=== PATIENT | female | born 1940 | race Caucasian/White ===

== ENCOUNTER 2021-05-01 11:41 | Outpatient (REF) | payer MEDICARE, MEDICAID, SELFPAY ==
--- NOTE | ~2021-05-01 | XR_ITS ---
EXAMINATION: XR HIP, RIGHT CLINICAL INFORMATION: Pain in right hip COMPARISON: Pelvis radiograph from 10/24/2019 TECHNIQUE: Two views of the right hip. FINDINGS: No acute visible fracture or dislocation. 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 Joint spaces and alignment are otherwise maintained. Pelvic phleboliths are noted. Visualized bowel gas is unremarkable. Soft tissues are unremarkable. XR/XR hip RT min 2V IMPRESSION: 1. No acute visible fracture or dislocation. 2. 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
== END 2021-05-01 11:42 | disposition home or self-care (01) ==
LOC: HO.XRAY 11:41
PROVIDERS: PCP Internal Medicine; Visit Provider Nurse Practitioner Family
DX: M25.551 Pain in right hip (principal)
CPT/HCPCS: 73502

== ENCOUNTER 2021-05-31 18:07 | Emergency (ER) | payer MEDICARE, MEDICAID, SELFPAY ==
[2021-05-31 18:30] VITALS: BP 201/90; PULSE 64; RESP 16; TEMP 36.7; O2SAT 97; BMI 27.4
--- NOTE | 2021-05-31 18:44 | ED_ITS ---
HPI - Dental/Oral General Chief complaint: Dental/Oral Stated complaint: tooth infection Time Seen by Provider: 05/31/21 18:41 Source: patient Mode of arrival: ambulatory Limitations: no limitations History of Present Illness HPI Narrative: 80-year-old female presenting to the ER with a right sided upper dental pain for the last 2 days. She reports breaking and upper 2s about 2 weeks ago but did not start having pain until about 2 days ago. She reports not being able to chew on the right side of her mouth because of the pain. She is also having trouble sleeping because the pain. She has had several tooth e xtractions and knows that she needs more taken out but she only gets 1 or 2 done at a time because is a lot for her. She has been taking Celebrex for pain as she has ongoing hip pain however this has not been having her dental pain. She has no fever or chills. No nausea or vomiting MD Complaint: tooth pain and tooth injury Location: Tooth # (3) Onset (ago): day(s) (2) Duration: constant Severity: severe Severity scale (1-10): 8 Relieving factors: nothing Exacerbating factors: chewing Context: trauma (mechanism) and poor dental care Associated symptoms: gum swelling Treatment prior to arrival: none Related Data Home Medications Medication Instructions Recorded Confirmed aspirin 81 mg tablet,delayed 81 mg PO DAILY 05/01/21 05/01/21 release multivitamin 1 tab PO DAILY 05/01/21 05/01/21 Previous Rx's Medication Instructions Recorded lidocaine 4 % topical patch 1 patch TOPICAL DAILY PRN #10 ea 05/01/21 (Aspercreme (lidocaine)) celecoxib 200 mg capsule (Celebrex) 200 mg PO BID PRN 30 Days #60 cap 05/19/21 hydrocodone 5 mg-acetaminophen 325 1 tab PO Q6H PRN #8 tab NS 05/31/21 mg tablet ondansetron 4 mg disintegrating 4 mg PO DAILY PRN #10 tab NS 05/31/21 tablet penicillin V potassium 500 mg 500 mg PO TID #21 tab NS 05/31/21 tablet Allergies Allergy/AdvReac Type Severity Reaction Status Date / Time guaifenesin [From Mucinex] Allergy Severe THROAT Verified 05/19/21 08:43 CLOSING propoxyphene [From Darvon] Allergy Mild VOMITING Verified 05/19/21 08:43 diclofenac Allergy Unknown voilently Verified 05/19/21 08:43 ill GENERIC MEDS Allergy Mild HIVES Uncoded 05/01/21 10:58 all generic brands Allergy Unknown Hives Uncoded 05/01/21 10:58 Review of Systems Review of Systems: Constitutional: No Fever, No Chills ENT/Mouth: No sore throat, No Rhinorrhea, No Swallowing Difficulty, +toothache, +broken tooth Eyes: No vision changes Cardiovascular: No Chest Pain, No SOB Gastrointestinal: No Nausea, No Vomiting Musculoskeletal: + joint pain, No Myalgias Skin: No Skin Lesions, No rash Neuro: No Weakness, No Numbness, No Dizziness, + Headache Psych: + Anxiety/Panic, No Depression Heme/Lymph: No Bruising, No Lymphadenopathy PMFSH Past Medical History Surgical History (Updated 05/01/21 @ 10:46 by KESHAWN Madrigal) History of 2 sections History of removal of cyst Family History Family History (Updated 05/01/21 @ 10:47 by KESHAWN Madrigal) Mother No problems noted. Father Substance use disorder Social History Social History (Updated 05/01/21 @ 10:48 by KESHAWN Madrigal) Housing: House Alcohol intake: never Patient Tobacco Use Status: Current someday Tobacco user Tobacco use type: Cigarette Cigarettes Per Day: 6 Advance Directives: No Advance Directives Information Provided: Yes service: No Current occupational status: retired Physical Exam Vital Signs: Vital Signs: Last Vital Signs Temp 98.0 F 05/31/21 18:30 Pulse 64 05/31/21 18:30 Resp 16 05/31/21 18:30 BP 201/90 H 05/31/21 18:30 Pulse Ox 97 05/31/21 18:30 Body Mass Index 27.4 Appearance: Alert. Oriented X3. No acute distress. HEENT: normal external inspection, face is symmetrical. Moist mucous membranes. Poor dentition. Left upper 2nd molar is broken with associated gingival swelling and erythema, no gingival fluctuance but there is some tenderness. Tooth is badly broken with exposed enamel. No palpable abscess. No trismus. Voice is normal handling secretions normally CVS: Normal heart rate and rhythm. Pulses normal. Respiratory: No respiratory distress. Skin: Skin warm and dry. Normal skin color. Normal skin turgor. No rashes. Extremities: Atraumatic, no swelling in her lower extremities Neuro: Oriented X 3. No motor deficit. No sensory deficit. Course Course Course Narrative: 80-year-old female presenting to the ER with right upper dental pain in the setting of a broken tooth. She presents today with her son who she lives with. Her dentist in [place] and a plan to call them 1st thing on Wednesday morning. They know this tooth needs to be removed. There does appear to be some mild erythema and edema with possible early infection. Will start on antibiotics and pain medication. She previously tolerated [place]. Will give a dose of that now and reassess. Her blood pressure was significantly elevated on arrival with systolic blood pressure of 200. She denies any history of hypertension. She has no chest pain, headache, dizziness, vision changes. Will medicate for pain and reassess her blood pressure. Reevaluation(s) Reevaluation #1: Repeat blood pressure without pain medications is improved to 180/80. She continues to complain of severe dental pain. She reports intolerance to generic medications including generic pain medications and generic antibiotics. However the pharmacy here only carries generic medications. Given her pain she is willing to premedicate with sublingual Zofran and then take the prescribed penicillin and [place] for pain. Will monitor in the ER to make sure she does have an adverse reaction. Her prior adverse reactions are vomiting. Reevaluation #2: Patient tolerated the medications well. She is stable for discharge home. She was given paper script so that her son can find pharmacies the carry the name brand of the medications. Discharge Plan Discharge Clinical Impression: Toothache Hypertension Qualifiers: Hypertension type: unspecified Qualified Code(s): I10 - Essential (primary) hypertension Patient Disposition: Home, Self-Care Instructions: Hypertension (ED), Toothache (ED) Additional Instructions: Take the prescribed antibiotic as directed for 1 week. Recommend following up with your dentist JEAN. Take the prescribed narcotic medication as needed for severe pain, do not drive or drink any alcohol with this medication. It can make you drowsy and lethargic. Avoid food that is very hot or very cold. Follow-up with your doctor next week for evaluation of high blood pressure. This could be pain related however her blood pressure was significantly elevated and you need to be followed up by your doctor. Prescriptions: New hydrocodone-acetaminophen 5-325 mg tablet 1 tab PO Q6H PRN (Reason: pain) Qty: 8 RF: 0 penicillin V potassium 500 mg tablet 500 mg PO TID Qty: 21 RF: 0 ondansetron 4 mg tablet,disintegrating 4 mg PO DAILY PRN (Reason: nausea and vomiting) Qty: 10 RF: 0 No Action multivitamin Tablet 1 tab PO DAILY RF: 0 aspirin 81 mg tablet,delayed release (DR/EC) 81 mg PO DAILY RF: 0 lidocaine [Aspercreme (lidocaine HCl)] 4 % adhesive patch,medicated 1 patch topical DAILY PRN (Reason: pain) Qty: 10 RF: 0 celecoxib [Celebrex] 200 mg capsule 200 mg PO BID PRN (Reason: pain) 30 Days Qty: 60 RF: 3
[2021-05-31] MEDS: Ondansetron ODT 4 MG TAB.RAPDIS TRANSLINGU (19:32)
[2021-05-31] MEDS: Penicillin V Potassium 250 MG TABLET 500 MG PO (19:34)
--- NOTE | 2021-05-31 19:36 | PC.NURSE ---
PT STATES THAT ALL NO BRAND NAMED MEDICATION MAKES HER VIOLENTLY ILL SPOKE WITH PHARMACY AND WE DO NOT CARRY ANY BRAND NAME MEDICATION. PT AGREE WITH SON TO TAKE ZOFRAN AND TRY TO TAKE PAIN MEDICATION.
[2021-05-31] MEDS: HYDROcodone Bit/Acetam 5/325 TABLET 1 TAB PO (20:00)
--- NOTE | 2021-05-31 20:23 | PC.NURSE ---
PT WAS ABLE TO TOLERATE GENERIC MEDICATION WITH ZOFRAN NO NAUSEA.
== END 2021-05-31 20:32 | disposition home or self-care (01) ==
PROVIDERS: Emergency Provider Emergency Medicine Emergency Medical Services; PCP Internal Medicine
DX: K08.89 Other specified disorders of teeth and supporting structures (principal); I10 Essential (primary) hypertension; Z79.899 Other long term (current) drug therapy; Z79.82 Long term (current) use of aspirin; F17.210 Nicotine dependence, cigarettes, uncomplicated; Z71.6 Tobacco abuse counseling
CPT/HCPCS: 99283; 99284

== ENCOUNTER 2021-07-23 08:11 | Outpatient (REF) | payer MEDICARE, MEDICAID, SELFPAY | END 2021-07-23 08:12 | disposition home or self-care (01) | LOC: HO.HOSX 08:11 | PROVIDERS: Visit Provider Physician Assistant | DX: Z13.89 Encounter for screening for other disorder (principal) ==

== ENCOUNTER 2022-02-20 14:04 | Emergency (ER) | payer MEDICARE, SELFPAY | END 2022-02-20 16:05 | disposition left against medical advice (07) | PROVIDERS: Emergency Provider Emergency Medicine | DX: R69 Illness, unspecified (principal) ==

== ENCOUNTER 2022-07-08 07:13 | Outpatient (REF) | payer MEDICARE, SELFPAY ==
--- NOTE | ~2022-07-08 | XR_ITS ---
EXAMINATION: XR HIP, RIGHT WITH PELVIS CLINICAL INFORMATION: Pain in hip. COMPARISON: X-ray of the right hip April 2021. X-ray of the pelvis October 2013. TECHNIQUE: Two views of the right hip. FINDINGS: RIGHT HIP: No joint space narrowing. Surrounding bone is normal. There is a focal area of calcification adjacent to the greater trochanter measuring approximately 6 mm. PELVIS: Right hip, as above. Otherwise, the bones, joints and soft tissues are unremarkable XR/XR hip RT w PEL1V IMPRESSION: RIGHT HIP: Calcification adjacent to the greater trochanter. This can be seen with calcific tendinitis. PELVIS: No additional findings/abnormalities.
== END 2022-07-08 07:14 | disposition home or self-care (01) ==
LOC: HO.HOSX 07:13
PROVIDERS: Visit Provider Physician Assistant
DX: M70.61 Trochanteric bursitis, right hip (principal)
CPT/HCPCS: 20610; 73502; 99202; J1040

== ENCOUNTER 2022-09-08 11:29 | Outpatient (REF) | payer MEDICARE, SELFPAY ==
--- NOTE | ~2022-09-08 | XR_ITS ---
EXAMINATION: XR CHEST CLINICAL INFORMATION: Cough COMPARISON: None TECHNIQUE: 2 views of the chest were obtained. FINDINGS: No significant abnormality is noted involving the heart, lungs, mediastinum, bony thorax or soft tissues. XR/XR chest 2V IMPRESSION: Unremarkable chest examination.
== END 2022-09-08 11:30 | disposition home or self-care (01) ==
LOC: HO.XRAY 11:29
PROVIDERS: PCP Family Medicine; Visit Provider Family Medicine
DX: R05.9 Cough, unspecified (principal)
CPT/HCPCS: 71046

== ENCOUNTER 2022-11-19 05:55 | Emergency (ER) | payer MEDICARE, SELFPAY ==
--- NOTE | ~2022-11-19 | XR_ITS ---
EXAMINATION: XR CHEST CLINICAL INFORMATION: Cough. COMPARISON: Chest 09/08/2022 TECHNIQUE: Frontal view of the chest was obtained. FINDINGS: The lungs are well-expanded and clear. The heart size and pulmonary vascularity is normal. No gross bony abnormality seen. XR/XR chest 1V IMPRESSION: Unremarkable chest examination.
[2022-11-19 06:36] VITALS: BP 147/87; PULSE 51; RESP 14; TEMP 36.4; O2SAT 96; BMI 24.4
[2022-11-19 06:58] LABS: MANUAL DIFF FLAG NO
[2022-11-19 06:59] LABS: Basophils Absolute Auto 0.1 X10*3/uL (0.0-0.2); Eosinophils Absolute Auto 1.2 X10*3/uL (0.0-0.4); Eosinophils Percent Auto 18.2 % (0-4); Hematocrit 43.9 % (37.0-47.0); Hemoglobin 13.7 g/dl (12.0-16.0); Imm Gran Abs Auto 0.01 X10*3/uL (0.00-0.03); Imm Gran Pct Auto 0.1 % (0.0-0.4); Lymphocytes Absolute Auto 2.2 X10*3/uL (1.2-4.9); Lymphocytes Percent Auto 32.5 % (20-40); Mean Corpuscular HGB Conc 31.2 g/dl (31.0-35.0); Mean Corpuscular Hemoglobin 26.8 pg (27.0-33.0); Mean Corpuscular Volume 85.7 fL (80.0-98.0); Mean Platelet Volume 8.6 fL (9.4-12.3); Monocytes Absolute Auto 0.5 X10*3/uL (0.1-1.2); Monocytes Percent Auto 7.9 % (2-11); Neutrophils Absolute Auto 2.7 x10*3/uL (2.0-8.3); Neutrophils Percent Auto 40.3 % (45-73); Platelet Count 292 X10*3/uL (160-400); Red Blood Count 5.12 X10*6/uL (4.20-5.50); Red Cell Distribution Width 13.3 % (11.0-16.0); White Blood Count 6.7 X10*3/uL (4.8-10.8)
[2022-11-19 07:07] VITALS: BP 147/78; PULSE 51; RESP 16; TEMP 36.4; O2SAT 95
[2022-11-19 07:14] LABS: Alanine Aminotransferase 10 U/L (0-31); Alkaline Phosphatase 101 U/L (39-117); Anion Gap 14 (12-20); Aspartate Amino Transferase 17 U/L (5-31); Bilirubin Total 0.4 mg/dL (0.0-1.0); Blood Urea Nitrogen 11 mg/dL (9-16); Calcium 9.2 mg/dL (8.4-10.2); Carbon Dioxide 25 mmol/L (22-29); Chloride 106 mmol/L (96-108); Estimated Glomerular Filt Rate > 60; Glucose Random 91 mg/dL (60-115); Potassium 4.4 mmol/L (3.3-5.1); Sodium 141 mmol/L (135-145); Total Protein 6.7 g/dL (6.5-8.0)
--- NOTE | 2022-11-19 07:25 | PC.NURSE ---
pt reporting persistent cough and SOB on exertion. Denies other symptoms. bilateral exp wheezing in upper lungs
--- NOTE | 2022-11-19 07:44 | ED_ITS ---
HPI - General Adult General Chief complaint: Upper Respiratory Symptoms Stated complaint: cough Time Seen by Provider: 11/19/22 07:15 Source: patient Mode of arrival: ambulatory Limitations: no limitations History of Present Illness HPI narrative: 82-year-old female former smoker patient quit 6 months ago, recently had bronchitis in March was treated with prednisone. Patient came in with cough for the last month patient had multiple evaluation by PCP and emergency room visit for the coughing, no fever, no chills, no sick contacts, no recent travel. Patient has been using [id number] coughing medicine with no relief. Feels sputums stuck in her chest and cannot bring it up. Related Data Previous Rx's Medication Instructions Recorded naphazoline 0.76840 %-pheniramine 1 drp ophthalmic (eye) BID-QID PRN 09/14/22 0.315 % eye drops (Opcon-A) allergy symptoms #15 mL azithromycin 250 mg tablet See Rx Instructions PO .COMPLEX #6 11/19/22 (Zithromax Z-Farooq) tabs Allergies Allergy/AdvReac Type Severity Reaction Status Date / Time guaifenesin [From Mucinex] Allergy Severe THROAT Verified 09/14/22 09:16 CLOSING propoxyphene [From Darvon] Allergy Mild VOMITING Verified 09/14/22 09:16 diclofenac Allergy Unknown voilently Verified 09/14/22 09:16 ill GENERIC MEDS Allergy Mild HIVES Uncoded 09/14/22 09:16 prednisone Allergy Mild Hives Uncoded 09/14/22 09:16 all generic brands Allergy Unknown Hives Uncoded 09/14/22 09:16 Review of Systems Review of Systems: All other systems are reviewed and are negative Constitutional: Reports as per HPI and Reports no additional constitutional complaints Eyes: Reports as per HPI and Reports no additional eye complaints Reports system reviewed and no additional complaints, except as documented Cardiovascular: Reports as per HPI and Reports no additional cardiovascular complaints Respiratory: Reports as per HPI and Reports no additional respiratory complaints Gastrointestinal: Reports as per HPI and Reports no additional gastrointestinal complaints Genitourinary: Reports no additional female genitourinary complaints Musculoskeletal: Reports no additional musculoskeletal complaints Skin/Breast: Reports system reviewed and no additional complaints, except as docu Psychiatric: Reports no additional psychiatric complaints Endocrine: Reports no additional endocrine complaints Hematologic/Lymphatic: Reports no additional hematologic/lymphatic complaints Allergic/Immunologic: Reports no additional allergic/immunologic complaints Reports system reviewed and no additional complaints, except as documented and Reports Abnormal speech present COUNTS INCLUDE 234 BEDS AT THE [facility] Past Medical History Surgical History History of 2 sections History of removal of cyst Family History Family History Mother No problems noted. Father Substance use disorder Social History Social History Housing: House Alcohol intake: never Patient Tobacco Use Status: Former Tobacco user Tobacco use type: Cigarette Cigarettes Per Day: 6 Smoked in Last 30 Days: No Use of substances other than those prescribed or required for medical reasons: No Advance Directives: Yes Advance Directives Information Provided: No Advance Directives on File: No service: No Current occupational status: retired Physical Exam ED Vital Signs: Vital Signs - 24 hr 11/19/22 06:36 11/19/22 07:07 11/19/22 07:07 Temperature 97.5 F 97.5 F Pulse Rate 51 51 Respiratory Rate 14 16 Blood Pressure 147/87 H 147/78 H Pulse Oximetry 96 95 95 Oxygen Delivery Method Room Air Room Air Room Air 11/19/22 07:56 Temperature Pulse Rate 46 L Respiratory Rate 16 Blood Pressure Pulse Oximetry Oxygen Delivery Method BMI result Body Mass Index 24.4 Vital signs have been reviewed as appeared to be correct. Blood pressure n ormal. Heart rate normal. Respiration rate normal. Temperature normal. Oxygen saturation normal. Appearance: Alert. Oriented X3. No acute distress. Head: Normal external exam. Normocephalic. Atraumatic. No Scruggs signs noted. No raccoon eyes noted Eyes: PERRLA. EOMI. Conjunctiva and sclera normal. Eyelids normal. ENT: TM's Normal. Pharynx normal. Uvula midline. Moist mucous membranes. No trismus noted. No drooling noted. No muffled voice noted. Neck: Normal inspection. Neck supple. FROM. No adenopathy. Thyroid Normal. No meningeal signs. No neck mass noted. CVS: Normal heart rate and rhythm. Heart sound normal. No murmurs noted. Pulses normal throughout. Respiratory: No respiratory distress. Painless inspiration. Breath sounds normal. No wheezes/rales/rhonchi noted. Chest nontender. No accessory muscle usage noted or decreased air movement noted. Abdomen: Soft and nontender. Bowel sounds normal in all 4 quadrants. No distention noted. No organomegaly noted. No visible injury noted. Back: No CVA tenderness. Full range of motion noted. Skin: Skin warm and dry. Normal skin color. Normal skin turgor. No rashes/lesions/lacerations noted. Extremities: No lower extremity edema. Extremities exhibit normal range of motion. Extremities nontender. Neuro: Oriented X 3. Cranial nerve exam: II-XII are grossly intact No motor deficit. No sensory deficit. Reflexes normal. Course Course Course Narrative: 82-year-old female with coughing for a month, will start the patient on Z-Farooq to treat subtle bronchitis. Medications Administered Discontinued Medications Generic Name Dose Route Start Last Admin Trade Name Freq PRN Reason Stop Dose Admin Acetaminophen/Codeine Phosphate 10 ml 11/19/22 07:43 11/19/22 07:59 Acetaminop/Codeine 120/12/5 Ml 5 Ml Solution PO 11/19/22 07:44 Not Given ONCE ONE Albuterol/Ipratropium 3 ml 11/19/22 07:42 11/19/22 07:54 Albuterol/Iprat 2.5/0.5mg 3 Ml Ampul.Neb INHALE 11/19/22 07:43 3 ml ONCE ONE Administration Prednisone 50 mg 11/19/22 07:42 11/19/22 07:59 Prednisone 10 Mg Tablet PO 11/19/22 07:43 Not Given ONCE ONE Medical Decision Making Differential Diagnosis Differential Diagnoses: The differential diagnosis associated with the presentation includes (Bronchitis, pneumonia, upper respiratory viral infection.) Admission/Observation Consideration of admission/observation: Escalation of care including admission/observation considered Lab Data MDM Lab Attestation statement: I reviewed the patient's lab results. 11/19/22 06:50 11/19/22 06:50 Labs: Lab Results 11/19/22 11/19/22 11/19/22 Range/Units 06:50 06:50 06:50 WBC 6.7 (4.8-10.8) X10*3/uL RBC 5.12 (4.20-5.50) X10*6/uL Hgb 13.7 (12.0-16.0) g/dl Hct 43.9 (37.0-47.0) % MCV 85.7 (80.0-98.0) fL MCH 26.8 L (27.0-33.0) pg MCHC 31.2 (31.0-35.0) g/dl RDW 13.3 (11.0-16.0) % Plt Count 292 (160-400) X10*3/uL MPV 8.6 L (9.4-12.3) fL Immature Gran % (Auto) 0.1 (0.0-0.4) % Neut % (Auto) 40.3 L (45-73) % Lymph % (Auto) 32.5 (20-40) % [place] % (Auto) 7.9 (2-11) % Eos % (Auto) 18.2 H (0-4) % Baso % (Auto) 1.0 (0-2) % Lymph # (Auto) 2.2 (1.2-4.9) X10*3/uL [place] # (Auto) 0.5 (0.1-1.2) X10*3/uL Eos # (Auto) 1.2 H (0.0-0.4) X10*3/uL Baso # (Auto) 0.1 (0.0-0.2) X10*3/uL Abs Immat Gran (auto) 0.01 (0.00-0.03) X10*3/uL Absolute Neuts (auto) 2.7 (2.0-8.3) x10*3/uL Absolute Nucleated RBC 0.000 (0.0-0.012) X10*3/uL Nucleated RBC % (auto) 0.0 (0.0-0.2) /100WBC Sodium 141 (135-145) mmol/L Potassium 4.4 (3.3-5.1) mmol/L Chloride 106 (96-108) mmol/L Carbon Dioxide 25 (22-29) mmol/L Anion Gap 14 (12-20) BUN 11 (9-16) mg/dL Creatinine 0.78 (0.5-1.4) mg/dL Estim Creat Clear Calc 42.0 Estimated GFR > 60 Random Glucose 91 (60-115) mg/dL Calcium 9.2 (8.4-10.2) mg/dL Total Bilirubin 0.4 (0.0-1.0) mg/dL AST 17 (5-31) U/L ALT 10 (0-31) U/L Alkaline Phosphatase 101 (39-117) U/L Total Protein 6.7 (6.5-8.0) g/dL Albumin 4.0 (3.5-5.0) g/dL Influenza Type A (PCR) NEGATIVE (Negative) Influenza Type B (PCR) NEGATIVE (Negative) RSV RNA Qual (PCR) NEGATIVE (Negative) SARS-CoV-2 RNA (RT-PCR) NEGATIVE (Negative) Independent Interpretation I performed an independent interpretation of an: Plain X-Ray (Chest: No acute intrathoracic pathology.) Radiology Impression Discussion of test interpretation with radiology: I have reviewed the radiologist's reading. Discharge Plan Discharge Clinical Impression: Bronchitis, Cough Patient Disposition: Home, Self-Care Instructions: Acute Bronchitis (ED) Prescriptions: New azithromycin [Zithromax Z-Farooq] 250 mg tablet See Rx Instructions .ROUTE .COMPLEX Qty: 6 0RF Rx Instructions: For 250 mg dose pack: take 500 mg today (day 1), then 250 mg for 4 days (days 2-5) No Action Opcon-A 0.62611-1.315 % drops 1 drp ophthalmic (eye) BID-QID PRN (Reason: allergy symptoms) Qty: 15 3RF Referrals: Erinn Gary MD [Primary Care Provider] -
[2022-11-19 07:50] LABS: Influenza A PCR NEGATIVE (Negative); Influenza B PCR NEGATIVE (Negative); Resp Syncy Virus RNA Qual PCR NEGATIVE (Negative); SARS COV2 PCR INHOUSE NEGATIVE (Negative)
[2022-11-19] MEDS: Albuterol/Iprat 2.5/0.5MG 3 ML AMPUL.NEB INHALE (07:54)
--- NOTE | 2022-11-19 07:55 | MHC.EDTECH ---
Patient refuse to obtain blood work. stated Need to leave to feed horse RN aware and .
[2022-11-19 07:56] VITALS: PULSE 46; RESP 16; O2SAT 100
--- NOTE | 2022-11-19 08:03 | PC.NURSE ---
pt refusing po medication, stated I dont take generic medications will notify provider
[2022-11-19 10:00] VITALS: BP 144/72; PULSE 54; RESP 16; TEMP 36.7; O2SAT 96
== END 2022-11-19 10:22 | disposition home or self-care (01) ==
PROVIDERS: Emergency Provider Emergency Medicine; PCP Internal Medicine
DX: J40 Bronchitis, not specified as acute or chronic (principal); R05.9 Cough, unspecified; Z87.891 Personal history of nicotine dependence; Z20.822 Contact with and (suspected) exposure to COVID-19; Z20.828 Contact with and (suspected) exposure to other viral communicable diseases; Z79.899 Other long term (current) drug therapy
CPT/HCPCS: 0241U; 71045; 80053; 85025; 94640; 99284; 99285

== ENCOUNTER 2022-11-24 11:03 | Emergency (ER) | payer MEDICARE, SELFPAY ==
--- NOTE | ~2022-11-24 | XR_ITS ---
EXAMINATION: XR CHEST CLINICAL INFORMATION: Cough. COMPARISON: None available. TECHNIQUE: Frontal view of the chest was obtained. FINDINGS: No significant abnormality is noted involving the heart, lungs, mediastinum, bony thorax or soft tissues. XR/XR chest 1V IMPRESSION: Unremarkable chest exam.
--- NOTE | 2022-11-24 11:22 | ECG_ITS ---
Test Reason : COUGH Blood Pressure : / mmHG Vent. Rate : 051 BPM Atrial Rate : 051 BPM P-R Int : 180 ms QRS Dur : 082 ms QT Int : 452 ms P-R-T Axes : 064 010 034 degrees QTc Int : 416 ms Sinus bradycardia Nonspecific ST and T wave abnormality Abnormal ECG When compared with ECG of 09-MAY-2017 16:50, No significant change was found Referred By: Rahul Sylvester Electronically Signed By:DAIN SOTELO
--- NOTE | 2022-11-24 11:27 | ED.SOB ---
HPI - SOB/Dyspnea General Chief Complaint: Upper Respiratory Symptoms Stated Complaint: Pneumonia Cough Time Seen by Provider: 11/24/22 13:00 Related Data Previous Rx's Medication Instructions Recorded naphazoline 0.98442 %-pheniramine 1 drp ophthalmic (eye) BID-QID PRN 09/14/22 0.315 % eye drops (Opcon-A) allergy symptoms #15 mL benzonatate 100 mg capsule 100 mg PO TID PRN cough #30 caps 11/20/22 pqaireafrubukhw-oofwdhypeinxllo-VP 5 ml PO Q6H PRN cold symptoms #60 11/20/22 2 mg-30 mg-10 mg/5 mL oral syrup mL hydrocodone-homatropine 5 mg-1.5 5 ml PO Q4-6H PRN cough #60 mL 11/23/22 mg/5 mL (5 mL) oral syrup (Hycodan) benzonatate 200 mg capsule 200 mg PO TID PRN cough #10 caps 11/24/22 prednisone 20 mg tablet 40 mg PO DAILY #10 tabs 11/24/22 acetaminophen 120 mg-codeine 12 10 ml PO Q4-6H PRN cough #118 mL 12/03/22 mg/5 mL oral solution levalbuterol tartrate 45 2 puff inhalation Q4-6H PRN 12/11/22 mcg/actuation aerosol inhaler shortness of breath #15 grams (Xopenex HFA) hydroxyzine pamoate 25 mg capsule 25 mg PO TID PRN for anxiety #20 12/14/22 caps Allergies Allergy/AdvReac Type Severity Reaction Status Date / Time guaifenesin [From Mucinex] Allergy Severe THROAT Verified 12/11/22 10:30 CLOSING propoxyphene [From Darvon] Allergy Mild VOMITING Verified 12/11/22 10:30 diclofenac Allergy Unknown voilently Verified 12/11/22 10:30 ill GENERIC MEDS Allergy Mild HIVES Uncoded 09/14/22 09:16 prednisone Allergy Mild Hives Uncoded 09/14/22 09:16 all generic brands Allergy Unknown Hives Uncoded 09/14/22 09:16 albuterol sulfate AdvReac Unknown Uncoded 12/11/22 13:06 [facility] Past Medical History Surgical History History of 2 sections History of removal of cyst Family History Family History Mother No problems noted. Father Substance use disorder Social History Social History Housing: House Alcohol intake: never Patient Tobacco Use Status: Former Tobacco user Tobacco use type: Cigarette Cigarettes Per Day: 6 e-Cigarette/Vaping Use: Never Used service: No Current occupational status: retired Cognitive needs: No Hearing needs: No Vision needs: No Physical Exam Vital Signs: Vital Signs: Last Vital Signs Temp 98.1 F 11/24/22 12:29 Pulse 90 11/24/22 15:04 Resp 22 H 11/24/22 15:04 BP 159/74 H 11/24/22 15:04 Pulse Ox 96 11/24/22 15:06 O2 Del Method Room Air 11/24/22 15:06 Oxygen Flow Rate 2 11/24/22 12:29 BMI result Body Mass Index 23.6 Course Course Course Narrative: This is an RME: Additional HPI, ROS, PE not included below will be deferred to primary provider. 82-year-old female seen here a few days ago and diagnosed with pneumonia presents with shortness of breath, worsening cough, fatigue, malaise. Patient poor historian. She also reports nausea. Denies chest pain. Physical exam benign. Patient is saturating 90% on room air. Heart rate 140s. Temperature 98.1 degrees oral Called charge nurse to make her aware of this patient. Plan basic labs, x-ray, blood cultures, lactic acid. Medications Administered Discontinued Medications Generic Name Dose Route Start Last Admin Trade Name Yeni PRN Reason Stop Dose Admin Albuterol/Ipratropium 3 ml 11/24/22 13:10 11/24/22 13:52 Albuterol/Iprat 2.5/0.5mg 3 Ml Ampul.Neb INHALE 11/24/22 13:11 3 ml ONCE ONE Administration Benzonatate 200 mg 11/24/22 15:08 11/24/22 15:19 Benzonatate 100 Mg Capsule PO 11/24/22 15:09 200 mg ONCE ONE Administration Hydromorphone HCl 0.25 mg 11/24/22 13:29 11/24/22 14:23 Hydromorphone Hcl 0.5 Mg/0.5 Ml Syringe IVPUSH 11/24/22 13:30 0.25 mg ONCE ONE Administration Protocol Sodium Chloride 1,000 mls @ 999 mls/hr 11/24/22 13:30 11/24/22 15:04 Ns IV 11/24/22 14:30 Infused .Q1H1M JAYDEN Infusion Methylprednisolone Sodium Succinate 125 mg 11/24/22 13:10 11/24/22 13:23 Methylprednisolone Sod Succ 125 Mg/2 Ml Vial IVPUSH 11/24/22 13:11 125 mg ONCE ONE Administration Ondansetron HCl 4 mg 11/24/22 12:30 11/24/22 13:23 Ondansetron Hcl 4 Mg/2 Ml Vial IVPUSH 11/24/22 12:31 4 mg ONCE ONE Administration Ondansetron HCl 4 mg 11/24/22 13:18 11/24/22 13:23 Ondansetron Hcl 4 Mg/2 Ml Vial IVPUSH 11/24/22 13:19 Not Given ONCE ONE Medical Decision Making Lab Data 11/24/22 12:18 11/24/22 12:18 Labs: Lab Results 11/24/22 11/24/22 11/24/22 Range/Units 12:18 12:18 12:18 WBC 8.9 (4.8-10.8) X10*3/uL RBC 4.80 (4.20-5.50) X10*6/uL Hgb 13.1 (12.0-16.0) g/dl Hct 41.5 (37.0-47.0) % MCV 86.5 (80.0-98.0) fL MCH 27.3 (27.0-33.0) pg MCHC 31.6 (31.0-35.0) g/dl RDW 13.2 (11.0-16.0) % Plt Count 265 (160-400) X10*3/uL MPV 9.0 L (9.4-12.3) fL Immature Gran % (Auto) 0.3 (0.0-0.4) % Neut % (Auto) 80.9 H (45-73) % Lymph % (Auto) 11.1 L (20-40) % [place] % (Auto) 4.4 (2-11) % Eos % (Auto) 2.6 (0-4) % Baso % (Auto) 0.7 (0-2) % Lymph # (Auto) 1.0 L (1.2-4.9) X10*3/uL [place] # (Auto) 0.4 (0.1-1.2) X10*3/uL Eos # (Auto) 0.2 (0.0-0.4) X10*3/uL Baso # (Auto) 0.1 (0.0-0.2) X10*3/uL Abs Immat Gran (auto) 0.03 (0.00-0.03) X10*3/uL Absolute Neuts (auto) 7.2 (2.0-8.3) x10*3/uL Absolute Nucleated RBC 0.000 (0.0-0.012) X10*3/uL Nucleated RBC % (auto) 0.0 (0.0-0.2) /100WBC Sodium 135 (135-145) mmol/L Potassium 4.5 (3.3-5.1) mmol/L Chloride 102 (96-108) mmol/L Carbon Dioxide 25 (22-29) mmol/L Anion Gap 13 (12-20) BUN 13 (9-16) mg/dL Creatinine 0.76 (0.5-1.4) mg/dL Estim Creat Clear Calc 44.4 Estimated GFR > 60 Random Glucose 118 H (60-115) mg/dL Lactic Acid (0.5-2.0) mmol/L Calcium 9.3 (8.4-10.2) mg/dL Magnesium 1.7 (1.6-2.6) mg/dL Total Bilirubin 0.5 (0.0-1.0) mg/dL AST 19 (5-31) U/L ALT 11 (0-31) U/L Alkaline Phosphatase 107 (39-117) U/L Troponin I High Sens (<3.5-17.0) ng/L B-Natriuretic Peptide 49 (<100) pg/mL Total Protein 7.2 (6.5-8.0) g/dL Albumin 4.5 (3.5-5.0) g/dL COVID-19 (MAURISIO) (Negative) COVID-19 Clin Com 0411/24/22 11/24/22 Range/Units 12:18 12:18 12:18 WBC (4.8-10.8) X10*3/uL RBC (4.20-5.50) X10*6/uL Hgb (12.0-16.0) g/dl Hct (37.0-47.0) % MCV (80.0-98.0) fL MCH (27.0-33.0) pg MCHC (31.0-35.0) g/dl RDW (11.0-16.0) % Plt Count (160-400) X10*3/uL MPV (9.4-12.3) fL Immature Gran % (Auto) (0.0-0.4) % Neut % (Auto) (45-73) % Lymph % (Auto) (20-40) % [place] % (Auto) (2-11) % Eos % (Auto) (0-4) % Baso % (Auto) (0-2) % Lymph # (Auto) (1.2-4.9) X10*3/uL [place] # (Auto) (0.1-1.2) X10*3/uL Eos # (Auto) (0.0-0.4) X10*3/uL Baso # (Auto) (0.0-0.2) X10*3/uL Abs Immat Gran (auto) (0.00-0.03) X10*3/uL Absolute Neuts (auto) (2.0-8.3) x10*3/uL Absolute Nucleated RBC (0.0-0.012) X10*3/uL Nucleated RBC % (auto) (0.0-0.2) /100WBC Sodium (135-145) mmol/L Potassium (3.3-5.1) mmol/L Chloride (96-108) mmol/L Carbon Dioxide (22-29) mmol/L Anion Gap (12-20) BUN (9-16) mg/dL Creatinine (0.5-1.4) mg/dL Estim Creat Clear Calc Estimated GFR Random Glucose (60-115) mg/dL Lactic Acid 1.2 (0.5-2.0) mmol/L Calcium (8.4-10.2) mg/dL Magnesium (1.6-2.6) mg/dL Total Bilirubin (0.0-1.0) mg/dL AST (5-31) U/L ALT (0-31) U/L Alkaline Phosphatase (39-117) U/L Troponin I High Sens 2.9 (<3.5-17.0) ng/L B-Natriuretic Peptide (<100) pg/mL Total Protein (6.5-8.0) g/dL Albumin (3.5-5.0) g/dL COVID-19 (MAURISIO) Negative (Negative) COVID-19 Clin Com See Note Discharge Plan Discharge Clinical Impression: Bronchitis Patient Disposition: Home, Self-Care Instructions: Chronic Bronchitis (ED) Prescriptions: New prednisone 20 mg tablet 40 mg PO DAILY Qty: 10 0RF benzonatate 200 mg capsule 200 mg PO TID PRN (Reason: cough) Qty: 10 0RF No Action hydroxyzine pamoate 25 mg capsule 25 mg PO TID PRN (Reason: for anxiety) Qty: 20 0RF spejkgjjkjrupqw-sjpmbekyd-RM 2-30-10 mg/5 mL syrup 5 ml PO Q6H PRN (Reason: cold symptoms) Qty: 60 0RF benzonatate 100 mg capsule 100 mg PO TID PRN (Reason: cough) Qty: 30 0RF hydrocodone-homatropine [Hycodan] 5-1.5 mg/5 mL (5 mL) syrup 5 ml PO Q4-6H PRN (Reason: cough) Qty: 60 0RF Rx Instructions: Partial Fill upon patient request. acetaminophen-codeine 120-12 mg/5 mL solution 10 ml PO Q4-6H PRN (Reason: cough) Qty: 118 0RF Opcon-A 0.65462-7.315 % drops 1 drp ophthalmic (eye) BID-QID PRN (Reason: allergy symptoms) Qty: 15 3RF levalbuterol tartrate [Xopenex HFA] 45 mcg/actuation HFA aerosol inhaler 2 puff inhalation Q4-6H PRN (Reason: shortness of breath) Qty: 15 0RF Referrals: Erinn Gary MD [Primary Care Provider] - 2 days Interventions: ED Discharge Assessment Last Done: 11/24/22 15:24 Discharge Date/Time: 11/24/22 15:25
[2022-11-24 12:29] VITALS: BP 150/80; PULSE 53; RESP 16; TEMP 36.7; O2SAT 97; BMI 23.6
[2022-11-24 12:38] LABS: MANUAL DIFF FLAG NO
[2022-11-24 12:41] LABS: Basophils Absolute Auto 0.1 X10*3/uL (0.0-0.2); Basophils Percent Auto 0.7 % (0-2); Eosinophils Absolute Auto 0.2 X10*3/uL (0.0-0.4); Eosinophils Percent Auto 2.6 % (0-4); Hematocrit 41.5 % (37.0-47.0); Hemoglobin 13.1 g/dl (12.0-16.0); Imm Gran Abs Auto 0.03 X10*3/uL (0.00-0.03); Imm Gran Pct Auto 0.3 % (0.0-0.4); Lymphocytes Percent Auto 11.1 % (20-40); Mean Corpuscular HGB Conc 31.6 g/dl (31.0-35.0); Mean Corpuscular Hemoglobin 27.3 pg (27.0-33.0); Mean Corpuscular Volume 86.5 fL (80.0-98.0); Monocytes Absolute Auto 0.4 X10*3/uL (0.1-1.2); Monocytes Percent Auto 4.4 % (2-11); Neutrophils Absolute Auto 7.2 x10*3/uL (2.0-8.3); Neutrophils Percent Auto 80.9 % (45-73); Platelet Count 265 X10*3/uL (160-400); Red Cell Distribution Width 13.2 % (11.0-16.0); White Blood Count 8.9 X10*3/uL (4.8-10.8)
[2022-11-24 12:51] LABS: Lactic Acid 1.2 mmol/L (0.5-2.0)
[2022-11-24 12:54] LABS: COVID-19 Test Negative (Negative); IDNOW Serial# BCCEAD1C
[2022-11-24 12:56] LABS: Alanine Aminotransferase 11 U/L (0-31); Albumin Level 4.5 g/dL (3.5-5.0); Alkaline Phosphatase 107 U/L (39-117); Anion Gap 13 (12-20); Aspartate Amino Transferase 19 U/L (5-31); Bilirubin Total 0.5 mg/dL (0.0-1.0); Blood Urea Nitrogen 13 mg/dL (9-16); Calcium 9.3 mg/dL (8.4-10.2); Carbon Dioxide 25 mmol/L (22-29); Chloride 102 mmol/L (96-108); Creatinine Clr Calc Pharmacy 44.4; Estimated Glomerular Filt Rate > 60; Glucose Random 118 mg/dL (60-115); Magnesium 1.7 mg/dL (1.6-2.6); Potassium 4.5 mmol/L (3.3-5.1); Sodium 135 mmol/L (135-145); Total Protein 7.2 g/dL (6.5-8.0)
[2022-11-24 13:01] LABS: B Type Natriuretic Peptide 49 pg/mL (<100)
[2022-11-24 13:03] LABS: Troponin-I High Sensitivity 2.9 ng/L (<3.5-17.0)
--- NOTE | 2022-11-24 13:11 | ED.URI ---
HPI - URI/Sore Throat General Chief Complaint: Upper Respiratory Symptoms Stated Complaint: Pneumonia Cough Time Seen by Provider: 11/24/22 13:00 History of Present Illness HPI Narrative: Patient is 82 years old positive coughing upper respiratory symptom. Previous history of smoking. Patient was in the emergency department 5 days ago. Started on a Z-Farooq. He did have symptoms of coughing congestion upper respiratory symptoms generalized malaise. Related Data Previous Rx's Medication Instructions Recorded naphazoline 0.26511 %-pheniramine 1 drp ophthalmic (eye) BID-QID PRN 09/14/22 0.315 % eye drops (Opcon-A) allergy symptoms #15 mL azithromycin 250 mg tablet See Rx Instructions PO .COMPLEX #6 11/19/22 (Zithromax Z-Farooq) tabs benzonatate 100 mg capsule 100 mg PO TID PRN cough #30 caps 11/20/22 pokdsafxloziiua-cxibmkedgokveke-JO 5 ml PO Q6H PRN cold symptoms #60 11/20/22 2 mg-30 mg-10 mg/5 mL oral syrup mL hydrocodone-homatropine 5 mg-1.5 5 ml PO Q4-6H PRN cough #60 mL 11/23/22 mg/5 mL (5 mL) oral syrup (Hycodan) albuterol sulfate 90 mcg/actuation 2 puff inhalation Q6H PRN 11/24/22 aerosol inhaler shortness of breath or wheezing #8.5 grams prednisone 20 mg tablet 40 mg PO DAILY #10 tabs 11/24/22 Allergies Allergy/AdvReac Type Severity Reaction Status Date / Time guaifenesin [From Mucinex] Allergy Severe THROAT Verified 09/14/22 09:16 CLOSING propoxyphene [From Darvon] Allergy Mild VOMITING Verified 09/14/22 09:16 diclofenac Allergy Unknown voilently Verified 09/14/22 09:16 ill GENERIC MEDS Allergy Mild HIVES Uncoded 09/14/22 09:16 prednisone Allergy Mild Hives Uncoded 09/14/22 09:16 all generic brands Allergy Unknown Hives Uncoded 09/14/22 09:16 Review of Systems Review of Systems: She has not used given positive coughing congestion upper respiratory symptoms. Yes all other systems are reviewed and are negative PMFSH Past Medical History Attestation statement: The following information was validated with the patient. Surgical History History of 2 sections History of removal of cyst Family History Family History Mother No problems noted. Father Substance use disorder Social History Social History Housing: House Alcohol intake: never Patient Tobacco Use Status: Former Tobacco user Tobacco use type: Cigarette Cigarettes Per Day: 6 Advance Directives: No service: No Current occupational status: retired Physical Exam Vital Signs: Vital Signs: Last Vital Signs Temp 98.1 F 11/24/22 12:29 Pulse 61 11/24/22 13:53 Resp 20 11/24/22 13:53 BP 170/70 H 11/24/22 13:50 Pulse Ox 97 11/24/22 13:50 O2 Del Method Room Air 11/24/22 13:50 Oxygen Flow Rate 2 11/24/22 12:29 BMI result Body Mass Index 23.6 Appearance: Alert. Oriented X3. No acute distress. Eyes: Pupils equal, round and reactive to light. ENT: Pharynx normal. Neck: Normal inspection. Neck supple. No lymph nodes noted. No crepitus CVS: Normal heart rate and rhythm. Pulses normal. Normal S1 and S2 Respiratory: Positive wheezing bilaterally. No retraction noted. Abdomen: Soft and nontender. No rigidity. No distention. good BS x4 Skin: Skin warm and dry. Normal skin color. Normal skin turgor. Extremities: No lower extremity edema. Neurovascular intact to all extremities. No Lacerations. No Rash Neuro: Oriented X 3. No motor deficit. No sensory deficit. Moving all extermities. No slurred speech Medications Administered Discontinued Medications Generic Name Dose Route Start Last Admin Trade Name Freq PRN Reason Stop Dose Admin Albuterol/Ipratropium 3 ml 11/24/22 13:10 11/24/22 13:52 Albuterol/Iprat 2.5/0.5mg 3 Ml Ampul.Neb INHALE 11/24/22 13:11 3 ml ONCE ONE Administration Hydromorphone HCl 0.25 mg 11/24/22 13:29 11/24/22 14:23 Hydromorphone Hcl 0.5 Mg/0.5 Ml Syringe IVPUSH 11/24/22 13:30 0.25 mg ONCE ONE Administration Protocol Sodium Chloride 1,000 mls @ 999 mls/hr 11/24/22 13:30 11/24/22 13:24 Ns IV 11/24/22 14:30 999 mls/hr .Q1H1M JAYDEN Administration Methylprednisolone Sodium Succinate 125 mg 11/24/22 13:10 11/24/22 13:23 Methylprednisolone Sod Succ 125 Mg/2 Ml Vial IVPUSH 11/24/22 13:11 125 mg ONCE ONE Administration Ondansetron HCl 4 mg 11/24/22 12:30 11/24/22 13:23 Ondansetron Hcl 4 Mg/2 Ml Vial IVPUSH 11/24/22 12:31 4 mg ONCE ONE Administration Ondansetron HCl 4 mg 11/24/22 13:18 11/24/22 13:23 Ondansetron Hcl 4 Mg/2 Ml Vial IVPUSH 11/24/22 13:19 Not Given ONCE ONE Medical Decision Making Medical Decision Making [facility] Narrative: Patient's O2 sat was 96% on room air. There is no evidence of hypoxia. Positive wheezing bilaterally positive coughing congestion upper respiratory symptoms. COVID test was negative. Patient's chest x-ray showed no focal infiltrate. Her symptoms are consistent with COPD exacerbation/chronic bronchitis. Jareth steroids here in the emergency department. Given a DuoNeb treatment. Symptom improved. Patient's troponin is negative. BNP is negative. No evidence for congestive heart failure. My interpretation of patient's EKG showed no signs of acute IN. patient will be discharged home on a course of steroid. An inhaler. Follow up on an outpatient basis. In stable condition. Differential Diagnosis Differential Diagnoses: The differential diagnosis associated with the presentation includes COPD, bronchitis, pneumonia, congestive heart failure Admission/Observation Consideration of admission/observation: Escalation of care including admission/observation considered No need for admission is patient has sat remained greater than 90% Lab Data [facility] Lab Attestation statement: I reviewed the patient's lab results. 11/24/22 12:18 11/24/22 12:18 Labs: Lab Results 11/24/22 11/24/22 11/24/22 Range/Units 12:18 12:18 12:18 WBC 8.9 (4.8-10.8) X10*3/uL RBC 4.80 (4.20-5.50) X10*6/uL Hgb 13.1 (12.0-16.0) g/dl Hct 41.5 (37.0-47.0) % MCV 86.5 (80.0-98.0) fL MCH 27.3 (27.0-33.0) pg MCHC 31.6 (31.0-35.0) g/dl RDW 13.2 (11.0-16.0) % Plt Count 265 (160-400) X10*3/uL MPV 9.0 L (9.4-12.3) fL Immature Gran % (Auto) 0.3 (0.0-0.4) % Neut % (Auto) 80.9 H (45-73) % Lymph % (Auto) 11.1 L (20-40) % [place] % (Auto) 4.4 (2-11) % Eos % (Auto) 2.6 (0-4) % Baso % (Auto) 0.7 (0-2) % Lymph # (Auto) 1.0 L (1.2-4.9) X10*3/uL [place] # (Auto) 0.4 (0.1-1.2) X10*3/uL Eos # (Auto) 0.2 (0.0-0.4) X10*3/uL Baso # (Auto) 0.1 (0.0-0.2) X10*3/uL Abs Immat Gran (auto) 0.03 (0.00-0.03) X10*3/uL Absolute Neuts (auto) 7.2 (2.0-8.3) x10*3/uL Absolute Nucleated RBC 0.000 (0.0-0.012) X10*3/uL Nucleated RBC % (auto) 0.0 (0.0-0.2) /100WBC Sodium 135 (135-145) mmol/L Potassium 4.5 (3.3-5.1) mmol/L Chloride 102 (96-108) mmol/L Carbon Dioxide 25 (22-29) mmol/L Anion Gap 13 (12-20) BUN 13 (9-16) mg/dL Creatinine 0.76 (0.5-1.4) mg/dL Estim Creat Clear Calc 44.4 Estimated GFR > 60 Random Glucose 118 H (60-115) mg/dL Lactic Acid (0.5-2.0) mmol/L Calcium 9.3 (8.4-10.2) mg/dL Magnesium 1.7 (1.6-2.6) mg/dL Total Bilirubin 0.5 (0.0-1.0) mg/dL AST 19 (5-31) U/L ALT 11 (0-31) U/L Alkaline Phosphatase 107 (39-117) U/L Troponin I High Sens (<3.5-17.0) ng/L B-Natriuretic Peptide 49 (<100) pg/mL Total Protein 7.2 (6.5-8.0) g/dL Albumin 4.5 (3.5-5.0) g/dL COVID-19 (MAURISIO) (Negative) COVID-19 Clin Com 11/24/22 11/24/22 11/24/22 Range/Units 12:18 12:18 12:18 WBC (4.8-10.8) X10*3/uL RBC (4.20-5.50) X10*6/uL Hgb (12.0-16.0) g/dl Hct (37.0-47.0) % MCV (80.0-98.0) fL MCH (27.0-33.0) pg MCHC (31.0-35.0) g/dl RDW (11.0-16.0) % Plt Count (160-400) X10*3/uL MPV (9.4-12.3) fL Immature Gran % (Auto) (0.0-0.4) % Neut % (Auto) (45-73) % Lymph % (Auto) (20-40) % [place] % (Auto) (2-11) % Eos % (Auto) (0-4) % Baso % (Auto) (0-2) % Lymph # (Auto) (1.2-4.9) X10*3/uL [place] # (Auto) (0.1-1.2) X10*3/uL Eos # (Auto) (0.0-0.4) X10*3/uL Baso # (Auto) (0.0-0.2) X10*3/uL Abs Immat Gran (auto) (0.00-0.03) X10*3/uL Absolute Neuts (auto) (2.0-8.3) x10*3/uL Absolute Nucleated RBC (0.0-0.012) X10*3/uL Nucleated RBC % (auto) (0.0-0.2) /100WBC Sodium (135-145) mmol/L Potassium (3.3-5.1) mmol/L Chloride (96-108) mmol/L Carbon Dioxide (22-29) mmol/L Anion Gap (12-20) BUN (9-16) mg/dL Creatinine (0.5-1.4) mg/dL Estim Creat Clear Calc Estimated GFR Random Glucose (60-115) mg/dL Lactic Acid 1.2 (0.5-2.0) mmol/L Calcium (8.4-10.2) mg/dL Magnesium (1.6-2.6) mg/dL Total Bilirubin (0.0-1.0) mg/dL AST (5-31) U/L ALT (0-31) U/L Alkaline Phosphatase (39-117) U/L Troponin I High Sens 2.9 (<3.5-17.0) ng/L B-Natriuretic Peptide (<100) pg/mL Total Protein (6.5-8.0) g/dL Albumin (3.5-5.0) g/dL COVID-19 (MAURISIO) Negative (Negative) COVID-19 Clin Com See Note Independent Interpretation I performed an independent interpretation of an: EKG Interpretation: My interpretation patient's EKG showed a sinus pattern heart rate is 60 GA QRS QTC within normal limits is nonspecific T-wave flattening noted. External Record Review External record reviewed: Inpatient record Chronic Conditions Patient?s care impacted by: Hypertension Long history of smoking quit approximately 6 months ago Discharge Plan Discharge Clinical Impression: Bronchitis Patient Disposition: Home, Self-Care Instructions: Chronic Bronchitis (ED) Prescriptions: New prednisone 20 mg tablet 40 mg PO DAILY Qty: 10 0RF albuterol sulfate 90 mcg/actuation HFA aerosol inhaler 2 puff inhalation Q6H PRN (Reason: shortness of breath or wheezing) Qty: 8.5 0RF No Action azithromycin [Zithromax Z-Farooq] 250 mg tablet See Rx Instructions .ROUTE .COMPLEX Qty: 6 0RF Rx Instructions: For 250 mg dose pack: take 500 mg today (day 1), then 250 mg for 4 days (days 2-5) yrfmiwemajgnzwx-khsekmcih-NI 2-30-10 mg/5 mL syrup 5 ml PO Q6H PRN (Reason: cold symptoms) Qty: 60 0RF benzonatate 100 mg capsule 100 mg PO TID PRN (Reason: cough) Qty: 30 0RF hydrocodone-homatropine [Hycodan] 5-1.5 mg/5 mL (5 mL) syrup 5 ml PO Q4-6H PRN (Reason: cough) Qty: 60 0RF Rx Instructions: Partial Fill upon patient request. Opcon-A 0.84931-5.315 % drops 1 drp ophthalmic (eye) BID-QID PRN (Reason: allergy symptoms) Qty: 15 3RF Referrals: Erinn Gary MD [Primary Care Provider] - 2 days
[2022-11-24] MEDS: methylPREDNISolone Sod Succ 125 MG/2 ML VIAL IVPUSH (13:23)
[2022-11-24] MEDS: ondansetron HCL 4 MG/2 ML VIAL IVPUSH (13:23)
[2022-11-24] MEDS: 0.9 % Sodium Chloride 1,000 ML 999 ML IV (13:24)
[2022-11-24 13:50] VITALS: BP 170/70; PULSE 53; RESP 16; O2SAT 97
[2022-11-24] MEDS: Albuterol/Iprat 2.5/0.5MG 3 ML AMPUL.NEB INHALE (13:52)
[2022-11-24 13:53] VITALS: PULSE 61; RESP 20; O2SAT 96
[2022-11-24] MEDS: HYDROmorphone HCl 0.5 MG/0.5 ML SYRINGE 0.25 MG IVPUSH (14:23)
[2022-11-24 15:04] VITALS: BP 159/74; PULSE 90; PULSE 97; RESP 22; O2SAT 96
[2022-11-24 15:06] VITALS: O2SAT 96
--- NOTE | 2022-11-24 15:09 | PC.NURSE ---
report received from DANNI Coelho Pt resting on stretcher at this time, reporting chest pain resulting from coughing. Pt requesting medication for the cough. Denies any other complaints, denies SOB. Pt satting 97% on RA. Fluids finished in MD ALBERTA aware of request for medication for cough.
[2022-11-24] MEDS: Benzonatate 100 MG CAPSULE 200 MG PO (15:19)
== END 2022-11-24 15:25 | disposition home or self-care (01) ==
PROVIDERS: Physician Assistant; Emergency Provider Emergency Medicine Emergency Medical Services; PCP Internal Medicine
DX: J42 Unspecified chronic bronchitis (principal); R06.2 Wheezing; Z20.822 Contact with and (suspected) exposure to COVID-19; Z79.899 Other long term (current) drug therapy
CPT/HCPCS: 36415; 71045; 80053; 83605; 83735; 83880; 84484; 85025; 87040; 87635; 93005; 94640; 96361; 96374; 96375; 99284; 99285; J1170; J2405; J2930

== ENCOUNTER 2022-12-02 22:08 | Emergency (ER) | payer MEDICARE, SELFPAY ==
--- NOTE | ~2022-12-02 | XR_ITS ---
EXAMINATION: PORTABLE CHEST 1 VIEW CLINICAL INFORMATION: dyspnea. COMPARISON: 11/24/2022. TECHNIQUE: Portable frontal view of the chest was obtained. FINDINGS: The lungs are well expanded. Chronic appearing linear scarring or atelectasis at the left lung base. No focal infiltrate, effusion, edema, or pneumothorax. Cardiac and mediastinal silhouettes are within normal limits for size. Hiatal hernia is again noted. Mild tortuosity to the descending aorta. No acute bony abnormality seen. XR/XR chest 1V IMPRESSION: Chronic appearing changes similar to the 11/24/2022 study.
[2022-12-02 22:10] VITALS: BP 186/94; PULSE 67; RESP 20; TEMP 36.4; O2SAT 98; BMI 26.2
[2022-12-02 22:43] LABS: MANUAL DIFF FLAG NO
[2022-12-02 22:52] LABS: Basophils Absolute Auto 0.1 X10*3/uL (0.0-0.2); Basophils Percent Auto 0.7 % (0-2); Eosinophils Absolute Auto 1.3 X10*3/uL (0.0-0.4); Eosinophils Percent Auto 16.1 % (0-4); Hematocrit 39.5 % (37.0-47.0); Hemoglobin 12.5 g/dl (12.0-16.0); Imm Gran Abs Auto 0.05 X10*3/uL (0.00-0.03); Imm Gran Pct Auto 0.6 % (0.0-0.4); Lymphocytes Absolute Auto 2.5 X10*3/uL (1.2-4.9); Lymphocytes Percent Auto 29.6 % (20-40); Mean Corpuscular HGB Conc 31.6 g/dl (31.0-35.0); Mean Corpuscular Hemoglobin 27.4 pg (27.0-33.0); Mean Corpuscular Volume 86.4 fL (80.0-98.0); Mean Platelet Volume 8.9 fL (9.4-12.3); Monocytes Absolute Auto 0.9 X10*3/uL (0.1-1.2); Monocytes Percent Auto 10.7 % (2-11); Neutrophils Absolute Auto 3.5 x10*3/uL (2.0-8.3); Neutrophils Percent Auto 42.3 % (45-73); Platelet Count 278 X10*3/uL (160-400); Red Blood Count 4.57 X10*6/uL (4.20-5.50); Red Cell Distribution Width 13.6 % (11.0-16.0); White Blood Count 8.3 X10*3/uL (4.8-10.8)
[2022-12-02 23:04] LABS: Alanine Aminotransferase 10 U/L (0-31); Albumin Level 3.8 g/dL (3.5-5.0); Alkaline Phosphatase 104 U/L (39-117); Anion Gap 15 (12-20); Aspartate Amino Transferase 15 U/L (5-31); Bilirubin Total 0.2 mg/dL (0.0-1.0); Blood Urea Nitrogen 13 mg/dL (9-16); Calcium 9.1 mg/dL (8.4-10.2); Carbon Dioxide 21 mmol/L (22-29); Chloride 108 mmol/L (96-108); Creatinine Clr Calc Pharmacy 37.2; Estimated Glomerular Filt Rate 56; Glucose Random 118 mg/dL (60-115); Potassium 3.8 mmol/L (3.3-5.1); Sodium 140 mmol/L (135-145); Total Protein 6.4 g/dL (6.5-8.0)
[2022-12-02 23:33] LABS: Influenza A PCR NEGATIVE (Negative); Influenza B PCR NEGATIVE (Negative); Resp Syncy Virus RNA Qual PCR NEGATIVE (Negative); SARS COV2 PCR INHOUSE NEGATIVE (Negative)
[2022-12-02 23:38] VITALS: BP 187/72; PULSE 70; RESP 17; TEMP 37.1; O2SAT 96
[2022-12-02 23:40] VITALS: O2SAT 97
[2022-12-03] MEDS: guaiFEN/Codeine SF 200/20/10ML 10 ML LIQUID PO (00:33)
--- NOTE | 2022-12-03 00:36 | PC.NURSE ---
Addendum entered by Nancie Werner 12/03/22 00:53: malaika castellano made aware of pt status Original Note: lat entry- pt family at bedside. pt resting on stretcher. this rn placed pt on hall monitor.
--- NOTE | 2022-12-03 00:36 | PC.NURSE ---
Addendum entered by Nancie Werner 12/03/22 01:52: pt medicated according to oct. pt allergy to guaifenesin realized by this rn and malaika castellano after administration of medication. pt remained on conveyor monitor. pt denies sob, denies throat tightness. this rn and malaika castellano at bedside. [id number]% RR nonlabored 18 Original Note: pt medicated according to oct. RT at bedside for breathing treatment. family members remain at bedside
--- NOTE | 2022-12-03 00:37 | ED_ITS ---
HPI - General Adult General Chief complaint: Upper Respiratory Symptoms Stated complaint: trouble breathing Time Seen by Provider: 12/03/22 00:10 Source: patient, family, RN notes reviewed and old records reviewed Mode of arrival: ambulatory Limitations: no limitations History of Present Illness HPI narrative: 82-year-old female presents for evaluation of cough. This is the patient's 4th visit in the last 2 weeks for cough. She reports that she was diagnosed with bronchitis. She was initially given azithromycin and subsequently given prednisone. She has finished all her medications and reports that she is still coughing. She denies any significant shortness of breath, fevers, chills. She endorses weakness she reports that she cannot sleep at night because of her cough Related Data Previous Rx's Medication Instructions Recorded naphazoline 0.71282 %-pheniramine 1 drp ophthalmic (eye) BID-QID PRN 09/14/22 0.315 % eye drops (Opcon-A) allergy symptoms #15 mL azithromycin 250 mg tablet See Rx Instructions PO .COMPLEX #6 11/19/22 (Zithromax Z-Farooq) tabs benzonatate 100 mg capsule 100 mg PO TID PRN cough #30 caps 11/20/22 tuxbesibgituvts-vrytdqnehuqecbk-EY 5 ml PO Q6H PRN cold symptoms #60 11/20/22 2 mg-30 mg-10 mg/5 mL oral syrup mL hydrocodone-homatropine 5 mg-1.5 5 ml PO Q4-6H PRN cough #60 mL 11/23/22 mg/5 mL (5 mL) oral syrup (Hycodan) albuterol sulfate 90 mcg/actuation 2 puff inhalation Q6H PRN 11/24/22 aerosol inhaler shortness of breath or wheezing #8.5 grams benzonatate 200 mg capsule 200 mg PO TID PRN cough #10 caps 11/24/22 prednisone 20 mg tablet 40 mg PO DAILY #10 tabs 11/24/22 acetaminophen 120 mg-codeine 12 10 ml PO Q4-6H PRN cough #118 mL 12/03/22 mg/5 mL oral solution hydroxyzine pamoate 25 mg capsule 25 mg PO TID PRN anxiety #20 caps 12/03/22 (Vistaril) Allergies Allergy/AdvReac Type Severity Reaction Status Date / Time guaifenesin [From Mucinex] Allergy Severe THROAT Verified 12/02/22 22:09 CLOSING propoxyphene [From Darvon] Allergy Mild VOMITING Verified 12/02/22 22:09 diclofenac Allergy Unknown voilently Verified 12/02/22 22:09 ill GENERIC MEDS Allergy Mild HIVES Uncoded 09/14/22 09:16 prednisone Allergy Mild Hives Uncoded 09/14/22 09:16 all generic brands Allergy Unknown Hives Uncoded 09/14/22 09:16 Review of Systems Constitutional: Constitutional: Reports as per HPI, Denies chills, Denies fe benton(s) and Denies headache(s) ENT: Denies headache(s) Cardiovascular: Cardiovascular: Denies chest pain and Reports dyspnea Respiratory: Respiratory: Reports cough, Reports dyspnea and Reports wheezing Gastrointestinal: Gastrointestinal: Denies abdominal pain, Denies constipation and Denies vomiting Genitourinary: Genitourinary: Denies dysuria Neurologic: Denies headache(s) and Denies focal weakness Allergic/Immunologic: Allergic/Immunologic: Reports wheezing PMFSH Past Medical History Surgical History History of 2 sections History of removal of cyst Family History Family History Mother No problems noted. Father Substance use disorder Social History Social History Housing: House Alcohol intake: never Patient Tobacco Use Status: Former Tobacco user Tobacco use type: Cigarette Cigarettes Per Day: 6 Smoked in Last 30 Days: No Use of substances other than those prescribed or required for medical reasons: No Advance Directives: No Advance Directives Information Provided: Yes service: No Current occupational status: retired Physical Exam ED Vital Signs: Vital Signs - 24 hr 12/02/22 22:10 12/02/22 23:38 12/03/22 00:56 Temperature 97.6 F 98.8 F 97.6 F Pulse Rate 67 70 67 Respiratory Rate 20 17 19 Blood Pressure 186/94 H 187/72 H 186/74 H Pulse Oximetry 98 96 97 Oxygen Delivery Method Room Air Room Air Room Air 12/03/22 01:48 Temperature 98.0 F Pulse Rate 69 Respiratory Rate 17 Blood Pressure 165/73 H Pulse Oximetry 94 Oxygen Delivery Method Room Air BMI result Body Mass Index 26.2 Const General: healthy appearing, comfortable, no acute distress, alert and awake Nutritional Appearance: well nourished Orientation/consciousness: patient oriented x3 HENMT Head: Yes normocephalic and Yes atraumatic Throat: Yes posterior oropharynx normal Eyes Eyelids: Yes eyelids normal Conjunctivae: conjunctivae normal Sclerae: sclerae normal Corneas: corneas normal Pupils: Equal, round and reactive pupils present EOM: EOMs intact bilaterally Neck Neck: Yes full ROM Resp Effort & Inspection: normal respiratory effort, able to speak in complete sentences and not labored Auscultation: rhonchi (Bibasilar rhonchi) Cardio Rate: regular rate Rhythm: regular rhythm GI Inspection: No distended Palpation (GI): Soft to palpation, not firm, nontender, no guarding and not rigid Auscultation: normoactive bowel sounds Skin General skin exam: no rashes or lesions noted and elasticity normal Neuro General: patient oriented x3 Cranial nerves: Yes Equal, round and reactive pupils present and Yes Bilaterally intact EOM present Cognition (Neuro): normal cognition Extrem Other: Moving all extremities well without any obvious deformities Course Reevaluation(s) Reevaluation #1: Patient received her codeine reports feeling better. She is currently undergoing her breathing treatment as well and states that she only feels that her cough has improved Time: 00:54 Reevaluation #2: I had ordered Guaifensein with codeine a thte patient's request. I did not realize the patient had an allergy to Mucinex/Guaifensein and I do not believe the family knew that they were the same medication. After I saw the allergy, I opted to keep the patient in the ER for observation for additional time. There was no evidence of anaphylaxis or throat swelling. The patient did have some mild tremors, likely from albuiterol. She did however mention that her breathing was improved. She had minimal wheezing and no stridor on exam. Time: 01:26 Reevaluation #3: Patient's anxiety has subsided. She is resting comfortably without any shakes. Denies any shortness of breath, facial or throat swelling. No rashes. Vital signs remained stable. Patient stable for discharge at this time. Time: 01:45 Additional Reevaluation(s): 2:15 a.m.. The patient requested ?something for any future anxiety attacks. I agreed to give her a prescription for hydroxyzine. She still has no evidence of any allergic reaction and her breathing is improved. Medications Administered Discontinued Medications Generic Name Dose Route Start Last Admin Trade Name Abadq PRN Reason Stop Dose Admin Albuterol Sulfate 2.5 mg/ 0 mg 12/03/22 00:20 12/03/22 00:30 Albuterol/Ipratropium 3 ml INHALE 12/03/22 00:21 5 each ONCE ONE Administration Guaifenesin/Codeine Phosphate 10 ml 12/03/22 00:20 12/03/22 00:33 Guaifen/Codeine Sf 200/20/10ml 10 Ml Liquid PO 12/03/22 00:21 10 ml ONCE ONE Administration Lorazepam 1 mg 12/03/22 01:09 12/03/22 01:13 Lorazepam 1 Mg Tablet PO 12/03/22 01:10 1 mg ONCE ONE Administration Medical Decision Making Lab Data 12/02/22 22:29 12/02/22 22:29 Labs: Lab Results 12/02/22 12/02/22 12/02/22 Range/Units 22:29 22:29 22:36 WBC 8.3 (4.8-10.8) X10*3/uL RBC 4.57 (4.20-5.50) X10*6/uL Hgb 12.5 (12.0-16.0) g/dl Hct 39.5 (37.0-47.0) % MCV 86.4 (80.0-98.0) fL MCH 27.4 (27.0-33.0) pg MCHC 31.6 (31.0-35.0) g/dl RDW 13.6 (11.0-16.0) % Plt Count 278 (160-400) X10*3/uL MPV 8.9 L (9.4-12.3) fL Immature Gran % (Auto) 0.6 H (0.0-0.4) % Neut % (Auto) 42.3 L (45-73) % Lymph % (Auto) 29.6 (20-40) % [place] % (Auto) 10.7 (2-11) % Eos % (Auto) 16.1 H (0-4) % Baso % (Auto) 0.7 (0-2) % Lymph # (Auto) 2.5 (1.2-4.9) X10*3/uL [place] # (Auto) 0.9 (0.1-1.2) X10*3/uL Eos # (Auto) 1.3 H (0.0-0.4) X10*3/uL Baso # (Auto) 0.1 (0.0-0.2) X10*3/uL Abs Immat Gran (auto) 0.05 H (0.00-0.03) X10*3/uL Absolute Neuts (auto) 3.5 (2.0-8.3) x10*3/uL Absolute Nucleated RBC 0.000 (0.0-0.012) X10*3/uL Nucleated RBC % (auto) 0.0 (0.0-0.2) /100WBC Sodium 140 (135-145) mmol/L Potassium 3.8 (3.3-5.1) mmol/L Chloride 108 (96-108) mmol/L Carbon Dioxide 21 L (22-29) mmol/L Anion Gap 15 (12-20) BUN 13 (9-16) mg/dL Creatinine 0.95 (0.5-1.4) mg/dL Estim Creat Clear Calc 37.2 Estimated GFR 56 Random Glucose 118 H (60-115) mg/dL Calcium 9.1 (8.4-10.2) mg/dL Total Bilirubin 0.2 (0.0-1.0) mg/dL AST 15 (5-31) U/L ALT 10 (0-31) U/L Alkaline Phosphatase 104 (39-117) U/L Total Protein 6.4 L (6.5-8.0) g/dL Albumin 3.8 (3.5-5.0) g/dL Influenza Type A (PCR) NEGATIVE (Negative) Influenza Type B (PCR) NEGATIVE (Negative) RSV RNA Qual (PCR) NEGATIVE (Negative) SARS-CoV-2 RNA (RT-PCR) NEGATIVE (Negative) Discharge Plan Discharge Clinical Impression: Cough Patient Disposition: Home, Self-Care Instructions: Acute Cough (ED) Additional Instructions: You may use the acetaminophen with codeine as needed which should help with your cough. This may make you sleepy, do not drink alcohol or drive after taking it. Hydrate well Take all of your other medication as prescribed Prescriptions: New acetaminophen-codeine 120-12 mg/5 mL solution 10 ml PO Q4-6H PRN (Reason: cough) Qty: 118 0RF hydroxyzine pamoate [Vistaril] 25 mg capsule 25 mg PO TID PRN (Reason: anxiety) Qty: 20 0RF No Action azithromycin [Zithromax Z-Farooq] 250 mg tablet See Rx Instructions .ROUTE .COMPLEX Qty: 6 0RF Rx Instructions: For 250 mg dose pack: take 500 mg today (day 1), then 250 mg for 4 days (days 2-5) ggzvoyranpoydia-pcdjooadj-SO 2-30-10 mg/5 mL syrup 5 ml PO Q6H PRN (Reason: cold symptoms) Qty: 60 0RF benzonatate 100 mg capsule 100 mg PO TID PRN (Reason: cough) Qty: 30 0RF hydrocodone-homatropine [Hycodan] 5-1.5 mg/5 mL (5 mL) syrup 5 ml PO Q4-6H PRN (Reason: cough) Qty: 60 0RF Rx Instructions: Partial Fill upon patient request. prednisone 20 mg tablet 40 mg PO DAILY Qty: 10 0RF albuterol sulfate 90 mcg/actuation HFA aerosol inhaler 2 puff inhalation Q6H PRN (Reason: shortness of breath or wheezing) Qty: 8.5 0RF benzonatate 200 mg capsule 200 mg PO TID PRN (Reason: cough) Qty: 10 0RF Opcon-A 0.03375-9.315 % drops 1 drp ophthalmic (eye) BID-QID PRN (Reason: allergy symptoms) Qty: 15 3RF
[2022-12-03 00:56] VITALS: BP 186/74; PULSE 67; RESP 19; TEMP 36.4; O2SAT 97
[2022-12-03] MEDS: LORazepam 1 MG TABLET PO (01:13)
[2022-12-03 01:48] VITALS: BP 165/73; PULSE 69; RESP 17; TEMP 36.7; O2SAT 94
--- NOTE | 2022-12-03 01:56 | PC.NURSE ---
late entry- malaika castellano at bedside. pt states she is having a panic attack. pt reports has frequent panic attacks a home. pt medicated with ativan 1mg po. pt son remains at bedside
--- NOTE | 2022-12-03 02:26 | PC.NURSE ---
pt maintaining airway well. malaika castellano observed patent airway at time of discharge. pt reports no sob, decreased coughing, no throat tightness, no itching at time of discharge. malaika castellano states pt safe for discharge. pt son at bedside at time of discharge. pt provided with discharge packet and prescriptions. pt ambulatory at discharge. vss. pt verbalized understanding of discharge plan
== END 2022-12-03 02:29 | disposition home or self-care (01) ==
PROVIDERS: Emergency Provider Emergency Medicine Emergency Medical Services
DX: R05.9 Cough, unspecified (principal); Z20.822 Contact with and (suspected) exposure to COVID-19; Z20.828 Contact with and (suspected) exposure to other viral communicable diseases; Z79.899 Other long term (current) drug therapy
CPT/HCPCS: 0241U; 71045; 80053; 85025; 99284

== ENCOUNTER 2022-12-04 13:35 | Emergency (ER) | payer MEDICARE, SELFPAY ==
--- NOTE | ~2022-12-04 | XR_ITS ---
EXAMINATION: XR CHEST CLINICAL INFORMATION: Cough and SOB. COMPARISON: None available. TECHNIQUE: 2 views of the chest were obtained. FINDINGS: No significant abnormality is noted involving the heart, lungs, mediastinum, bony thorax or soft tissues. XR/XR chest 2V IMPRESSION: Unremarkable chest examination.
[2022-12-04 13:41] VITALS: BP 178/79; PULSE 63; RESP 17; TEMP 36.2; O2SAT 96; BMI 21.2
--- NOTE | 2022-12-04 13:41 | ED_ITS ---
HPI - SOB/Dyspnea General Chief Complaint: Dyspnea Stated Complaint: Diff breathing Related Data Previous Rx's Medication Instructions Recorded naphazoline 0.82005 %-pheniramine 1 drp ophthalmic (eye) BID-QID PRN 09/14/22 0.315 % eye drops (Opcon-A) allergy symptoms #15 mL azithromycin 250 mg tablet See Rx Instructions PO .COMPLEX #6 11/19/22 (Zithromax Z-Farooq) tabs benzonatate 100 mg capsule 100 mg PO TID PRN cough #30 caps 11/20/22 emppvyebmtjwmqn-cxekvwjxgplryei-CO 5 ml PO Q6H PRN cold symptoms #60 11/20/22 2 mg-30 mg-10 mg/5 mL oral syrup mL hydrocodone-homatropine 5 mg-1.5 5 ml PO Q4-6H PRN cough #60 mL 11/23/22 mg/5 mL (5 mL) oral syrup (Hycodan) albuterol sulfate 90 mcg/actuation 2 puff inhalation Q6H PRN 11/24/22 aerosol inhaler shortness of breath or wheezing #8.5 grams benzonatate 200 mg capsule 200 mg PO TID PRN cough #10 caps 11/24/22 prednisone 20 mg tablet 40 mg PO DAILY #10 tabs 11/24/22 acetaminophen 120 mg-codeine 12 10 ml PO Q4-6H PRN cough #118 mL 12/03/22 mg/5 mL oral solution hydroxyzine pamoate 25 mg capsule 25 mg PO TID PRN anxiety #20 caps 12/03/22 (Vistaril) Allergies Allergy/AdvReac Type Severity Reaction Status Date / Time guaifenesin [From Mucinex] Allergy Severe THROAT Verified 12/02/22 22:09 CLOSING propoxyphene [From Darvon] Allergy Mild VOMITING Verified 12/02/22 22:09 diclofenac Allergy Unknown voilently Verified 12/02/22 22:09 ill GENERIC MEDS Allergy Mild HIVES Uncoded 09/14/22 09:16 prednisone Allergy Mild Hives Uncoded 09/14/22 09:16 all generic brands Allergy Unknown Hives Uncoded 09/14/22 09:16 COUNT INCLUDES THE [facility] Past Medical History Surgical History History of 2 sections History of removal of cyst Family History Family History Mother No problems noted. Father Substance use disorder Social History Social History Housing: House Alcohol intake: never Patient Tobacco Use Status: Former Tobacco user Tobacco use type: Cigarette Cigarettes Per Day: 6 service: No Current occupational status: retired Physical Exam Vital Signs: Vital Signs: Last Vital Signs Temp 97.2 F 12/04/22 13:41 Pulse 63 12/04/22 13:41 Resp 17 12/04/22 13:41 BP 178/79 H 12/04/22 13:41 Pulse Ox 96 12/04/22 13:41 O2 Del Method Room Air 12/04/22 13:41 BMI result Body Mass Index 21.2 Course Course Course Narrative: RME: 82yo F w/PMHx bronchitis c/o chest pressure, continued cough and SOB worsening x today after using updraft. Patient was recently seen in our ED on 11/24 and yesterday diagnosed with bronchitis initially given Azithro, prednisone, and hydroxyzine without relief. Coarse lung sounds throughout with expiratory wheeze noted EKG, labs, CXR, albuterol inhaler ordered Full HPI, ROS and PE to be performed by primary ED provider. Medical Decision Making Lab Data 12/04/22 14:34 12/04/22 14:34 Labs: Lab Results 12/04/22 12/04/22 12/04/22 Range/Units 14:34 14:34 14:34 WBC 8.1 (4.8-10.8) X10*3/uL RBC 4.67 (4.20-5.50) X10*6/uL Hgb 12.7 (12.0-16.0) g/dl Hct 40.2 (37.0-47.0) % MCV 86.1 (80.0-98.0) fL MCH 27.2 (27.0-33.0) pg MCHC 31.6 (31.0-35.0) g/dl RDW 13.2 (11.0-16.0) % Plt Count 292 (160-400) X10*3/uL MPV 8.6 L (9.4-12.3) fL Immature Gran % (Auto) 0.4 (0.0-0.4) % Neut % (Auto) 54.2 (45-73) % Lymph % (Auto) 22.6 (20-40) % [place] % (Auto) 8.0 (2-11) % Eos % (Auto) 14.2 H (0-4) % Baso % (Auto) 0.6 (0-2) % Lymph # (Auto) 1.8 (1.2-4.9) X10*3/uL [place] # (Auto) 0.7 (0.1-1.2) X10*3/uL Eos # (Auto) 1.2 H (0.0-0.4) X10*3/uL Baso # (Auto) 0.1 (0.0-0.2) X10*3/uL Abs Immat Gran (auto) 0.03 (0.00-0.03) X10*3/uL Absolute Neuts (auto) 4.4 (2.0-8.3) x10*3/uL Absolute Nucleated RBC 0.000 (0.0-0.012) X10*3/uL Nucleated RBC % (auto) 0.0 (0.0-0.2) /100WBC Sodium 138 (135-145) mmol/L Potassium 4.4 (3.3-5.1) mmol/L Chloride 105 (96-108) mmol/L Carbon Dioxide 25 (22-29) mmol/L Anion Gap 12 (12-20) BUN 9 (9-16) mg/dL Creatinine 0.71 (0.5-1.4) mg/dL Estim Creat Clear Calc 50.5 Estimated GFR > 60 Random Glucose 95 (60-115) mg/dL Calcium 9.2 (8.4-10.2) mg/dL Total Bilirubin 0.3 (0.0-1.0) mg/dL Direct Bilirubin 0.1 (0.0-0.5) mg/dL AST 14 (5-31) U/L ALT 11 (0-31) U/L Alkaline Phosphatase 100 (39-117) U/L Troponin I High Sens < 2.7 (<3.5-17.0) ng/L B-Natriuretic Peptide (<100) pg/mL Total Protein 6.7 (6.5-8.0) g/dL Albumin 4.0 (3.5-5.0) g/dL 12/04/22 Range/Units 14:34 WBC (4.8-10.8) X10*3/uL RBC (4.20-5.50) X10*6/uL Hgb (12.0-16.0) g/dl Hct (37.0-47.0) % MCV (80.0-98.0) fL MCH (27.0-33.0) pg MCHC (31.0-35.0) g/dl RDW (11.0-16.0) % Plt Count (160-400) X10*3/uL MPV (9.4-12.3) fL Immature Gran % (Auto) (0.0-0.4) % Neut % (Auto) (45-73) % Lymph % (Auto) (20-40) % [place] % (Auto) (2-11) % Eos % (Auto) (0-4) % Baso % (Auto) (0-2) % Lymph # (Auto) (1.2-4.9) X10*3/uL [place] # (Auto) (0.1-1.2) X10*3/uL Eos # (Auto) (0.0-0.4) X10*3/uL Baso # (Auto) (0.0-0.2) X10*3/uL Abs Immat Gran (auto) (0.00-0.03) X10*3/uL Absolute Neuts (auto) (2.0-8.3) x10*3/uL Absolute Nucleated RBC (0.0-0.012) X10*3/uL Nucleated RBC % (auto) (0.0-0.2) /100WBC Sodium (135-145) mmol/L Potassium (3.3-5.1) mmol/L Chloride (96-108) mmol/L Carbon Dioxide (22-29) mmol/L Anion Gap (12-20) BUN (9-16) mg/dL Creatinine (0.5-1.4) mg/dL Estim Creat Clear Calc Estimated GFR Random Glucose (60-115) mg/dL Calcium (8.4-10.2) mg/dL Total Bilirubin (0.0-1.0) mg/dL Direct Bilirubin (0.0-0.5) mg/dL AST (5-31) U/L ALT (0-31) U/L Alkaline Phosphatase (39-117) U/L Troponin I High Sens (<3.5-17.0) ng/L B-Natriuretic Peptide 100 (<100) pg/mL Total Protein (6.5-8.0) g/dL Albumin (3.5-5.0) g/dL Discharge Plan Discharge Clinical Impression: Shortness of breath Patient Disposition: Elopement Prescriptions: No Action azithromycin [Zithromax Z-Farooq] 250 mg tablet See Rx Instructions .ROUTE .COMPLEX Qty: 6 0RF Rx Instructions: For 250 mg dose pack: take 500 mg today (day 1), then 250 mg for 4 days (days 2-5) apqcmnhbyaefrze-arwkeswvu-FU 2-30-10 mg/5 mL syrup 5 ml PO Q6H PRN (Reason: cold symptoms) Qty: 60 0RF benzonatate 100 mg capsule 100 mg PO TID PRN (Reason: cough) Qty: 30 0RF hydrocodone-homatropine [Hycodan] 5-1.5 mg/5 mL (5 mL) syrup 5 ml PO Q4-6H PRN (Reason: cough) Qty: 60 0RF Rx Instructions: Partial Fill upon patient request. prednisone 20 mg tablet 40 mg PO DAILY Qty: 10 0RF albuterol sulfate 90 mcg/actuation HFA aerosol inhaler 2 puff inhalation Q6H PRN (Reason: shortness of breath or wheezing) Qty: 8.5 0RF benzonatate 200 mg capsule 200 mg PO TID PRN (Reason: cough) Qty: 10 0RF acetaminophen-codeine 120-12 mg/5 mL solution 10 ml PO Q4-6H PRN (Reason: cough) Qty: 118 0RF hydroxyzine pamoate [Vistaril] 25 mg capsule 25 mg PO TID PRN (Reason: anxiety) Qty: 20 0RF Opcon-A 0.49331-4.315 % drops 1 drp ophthalmic (eye) BID-QID PRN (Reason: allergy symptoms) Qty: 15 3RF Interventions: ED Discharge Assessment Last Done: 12/04/22 19:00 Discharge Date/Time: 12/04/22 19:02
--- NOTE | 2022-12-04 13:42 | ECG_ITS ---
Test Reason : sob Blood Pressure : / mmHG Vent. Rate : 060 BPM Atrial Rate : 060 BPM P-R Int : 172 ms QRS Dur : 082 ms QT Int : 426 ms P-R-T Axes : 085 008 027 degrees QTc Int : 426 ms Normal sinus rhythm Normal ECG When compared with ECG of 24-NOV-2022 11:58, No significant change was found Referred By: Fauzia Malik Electronically Signed By:Wiley Smalls
[2022-12-04 14:40] LABS: MANUAL DIFF FLAG NO
[2022-12-04 14:41] LABS: Basophils Absolute Auto 0.1 X10*3/uL (0.0-0.2); Basophils Percent Auto 0.6 % (0-2); Eosinophils Absolute Auto 1.2 X10*3/uL (0.0-0.4); Eosinophils Percent Auto 14.2 % (0-4); Hematocrit 40.2 % (37.0-47.0); Hemoglobin 12.7 g/dl (12.0-16.0); Imm Gran Abs Auto 0.03 X10*3/uL (0.00-0.03); Imm Gran Pct Auto 0.4 % (0.0-0.4); Lymphocytes Absolute Auto 1.8 X10*3/uL (1.2-4.9); Lymphocytes Percent Auto 22.6 % (20-40); Mean Corpuscular HGB Conc 31.6 g/dl (31.0-35.0); Mean Corpuscular Hemoglobin 27.2 pg (27.0-33.0); Mean Corpuscular Volume 86.1 fL (80.0-98.0); Mean Platelet Volume 8.6 fL (9.4-12.3); Monocytes Absolute Auto 0.7 X10*3/uL (0.1-1.2); Neutrophils Absolute Auto 4.4 x10*3/uL (2.0-8.3); Neutrophils Percent Auto 54.2 % (45-73); Platelet Count 292 X10*3/uL (160-400); Red Blood Count 4.67 X10*6/uL (4.20-5.50); Red Cell Distribution Width 13.2 % (11.0-16.0); White Blood Count 8.1 X10*3/uL (4.8-10.8)
[2022-12-04 15:09] LABS: Alanine Aminotransferase 11 U/L (0-31); Alkaline Phosphatase 100 U/L (39-117); Anion Gap 12 (12-20); Aspartate Amino Transferase 14 U/L (5-31); Bilirubin Direct 0.1 mg/dL (0.0-0.5); Bilirubin Total 0.3 mg/dL (0.0-1.0); Blood Urea Nitrogen 9 mg/dL (9-16); Calcium 9.2 mg/dL (8.4-10.2); Carbon Dioxide 25 mmol/L (22-29); Chloride 105 mmol/L (96-108); Creatinine Clr Calc Pharmacy 50.5; Estimated Glomerular Filt Rate > 60; Glucose Random 95 mg/dL (60-115); Potassium 4.4 mmol/L (3.3-5.1); Sodium 138 mmol/L (135-145); Total Protein 6.7 g/dL (6.5-8.0)
[2022-12-04 15:18] LABS: B Type Natriuretic Peptide 100 pg/mL (<100)
[2022-12-04 15:38] LABS: Troponin-I High Sensitivity < 2.7 ng/L (<3.5-17.0)
== END 2022-12-04 19:02 | disposition left against medical advice (07) ==
PROVIDERS: Physician Assistant; Emergency Provider Emergency Medicine
DX: R06.02 Shortness of breath (principal); Z87.891 Personal history of nicotine dependence
CPT/HCPCS: 36415; 71046; 80048; 80076; 83880; 84484; 85025; 93005; 99283

== ENCOUNTER 2022-12-28 08:23 | Outpatient (REF) | payer MEDICARE, SELFPAY ==
--- NOTE | ~2022-12-28 | CT_ITS ---
EXAMINATION: CT CHEST WITHOUT CONTRAST CLINICAL INFORMATION: 82-year-old male with shortness of breath COMPARISON: None available. TECHNIQUE: Multidetector volumetric CT imaging of the chest was done. Axial MIP volume rendering provided. Sagittal and coronal reformatted images were obtained. This CT examination was performed using dose optimization techniques as appropriate, variously including the following: *Automated exposure control *Adjustment of mA and/or kV according to patient size (this includes techniques or standardized protocols for targeted exams where dose is matched to indication/reason for exam; i.e. extremities or head) *Use of iterative reconstruction technique DLP: 130 mGy-cm FINDINGS: MARKETING PLANNING MANAGER: Unremarkable LUNGS: There are no lung nodules infiltrates or consolidations there are bibasilar atelectasis. Central airways are patent. MEDIASTINUM: Thoracic aorta is nondilated. There is no pericardial effusion. There is large hiatal hernia. CORONARY ARTERY CALCIFICATION: Mild coronary artery calcifications present. PLEURA: There is no pleural effusion. No pleural mass or thickening. AXILLA: No lymphadenopathy. UPPER ABDOMEN: There is cholelithiasis without cholecystitis. Partially visualized kidneys, liver, spleen, adrenal glands are unremarkable. OSSEOUS STRUCTURES: Unremarkable. CT/CT chest wo IV con IMPRESSION: 1. Bibasilar atelectasis. 2. Large hiatal hernia. 3. Cholelithiasis without cholecystitis. Fleischner guidelines were followed.
== END 2022-12-28 08:24 | disposition home or self-care (01) ==
LOC: HO.CT 08:23
PROVIDERS: PCP Internal Medicine; Visit Provider Nurse Practitioner Family
DX: R06.02 Shortness of breath (principal)
CPT/HCPCS: 71250

== ENCOUNTER → 2023-01-18 13:24 | Outpatient (BNVA) | payer MEDICARE, SELFPAY | PROVIDERS: PCP Nurse Practitioner Family; Referring Provider Nurse Practitioner Family; Visit Provider Surgery | DX: K44.9 Diaphragmatic hernia without obstruction or gangrene (principal); R06.02 Shortness of breath; R05.9 Cough, unspecified; J45.909 Unspecified asthma, uncomplicated | CPT/HCPCS: 99202 ==

== ENCOUNTER 2023-02-05 15:03 | Outpatient (REF) | payer MEDICARE, SELFPAY | END 2023-02-05 15:04 | disposition home or self-care (01) | LOC: HO.RESP 15:03 | PROVIDERS: PCP Nurse Practitioner Family; Visit Provider Nurse Practitioner Family | DX: R06.02 Shortness of breath (principal) | CPT/HCPCS: 94060; 94727; 94729 ==

== ENCOUNTER → 2023-03-24 07:47 | Outpatient (REF) | payer MEDICARE, SELFPAY ==
--- NOTE | 2023-03-24 07:51 | CA_ITS ---
Transthoracic Echocardiogram Patient (Last, First, Middle): Jody Peter R Gender: Female Date of : 1940 Age: 82 Procedure Date: 03/24/2023 Procedure Type: Transthoracic Echocardiogram Location: OP Height: 149.86 cm Weight: 58.51 kg BSA: 1.53 m2 Heart Rate: 68 bpm BP: 168 / 70 mmHg Information Tech: SB Referring MD: Ana KU Wood Treating Inspector: Rajiv Sears MD Symptoms: R06.02 - Shortness of breath Study Quality: Adequate ECG Rhythm: Frequent atrial premature beats Conclusions: - 1. Low normal LV ejection fraction at 50-55% with grade 2 diastolic dysfunction 2. Mildly dilated left atrium 3. Normal cardiac valvular Doppler 4. Upper limits of normal RV systolic pressure 5. No gross pericardial effusion Findings Left Ventricle Normal left ventricular cavity size. There is normal left ventricular wall thickness. The left ventricular systolic function is low normal. The visually estimated ejection fraction is between 50-55%. Spectral Doppler is indicative of a pseudonormal filling pattern. Elevated filling pressures. E/E prime ratio is >15, consistent with elevated filling pressures. Evidence suggests grade II (moderate) diastolic dysfunction. Right Ventricle Normal right ventricular cavity size. There is borderline right ventricular systolic function. Atria The left atrium is mildly dilated. There is no evidence of interatrial shunt. The right atrium is normal in size. Aortic Valve The aortic valve structure and function is likely normal. There is no aortic valve stenosis. There is no aortic valve regurgitation. Mitral Valve Normal mitral valve structure and function. There is no mitral valve regurgitation. There is no mitral valve stenosis. Pulmonic Valve The pulmonic valve was not well visualized. Tricuspid Valve There is mild tricuspid valve regurgitation. Normal right atrial pressure. There is no evidence of pulmonary hypertension. Great Vessels All visible segments of the aorta are normal in size. The pulmonary artery was not well visualized. Venous The inferior vena cava is normal in size and collapses greater than 50% with inspiration. Pericardium/Pleural There is no evidence of pericardial effusion. Prior Study Comparison No prior study available for comparison. Measurements 2D Linear Measurements IVSd: 0.50 0.6-0.9/0.6-1.0 cm LVIDd: 5.00 3.9-5.3/4.2-5.9 cm LVIDd Index: 3.27 2.4-3.2/2.2-3.1 cm/m2 LVIDs: 3.50 2.0-3.6 cm LVPWd: 0.60 0.7-1.1 cm LA Diam: 3.60 2.7-3.8/3.0-4.0 cm LAIDs Index: 2.35 1.5-2.3 cm/m2 LV Mass: 106.06 67-162/88-224 g LV Mass Index: 69.32 43-95/49-115 g/m2 LVOT Diam: 1.90 3.0+(-)1.3 cm 2D Systolic Function EF 4C: 50.70 >55% EF 2C: 60.00 >55% EF BiP: 54.00 >55% Mitral Valve MV Pk E: 0.97 MV PK A: 0.92 MV Decel Time: 153.00 E/A: 1.10 E'Lateral: 6.81 E'Medial: 4.37 E/E' Med: 22.30 E/E' Lat: 14.30 PHT: 45.00 MVA PHT: 4.89 Decel [place]: 6.35 Aortic Valve AoV Pk Alberto: 1.28 AoV Pk Grad: 7.00 CIRO: 2.29 LVOT LVOT Pk Alberto: 0.92 LVOT Mn Alberto: 0.63 LVOT VTI: 0.24 LVOT Pk Grad: 3.00 LVOT Mn Grad: 2.00 LVOT Diam: 1.90 LVOT Area: 2.84 Diastolic Function MV Pk E: 0.97 MV Pk A: 0.92 E/A: 1.10 E'Medial: 4.37 E/E' Med: 22.30 E' Laterial: 6.81 E/E' Lat: 14.30 Right Ventricle TAPSE (mm): 16.70 TVS' Alberto: 12.00 Tricuspid Valve TR Pk Alberto: 2.99 TR Pk Grad: 36.00 RA Press: 3.00 RVSP: 39.00 Great Vessels Aorta Sinus of Valsalva: 2.60 2.0-3.5 cm Ao Asc: 2.80 2.1-3.4 cm Pulmonary Valve PV Pk Alberto: 0.81 Peak PV Grad: 3.00 Updated in Other Vendor System with Status of Final Rajiv Sears MD electronically signed on 03/24/2023 3:27:04 PM with status of Final
== END ==
LOC: HO.CARD 07:47
PROVIDERS: PCP Nurse Practitioner Family; Visit Provider Nurse Practitioner Family
DX: R06.02 Shortness of breath (principal)
CPT/HCPCS: 93306

== ENCOUNTER → 2023-03-24 07:51 | Outpatient (BNV) | payer MEDICARE, SELFPAY | PROVIDERS: PCP Nurse Practitioner Family; Visit Provider Internal Medicine Cardiovascular Disease | DX: I36.1 Nonrheumatic tricuspid (valve) insufficiency (principal) | CPT/HCPCS: 93306 ==

== ENCOUNTER 2023-04-09 13:24 | Outpatient (AMB) | payer MEDICARE, SELFPAY ==
--- NOTE | 2023-04-09 13:40 | MHC.PC.OV ---
Vital Signs 04/09/23 13:41 Height 4 ft 11.45 in Weight 135 lb 8 oz BMI 27.0 BP 160/86 H Blood Pressure Location Lt brachial Position Sitting Pulse 65 Pulse Source Pulse Oximeter Pulse Oximetry (%) 96 Oxygen Delivery Method Room Air Intake Visit Reasons: chest pain trouble breathing Intake Note: Pt is here for chest pain that comes and goes and trouble breathing. Today concern is chest congestion. 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 Accompanied by: Self / Same As Patient Allergies guaifenesin [From Mucinex] Allergy (Severe, Verified 04/09/23 13:46) THROAT CLOSING propoxyphene [From Darvon] Allergy (Mild, Verified 04/09/23 13:46) VOMITING diclofenac Allergy (Unknown, Verified 04/09/23 13:46) voilently ill GENERIC MEDS Allergy (Mild, Uncoded 04/09/23 13:46) HIVES prednisone Allergy (Mild, Uncoded 04/09/23 13:46) Hives all generic brands Allergy (Unknown, Uncoded 04/09/23 13:46) Hives albuterol sulfate Adverse Reaction (Uncoded 04/09/23 13:46) Unknown Tobacco use date assessed: 12/11/22 Fall risk assessment: No Falls in past year Last assessed Fall Risk: 04/09/23 Dental Screening Dental Screen Date: 04/09/23 Did you have a dental visit in the last 12 months?: No Did you have a dental problem in the last 6 months where you did not have access to dental care?: No Was dental information given to patient?: Patient has dentist HPI HPI Comments History of Present Illness Details 82-year-old female past medical history significant for mild asthma, bronchitis and nonproductive cough. Patient was seen in December for hospital discharge follow-up from bronchitis and persisting cough, chest CT: Showed bibasilar atelectasis and large hiatal hernia and cholelithiasis without cholecystitis. Given patient's persistent cough and shortness of breath PFTs were completed which were essentially normal did not show any obstructive restrictive ventilatory defects. Patients son continued to call in state mother was experiencing persistent shortness of breath and cough. Requesting a pulmonary consult, which was previously entered, patient was requesting to see Dr. Gloria at [facility] [place] she reports that he only works part-time in her appointment is not set up until 2023. Patient offered different referral to pulmonology for sooner appointment, she declines at this time. Given patient continues to experience shortness of breath and cough patient was advised to seek emergency medical attention at ER or walk-in however she declined. Echocardiogram completed in noted below. echocardiogram was obtained on 03/24/2023 which showed - 1. Low normal LV ejection fraction at 50-55% with grade 2? ? ? diastolic dysfunction? 2. Mildly dilated left atrium? 3. Normal cardiac valvular Doppler ? 4. Upper limits of normal RV systolic pressure ? 5. No gross pericardial effusion Patient presents today for follow-up visit for persistent shortness of breath and difficulty breathing. Patient reports its worse with humidity. Denies ADONIS. Patient reports mild improvement with xopenex. On examination patient was noted to have fine crackles in the bases will repeat CMP, CBC, BNP and chest x-ray. Blood pressure elevated in office today 160/86, discussed starting patient on low-dose blood pressure medication, however patient declines this time. Discussed starting patient on Lasix due to noted crackles in the bases and echo revealing LVEF of 50-55% with grade 2 diastolic dysfunction until she is able to see Cardiology scheduled on 04/21/2023. Patient agreeable to start lasix. Patient reports she is unable to take any generic medications: Lasix with no substitution sent to patient's pharmacy. Patient denies any chest pain, palpitations and syncope [facility] Medical History (Updated 04/10/23 @ 07:53 by KINGS Lo) Hypertension Shortness of breath Surgical History History of 2 sections History of removal of cyst Family History Mother No problems noted. Father Substance use disorder Social History Housing: House Alcohol intake: never Patient Tobacco Use Status: Former Tobacco user Tobacco use type: Cigarette Cigarettes Per Day: 6 e-Cigarette/Vaping Use: Never Used service: No Current occupational status: retired Cognitive needs: No Hearing needs: No Vision needs: No Questionnaire Thrive Questionnaire Date Thrive assessed: 12/11/22 RUBEN-7 AMB Questionnaire RUBEN-7 Date RUBEN - 7 assessed: 12/11/22 Source: Developed by Drs. Guanako De Guzman, Francoise Yanez, Andrew Zamora and colleagues, with an educational suki from [employer]. Review of Systems Const Denies chills, Denies fatigue, Denies fever(s) and Denies poor appetite Eyes Denies no additional complaints ENT Reports Normal hearing present Card Denies chest pain, Denies syncope, Denies rapid heart rate, Reports dyspnea and Reports dyspnea on exertion Resp Denies cough, Reports dyspnea and Reports dyspnea on exertion GI Denies change in stool character, Denies constipation, Denies diarrhea, Denies nausea and Denies vomiting Denies urinary frequency, Denies dysuria and Denies urinary urgency Neuro Reports Normal hearing present, Denies confusion and Denies syncope Psych Denies confusion Endo Denies fatigue Physical exam (Primary Care) Vital Signs: Last Vital Signs Pulse 65 04/09/23 13:41 BP 160/86 H 04/09/23 13:41 Pulse Ox 96 04/09/23 13:41 Oxygen Delivery Method Room Air 04/09/23 13:41 BMI result Body Mass Index 27.0 Tobacco/Smoking Status: Tobacco use Status Tobacco use date assessed 12/11/22 04/09/23 13:48 Patient Tobacco Use Status Former Tobacco user 04/09/23 13:48 Tobacco use type Cigarette 04/09/23 13:48 e-Cigarette/Vaping Use Never Used 04/09/23 13:48 Thrive Assessment: Date of Thrive Assessment Date Thrive assessed 12/11/22 04/09/23 13:48 Const General: No confusion Orientation/consciousness: No confusion HENMT Head: Yes normocephalic and Yes atraumatic Eyes Conjunctivae: conjunctivae normal Chest Chest palpation & inspection: normal inspection of the chest Resp Effort & Inspection: normal respiratory effort Auscultation: clear to auscultation bilaterally, crackles (fine crackles bilateral basis) bilateral, no rhonchi and no wheezes Cardio Rate: regular rate Rhythm: regular rhythm Heart sounds: S1 normal heart sound present and S2 normal heart sound present GI Inspection: Yes normal to inspection Neuro General: No confusion Cranial nerves: Yes Normal hearing present Extrem General: No edema Assessment and Plan Assessment & Plan (1) Shortness of breath: Code(s): R06.02 - Shortness of breath (2) Grade II diastolic dysfunction: Code(s): I51.89 - Other ill-defined heart diseases Plan: Given patient continues to experience persistent shortness of breath, fine crackles noted bilaterally 1 basis. CBC,CMP and BNP ordered to further evaluate . Patient on Lasix 20 mg daily until able to see Anatomic Pathologist on 04/21/23. (3) Hypertension: Code(s): I10 - Essential (primary) hypertension Qualifiers: Hypertension type: unspecified Qualified Code(s): I10 - Essential (primary) hypertension Plan: Patient declined hypertensive medications at this time, lasix 20mg ordered for sob and crackles in bilateral bases and hopefully will aide in decreasing patients b/p. Plan Follow up in 1 month Orders: Orders Comprehensive Bayard. Panel Fast 04/09/23 I51.89 - Other ill-defined heart diseases Lipid Panel 04/09/23 Z13.220 - Encounter for screening for lipoid disorders TSH reflex Free T4 04/09/23 Z13.29 - Encounter for screening for other suspected endocrine disorder Complete Blood Count Auto Diff 04/09/23 Z13.0 - Encounter for screening for diseases of the blood and blood-forming organs and certain disorders involving the immune mechanism XR chest 2V 04/09/23 R06.02 - Shortness of breath Medications: New Lasix (furosemide) 20 mg PO DAILY 13 tabs 0RF NS I51.89 - Other ill-defined heart diseases, R06.02 - Shortness of breath Coding Level of Care Code Est Pt Level 4 (69397) Diagnoses Shortness of breath R06.02 Grade II diastolic dysfunction I51.89 Hypertension I10 Hypertension type: unspecified
[2023-04-09 13:41] VITALS: BP 160/86; PULSE 65; O2SAT 96; BMI 27.0
== END 2023-04-09 14:21 | disposition home or self-care (01) ==
PROVIDERS: PCP Nurse Practitioner Family; Visit Provider Nurse Practitioner Family
DX: R06.02 Shortness of breath (principal); I51.89 Other ill-defined heart diseases; I10 Essential (primary) hypertension
CPT/HCPCS: 99214

== ENCOUNTER 2023-04-09 14:31 | Outpatient (REF) | payer MEDICARE, SELFPAY ==
--- NOTE | ~2023-04-09 | XR_ITS ---
EXAMINATION: XR CHEST 2 VIEWS CLINICAL INFORMATION: Shortness of breath, chest pain and cough. COMPARISON: CT chest dated 12/28/2022; prior chest radiographs, most recently 11/26/2022. TECHNIQUE: Frontal and lateral views of the chest were obtained. FINDINGS: The heart, great vessels, pulmonary vasculature and mediastinum are normal. The lungs show no focal infiltrate, effusion or pneumothorax. There is stable mild scar/subsegmental atelectasis within the left upper lobe and at the bilateral bases, left greater than right. There is no acute osseous abnormality. XR/XR chest 2V IMPRESSION: 1. No focal infiltrate or congestive heart failure is seen. 2. There is stable chronic mild bilateral scar/subsegmental atelectasis, left greater than right.
== END 2023-04-09 14:32 | disposition home or self-care (01) ==
LOC: HO.XRAY 14:31
PROVIDERS: Visit Provider Nurse Practitioner Family
DX: R06.02 Shortness of breath (principal)
CPT/HCPCS: 71046

== ENCOUNTER 2023-04-13 10:08 | Outpatient (REF) | payer MEDICARE, SELFPAY ==
[2023-04-13 10:56] LABS: Basophils Absolute Auto 0.1 X10*3/uL (0.0-0.2); Basophils Percent Auto 1.1 % (0-2); Eosinophils Absolute Auto 1.3 X10*3/uL (0.0-0.4); Eosinophils Percent Auto 20.2 % (0-4); Hematocrit 41.6 % (37.0-47.0); Hemoglobin 13.3 g/dl (12.0-16.0); Imm Gran Abs Auto 0.03 X10*3/uL (0.00-0.03); Imm Gran Pct Auto 0.5 % (0.0-0.4); Lymphocytes Absolute Auto 1.9 X10*3/uL (1.2-4.9); Lymphocytes Percent Auto 30.1 % (20-40); MANUAL DIFF FLAG SCAN; Mean Corpuscular Hemoglobin 27.3 pg (27.0-33.0); Mean Corpuscular Volume 85.2 fL (80.0-98.0); Mean Platelet Volume 8.8 fL (9.4-12.3); Monocytes Absolute Auto 0.6 X10*3/uL (0.1-1.2); Neutrophils Absolute Auto 2.5 x10*3/uL (2.0-8.3); Neutrophils Percent Auto 39.1 % (45-73); Platelet Count 284 X10*3/uL (160-400); Red Blood Count 4.88 X10*6/uL (4.20-5.50); Red Cell Distribution Width 13.7 % (11.0-16.0); SCAN SMEAR FLAG 1; White Blood Count 6.4 X10*3/uL (4.8-10.8)
[2023-04-13 11:43] LABS: SLIDE REVIEW VERIFIED
[2023-04-13 11:50] LABS: Alanine Aminotransferase 9 U/L (0-31); Albumin Level 4.2 g/dL (3.5-5.0); Alkaline Phosphatase 92 U/L (39-117); Anion Gap 9 (12-20); Aspartate Amino Transferase 17 U/L (5-31); Bilirubin Total 0.4 mg/dL (0.0-1.0); Blood Urea Nitrogen 16 mg/dL (9-16); Calcium 9.5 mg/dL (8.4-10.2); Carbon Dioxide 27 mmol/L (22-29); Chloride 108 mmol/L (96-108); Cholesterol 269 mg/dL (<200); Estimated Glomerular Filt Rate > 60; Glucose Fasting 88 mg/dL (60-99); HDL Cholesterol 48 mg/dL (>40); LDL Cholesterol Calculated 179 mg/dL (<100); Potassium 4.4 mmol/L (3.3-5.1); Sodium 140 mmol/L (135-145); Total Protein 7.2 g/dL (6.5-8.0); Triglycerides 211 mg/dL (<150)
[2023-04-13 12:13] LABS: TSH reflex Free T4 2.62 uIU/mL (0.32-4.0)
== END 2023-04-13 10:09 | disposition home or self-care (01) ==
LOC: HO.LAB 10:08
PROVIDERS: PCP Internal Medicine; Visit Provider Nurse Practitioner Family
DX: Z13.220 Encounter for screening for lipoid disorders (principal); Z13.29 Encounter for screening for other suspected endocrine disorder; Z13.0 Encounter for screening for diseases of the blood and blood-forming organs and certain disorders involving the immune mechanism; I51.89 Other ill-defined heart diseases
CPT/HCPCS: 36415; 80053; 80061; 84443; 85025

== ENCOUNTER 2023-04-14 14:18 | Outpatient (REF) | payer MEDICARE, SELFPAY ==
[2023-04-14 16:48] LABS: B Type Natriuretic Peptide 111 pg/mL (<100)
== END 2023-04-14 14:19 | disposition home or self-care (01) ==
LOC: HO.LAB 14:18
PROVIDERS: PCP Internal Medicine; Visit Provider Internal Medicine Cardiovascular Disease
DX: R06.02 Shortness of breath (principal)
CPT/HCPCS: 36415; 83880

== ENCOUNTER 2023-04-14 14:18 | Outpatient (AMB) | payer MEDICARE, SELFPAY ==
[2023-04-14 14:21] VITALS: BP 148/84; PULSE 64; BMI 27.2
--- NOTE | 2023-04-14 14:21 | MHC.OFFVIS ---
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 Mechanic Present Accompanied by: Son Allergies guaifenesin [From Mucinex] Allergy (Severe, Verified 04/09/23 13:46) THROAT CLOSING propoxyphene [From Darvon] Allergy (Mild, Verified 04/09/23 13:46) VOMITING diclofenac Allergy (Unknown, Verified 04/09/23 13:46) voilently ill GENERIC MEDS Allergy (Mild, Uncoded 04/09/23 13:46) HIVES prednisone Allergy (Mild, Uncoded 04/09/23 13:46) Hives all generic brands Allergy (Unknown, Uncoded 04/09/23 13:46) Hives albuterol sulfate Adverse Reaction (Uncoded 04/09/23 13:46) Unknown Medication List - Last Reconciled 04/14/23 by Rajiv Sears MD Lasix (furosemide) 20 mg PO DAILY NS levalbuterol HCl 0.63 mg (3 mL) inhalation TID levalbuterol tartrate 45 mcg/actuation (Xopenex HFA) 2 puffs inhalation Q4-6H PRN nebulizers (AeroEclipse II Nebulizer) As directed HPI HPI Comments History of Present Illness Details I was Jody in cardiology consultation today for symptoms exertional shortness of breath and of normal echo finding of grade 2 diastolic dysfunction. She denies any symptoms shortness of breath, abdominal distension. However she does have symptoms of exertional fatigue and shortness of breath which are very concerning to her. She is very anxious about it. She denies any clear orthopnea PND but does complain of cough at nighttime which is persistent. She underwent a CT scan which showed large hiatal hernia with some pulmonary nodules. Does also bibasal atelectasis. Patient has been seen by surgery for consideration of hiatal hernia. She was also referred here of her shortness of breath. She was started on Lasix but has not started taking it. She was waiting to see me today. Patient denies any chest discomfort. Denies any prolonged palpitations, lightheadedness, syncope. [facility] Medical History (Updated 04/10/23 @ 07:53 by KINGS Lo) Shortness of breath Hypertension Surgical History History of removal of cyst History of 2 sections Family History Mother No problems noted. Father Substance use disorder Social History Housing: House Alcohol intake: never Patient Tobacco Use Status: Former Tobacco user Tobacco use type: Cigarette Cigarettes Per Day: 6 e-Cigarette/Vaping Use: Never Used service: No Current occupational status: retired Cognitive needs: No Hearing needs: No Vision needs: No Review of Systems Const Denies chills, Denies daytime sleepiness, Denies fatigue, Denies fever(s), Denies frequent falls, Denies poor appetite, Denies snoring, Denies stops breathing during sleep, Denies weakness, Denies weight gain and Denies weight loss Eyes Denies loss of vision ENT Denies dizziness and Denies hearing loss Card Denies chest pain, Denies claudication, Denies leg edema, Denies lightheadedness, Denies palpitations, Denies dyspnea, Denies dyspnea on exertion and Denies orthopnea Resp Denies cough, Denies excessive phlegm production, Denies dyspnea, Denies dyspnea on exertion, Denies snoring and Denies wheezing GI Denies abdominal pain, Denies hematochezia, Denies change in bowel habits, Denies nausea and Denies vomiting Denies urinary frequency and Denies dysuria Musc Denies arthralgias, Denies muscle weakness, Denies numbness and Denies other (frequent falls) Skin/Breast Denies nail changes and Denies rash Neuro Denies Abnormal speech present, Denies dizziness, Denies frequent falls, Denies loss of vision, Denies memory loss, Denies numbness and Denies weakness Psych Denies depression and Denies memory loss Endo Denies fatigue and Denies palpitations Floyd/Lymph Reports easy bruising and Reports other (anemia) Aller/Immun Denies wheezing Physical Exam Vital Signs: Last Vital Signs Pulse 64 04/14/23 14:21 BP 148/84 H 04/14/23 14:21 BMI result Body Mass Index 27.2 Const General: cooperative, comfortable, no acute distress, alert, awake, Physically active and anxious Nutritional Appearance: average body habitus Orientation/consciousness: patient oriented x3 Limitations: no limitations HEENT Head: Yes normocephalic and Yes atraumatic Neck Neck: Yes trachea midline, Yes supple and Yes no JVD Resp Effort & Inspection: normal respiratory effort Auscultation: no rales, no wheezes and diminished lung sounds Cardio Jugular venous distension: no JVD Palpation: normal PMI Rate: regular rate Rhythm: regular rhythm Heart sounds: S1 normal heart sound present, S2 normal heart sound present, no click, no gallops, no murmurs and no rubs GI Auscultation: normal bowel sounds Skin General skin exam: no rashes or lesions noted Neuro General: patient oriented x3 and no focal motor deficits Speech: No Abnormal speech present Extrem General: Yes no clubbing, cyanosis or edema Assessment & Plan Assessment & Plan (1) Shortness of breath: Code(s): R06.02 - Shortness of breath Plan: Shortness of breath on exertion this elderly woman with noted grade 2 diastolic dysfunction on echocardiogram without any overt signs of fluid overload. She has been prescribe Lasix has not started taking it. I am not sure if her symptoms related to congestive heart failure although diastolic dysfunction can definitely cause her to have exertional shortness of breath. Also obstructive coronary artery disease needs to be ruled out given her coronary artery calcification advanced age. Suggest of vasodilating myocardial perfusion imaging in near future. She also has a large hiatal hernia and has constant cough and question acid reflux disease could be contributing to her symptoms with bronchospasm. Would consider referral to GI and then evaluation by surgery if that is the case to repair her hiatal hernia. This was discussed with her. Her blood pressure is currently well optimized. Continue current therapy. Further treatment based on the findings of a BNP. BNP is elevated would start oral Lasix therapy. This was discussed with her. Follow up in the clinic in 4 weeks time after stress testing. Thank you for allowing me to partake in her care Orders: Orders B Type Natriuretic Peptide 04/14/23 R06.02 - Shortness of breath CA stress test 04/14/23 R06.02 - Shortness of breath NM cardiolite stress test 2 Weeks R07.9 - Chest pain, unspecified Coding Level of Care Code New Pt Level 4 (22600) Diagnoses Shortness of breath R06.02
== END 2023-04-14 15:09 | disposition home or self-care (01) ==
PROVIDERS: PCP Internal Medicine; Visit Provider Internal Medicine Cardiovascular Disease
DX: R06.02 Shortness of breath (principal)
CPT/HCPCS: 99204

== ENCOUNTER 2023-05-03 02:16 | Inpatient (IN) | payer MEDICARE, SELFPAY ==
[2023-05-03] VITALS (10 sets, daily range): BP systolic 126–155; BP diastolic 61–82; PULSE 74–91; RESP 16–24; TEMP 36.3–37.1; O2SAT 87–98; BMI 24.8
--- NOTE | ~2023-05-03 | CT_ITS ---
EXAMINATION: CT HEAD WITHOUT CONTRAST CLINICAL INFORMATION: Headache COMPARISON: 07/15/2015 TECHNIQUE: Contiguous axial imaging was performed from the skull base to vertex without intravenous administration of contrast. This CT examination was performed using dose optimization techniques as appropriate, variously including the following: *Automated exposure control *Adjustment of mA and/or kV according to patient size (this includes techniques or standardized protocols for targeted exams where dose is matched to indication/reason for exam; i.e. extremities or head) *Use of iterative reconstruction technique DLP: 556 mGy-cm FINDINGS: There is no evidence of acute intracranial hemorrhage or territorial infarction. No abnormal mass-effect or midline shift is seen. Schreiber to white matter differentiation is well preserved. No extra-axial fluid collections are identified. The ventricles are normal in size. Mild volume loss is noted. The osseous structures and soft tissues are normal. Partially opacified right mastoid air cells. There is partial opacification of the right maxillary and sphenoid sinuses as well as scattered opacification of the bilateral ethmoid air cells. CT/CT head/brain wo IV con IMPRESSION: No acute intracranial pathology. Sinus opacification as described above.
--- NOTE | ~2023-05-03 | XR_ITS ---
EXAMINATION: XR CHEST CLINICAL INFORMATION: Hypoxia COMPARISON: 04/09/2023 TECHNIQUE: Frontal view of the chest was obtained. FINDINGS: Lung volumes are symmetric. Somewhat coarsened appearance of the interstitium diffusely. Linear atelectasis is suspected at the left base. No evidence of pneumothorax or significant pleural effusion. Cardiac silhouette appears borderline enlarged. Persistent hiatal hernia is suspected. Calcification is present at the aortic arch. No acute osseous findings are seen. XR/XR chest 1V IMPRESSION: Somewhat coarsened appearance of the interstitium, which could reflect developing acute or chronic airways disease. Suspect hiatal hernia with adjacent left basilar atelectasis.
--- NOTE | ~2023-05-03 | CT_ITS ---
EXAMINATION: CT ABDOMEN AND PELVIS WITHOUT CONTRAST CLINICAL INFORMATION: Abdominal pain. Nausea and vomiting. COMPARISON: None available. TECHNIQUE: Multidetector volumetric imaging was performed from the superior aspect of the liver through the pubic symphysis. Sagittal and coronal reformatted images were obtained on the technologist's workstation. This CT examination was performed using dose optimization techniques as appropriate, variously including the following: *Automated exposure control *Adjustment of mA and/or kV according to patient size (this includes techniques or standardized protocols for targeted exams where dose is matched to indication/reason for exam; i.e. extremities or head) *Use of iterative reconstruction technique DLP: 320 mGy-cm FINDINGS: LUNG BASES: The visualized lung bases are clear. Trace right pleural effusion. LIVER, GALLBLADDER, AND BILIARY TREE: The liver is normal in size, shape, and attenuation. No focal hepatic lesion or biliary ductal dilatation is present. Small gallstone in the gallbladder. The gallbladder is otherwise normal. PANCREAS: Unremarkable. SPLEEN: Unremarkable. ADRENAL GLANDS: Unremarkable. KIDNEYS AND URETERS: The kidneys are normal in size, shape, and attenuation. No hydronephrosis, hydroureter. 4 mm stone in the lower pole of the right kidney. BLADDER: Unremarkable. GASTROINTESTINAL TRACT: Diverticulosis of the colon. Duodenal diverticulum adjacent to the head of the pancreas. Small and large bowel is otherwise normal. Normal appendix. Moderate-sized esophageal hernia ABDOMINAL WALL: Left inguinal hernia containing fat. LYMPH NODES: Normal. VASCULAR: Atherosclerotic disease. PELVIC VISCERA: Unremarkable. OSSEOUS STRUCTURES: Mild L2 vertebral body compression fracture. CT/CT abdomen pelvis wo IV con IMPRESSION: Gallstone. Right renal stone. Diverticulosis. Esophageal hernia. Fleischner guidelines were followed.
--- NOTE | 2023-05-03 02:39 | ECG_ITS ---
Test Reason : HEADACHE Blood Pressure : / mmHG Vent. Rate : 081 BPM Atrial Rate : 081 BPM P-R Int : 170 ms QRS Dur : 082 ms QT Int : 384 ms P-R-T Axes : 070 017 033 degrees QTc Int : 446 ms Sinus rhythm with Premature atrial complexes Nonspecific T wave abnormality Abnormal ECG When compared with ECG of 04-DEC-2022 14:24, Premature atrial complexes are now Present Nonspecific T wave abnormality is now Present Referred By: Lila Casanova Electronically Signed By:ADAN JIMENEZ
[2023-05-03] MEDS: ondansetron HCL 4 MG/2 ML VIAL IVPUSH (02:42)
--- NOTE | 2023-05-03 02:48 | ED.HA ---
HPI - Headache General Chief Complaint: General Medical Stated Complaint: general medical Time Seen by Provider: 05/03/23 02:31 Source: patient and old records reviewed Mode of arrival: ambulatory Limitations: other (very poor historian) History of Present Illness HPI Narrative: 82 yo female with hx of HTN, dCHF EF 50%, bronchitis, arthritis here with c/o severe headache starting at 6pm tonight out of nowhere - she denies trauma, fevers, blood thinner use. She states it is the front of her head. It started at rest and she has never had pain like this before. She feels sick to her stomach and feels like she is going to throw up. She notes she has tried nothing for her headache. She also notes she did not take her lasix last night as it fell through a hole in her pocket. MD elicited complaint: headache Onset (ago): hour(s) (8) Onset description: suddenly Location: frontal Severity: severe Quality & Timing: throbbing Exacerbating factors: exertion Relieving factors: nothing Context: occurred at rest Associated symptoms: nausea, vomiting and cough Treatments prior to arrival: none Related Data Previous Rx's Medication Instructions Recorded levalbuterol tartrate 45 2 puff inhalation Q4-6H PRN 12/31/22 mcg/actuation aerosol inhaler shortness of breath #15 grams (Xopenex HFA) levalbuterol HCl 0.63 mg/3 mL 0.63 mg (3 mL) inhalation TID #90 01/01/23 solution for nebulization mL nebulizers (AeroEclipse II #1 ea 01/01/23 Nebulizer) Lasix 20 mg tablet (furosemide) 20 mg PO DAILY #13 tabs 04/09/23 Allergies Allergy/AdvReac Type Severity Reaction Status Date / Time guaifenesin [From Mucinex] Allergy Severe THROAT Verified 04/09/23 13:46 CLOSING propoxyphene [From Darvon] Allergy Mild VOMITING Verified 04/09/23 13:46 diclofenac Allergy Unknown voilently Verified 04/09/23 13:46 ill GENERIC MEDS Allergy Mild HIVES Uncoded 04/09/23 13:46 prednisone Allergy Mild Hives Uncoded 04/09/23 13:46 all generic brands Allergy Unknown Hives Uncoded 04/09/23 13:46 albuterol sulfate AdvReac Unknown Uncoded 04/09/23 13:46 Review of Systems Review of Systems: Constitutional : No Fever, No Chills, No Fatigue ENT/Mouth : No sore throat, No Rhinorrhea Eyes: No Eye Pain, No Swelling, No Redness Cardiovascular : No Chest Pain, No SOB, No Dyspnea on Exertion Respiratory : No Cough, No Sputum Gastrointestinal : pos Nausea, pos Vomiting, No Diarrhea, No abdominal Pain Genitourinary : No Dysuria, No Urinary Frequency, No Hematuria, Musculoskeletal : No joint pain, No Myalgias, No Joint Swelling Skin : No Skin Lesions, No rash Neuro : No Weakness, No Numbness, No Dizziness, positive Headache Psych : No Anxiety/Panic, No Depression All other systems reviewed and are negative [facility] Past Medical History Attestation statement: The following information was validated with the patient. Source: old records reviewed Medical History Shortness of breath Hypertension Surgical History History of removal of cyst History of 2 sections Family History Family History Mother No problems noted. Father Substance use disorder Social History Social History Housing: House Alcohol intake: never Patient Tobacco Use Status: Former Tobacco user Tobacco use type: Cigarette Cigarettes Per Day: 6 Smoked in Last 30 Days: No e-Cigarette/Vaping Use: Never Used Use of substances other than those prescribed or required for medical reasons: No Advance Directives: No Advance Directives Information Provided: No service: No Current occupational status: retired Cognitive needs: No Hearing needs: No Vision needs: No Physical Exam Vital Signs: Vital Signs: Last Vital Signs Temp 98.8 F 05/03/23 04:00 Pulse 87 05/03/23 04:00 Resp 23 H 05/03/23 04:00 BP 135/61 05/03/23 04:00 Pulse Ox 87 L 05/03/23 04:00 O2 Del Method Room Air 05/03/23 04:00 BMI result Body Mass Index 24.8 Appearance: Alert. Oriented X3. Anxious, mild acute distress. Dry heaving Eyes: Pupils equal, round and reactive to light. ENT: Pharynx normal. Neck: Normal inspection. Neck supple. CVS: Normal heart rate and rhythm. Pulses normal. Respiratory: No respiratory distress. Breath sounds slightly diminished bilaterally Abdomen: Soft and nontender. Skin: Skin warm and dry. Normal skin color. Normal skin turgor. Extremities: No lower extremity edema. No calf ttp Neuro: Oriented X 3. No motor deficit. No sensory deficit. Course Course Course Narrative: patient desaturated to 87% on RA she does not wear O2 at home - i did order a neb protocol and IV dexamethasone. she is pending CXR, covid labs. She has no CP/SOB she has dry cough is slightly wheezy now neg BNP given no CP/SOB doubt VTE. Reevaluation(s) Reevaluation #1: CT scan negative at 8 hr yola with COVID + and likely viral sinusitis suspect this is the cause of her headache and symptoms and not SAH/ICH - she is vaccinated x 2 per patient. Reevaluation #2: 87% on RA after therapies will need admission for COVID-19 with hypoxia - has hx of reactive airway disease and bronchitis does not use home O2 does not smoke desaturates to 87% on RA Reevaluation #3: pain resolved with IV morphine Additional Reevaluation(s): symptoms are from viral cause and not bacterial infection or severe sepsis Medications Administered Discontinued Medications Generic Name Dose Route Start Last Admin Trade Name Freq PRN Reason Stop Dose Admin Acetaminophen 650 mg 05/03/23 03:14 05/03/23 03:18 Acetaminophen 325 Mg Tablet PO 05/03/23 03:15 650 mg ONCE ONE Administration Albuterol Sulfate 2.5 mg/ 5 mg 05/03/23 03:26 05/03/23 03:32 Albuterol Sulfate 2.5 mg INHALE 05/03/23 03:27 5 mg ONCE ONE Administration Dexamethasone Sodium Phosphate 6 mg 05/03/23 03:14 05/03/23 03:20 Dexamethasone Sod Phosphate 4 Mg/Ml Vial IVPUSH 05/03/23 03:15 6 mg ONCE ONE Administration Morphine Sulfate 4 mg 05/03/23 02:52 05/03/23 02:58 Morphine Sulfate 4 Mg/Ml Cartridge IVPUSH 05/03/23 02:53 4 mg ONCE ONE Administration Protocol Ondansetron HCl 4 mg 05/03/23 02:39 05/03/23 02:42 Ondansetron Hcl 4 Mg/2 Ml Vial IVPUSH 05/03/23 02:40 4 mg ONCE ONE Administration Medical Decision Making Medical Decision Making [facility] Narrative: 82 yo female with hx of HTN, dCHF EF 50%, bronchitis, arthritis who comes to the ED very anxious dry heaving stating she is having the worst headache of her life for 8 hours. She denies fevers, denies trauma states it came out of nowhere. She is not a good historian she has no neuro deficits and no meningeal signs - she denies fevers but she is coughing. This could be SAH, ICH, viral in nature such as COVID - I have sent her over for STAT CT head - IV zofran and IV morphine for pain ordered. COVID swab ordered and basic labs. CXR as well. She came in with lower O2 sats but denies dyspnea other than dry cough and has no LE edema. Differential Diagnosis Differential Diagnoses: The differential diagnosis associated with the presentation includes ICH, SAH, HTN crisis, viral syndrome Admission/Observation Consideration of admission/observation: Escalation of care including admission/observation considered admission for hypoxia in setting of COVID Consult Healthcare Provider Management of the patient was discussed with: Hospitalist (agrees to admit) Lab Data [facility] Lab Attestation statement: I reviewed the patient's lab results. trop and BNP flat COVID + 05/03/23 02:43 05/03/23 02:43 Labs: Lab Results 05/03/23 05/03/23 Range/Units 02:43 02:44 WBC 6.0 (4.8-10.8) X10*3/uL RBC 4.61 (4.20-5.50) X10*6/uL Hgb 12.7 (12.0-16.0) g/dl Hct 38.7 (37.0-47.0) % MCV 83.9 (80.0-98.0) fL MCH 27.5 (27.0-33.0) pg MCHC 32.8 (31.0-35.0) g/dl RDW 13.7 (11.0-16.0) % Plt Count 232 (160-400) X10*3/uL MPV 8.6 L (9.4-12.3) fL Immature Gran % (Auto) 0.3 (0.0-0.4) % Neut % (Auto) 67.4 (45-73) % Lymph % (Auto) 8.5 L (20-40) % [place] % (Auto) 12.0 H (2-11) % Eos % (Auto) 11.0 H (0-4) % Baso % (Auto) 0.8 (0-2) % Lymph # (Auto) 0.5 L (1.2-4.9) X10*3/uL [place] # (Auto) 0.7 (0.1-1.2) X10*3/uL Eos # (Auto) 0.7 H (0.0-0.4) X10*3/uL Baso # (Auto) 0.1 (0.0-0.2) X10*3/uL Abs Immat Gran (auto) 0.02 (0.00-0.03) X10*3/uL Absolute Neuts (auto) 4.0 (2.0-8.3) x10*3/uL Absolute Nucleated RBC 0.000 (0.0-0.012) X10*3/uL Nucleated RBC % (auto) 0.0 (0.0-0.2) /100WBC PT 11.6 (11.1-13.3) SEC INR 1.0 (0.9-1.1) Sodium 135 (135-145) mmol/L Potassium 4.2 (3.3-5.1) mmol/L Chloride 103 (96-108) mmol/L Carbon Dioxide 20 L (22-29) mmol/L Anion Gap 16 (12-20) BUN 11 (9-16) mg/dL Creatinine 0.80 (0.5-1.4) mg/dL Estim Creat Clear Calc 48.6 Estimated GFR > 60 Random Glucose 114 (60-115) mg/dL Calcium 9.3 (8.4-10.2) mg/dL Magnesium 1.8 (1.6-2.6) mg/dL Ferritin 36 (10-250) ng/mL Total Bilirubin 0.3 (0.0-1.0) mg/dL Direct Bilirubin 0.1 (0.0-0.5) mg/dL AST 23 (5-31) U/L ALT 12 (0-31) U/L Alkaline Phosphatase 97 (39-117) U/L Lactate Dehydrogenase 211 (122-220) U/L Troponin I High Sens 3.4 (<3.5-17.0) ng/L B-Natriuretic Peptide 97 (<100) pg/mL Total Protein 7.3 (6.5-8.0) g/dL Albumin 4.0 (3.5-5.0) g/dL COVID-19 (MAURISIO) Positive A (Negative) COVID-19 Clin Com See Note Independent Interpretation I performed an independent interpretation of an: EKG, Plain X-Ray (no pneumonia) and CT Scan (no ICH) Interpretation: Rate: 81 Rhythm: NSR [place]: normal Normal P waves. Normal ISACC. Normal QRS complex. ST T wave : no JONY, nonspecific ST T wave changes qTC: normal prior studies: no acute ischemia The study has been interpreted contemporaneously by me. . Radiology Impression Discussion of test interpretation with radiology: I have reviewed the radiologist's reading. External Record Review External record reviewed: Inpatient record Social Determinants Patient?s care significantly limited by Social Determinants of Health including: Problems related to primary support group Critical Care Time Critical Care Time Critical Care Time: Yes Total Critical Care Time: 31 Attestation: pain improved with IV morphine, feels much better, pain resolved. I attest to this time spent taking care of the patient Discharge Plan Discharge Clinical Impression: COVID-19, Hypoxia, Acute bronchospasm Acute headache Qualifiers: Headache type: unspecified Intractability: not intractable Qualified Code(s): R51.9 - Headache, unspecified Patient Disposition: Admitted As Inpatient
[2023-05-03 02:49] LABS: MANUAL DIFF FLAG NO
[2023-05-03 02:50] LABS: Basophils Absolute Auto 0.1 X10*3/uL (0.0-0.2); Basophils Percent Auto 0.8 % (0-2); Eosinophils Absolute Auto 0.7 X10*3/uL (0.0-0.4); Hematocrit 38.7 % (37.0-47.0); Hemoglobin 12.7 g/dl (12.0-16.0); Imm Gran Abs Auto 0.02 X10*3/uL (0.00-0.03); Imm Gran Pct Auto 0.3 % (0.0-0.4); Lymphocytes Absolute Auto 0.5 X10*3/uL (1.2-4.9); Lymphocytes Percent Auto 8.5 % (20-40); Mean Corpuscular HGB Conc 32.8 g/dl (31.0-35.0); Mean Corpuscular Hemoglobin 27.5 pg (27.0-33.0); Mean Corpuscular Volume 83.9 fL (80.0-98.0); Mean Platelet Volume 8.6 fL (9.4-12.3); Monocytes Absolute Auto 0.7 X10*3/uL (0.1-1.2); Neutrophils Percent Auto 67.4 % (45-73); Platelet Count 232 X10*3/uL (160-400); Red Blood Count 4.61 X10*6/uL (4.20-5.50); Red Cell Distribution Width 13.7 % (11.0-16.0)
[2023-05-03 02:56] LABS: Prothrombin Time 11.6 SEC (11.1-13.3)
[2023-05-03] MEDS: Morphine Sulfate 4 MG/ML CARTRIDGE IVPUSH (02:58)
--- NOTE | 2023-05-03 03:01 | MHC.EDTECH ---
THIS PCT JUST ASSUMED CARE OF PT ,BLOOD DRAWN AND SENT TO LAB ,PT EKG TAKEN AND WAS READ BY PROVIDER ,VITALS SIGN DONE ,PT WAS HOOKED UP TO ANIMAL NURSERY WORKER ,PT RESTING QUIETLY ,WILL CONTINUE TO MONITOR .
[2023-05-03 03:05] LABS: COVID-19 Test Positive (Negative); IDNOW Serial# 08D9AD1C
[2023-05-03 03:07] LABS: Alanine Aminotransferase 12 U/L (0-31); Alkaline Phosphatase 97 U/L (39-117); Anion Gap 16 (12-20); Aspartate Amino Transferase 23 U/L (5-31); Bilirubin Direct 0.1 mg/dL (0.0-0.5); Bilirubin Total 0.3 mg/dL (0.0-1.0); Blood Urea Nitrogen 11 mg/dL (9-16); Calcium 9.3 mg/dL (8.4-10.2); Carbon Dioxide 20 mmol/L (22-29); Chloride 103 mmol/L (96-108); Creatinine Clr Calc Pharmacy 48.6; Estimated Glomerular Filt Rate > 60; Glucose Random 114 mg/dL (60-115); Magnesium 1.8 mg/dL (1.6-2.6); Potassium 4.2 mmol/L (3.3-5.1); Sodium 135 mmol/L (135-145); Total Protein 7.3 g/dL (6.5-8.0)
[2023-05-03 03:10] LABS: B Type Natriuretic Peptide 97 pg/mL (<100); Troponin-I High Sensitivity 3.4 ng/L (<3.5-17.0)
[2023-05-03] MEDS: Acetaminophen 325 MG TABLET 650 MG PO ×3 (03:18→22:53)
[2023-05-03] MEDS: dexAMETHasone sod phosphate 4 MG/ML VIAL 6 MG IVPUSH (03:20)
[2023-05-03] MEDS: Albuterol Sulfate 2.5 MG, Albuterol Sulfate (0.083%) 2.5 MG 5 MG INHALE (03:32)
[2023-05-03 03:42] LABS: Lactate Dehydrogenase 211 U/L (122-220)
[2023-05-03 03:51] LABS: Ferritin 36 ng/mL (10-250)
--- NOTE | 2023-05-03 04:17 | PM.IMHP ---
History of Present Illness Date of Service: 05/03/23 Chief Complaint: Headache This is a 82-year-old female with pertinent history of congestive heart failure with preserved ejection fraction who presents to the emergency department for evaluation of headache and nausea. Patient states headache started on the day of presentation. It was associated with nausea and chills. The headache was frontal, not radiating, no relieving factors. No blurring of vision. Patient states she does not usually get sick and she feels weak and ill. No sick contacts. Patient did not take her p.o. Lasix on the day of presentation as it fell out of her pocket. No documented fever, chest discomfort, palpitations, abdominal pain, changes in urinary or bowel habits. In the emergency department, patient was found to be hypoxemic and positive for COVID-19. Review of Systems Constitutional: Constitutional: Reports chills, Reports fatigue and Reports lethargy Cardiovascular: Cardiovascular: Reports no additional cardiovascular complaints Respiratory: Respiratory: Reports cough Gastrointestinal: Gastrointestinal: Reports nausea Genitourinary: Genitourinary: Reports no additional female genitourinary complaints Endocrine: Endocrine: Reports fatigue [facility] Medical History (Updated 05/03/23 @ 04:32 by Heather Conteh MD) Grade II diastolic dysfunction Shortness of breath Hypertension Family History Mother No problems noted. Father Substance use disorder Surgical History History of removal of cyst History of 2 sections Social History Housing: House Alcohol intake: never Patient Tobacco Use Status: Former Tobacco user Tobacco use type: Cigarette Cigarettes Per Day: 6 Smoked in Last 30 Days: No e-Cigarette/Vaping Use: Never Used Use of substances other than those prescribed or required for medical reasons: No Advance Directives: No Advance Directives Information Provided: No service: No Current occupational status: retired Cognitive needs: No Hearing needs: No Vision needs: No Meds Allergies Allergy/AdvReac Type Severity Reaction Status Date / Time guaifenesin [From Mucinex] Allergy Severe THROAT Verified 04/09/23 13:46 CLOSING propoxyphene [From Darvon] Allergy Mild VOMITING Verified 04/09/23 13:46 diclofenac Allergy Unknown voilently Verified 04/09/23 13:46 ill GENERIC MEDS Allergy Mild HIVES Uncoded 04/09/23 13:46 prednisone Allergy Mild Hives Uncoded 04/09/23 13:46 all generic brands Allergy Unknown Hives Uncoded 04/09/23 13:46 albuterol sulfate AdvReac Unknown Uncoded 04/09/23 13:46 Physical Exam Vital Signs and Narrative: Vital Signs: Last Vital Signs Temp 98.8 F 05/03/23 04:00 Pulse 87 05/03/23 04:00 Resp 23 H 05/03/23 04:00 BP 135/61 05/03/23 04:00 Pulse Ox 87 L 05/03/23 04:00 O2 Del Method Room Air 05/03/23 04:00 BMI result Body Mass Index 24.8 Elderly female lying in bed in mild distress on supplemental oxygen Neck supple, no JVD Regular rate and rhythm, S1-S2 heard Bilateral crackles with mild wheezing Abdomen soft nontender, no guarding, no rigidity Patient is awake, alert and oriented to self, place, time and person ; no focal motor deficit Psych: Normal mood No pedal edema Results Labs 05/03/23 02:43 05/03/23 02:43 Labs: Laboratory Results - last 24 hr 05/03/23 05/03/23 02:43 02:44 MCV 83.9 MCH 27.5 MCHC 32.8 RDW 13.7 Plt Count 232 MPV 8.6 L Immature Gran % (Auto) 0.3 Neut % (Auto) 67.4 Lymph % (Auto) 8.5 L [place] % (Auto) 12.0 H Eos % (Auto) 11.0 H Baso % (Auto) 0.8 Lymph # (Auto) 0.5 L [place] # (Auto) 0.7 Eos # (Auto) 0.7 H Baso # (Auto) 0.1 Abs Immat Gran (auto) 0.02 Absolute Neuts (auto) 4.0 Absolute Nucleated RBC 0.000 Nucleated RBC % (auto) 0.0 PT 11.6 INR 1.0 Anion Gap 16 Estim Creat Clear Calc 48.6 Estimated GFR > 60 Random Glucose 114 Calcium 9.3 Magnesium 1.8 Ferritin 36 Total Bilirubin 0.3 Direct Bilirubin 0.1 AST 23 ALT 12 Alkaline Phosphatase 97 Lactate Dehydrogenase 211 B-Natriuretic Peptide 97 Total Protein 7.3 Albumin 4.0 COVID-19 (MAURISIO) Positive A COVID-19 Clin Com See Note Imaging Radiologist's Impressions: Impressions Head CT 05/03/23 03:00 IMPRESSION: No acute intracranial pathology. Sinus opacification as described above. Chest X-Ray 05/03/23 03:25 IMPRESSION: Somewhat coarsened appearance of the interstitium, which could reflect developing acute or chronic airways disease. Suspect hiatal hernia with adjacent left basilar atelectasis. Assessment and Plan (1) Hypoxia: Status: Acute (2) COVID-19: Status: Acute Plan This is a 82-year-old female with pertinent history of congestive heart failure with preserved ejection fraction who presents to the emergency department for evaluation of headache and nausea, will be admitted for hypoxemia due to COVID 19. #. Acute hypoxemic respiratory failure secondary to COVID-19. Will admit patient and continue supplemental oxygen. Initiating systemic steroids. Also initiating scheduled and p.r.n. DuoNebs for associated bronchospasm. Monitor oxygen saturation and wean as tolerated. Maintain oxygen saturation greater than 90%. Continue COVID-19 isolation precautions #. Congestive heart failure with preserved ejection fraction: Continue home dose Lasix Med rec pending DVT prophylaxis: Lovenox Full code Admit as inpatient and will require two night minimum hospital stay for supplemental oxygen Time Spent With Patient Time: Total time managing care of this patient today ____ minutes. Quality Stroke Does the patient have a stroke diagnosis?: No VTE Prior VTE?: No VTE Risk Level:: Medical - moderate - high VTE Device Contraindication: Treatment Not Indicated VTE Drug Contraindication: N/A - Med Ordered
[2023-05-03 05:15] LABS: Alanine Aminotransferase 10 U/L (0-31); Albumin Level 3.9 g/dL (3.5-5.0); Alkaline Phosphatase 92 U/L (39-117); Anion Gap 13 (12-20); Aspartate Amino Transferase 19 U/L (5-31); Bilirubin Total 0.3 mg/dL (0.0-1.0); Blood Urea Nitrogen 11 mg/dL (9-16); Calcium 8.9 mg/dL (8.4-10.2); Carbon Dioxide 21 mmol/L (22-29); Chloride 104 mmol/L (96-108); Creatinine Clr Calc Pharmacy 48.6; Estimated Glomerular Filt Rate > 60; Glucose Random 142 mg/dL (60-115); Potassium 3.9 mmol/L (3.3-5.1); Sodium 134 mmol/L (135-145); Total Protein 6.9 g/dL (6.5-8.0)
[2023-05-03] MEDS: dexAMETHasone 6 MG TABLET PO (08:32)
[2023-05-03] MEDS: Furosemide 20 MG/2 ML VIAL IVPUSH (08:32)
[2023-05-03] MEDS: 0.9 % Sodium Chloride Flush 3 ML SYRINGE IVFLUSH ×3 (08:34→22:56)
[2023-05-03] MEDS: Enoxaparin Sodium 40 MG/0.4 ML SYRINGE SUBCUT (08:37)
[2023-05-03] MEDS: Albuterol Sulfate 90 MCG 8 GM INHALER 4 PUFF INHALE ×4 (09:22→22:20)
--- NOTE | 2023-05-03 10:09 | PHA.MEDREC ---
Pharmacy Consult ? Medication Reconciliation Pharmacy has completed the medication reconciliation.
[2023-05-03] MEDS: Benzonatate 100 MG CAPSULE 200 MG PO (11:37)
--- NOTE | 2023-05-03 14:34 | PC.NURSE ---
pt a&ox3, vss and up to date. pt verbalizing 7/10 pain in her head. pt requesting pain medication at this time. pt states she feels somewhat SOB - pt able to speak in full sentences w/ difficulty. no WOB shown/ pt's son (otoniel) called about status update on pt. notified pt's son that we just received this pt and that i would call him to notify him on status update when I knew more about the pt. respirations even and unlabored. call carey placed within reach.
--- NOTE | 2023-05-03 16:21 | P.CNID_ITS ---
History of Present Illness Data of Consult Service Date: 05/03/23 Requesting physician: Magnolia Robb Primary Care Provider: Unknown Physician HPI Reason for consult: COVID She presents to ER with 10/10 headache. She had hypoxia to 87% and was found to be COVID positive. She did receive two COVID shots 2020 she thinks that made her sick . She has had no Paxlovid. Review of Systems 2 Review of Systems: Yes all other systems are reviewed and are negative PMFSH Past Medical History Medical History Grade II diastolic dysfunction Shortness of breath Hypertension Family History Family History Mother No problems noted. Father Substance use disorder Family history: reviewed and not pertinent Surgical History Surgical History History of removal of cyst History of 2 sections Social History Social History Housing: House Alcohol intake: never Patient Tobacco Use Status: Former Tobacco user Tobacco use type: Cigarette Cigarettes Per Day: 6 Smoked in Last 30 Days: No e-Cigarette/Vaping Use: Never Used Use of substances other than those prescribed or required for medical reasons: No Advance Directives: No Advance Directives Information Provided: No service: No Current occupational status: retired Cognitive needs: No Hearing needs: No Vision needs: No Meds Allergies Allergy/AdvReac Type Severity Reaction Status Date / Time guaifenesin [From Mucinex] Allergy Severe THROAT Verified 04/09/23 13:46 CLOSING propoxyphene [From Darvon] Allergy Mild VOMITING Verified 04/09/23 13:46 diclofenac Allergy Unknown voilently Verified 04/09/23 13:46 ill GENERIC MEDS Allergy Mild HIVES Uncoded 04/09/23 13:46 prednisone Allergy Mild Hives Uncoded 04/09/23 13:46 all generic brands Allergy Unknown Hives Uncoded 04/09/23 13:46 albuterol sulfate AdvReac Unknown Uncoded 04/09/23 13:46 Active Medications: Current Medications Acetaminophen (Acetaminophen 325 Mg Tablet) 650 mg PO Q6H PRN PRN Reason: Pain, Mild (Pain Scale 1-3) Last Admin: 05/03/23 15:45 Dose: 650 mg Acetaminophen (Acetaminophen Supp 650 Mg Supp.Rect) 650 mg HI Q6H PRN PRN Reason: Pain, Mild (Pain Scale 1-3) Albuterol Sulfate (Albuterol Sulfate 90 Mcg 8 Gm Inhaler) 4 puff INHALE RQ4H PRN PRN Reason: Sob Last Admin: 05/03/23 15:21 Dose: 4 puff Albuterol/Ipratropium (Albuterol/Iprat 2.5/0.5mg 3 Ml Ampul.Neb) 3 ml INHALE RQ4H WHILE AWAKE [facility] Last Admin: 05/03/23 15:21 Dose: Not Given Benzonatate (Benzonatate 100 Mg Capsule) 200 mg PO TID PRN PRN Reason: Cough Last Admin: 05/03/23 11:37 Dose: 200 mg Dexamethasone (Dexamethasone 6 Mg Tablet) 6 mg PO DAILY [facility] Last Admin: 05/03/23 08:32 Dose: 6 mg Enoxaparin Sodium (Enoxaparin Sodium 40 Mg/0.4 Ml Syringe) 40 mg SUBCUT Q24H [facility] Last Admin: 05/03/23 08:37 Dose: 40 mg Melatonin (Melatonin 3 Mg Tablet) 6 mg PO BEDTIME PRN PRN Reason: Insomnia Ondansetron HCl (Ondansetron Hcl 4 Mg/2 Ml Vial) 4 mg IVPUSH Q8H PRN PRN Reason: Nausea and Vomiting Sodium Chloride (0.9 % Sodium Chloride Flush 3 Ml Syringe) 3 ml IVFLUSH QSHIFT [facility] Last Admin: 05/03/23 08:34 Dose: 3 ml Home Medications Medication Instructions Recorded Confirmed Last Taken Type aspirin 81 mg tablet,delayed 81 mg PO DAILY 05/03/23 05/03/23 05/02/23 History release cyanocobalamin (vitamin B-12) 1,000 mcg PO DAILY 05/03/23 05/03/23 05/02/23 History 1,000 mcg tablet guaifenesin 100 mg/5 mL oral liquid 200 mg PO Q4H PRN Cough 05/03/23 05/03/23 05/02/23 History vitamin E 268 mg (400 unit) capsule 268 mg PO DAILY 09/25/23 09/25/23 09/24/23 History Physical Exam 2 Vital Signs: Vital Signs: Last Vital Signs Temp 98.7 F 05/03/23 04:15 Pulse 83 05/03/23 15:21 Resp 22 H 05/03/23 15:21 BP 137/70 05/03/23 04:15 Pulse Ox 95 05/03/23 04:15 O2 Del Method Room Air 05/03/23 04:15 O2 Flow Rate 2 05/03/23 04:15 BMI result Body Mass Index 24.8 Const: General: cooperative HEENT: Head: Yes normal to inspection Face and sinus: Yes normal facial exam Mouth: Normal oral and palatal mucosa present Teeth and gingiva: d entition normal Eyes: General: appearance normal, both eyes and all related structures P upils: Equal, round and reactive pupils present Resp: Effort & Inspection: normal respiratory effort Cardio: Rate: regular rate Rhythm: regular rhythm GI: Palpation (GI): Soft to palpation and nontender : General: Yes no CVA tenderness Back/Spine/Pelvis: Back: no CVA tenderness Skin: General skin exam: no rashes or lesions noted Neuro: General: moves all extremities Cranial nerves: Yes Equal, round and reactive pupils present Extrem: General: Yes normal to inspection Psych: Appearance: grossly normal Results Labs 05/03/23 02:43 05/03/23 04:47 Labs: Short CBC 05/03/23 Range/Units 02:43 WBC 6.0 (4.8-10.8) X10*3/uL Hgb 12.7 (12.0-16.0) g/dl Hct 38.7 (37.0-47.0) % Plt Count 232 (160-400) X10*3/uL BMP 05/03/23 05/03/23 02:43 04:47 Sodium 135 134 L Potassium 4.2 3.9 Chloride 103 104 Carbon Dioxide 20 L 21 L BUN 11 11 Creatinine 0.80 0.80 Calcium 9.3 8.9 Liver Function 05/03/23 05/03/23 Range/Units 02:43 04:47 Total Bilirubin 0.3 0.3 (0.0-1.0) mg/dL Direct Bilirubin 0.1 (0.0-0.5) mg/dL AST 23 19 (5-31) U/L ALT 12 10 (0-31) U/L Alkaline Phosphatase 97 92 (39-117) U/L Albumin 4.0 3.9 (3.5-5.0) g/dL Assessment and Plan (1) Hypoxia: Status: Acute She has some hypoxia associated with new COVID symptoms for two days. Her son had symptoms for three days. (2) COVID-19: Status: Acute Plan Remdesivir and stop when not hypoxic for 24 hours or five days whichever comes first. Steroids Dexamethasone mg daily and stop when not hypoxic under 93% for 24 hours. Time Spent With Patient Time: Total time managing care of this patient today ____ minutes.
--- NOTE | 2023-05-03 16:45 | HO.PM.IMPN ---
Subjective Subjective Date of Service: 05/03/23 Interval History: covid Review of Systems Patient says the shortness of breath somewhat improved improving But still desats Denies any chest pain or nausea or vomiting or abdominal pain. no fevers Physical Exam Vital Signs: Vital Signs: Last Vital Signs Temp 98.7 F 05/03/23 04:15 Pulse 83 05/03/23 15:21 Resp 22 H 05/03/23 15:21 BP 137/70 05/03/23 04:15 Pulse Ox 95 05/03/23 04:15 O2 Del Method Room Air 05/03/23 04:15 O2 Flow Rate 2 05/03/23 04:15 BMI result Body Mass Index 24.8 Appearance: Alert.? Oriented X3, not indistress cvs: rrr, [id number] , no murmur res: air enrty fair ,slightly diminshed at bases,has minimum wheezin abd: no rebound or guarding ,nt, bs present. ext pulses present , no cyanosis . neuro: axo3 , nonfocal. Objective Data Active Medications Acetaminophen (Acetaminophen 325 Mg Tablet) 650 mg PO Q6H PRN PRN Reason: Pain, Mild (Pain Scale 1-3) Last Admin: 05/03/23 15:45 Dose: 650 mg Documented By: MANOLO Acetaminophen (Acetaminophen Supp 650 Mg Supp.Rect) 650 mg [place] Q6H PRN PRN Reason: Pain, Mild (Pain Scale 1-3) Albuterol Sulfate (Albuterol Sulfate 90 Mcg 8 Gm Inhaler) 4 puff INHALE RQ4H PRN PRN Reason: Sob Last Admin: 05/03/23 15:21 Dose: 4 puff Documented By: JAI Albuterol/Ipratropium (Albuterol/Iprat 2.5/0.5mg 3 Ml Ampul.Neb) 3 ml INHALE RQ4H WHILE AWAKE [facility] Last Admin: 05/03/23 15:21 Dose: Not Given Documented By: JAI Non-Admin Reason: See Note Benzonatate (Benzonatate 100 Mg Capsule) 200 mg PO TID PRN PRN Reason: Cough Last Admin: 05/03/23 11:37 Dose: 200 mg Documented By: MYRA Dexamethasone (Dexamethasone 6 Mg Tablet) 6 mg PO DAILY [facility] Last Admin: 05/03/23 08:32 Dose: 6 mg Documented By: MANOLO Enoxaparin Sodium (Enoxaparin Sodium 40 Mg/0.4 Ml Syringe) 40 mg SUBCUT Q24H [facility] Last Admin: 05/03/23 08:37 Dose: 40 mg Documented By: MANOLO Melatonin (Melatonin 3 Mg Tablet) 6 mg PO BEDTIME PRN PRN Reason: Insomnia Ondansetron HCl (Ondansetron Hcl 4 Mg/2 Ml Vial) 4 mg IVPUSH Q8H PRN PRN Reason: Nausea and Vomiting Sodium Chloride (0.9 % Sodium Chloride Flush 3 Ml Syringe) 3 ml IVFLUSH QSHIFT [facility] Last Admin: 05/03/23 08:34 Dose: 3 ml Documented By: MANOLO Labs 05/03/23 02:43 05/03/23 04:47 Labs: Laboratory Results - last 24 hr 05/03/23 05/03/23 05/03/23 02:43 02:44 04:47 MCV 83.9 MCH 27.5 MCHC 32.8 RDW 13.7 Plt Count 232 MPV 8.6 L Immature Gran % (Auto) 0.3 Neut % (Auto) 67.4 Lymph % (Auto) 8.5 L [place] % (Auto) 12.0 H Eos % (Auto) 11.0 H Baso % (Auto) 0.8 Lymph # (Auto) 0.5 L [place] # (Auto) 0.7 Eos # (Auto) 0.7 H Baso # (Auto) 0.1 Abs Immat Gran (auto) 0.02 Absolute Neuts (auto) 4.0 Absolute Nucleated RBC 0.000 Nucleated RBC % (auto) 0.0 Hold Purple Top SEE NOTE PT 11.6 INR 1.0 Anion Gap 16 13 Estim Creat Clear Calc 48.6 48.6 Estimated GFR > 60 > 60 Random Glucose 114 142 H Calcium 9.3 8.9 Magnesium 1.8 Ferritin 36 Total Bilirubin 0.3 0.3 Direct Bilirubin 0.1 AST 23 19 ALT 12 10 Alkaline Phosphatase 97 92 Lactate Dehydrogenase 211 B-Natriuretic Peptide 97 Total Protein 7.3 6.9 Albumin 4.0 3.9 COVID-19 (MAURISIO) Positive A COVID-19 Clin Com See Note Assessment and Plan (1) COVID-19: Status: Acute Plan 82-year-old female with pertinent history of congestive heart failure with preserved ejection fraction who presents to the emergency department for evaluation of headache and nausea, will be admitted for hypoxemia due to COVID 19. Acute hypoxemic respiratory failure secondary to COVID-19 no fevers ,but desats in 87% on roomair continue systemic steroids,albuterol,added remdevir today Monitor oxygen saturation and wean as tolerated. Maintain oxygen saturation greater than 90%. Continue COVID-19 isolation precautions id eval. Congestive heart failure with preserved ejection fraction: Continue home dose Lasix DVT prophylaxis: Lovenox . Full code ongoing hospitlisation stay:Acute hypoxemic respiratory failure secondary to COVID-1 Time Spent With Patient Time: Total time managing care of this patient today ____ minutes. Quality Stroke Does the patient have a stroke diagnosis?: No VTE Prior VTE?: No VTE Risk Level:: Medical - moderate - high VTE Device Contraindication: Treatment Not Indicated VTE Drug Contraindication: N/A - Med Ordered
--- NOTE | 2023-05-03 17:47 | PC.NURSE ---
AOX4 desats to high 80's on room air, maintains 95% or greater on room air. oob to commode
[2023-05-03] MEDS: Remdesivir 200 MG in 0.9 % Sodium Chloride 210 ML 105 MG IV (18:16)
[2023-05-03] MEDS: guaiFENesin 100 MG/5 ML LIQUID 10 ML PO (19:48)
[2023-05-03] MEDS: Melatonin 3 MG TABLET 6 MG PO (22:54)
[2023-05-04] VITALS (8 sets, daily range): BP systolic 112–176; BP diastolic 57–81; PULSE 51–67; RESP 13–20; TEMP 36.2–36.9; O2SAT 94–98
[2023-05-04] MEDS: Acetaminophen 325 MG TABLET 650 MG PO ×2 (05:21→11:02)
[2023-05-04] MEDS: guaiFENesin 100 MG/5 ML LIQUID 10 ML PO ×2 (05:27→11:01)
[2023-05-04 07:14] LABS: Hematocrit 37.6 % (37.0-47.0); Mean Corpuscular HGB Conc 31.9 g/dl (31.0-35.0); Mean Corpuscular Hemoglobin 27.1 pg (27.0-33.0); Mean Corpuscular Volume 85.1 fL (80.0-98.0); Mean Platelet Volume 9.2 fL (9.4-12.3); Platelet Count 220 X10*3/uL (160-400); Red Blood Count 4.42 X10*6/uL (4.20-5.50)
[2023-05-04 07:49] LABS: Alanine Aminotransferase 10 U/L (0-31); Albumin Level 3.7 g/dL (3.5-5.0); Alkaline Phosphatase 82 U/L (39-117); Anion Gap 16 (12-20); Aspartate Amino Transferase 21 U/L (5-31); Bilirubin Total 0.2 mg/dL (0.0-1.0); Blood Urea Nitrogen 16 mg/dL (9-16); Calcium 8.9 mg/dL (8.4-10.2); Carbon Dioxide 21 mmol/L (22-29); Chloride 104 mmol/L (96-108); Estimated Glomerular Filt Rate > 60; Glucose Random 93 mg/dL (60-115); Potassium 3.9 mmol/L (3.3-5.1); Sodium 137 mmol/L (135-145); Total Protein 6.6 g/dL (6.5-8.0)
[2023-05-04] MEDS: Aspirin Enteric Coated 81 MG TABLET.DR PO (08:50)
[2023-05-04] MEDS: Enoxaparin Sodium 40 MG/0.4 ML SYRINGE SUBCUT (08:50)
[2023-05-04] MEDS: dexAMETHasone 6 MG TABLET PO (08:51)
[2023-05-04] MEDS: Vitamin E (Dl,Tocopheryl Acet) 180 MG (400 UNIT) CAPSULE PO (08:51)
[2023-05-04] MEDS: Cyanocobalamin (Vitamin B-12) 1,000 MCG TABLET 1000 MCG PO (08:51)
[2023-05-04] MEDS: Albuterol Sulfate 90 MCG 8 GM INHALER 4 PUFF INHALE ×2 (09:27→15:18)
--- NOTE | 2023-05-04 10:42 | MHC.CM.PN ---
CM met with pt. she is independent at home, does not have any home health services, she lives in a first floor apt. and her son lives in the second floor and can assist her if needed (he currently has Covid). She drove herself here and is hoping to drive herself home. The d/c plan is home self care. CM will follow and assist with d/c plan.
--- NOTE | 2023-05-04 13:26 | HO.PM.IMPN ---
Subjective Subjective Date of Service: 05/04/23 Interval History: f/u on covid with hypoxia, hypoxia resolved Physical Exam Vital Signs: Vital Signs: Last Vital Signs Temp 98.3 F 05/04/23 11:12 Pulse 64 05/04/23 11:12 Resp 13 05/04/23 11:12 BP 131/62 05/04/23 11:12 Pulse Ox 94 05/04/23 03:45 O2 Del Method Room Air 05/04/23 11:12 O2 Flow Rate 2 05/04/23 07:14 BMI result Body Mass Index 24.8 Objective Data Active Medications Acetaminophen (Acetaminophen 325 Mg Tablet) 650 mg PO Q6H PRN PRN Reason: Pain, Mild (Pain Scale 1-3) Last Admin: 05/04/23 11:02 Dose: 650 mg Documented By: JOSEPH Acetaminophen (Acetaminophen Supp 650 Mg Supp.Rect) 650 mg [place] Q6H PRN PRN Reason: Pain, Mild (Pain Scale 1-3) Albuterol Sulfate (Albuterol Sulfate 90 Mcg 8 Gm Inhaler) 4 puff INHALE RQ4H PRN PRN Reason: Sob Last Admin: 05/04/23 09:27 Dose: 4 puff Documented By: JAI Albuterol/Ipratropium (Albuterol/Iprat 2.5/0.5mg 3 Ml Ampul.Neb) 3 ml INHALE RQ4H WHILE AWAKE [facility] Last Admin: 05/04/23 12:16 Dose: Not Given Documented By: JAI Non-Admin Reason: See Note Aspirin (Aspirin Enteric Coated 81 Mg Tablet.) 81 mg PO DAILY [facility] Last Admin: 05/04/23 08:50 Dose: 81 mg Documented By: ADAL Benzonatate (Benzonatate 100 Mg Capsule) 200 mg PO TID PRN PRN Reason: Cough Last Admin: 05/03/23 11:37 Dose: 200 mg Documented By: MYRA Cyanocobalamin (Cyanocobalamin (Vitamin B-12) 1,000 Mcg Tablet) 1,000 mcg PO DAILY [facility] Last Admin: 05/04/23 08:51 Dose: 1,000 mcg Documented By: ADAL Dexamethasone (Dexamethasone 6 Mg Tablet) 6 mg PO DAILY [facility] Last Admin: 05/04/23 08:51 Dose: 6 mg Documented By: ADAL Enoxaparin Sodium (Enoxaparin Sodium 40 Mg/0.4 Ml Syringe) 40 mg SUBCUT Q24H [facility] Last Admin: 05/04/23 08:50 Dose: 40 mg Documented By: ADAL Guaifenesin (Guaifenesin 100 Mg/5 Ml Liquid) 10 ml PO Q4H PRN PRN Reason: Cough Last Admin: 05/04/23 11:01 Dose: 10 ml Documented By: JOSEPH Remdesivir 100 mg/ Sodium (Chloride) 230 mls @ 115 mls/hr IV Q24H [facility] Stop: 05/07/23 18:59 Melatonin (Melatonin 3 Mg Tablet) 6 mg PO BEDTIME PRN PRN Reason: Insomnia Last Admin: 05/03/23 22:54 Dose: 6 mg Documented By: HUGO Ondansetron HCl (Ondansetron Hcl 4 Mg/2 Ml Vial) 4 mg IVPUSH Q8H PRN PRN Reason: Nausea and Vomiting Sodium Chloride (0.9 % Sodium Chloride Flush 3 Ml Syringe) 3 ml IVFLUSH QSHIFT [facility] Last Admin: 05/04/23 10:00 Dose: Not Given Documented By: JOSEPH Non-Admin Reason: Previously Administered Vitamin E (Vitamin E (Dl,Tocopheryl Acet) 180 Mg (400 Unit) Capsule) 180 mg PO DAILY [facility] Last Admin: 05/04/23 08:51 Dose: 180 mg Documented By: ADAL Labs 05/04/23 06:43 05/04/23 06:43 Labs: Laboratory Results - last 24 hr 05/04/23 06:43 MCV 85.1 MCH 27.1 MCHC 31.9 RDW 14.0 Plt Count 220 MPV 9.2 L Absolute Nucleated RBC 0.000 Nucleated RBC % (auto) 0.0 Anion Gap 16 Estim Creat Clear Calc 48.0 Estimated GFR > 60 Random Glucose 93 Calcium 8.9 Total Bilirubin 0.2 AST 21 ALT 10 Alkaline Phosphatase 82 Total Protein 6.6 Albumin 3.7 Assessment and Plan (1) COVID-19: Status: Acute Plan 82-year-old female with pertinent history of congestive heart failure with preserved ejection fraction who presents to the emergency department for evaluation of headache and nausea, will be admitted for hypoxemia due to COVID 19. Acute hypoxemic respiratory failure secondary to COVID-19 no fevers, hypoxia seems to have resolved and is off O2 continue Remdesevr and Steroid per ID recommendation Congestive heart failure with preserved ejection fraction: Continue home dose Lasix DVT prophylaxis: Lovenox . Full code ongoing hospitlisation stay:Acute hypoxemic respiratory failure secondary to COVID-1 Time Spent With Patient Time: Total time managing care of this patient today ____ minutes. Quality Stroke Does the patient have a stroke diagnosis?: No VTE Prior VTE?: No VTE Risk Level:: Medical - moderate - high VTE Device Contraindication: Treatment Not Indicated VTE Drug Contraindication: N/A - Med Ordered
[2023-05-04] MEDS: traMADoL HCL 50 MG TABLET 25 MG PO (17:42)
[2023-05-04] MEDS: 0.9 % Sodium Chloride Flush 3 ML SYRINGE IVFLUSH ×2 (17:43→19:52)
[2023-05-04] MEDS: Remdesivir 100 MG in 0.9 % Sodium Chloride 230 ML 115 MG IV (17:43)
[2023-05-04] MEDS: Melatonin 3 MG TABLET 6 MG PO (20:54)
[2023-05-04] MEDS: hydrALAZINE HCl 20 MG/ML VIAL 5 MG IVPUSH (23:22)
[2023-05-05] VITALS (9 sets, daily range): BP systolic 112–160; BP diastolic 58–90; PULSE 48–84; RESP 2–20; TEMP 36.3–37.4; O2SAT 93–97
[2023-05-05] MEDS: guaiFENesin 100 MG/5 ML LIQUID 10 ML PO ×3 (00:15→18:06)
[2023-05-05] MEDS: Albuterol Sulfate 90 MCG 8 GM INHALER 4 PUFF INHALE ×2 (08:09→15:33)
[2023-05-05] MEDS: Vitamin E (Dl,Tocopheryl Acet) 180 MG (400 UNIT) CAPSULE PO (09:10)
[2023-05-05] MEDS: dexAMETHasone 6 MG TABLET PO (09:10)
[2023-05-05] MEDS: Enoxaparin Sodium 40 MG/0.4 ML SYRINGE SUBCUT (09:10)
[2023-05-05] MEDS: Aspirin Enteric Coated 81 MG TABLET.DR PO (09:10)
[2023-05-05] MEDS: 0.9 % Sodium Chloride Flush 3 ML SYRINGE IVFLUSH ×2 (09:10→17:54)
[2023-05-05] MEDS: Cyanocobalamin (Vitamin B-12) 1,000 MCG TABLET 1000 MCG PO (09:11)
[2023-05-05] MEDS: traMADoL HCL 50 MG TABLET 25 MG PO (09:14)
--- NOTE | 2023-05-05 09:23 | P.DS_ITS ---
DS: Providers Provider Date of Service: 05/06/23 Date of admission: 05/03/23 04:15 Primary care physician: KINGS Lo Consults: 05/03/23 09:12 Consult to Infectious Diseases Routine Consulting Provider: [facility] Infectious Disease Reason for consultation: Companion Caregiver excerebation/covid Has provider been notified: No DS: Diagnosis Discharge Diagnosis (1) COVID-19: Status: Acute DS: Summary Hospital Course Hospital Course: Chief Complaint: Headache This is a 82-year-old female with pertinent history of congestive heart failure with preserved ejection fraction who presents to the emergency department for evaluation of headache and nausea. Patient states headache started on the day of presentation. It was associated with nausea and chills. The headache was frontal, not radiating, no relieving factors. No blurring of vision. Patient states she does not usually get sick and she feels weak and ill. No sick contacts. Patient did not take her p.o. Lasix on the day of presentation as it fell out of her pocket. No documented fever, chest discomfort, palpitations, abdominal pain, changes in urinary or bowel habits. In the emergency department, patient was found to be hypoxemic and positive for COVID-19. Hospital course: She presented with headach and bronchoscopy. Head CT showed no acute process but sinus opacity likely sinusitis but not necessarily bacterial as she has no discharge, no fever. for covid she was briefly hypoxic and so was started on remdesevir and dexameathasone. ID saw her with recommendation for Remdesivir and stop when not hypoxic for 24 hours or five days whichever comes first. Steroids Dexamethasone mg daily and stop when not hypoxic under 93% for 24 hours She has been on room sating between 93 and 97% the last 24 hours and will be discharged with dexamethasone for 3 more days. Non bacterial sinusitis will be treated with nasal steroid. Prior to discharged, she complaint of abd pain nausea and vomitting that she attributes to Tylenol, nonetheless a CT was done and showed acute finding and pain resolved and she tolerated regular diet. Time Spent with Patient Time attestation: Total time managing care of this patient today ____ minutes. Discharge coordination time: Greater than 30 minutes Quality: Safe Use of Opioids Does Pt have an Active Cancer Diagnosis on the Problem List?: No Quality: Stroke Does the patient have a stroke diagnosis?: No Physical Exam Vital Signs: Vital Signs: Selected Entries 05/06/23 07:44 Temperature 98.4 F Pulse Rate 50 Respiratory Rate 16 Blood Pressure 168/76 H Pulse Oximetry 97 Oxygen Delivery Me thod Room Air Discharge Plan Discharge Anticipated Discharge Date/Time: 05/06/23 10:14 Patient Disposition: Home, Self-Care Discharge Diagnosis: covid 19 Referrals: Ana Nicholson FNP [Primary Care Provider] - 1 Week Discharge Medications: New dexamethasone 6 mg tablet 6 mg PO DAILY Qty: 3 0RF Continued (DME) nebulizers [AeroEclipse II Nebulizer] Misc See Rx Instructions .Route Qty: 1 0RF Rx Instructions: As directed furosemide [Lasix] 20 mg tablet 20 mg PO DAILY Qty: 30 3RF cyanocobalamin (vitamin B-12) 1,000 mcg Tablet 1,000 mcg PO DAILY aspirin 81 mg Tablet,Delayed Release (Dr/Ec) 81 mg PO DAILY vitamin E 268 mg (400 unit) Capsule 268 mg PO DAILY guaifenesin 100 mg/5 mL Liquid 200 mg PO Q4H PRN (Reason: Cough) Discharge Orders: Discharge Order (Routine); Ordered 05/06/23 Ordered By: Jewel Schmitt Diet: Advance to usual diet Activity on Discharge: As tolerated Stand Alone Forms: Patient Portal Discharge page Care Plan Goals: full recovery from covid Health Concerns: covid Plan of Treatment: take dexamethasone as ordered follow up with your doctor in a week Assessment: as above Discharge Date/Time: 05/06/23 09:55
--- NOTE | 2023-05-05 10:32 | MHC.CM.PN ---
Pt has been medically cleared to return home today with no services. Last IMM 05/04/23. She will go home today via shuttle at 2:00pm.
--- NOTE | 2023-05-05 11:15 | HO.PM.IMPN ---
Subjective Subjective Date of Service: 05/05/23 Interval History: was doing well and wanted to go home but had acute abd pain, n/v, she thinks it was due to tyelenol, pain is resolved now Physical Exam Vital Signs: Vital Signs: Last Vital Signs Temp 99.3 F 05/05/23 07:52 Pulse 66 05/05/23 08:11 Resp 18 05/05/23 08:11 BP 157/85 H 05/05/23 07:52 Pulse Ox 93 05/05/23 07:52 O2 Del Method Room Air 05/05/23 07:52 O2 Flow Rate 2 05/04/23 07:14 BMI result Body Mass Index 24.8 Const: Other: General: AO X 3, no acute distress Resp: CTA bilateral CVS: S1,S2,RRR GI: +BS, NT, no distention, no guarding Skin: No rash Neuro: motor grossly intact Psych: appropriate affect Objective Data Active Medications Acetaminophen (Acetaminophen 325 Mg Tablet) 650 mg PO Q6H PRN PRN Reason: Pain, Mild (Pain Scale 1-3) Last Admin: 05/05/23 10:23 Dose: 650 mg Documented By: JOSEPH Acetaminophen (Acetaminophen Supp 650 Mg Supp.Rect) 650 mg IN Q6H PRN PRN Reason: Pain, Mild (Pain Scale 1-3) Albuterol Sulfate (Albuterol Sulfate 90 Mcg 8 Gm Inhaler) 4 puff INHALE RQ4H PRN PRN Reason: Sob Last Admin: 05/05/23 08:09 Dose: 4 puff Documented By: JAI Albuterol/Ipratropium (Albuterol/Iprat 2.5/0.5mg 3 Ml Ampul.Neb) 3 ml INHALE RQ4H WHILE AWAKE [facility] Last Admin: 05/05/23 08:13 Dose: Not Given Documented By: JAI Non-Admin Reason: See Note Aspirin (Aspirin Enteric Coated 81 Mg Tablet.) 81 mg PO DAILY [facility] Last Admin: 05/05/23 09:10 Dose: 81 mg Documented By: JOSEPH Benzonatate (Benzonatate 100 Mg Capsule) 200 mg PO TID PRN PRN Reason: Cough Last Admin: 05/03/23 11:37 Dose: 200 mg Documented By: MYRA Cyanocobalamin (Cyanocobalamin (Vitamin B-12) 1,000 Mcg Tablet) 1,000 mcg PO DAILY [facility] Last Admin: 05/05/23 09:11 Dose: 1,000 mcg Documented By: JOSEPH Dexamethasone (Dexamethasone 6 Mg Tablet) 6 mg PO DAILY [facility] Last Admin: 05/05/23 09:10 Dose: 6 mg Documented By: JOSEPH Enoxaparin Sodium (Enoxaparin Sodium 40 Mg/0.4 Ml Syringe) 40 mg SUBCUT Q24H [facility] Last Admin: 05/05/23 09:10 Dose: 40 mg Documented By: JOSEPH Fluticasone Propionate (Fluticasone Propionate Nasal 16 Gm Imperial) 1 spray NOSTRIL-B BID [facility] Guaifenesin (Guaifenesin 100 Mg/5 Ml Liquid) 10 ml PO Q4H PRN PRN Reason: Cough Last Admin: 05/05/23 09:14 Dose: 10 ml Documented By: JOSEPH Remdesivir 100 mg/ Sodium (Chloride) 230 mls @ 115 mls/hr IV Q24H [facility] Stop: 05/07/23 18:59 Last Infusion: 05/04/23 19:57 Dose: Infused Documented By: JAY JAY Melatonin (Melatonin 3 Mg Tablet) 6 mg PO BEDTIME PRN PRN Reason: Insomnia Last Admin: 05/04/23 20:54 Dose: 6 mg Documented By: JAY JAY Ondansetron HCl (Ondansetron Hcl 4 Mg/2 Ml Vial) 4 mg IVPUSH Q8H PRN PRN Reason: Nausea and Vomiting Sodium Chloride (0.9 % Sodium Chloride Flush 3 Ml Syringe) 3 ml IVFLUSH QSHIFT [facility] Last Admin: 05/05/23 09:10 Dose: 3 ml Documented By: JOSEPH Tramadol HCl (Tramadol Hcl 50 Mg Tablet) 25 mg PO Q6H PRN PRN Reason: Pain, Severe (Pain Scale 7-10) Last Admin: 05/05/23 09:14 Dose: 25 mg Documented By: JOSEPH Vitamin E (Vitamin E (Dl,Tocopheryl Acet) 180 Mg (400 Unit) Capsule) 180 mg PO DAILY [facility] Last Admin: 05/05/23 09:10 Dose: 180 mg Documented By: JOSEPH Labs 05/04/23 06:43 05/04/23 06:43 Assessment and Plan (1) COVID-19: Status: Acute Plan 82-year-old female with pertinent history of congestive heart failure with preserved ejection fraction who presents to the emergency department for evaluation of headache and nausea, will be admitted for hypoxemia due to COVID 19. Acute hypoxemic respiratory failure secondary to COVID-19 no fevers, hypoxia seems to have resolved and is off O2 continue Remdesevr and Steroid per ID recommendation Congestive heart failure with preserved ejection fraction: Continue home dose Lasix Transient abdominal pain, n/v she attributes this to Tylenol and presently pain is gone, exam benign, precautionary ct and if ok then can still go home DVT prophylaxis: Lovenox . Full code ongoing hospitlisation stay:Acute hypoxemic respiratory failure secondary to COVID-1 Time Spent With Patient Time: Total time managing care of this patient today ____ minutes. Quality Stroke Does the patient have a stroke diagnosis?: No VTE Prior VTE?: No VTE Risk Level:: Medical - moderate - high VTE Device Contraindication: Treatment Not Indicated VTE Drug Contraindication: N/A - Med Ordered
--- NOTE | 2023-05-05 13:42 | MHC.CM.PN ---
Per MD, waiting for CT results; CM canceled shuttle transport and will continue to follow.
[2023-05-05] MEDS: Remdesivir 100 MG in 0.9 % Sodium Chloride 230 ML 115 MG IV (17:53)
[2023-05-06] MEDS: 0.9 % Sodium Chloride Flush 3 ML SYRINGE IVFLUSH
[2023-05-06] MEDS: guaiFENesin 100 MG/5 ML LIQUID 10 ML PO (03:53)
[2023-05-06 04:00] VITALS: BP 168/79; PULSE 53; RESP 18; TEMP 37.1; O2SAT 95
[2023-05-06 07:44] VITALS: BP 168/76; PULSE 50; RESP 16; TEMP 36.9; O2SAT 97
[2023-05-06] MEDS: Fluticasone Propionate Nasal 16 GM SPRAY 1 SPRAY NOSTRIL-B (09:02)
[2023-05-06] MEDS: Vitamin E (Dl,Tocopheryl Acet) 180 MG (400 UNIT) CAPSULE PO (09:03)
[2023-05-06] MEDS: Cyanocobalamin (Vitamin B-12) 1,000 MCG TABLET 1000 MCG PO (09:03)
[2023-05-06] MEDS: Aspirin Enteric Coated 81 MG TABLET.DR PO (09:03)
[2023-05-06] MEDS: dexAMETHasone 6 MG TABLET PO (09:03)
== END 2023-05-06 09:55 | disposition home or self-care (01) | DRG 177 ==
LOC: HO.ED 04:15 → HO.EDOVER 04:23 → HO.IMC 16:20
PROVIDERS: Internal Medicine; Admitting Provider Student in an Organized Health Care Education/Training Program; Emergency Provider Emergency Medicine; PCP Nurse Practitioner Family; Visit Provider Internal Medicine
DX: U07.1 COVID-19 (principal); J96.01 Acute respiratory failure with hypoxia; I50.32 Chronic diastolic (congestive) heart failure; I11.0 Hypertensive heart disease with heart failure; Z87.891 Personal history of nicotine dependence; Z79.82 Long term (current) use of aspirin; Z79.899 Other long term (current) drug therapy
CPT/HCPCS: 36415; 70450; 71045; 74176; 80048; 80053; 80076; 82728; 83615; 83735; 83880; 84484; 85025; 85027; 85610; 87635; 93005; 94640; 99285; J0248; J1100; J1650; J1940; J2270; J2405; J8540

== ENCOUNTER → 2023-05-03 04:15 | Outpatient (BNV) | payer MEDICARE, SELFPAY | PROVIDERS: Admitting Provider Student in an Organized Health Care Education/Training Program; Emergency Provider Emergency Medicine; Visit Provider Internal Medicine | DX: R09.02 Hypoxemia (principal); U07.1 COVID-19 | CPT/HCPCS: 99222 ==

== ENCOUNTER → 2023-05-03 04:15 | Outpatient (BNV) | payer MEDICARE, SELFPAY | PROVIDERS: Admitting Provider Student in an Organized Health Care Education/Training Program; Emergency Provider Emergency Medicine; Visit Provider Student in an Organized Health Care Education/Training Program | DX: U07.1 COVID-19 (principal) | CPT/HCPCS: 99222; 99232; 99239; 99499 ==

== ENCOUNTER 2023-05-28 15:02 | Outpatient (AMB) | payer MEDICARE, SELFPAY ==
[2023-05-28 15:13] VITALS: BP 168/102; PULSE 62; RESP 16; O2SAT 97; BMI 27.7
--- NOTE | 2023-05-28 15:13 | MHC.PC.OV ---
Vital Signs 05/28/23 15:13 Height 4 ft 11 in Weight 137 lb BMI 27.7 BP 168/102 H Blood Pressure Location Lt brachial Position Sitting Respiration 16 Pulse 62 Pulse Source Pulse Oximeter Pulse Oximetry (%) 97 Oxygen Delivery Method Room Air Intake Visit Reasons: SOB and follow up Us Administrative Law Judge Required: No Accompanied by: Son Allergies guaifenesin [From Mucinex] Allergy (Severe, Verified 05/28/23 15:16) THROAT CLOSING propoxyphene [From Darvon] Allergy (Mild, Verified 05/28/23 15:16) VOMITING diclofenac Allergy (Unknown, Verified 05/28/23 15:16) voilently ill GENERIC MEDS Allergy (Mild, Uncoded 05/28/23 15:16) HIVES prednisone Allergy (Mild, Uncoded 05/28/23 15:16) Hives all generic brands Allergy (Unknown, Uncoded 05/28/23 15:16) Hives albuterol sulfate Adverse Reaction (Uncoded 05/28/23 15:16) Unknown Tobacco use date assessed: 12/11/22 Fall risk assessment: No Falls in past year Last assessed Fall Risk: 05/28/23 Dental Screening Dental Screen Date: 05/28/23 Did you have a dental visit in the last 12 months?: No Did you have a dental problem in the last 6 months where you did not have access to dental care?: Yes Was dental information given to patient?: Patient has dentist HPI SOB and follow up HPI Details 82-year-old overweight female with a history of hiatal hernia hypertension and shortness of breath on exertion coming in for follow-up patient was last seen in April 2023. Patient was last seen in the ER for COVID-19 infection in the ER was found to have hypoxemia positive for COVID-19 CT scan was done showing sinusitis patient was started on remdesivir and dexamethasone .. Patient did see cardiology (echocardiogram showing diastolic dysfunction grade 2 but without any signs of fluid overload) patient does have a large hiatal patient was advised to have myocardial perfusion imaging. [facility] Medical History Grade II diastolic dysfunction Shortness of breath Hypertension Surgical History History of removal of cyst History of 2 sections Family History Mother No problems noted. Father Substance use disorder Social History Household Members: None Housing: House Do you presently have visiting nurse or other home services: No Alcohol intake: never Patient Tobacco Use Status: Former Tobacco user Tobacco use type: Cigarette Cigarettes Per Day: 6 e-Cigarette/Vaping Use: Never Used service: No Current occupational status: retired Cognitive needs: No Hearing needs: No Vision needs: No Questionnaire Thrive Questionnaire Date Thrive assessed: 05/04/23 RUBEN-7 AMB Questionnaire RUBEN-7 Date RUBEN - 7 assessed: 12/11/22 Source: Developed by Drs. Guanako De Guzman, Francoise Yanez, Andrew Zamora and colleagues, with an educational suki from [employer]. Physical exam (Primary Care) Vital Signs: Last Vital Signs Pulse 62 05/28/23 15:13 Resp 16 05/28/23 15:13 BP 168/102 H 05/28/23 15:13 Pulse Ox 97 05/28/23 15:13 Oxygen Delivery Method Room Air 05/28/23 15:13 BMI result Body Mass Index 27.7 Tobacco/Smoking Status: Tobacco use Status Tobacco use date assessed 12/11/22 05/28/23 15:13 Patient Tobacco Use Status Former Tobacco user 05/28/23 15:13 Tobacco use type Cigarette 05/28/23 15:13 e-Cigarette/Vaping Use Never Used 05/28/23 15:13 Thrive Assessment: Date of Thrive Assessment Date Thrive assessed 05/04/23 05/28/23 15:13 Const General: alert; No acute distress Eyes Conjunctivae: conjunctivae normal Resp Other: basal crackles noted Cardio Rate: regular rate Rhythm: regular rhythm GI Inspection: Yes normal to inspection Extrem General: Yes normal to inspection and No edema Assessment and Plan Assessment & Plan (1) Large hiatal hernia: Code(s): K44.9 - Diaphragmatic hernia without obstruction or gangrene Plan: Avoid the foods that causes that usually spicy foods, tomato products, juices, coffee, soda and foods that your sensitive to. After eating do not lie down, allow 3-4 hours before in lie down. And keep the head of bed above 30 degrees to avoid the acid from going up. Patient is advised to have this evaluated (2) Grade II diastolic dysfunction: Code(s): I51.89 - Other ill-defined heart diseases Plan: Patient has seen Cardiology and workup advised with myocardial perfusion scan. stress test 06/2023 (3) Hypertension: Code(s): I10 - Essential (primary) hypertension Qualifiers: Hypertension type: unspecified Qualified Code(s): I10 - Essential (primary) hypertension Plan: Concern about the blood pressure being elevated (4) Hypercholesterolemia: Code(s): E78.00 - Pure hypercholesterolemia, unspecified Plan: Avoid fried foods, chicken skin, eggs, butter margarine, pastries and meat. Be it pork or beef they have a lot of cholesterol LDL goal of less than 130 and triglyceride of less than 150 (5) COVID-19: Comment: 04/2023 Code(s): U07.1 - COVID-19 Plan: Resolved (6) Thoracic back pain: Code(s): M54.6 - Pain in thoracic spine (7) Cough: Code(s): R05.9 - Cough, unspecified Orders: Orders Complete Blood Count Auto Diff Today I10 - Essential (primary) hypertension Free T4 (Free Thyroxine) Today I10 - Essential (primary) hypertension Thyroid Stimulating Hormone Today I10 - Essential (primary) hypertension Comprehensive Met. Panel Today I10 - Essential (primary) hypertension Lipid Panel Today E78.00 - Pure hypercholesterolemia, unspecified, I10 - Essential (primary) hypertension Vitamin B12 and Folate Today I10 - Essential (primary) hypertension XR thoracic spine 2V Today M54.6 - Pain in thoracic spine XR ribs BI min 4V w CXR1V Today M54.6 - Pain in thoracic spine Coding Level of Care Code Est Pt Level 4 (86338) Diagnoses Large hiatal hernia K44.9 Grade II diastolic dysfunction I51.89 Hypertension I10 Hypertension type: unspecified Hypercholesterolemia E78.00 COVID-19 U07.1 Thoracic back pain M54.6 Cough R05.9
== END 2023-05-28 16:13 | disposition home or self-care (01) ==
PROVIDERS: PCP Nurse Practitioner Family; Visit Provider Internal Medicine
DX: K44.9 Diaphragmatic hernia without obstruction or gangrene (principal); I51.89 Other ill-defined heart diseases; I10 Essential (primary) hypertension; E78.00 Pure hypercholesterolemia, unspecified; U07.1 COVID-19; M54.6 Pain in thoracic spine; R05.9 Cough, unspecified
CPT/HCPCS: 99214

== ENCOUNTER 2023-06-01 09:03 | Outpatient (REF) | payer MEDICARE, SELFPAY ==
--- NOTE | ~2023-06-01 | XR_ITS ---
EXAMINATION: XR THORACOLUMBAR SPINE CLINICAL INFORMATION: Pain. COMPARISON: None available. TECHNIQUE: Frontal, lateral and swimmer's views of the thoracic spine are submitted. FINDINGS: There is bony demineralization. There is a moderate thoracolumbar dextroscoliosis. There is a moderate kyphosis noted. The thoracic disc spaces are relatively well-maintained. No acute fracture or spondylolisthesis is seen. There is multi-level lower thoracic spondylosis, most pronounced at T9-T10, where it is marked. The posterior elements are intact. The paravertebral soft tissues are unremarkable XR/XR thoracic spine 2V IMPRESSION: 1. The thoracic disc spaces are relatively well-maintained. 2. There is multi-level thoracic spondylosis, most pronounced at T9-T10. 3. There are scoliotic changes. 4. There is bony demineralization.
--- NOTE | ~2023-06-01 | XR_ITS ---
EXAMINATION: XR RIBS, BILATERAL CLINICAL INFORMATION: Pain. COMPARISON: Prior radiographs, most recently 05/03/2023. TECHNIQUE: 6 views of the bilateral ribs were obtained, together with a frontal view of the chest. FINDINGS: Lungs are clear. No consolidation, pneumothorax, or pleural effusion. The cardiomediastinal silhouette and pulmonary vasculature are normal. Osseous structures are unremarkable. Ribs are intact. No fractures are identified. XR/XR ribs BI min 4V w CXR1V IMPRESSION: Unremarkable examination.
[2023-06-01 09:25] LABS: Basophils Absolute Auto 0.1 X10*3/uL (0.0-0.2); Eosinophils Percent Auto 28.8 % (0-4); Hematocrit 41.4 % (37.0-47.0); Hemoglobin 13.1 g/dl (12.0-16.0); Imm Gran Abs Auto 0.02 X10*3/uL (0.00-0.03); Imm Gran Pct Auto 0.3 % (0.0-0.4); Lymphocytes Absolute Auto 2.1 X10*3/uL (1.2-4.9); Lymphocytes Percent Auto 31.2 % (20-40); MANUAL DIFF FLAG SCAN; Mean Corpuscular HGB Conc 31.6 g/dl (31.0-35.0); Mean Corpuscular Volume 85.2 fL (80.0-98.0); Mean Platelet Volume 8.6 fL (9.4-12.3); Monocytes Absolute Auto 0.6 X10*3/uL (0.1-1.2); Monocytes Percent Auto 8.9 % (2-11); Neutrophils Percent Auto 29.8 % (45-73); Platelet Count 283 X10*3/uL (160-400); Red Blood Count 4.86 X10*6/uL (4.20-5.50); Red Cell Distribution Width 13.5 % (11.0-16.0); SCAN SMEAR FLAG 1; White Blood Count 6.8 X10*3/uL (4.8-10.8)
[2023-06-01 09:48] LABS: SLIDE REVIEW VERIFIED
[2023-06-01 10:07] LABS: Alanine Aminotransferase 10 U/L (0-31); Alkaline Phosphatase 99 U/L (39-117); Anion Gap 14 (12-20); Aspartate Amino Transferase 17 U/L (5-31); Bilirubin Total 0.4 mg/dL (0.0-1.0); Blood Urea Nitrogen 14 mg/dL (9-16); Calcium 9.5 mg/dL (8.4-10.2); Carbon Dioxide 26 mmol/L (22-29); Chloride 105 mmol/L (96-108); Cholesterol 250 mg/dL (<200); Estimated Glomerular Filt Rate > 60; Glucose Random 91 mg/dL (60-115); HDL Cholesterol 41 mg/dL (>40); LDL Cholesterol Calculated 158 mg/dL (<100); Potassium 4.4 mmol/L (3.3-5.1); Sodium 141 mmol/L (135-145); Total Protein 7.3 g/dL (6.5-8.0); Triglycerides 256 mg/dL (<150)
[2023-06-01 10:26] LABS: Free T4 (Free Thyroxine) 0.99 ng/dL (0.71-1.85)
[2023-06-01 10:38] LABS: Folate 12.6 ng/mL (> or = 4.0); Vitamin B12 > 2000 pg/mL (200-900)
== END 2023-06-01 09:04 | disposition home or self-care (01) ==
LOC: HO.LAB 09:03
PROVIDERS: PCP Internal Medicine; Visit Provider Internal Medicine
DX: M54.6 Pain in thoracic spine (principal); I10 Essential (primary) hypertension; E78.00 Pure hypercholesterolemia, unspecified
CPT/HCPCS: 36415; 71111; 72070; 80053; 80061; 82607; 82746; 84439; 84443; 85025

== ENCOUNTER → 2023-06-14 08:46 | Outpatient (REF) | payer MEDICARE, SELFPAY ==
--- NOTE | ~2023-06-14 | NM_ITS ---
Exercise Myocardial perfusion study Indication: Chest pain to evaluate for myocardial ischemia Technique: The patient was brought in for an exercise perfusion study on 06/14/2023. Patient performed exercise as per Randall protocol and was injected 25 mCi of sestamibi was given intravenously one target HR was achieved. Images were obtained using the SPECT gamma camera interlaced with the gating device. Images were obtained in supine position. Resting perfusion study was performed on 06/16/2023. Patient was administered 25 mCi of sestamibi intravenously at rest. Images were then obtained in supine position. Images obtained with and without CT attenuation. Total DLP 118 mGy-cm Images were processed with the software and compared side to side in short axis, horizontal long axis and vertical long axis views. Findings: Resting perfusion study was somewhat suboptimal basal inferior and inferoseptal uptake. The stress perfusion study showed non attenuated images show normal uptake of radiotracer in all segments of LV myocardium. Attenuation corrected images show mildly reduced uptake in the distal anterior and distal septum of the LV myocardium.. The gated study shows normal LV systolic function with calculated LVEF of 54%. LV cavity is normal in size. The gated study shows normal systolic wall thickening and contraction of all segments. There is no transient ischemic dilation. Resting study shows non attenuated images are suboptimal with showing mildly reduced uptake in the inferolateral, inferoapical and apical wall of the LV myocardium. Attenuation corrected images show mildly reduced uptake in the distal anterior, apical wall of the LV myocardium.. Gating at rest reveals normal systolic wall motion with visually estimated ejection fraction at greater than 50%. The findings are consistent with likely normal myocardial perfusion. NM/NM cardiolite stress test Impression: 1. Likely normal myocardial perfusion 2. Gated LVEF is 54% 3. Transient ischemic dilatation not present Stress EKG is negative for ischemia
--- NOTE | 2023-06-14 08:50 | CA_ITS ---
Acquisition Time: 2023-06-14 09:06:00 Total Exercise Time: 00:05:00 Test Indications: ABN ECHO Medications: SEE H Protocol: DUYEN Max HR: 137 BPM 99% of Pred: 138 BPM Max BP: 164/090 mmHG Max Work Load: 3.8 METS Exercise stress test exercise 5 min of Duyen protocol stage 1 decreased speed 1.4 MPH and 9% grade due to HR response achieivng 97% MPHR, without anginal symptoms, with isolated PACs and PVCs, with normotensive response, without EKG changes. Nuclear images pending. Test reviewed with Dr. Sears/ Referred By: Rajiv Sears Overread By: Lilibeth Bloom
== END ==
LOC: HO.CARD 08:46
PROVIDERS: PCP Internal Medicine; Visit Provider Internal Medicine Cardiovascular Disease
DX: R07.9 Chest pain, unspecified (principal); R06.02 Shortness of breath
CPT/HCPCS: 78452; 93017; A9500

== ENCOUNTER → 2023-06-14 08:50 | Outpatient (BNV) | payer MEDICARE, SELFPAY | PROVIDERS: PCP Internal Medicine; Visit Provider Nurse Practitioner | DX: R07.9 Chest pain, unspecified (principal) | CPT/HCPCS: 78452; 93016; 93018 ==

== ENCOUNTER 2023-06-21 13:59 | Outpatient (REF) | payer MEDICARE, SELFPAY ==
--- NOTE | ~2023-06-21 | XR_ITS ---
EXAMINATION: XR CHEST CLINICAL INFORMATION: Cough COMPARISON: 06/01/2023 TECHNIQUE: 2 views of the chest were obtained. FINDINGS: Heart and mediastinum within normal limits. Aortic calcifications identified. Moderate sized hiatal hernia. Hyperinflation. No vascular congestion. No consolidations or effusions. Demineralization. XR/XR chest 2V IMPRESSION: No acute cardiopulmonary disease or interval change. Hiatal hernia.
== END 2023-06-21 14:00 | disposition home or self-care (01) ==
LOC: HO.XRAY 13:59
PROVIDERS: PCP Internal Medicine; Visit Provider Nurse Practitioner Family
DX: R06.02 Shortness of breath (principal); I51.89 Other ill-defined heart diseases; R05.2 Subacute cough; K44.9 Diaphragmatic hernia without obstruction or gangrene
CPT/HCPCS: 71046; 99212

== ENCOUNTER 2023-06-21 13:59 | Outpatient (AMB) | payer MEDICARE, SELFPAY ==
[2023-06-21 14:29] VITALS: BP 140/82; PULSE 73; BMI 27.6
--- NOTE | 2023-06-21 14:29 | A.OFFVIS_ITS ---
Intake Vital Signs 06/21/23 14:29 Height 4 ft 11 in Weight 136 lb 10.986 oz BMI 27.6 BP 140/82 H Blood Pressure Location Lt brachial Position Sitting Pulse 73 Pulse Source Pulse Oximeter Intake Visit Reasons: Follow up Stress test Answering Service Agent Required: No Top Lift Compressor: Top Lift Compressor Present Allergies guaifenesin [From Mucinex] Allergy (Severe, Verified 06/21/23 14:30) THROAT CLOSING propoxyphene [From Darvon] Allergy (Mild, Verified 06/21/23 14:30) VOMITING diclofenac Allergy (Unknown, Verified 06/21/23 14:30) voilently ill GENERIC MEDS Allergy (Mild, Uncoded 05/28/23 15:16) HIVES prednisone Allergy (Mild, Uncoded 05/28/23 15:16) Hives all generic brands Allergy (Unknown, Uncoded 05/28/23 15:16) Hives albuterol sulfate Adverse Reaction (Uncoded 05/28/23 15:16) Unknown Medication List - Last Reconciled 06/21/23 by IFEOMA Welsh aspirin 81 mg PO DAILY cyanocobalamin (vitamin B-12) 1,000 mcg PO DAILY dexamethasone 6 mg PO DAILY furosemide (Lasix) 20 mg PO DAILY levalbuterol HCl 0.63 mg (3 mL) inhalation TID nebulizers (AeroEclipse II Nebulizer) As directed vitamin E 268 mg PO DAILY HPI Follow up Stress test HPI Details Jody is an 82-year-old female with past medical history hypertension, hyperlipidemia, grade 2 diastolic dysfunction, large hiatal hernia, who is being evaluated for shortness of breath. She recently underwent a nuclear stress test and now presents for follow-up. Today she reports that she does have some mild improvement in her shortness of breath symptoms since starting Lasix. Her breathing is not entirely normal. She has shortness of breath doing physical activities such as cleaning horse Stalls and climbing stairs. She denies having heartburn type sensations. She does have a productive cough which she feels is increasing. She describes having COVID back in April and was hospitalized at that time. She had the cough prior to that admission and it still persists as of now. No chest discomfort at rest or with activity. No heart palpitations, presyncope, syncope, PND, orthopnea or edema. She remains active through the day. She has 2 sons with her today. They help her with her medications. [facility] Medical History Grade II diastolic dysfunction Shortness of breath Hypertension Surgical History History of removal of cyst History of 2 sections Family History Mother No problems noted. Father Substance use disorder Social History Household Members: None Housing: House Do you presently have visiting nurse or other home services: No Alcohol intake: never Patient Tobacco Use Status: Former Tobacco user Tobacco use type: Cigarette Cigarettes Per Day: 6 e-Cigarette/Vaping Use: Never Used service: No Current occupational status: retired Cognitive needs: No Hearing needs: No Vision needs: No Review of Systems Const All systems reviewed & are unremarkable except as noted in HPI and below ENT Denies dizziness Card Denies chest pain, Denies chest pain at rest, Denies chest pain with activity, Denies rapid heart rate, Denies pedal edema, Denies edema, Denies leg edema, Denies lightheadedness, Denies palpitations, Reports dyspnea, Denies dyspnea on exertion and Denies orthopnea Resp Reports cough, Reports dyspnea and Denies dyspnea on exertion GI Denies hematochezia and Denies change in stool character Musc Denies abnormal gait, Denies limited range of motion, Denies muscle cramps, Denies muscle weakness, Denies numbness, Denies radiating pain into limb, Denies stiffness and Denies tingling Neuro Denies abnormal gait, Denies dizziness, Denies numbness and Denies tingling Endo Denies palpitations Physical Exam Vital Signs: Last Vital Signs Pulse 73 06/21/23 14:29 BP 140/82 H 06/21/23 14:29 BMI result Body Mass Index 27.6 Const General: cooperative, healthy appearing, comfortable and no acute distress Orientation/consciousness: patient oriented x3 Neck Neck: Yes normal visual inspection Resp Effort & Inspection: normal respiratory effort Auscultation: clear to auscultation bilaterally, rales (each lower lobe), no rhonchi and no wheezes Cardio Jugular venous distension: no JVD Rate: regular rate Rhythm: regular rhythm Heart sounds: S1 normal heart sound present, S2 normal heart sound present, no murmurs and no rubs Neuro General: patient oriented x3 Extrem General: Yes normal to inspection Psych Appearance: grossly normal Mental Status: mental status grossly normal Speech and movement: Normal speech and movement present Assessment & Plan Assessment & Plan (1) Shortness of breath: Code(s): R06.02 - Shortness of breath Plan: Reports of shortness of breath with activity. She describes herself as a very active person but has noticed increased difficulty with doing things such as cleaning out horse stalls and when climbing stairs. Recent EKG shows sinus rhythm with PACs, rate 81. Echocardiogram done 03/24/2023 shows EF 50-55%, no valve abnormalities, grade 2 diastolic dysfunction. A nuclear stress test was done 06/14/2023 showing normal myocardial perfusion imaging. On last visit she was started on Lasix 20 mg daily for BNP 111. Today she reports that her breathing did improve some but it is not yet normal. She is aware that she has a large hiatal hernia and is concerned that this may be adding to her shortness of breath. She did see GI for evaluation and was told she was okay since she did not report any reflux type symptoms. She plans to seek further GI evaluation. On examination today she has no clinical signs indicating heart failure. Will have her continue on low-dose Lasix as that can help reduce fluid buildup with her diastolic dysfunction. Signs and symptoms of heart failure reviewed with her. Cardiology follow-up in 4 months, sooner if needed. (2) Grade II diastolic dysfunction: Code(s): I51.89 - Other ill-defined heart diseases Plan: As above (3) Cough: Code(s): R05.9 - Cough, unspecified Qualifiers: Cough type: subacute Qualified Code(s): R05.2 - Subacute cough Plan: Patient has a productive cough that has been present for many weeks. She has been evaluated by her PCP and tells me she was admitted for COVID in April. On exam I do hear rales in each base however no other signs indicating heart failure. She feels her coughing is increasing. Will check a chest x-ray today. Will plan to forward results to her PCP. (4) Large hiatal hernia: Code(s): K44.9 - Diaphragmatic hernia without obstruction or gangrene Plan: As above. This may be contributing to her shortness of breath as her CT scan al so showed atelectasis. Checking chest x-ray today Orders: Orders XR chest 2V Today R05.9 - Cough, unspecified, R06.02 - Shortness of breath Coding Level of Care Code Est Pt Level 4 (53840) Diagnoses Shortness of breath R06.02 Grade II diastolic dysfunction I51.89 Subacute cough R05.2 Cough type: subacute Large hiatal hernia K44.9 Time Spent (min) 30
== END 2023-06-21 15:07 | disposition home or self-care (01) ==
PROVIDERS: PCP Internal Medicine; Visit Provider Nurse Practitioner Family
DX: R06.02 Shortness of breath (principal); I51.89 Other ill-defined heart diseases; R05.2 Subacute cough; K44.9 Diaphragmatic hernia without obstruction or gangrene
CPT/HCPCS: 99214

== ENCOUNTER 2023-07-14 10:05 | Outpatient (REF) | payer MEDICARE, SELFPAY ==
[2023-07-14 11:11] LABS: B Type Natriuretic Peptide 61 pg/mL (<100)
== END 2023-07-14 10:06 | disposition home or self-care (01) ==
LOC: HO.LAB 10:05
PROVIDERS: PCP Internal Medicine; Visit Provider Internal Medicine Cardiovascular Disease
DX: I50.9 Heart failure, unspecified (principal)
CPT/HCPCS: 36415; 83880

== ENCOUNTER 2023-08-24 14:56 | Outpatient (AMB) | payer MEDICARE, SELFPAY ==
[2023-08-24 14:57] VITALS: BP 146/82; PULSE 71; O2SAT 95; BMI 27.5
--- NOTE | 2023-08-24 14:58 | A.OFFVIS_ITS ---
Intake Vital Signs 08/24/23 14:57 Height 4 ft 11 in Weight 136 lb BMI 27.5 BP 146/82 H Blood Pressure Location Lt brachial Position Sitting Pulse 71 Pulse Source Pulse Oximeter Pulse Oximetry (%) 95 Oxygen Delivery Method Room Air Intake Visit Reasons: AWV [id number] Allergies guaifenesin [From Mucinex] Allergy (Severe, Verified 08/24/23 14:58) THROAT CLOSING propoxyphene [From Darvon] Allergy (Mild, Verified 08/24/23 14:58) VOMITING diclofenac Allergy (Unknown, Verified 08/24/23 14:58) voilently ill GENERIC MEDS Allergy (Mild, Uncoded 08/24/23 14:58) HIVES prednisone Allergy (Mild, Uncoded 08/24/23 14:58) Hives all generic brands Allergy (Unknown, Uncoded 08/24/23 14:58) Hives Medication List - Last Reconciled 08/24/23 by Zena Mcgee MD albuterol sulfate 90 mcg/actuation 2 puffs inhalation Q6H PRN aspirin 81 mg PO DAILY cholecalciferol (vitamin D3) 25 mcg PO DAILY cyanocobalamin (vitamin B-12) 1,000 mcg PO DAILY fluticasone furoate-vilanterol 200-25 mcg/dose (Breo Ellipta) 1 inh inhalation DAILY furosemide (Lasix) 20 mg PO DAILY levalbuterol HCl 0.63 mg (3 mL) inhalation TID nebulizers (AeroEclipse II Nebulizer) As directed vitamin E 268 mg PO DAILY HPI AWV [id number] HPI Details 83-year-old overweight female with a his tory of hiatal hernia grade 2 diastolic dysfunction hypertension hypercholesterolemia last seen in May 2023. Patient is here for annual well visit. Patient follows up with Cardiology seen June 2023 had a stress test done had mild improvement after Lasix echocardiogram March 2023 shows ejection fraction of 50-55% no valve abnormalities grade 2 diastolic dysfunction nuclear stress test June 2023 normal myocardial perfusion imaging. 133/72 [facility] Medical History (Updated 08/24/23 @ 18:30 by eZna Mcgee MD) Cough Grade II diastolic dysfunction Shortness of breath Hypertension Surgical History History of removal of cyst History of 2 sections Family History Mother No problems noted. Father Substance use disorder Social History Household Members: None Housing: House Do you presently have visiting nurse or other home services: No Alcohol intake: never Patient Tobacco Use Status: Former Tobacco user Tobacco use type: Cigarette Cigarettes Per Day: 6 e-Cigarette/Vaping Use: Never Used service: No Current occupational status: retired Cognitive needs: No Hearing needs: No Vision needs: No Questionnaire Medicare Wellness Checkup [age] What gender do you identify with?: female During the past 4 weeks, how much have you been bothered by emotional problems such as feeling anxious, depressed, irritable, sad or downhearted, and blue?: not at all During the past 4 weeks, has your physical & emotional health limited your soc ial activities with family, friends, neighbors, or groups?: moderately During the past 4 weeks, how much bodily pain have you generally had?: no pain During the past 4 weeks, was someone available to help you if you needed & wanted help?: yes, as much as I wanted During the past 4 weeks, what was the hardest physical activity you could do for at least 2 minutes?: light Can you get to places out of walking distance without help? (For eg., can you travel alone on buses, taxis or drive your car?): Yes Can you go shopping for groceries or clothes without someone's help?: Yes Can you prepare your own meals?: Yes Can you do your housework without help?: Yes Because of any health problems, do you need the help of another person with your personal care needs such as eating, bathing, dressing or getting around the house?: No Can you handle your own money without help?: Yes During the past 4 weeks, how would you rate your health in general?: very good During the past 4 weeks how have things been going for you?: good & bad parts about equal Are you having difficulties driving your car?: no Do you always fasten your seat belt when you are in a car?: yes, usually During past 4 weeks, have you been bothered by the following: never: Sexual problems?, Trouble eating well?, Teeth or denture problems? and Problems using the telephone? and sometimes: Falling or dizzy when standing up and Tiredness or fatigue? Have you fallen 2 or more times in the past year?: No Are you afraid of falling?: No Are you a smoker?: no During the past 4 weeks, how many drinks of wine, beer, or other alcoholic beverages did you have?: no alcohol at all Do you exercise for about 20 minutes 3 or more times a week?: yes, some of the time Have you been given information to help with the following?: no: Hazards in your house that might hurt you? and no: Keeping track of your medications? How often do you have trouble taking medicines the way you have been told to take them?: I always take medicine as prescribed How confident are you that you can control & manage most of your health problems?: very confident What is your race?: White PHQ-9 Over the last 2 weeks, how often have you been bothered by any of the following problems? 1. Little interest or pleasure in doing things: not at all 2. Feeling down, depressed, or hopeless: not at all 3. Trouble falling or staying asleep, or sleeping too much: not at all 4. Feeling tired or having little energy: not at all 5. Poor appetite or overeating: not at all 6. Feeling bad about yourself - or that you are a failure or have let yourself or your family down: not at all 7. Trouble concentrating on things, such as reading the newspaper or watching television: not at all 8. Moving or speaking so slowly that other people could have noticed. Or the opposite - being so fidgety or restless that you have been moving around a lot more than usual: not at all 9. Thoughts that you would be better off or of hurting yourself in some way: not at all Total score: 0 Depression Screening Interpretation: Negative Depression Screening Done: Yes Source: Developed by Drs. Guanako De Guzman, Francoise Yanez, Andrew Zamora and colleagues, with an educational suki from [employer]. Review of Systems Const Denies poor appetite and Denies weakness Eyes Denies no additional complaints ENT Reports Normal hearing present, Denies dizziness, Denies nasal congestion, Denies tinnitus and Denies sore throat Card Denies chest pain, Denies syncope, Denies rapid heart rate and Denies dyspnea Resp Denies cough and Denies dyspnea GI Denies change in stool character, Reports constipation, Denies diarrhea, Denies nausea and Denies vomiting Denies urinary frequency, Denies difficulty voiding and Denies dysuria Neuro Reports Normal hearing present, Denies confusion, Denies dizziness, Denies syncope and Denies weakness Psych Denies confusion Physical Exam Vital Signs: Last Vital Signs Pulse 71 08/24/23 14:57 BP 146/82 H 08/24/23 14:57 Pulse Ox 95 08/24/23 14:57 Oxygen Delivery Method Room Air 08/24/23 14:57 BMI result Body Mass Index 27.5 Const General: No confusion Orientation/consciousness: No confusion HEENT Head: Yes normocephalic Ears: external ears normal and TM's normal bilaterally Face and sinus: Yes normal facial exam Mouth: moist mucous membranes Throat: Yes tonsils normal Eyes Conjunctivae: conjunctivae normal Pupils: Equal, round and reactive pupils present and Pupil accommodation reflex normal Direct Ophthalmoscopy: normal light reflex Neck Neck: No lymphadenopathy Thyroid: Thyroid normal Chest Chest palpation & inspection: normal inspection of the chest Resp Effort & Inspection: normal respiratory effort and no audible wheezes Auscultation: clear to auscultation bilaterally, no crackles, no wheezes and lung sounds not diminished Cardio Rate: regular rate Rhythm: regular rhythm Peripheral pulses: radial pulses present and dorsalis pedis present GI Palpation (GI): no masses Auscultation: normal bowel sounds and normoactive bowel sounds Rectal Exam - Female: deferred Skin General skin exam: no rashes or lesions noted Rashes: no rashes Neuro General: No confusion Cranial nerves: Yes Equal, round and reactive pupils present and Yes Normal hearing present Cognition (Neuro): normal cognition Gait exam (Neuro): Normal gait present Motor exam (neuro): 5/5 motor strength present throughout Deep tendon reflexes (DTR's): Right brachioradialis reflex intensity grade: 2+, Left brachioradialis reflex intensity grade: 2+, Right patellar reflex intensity grade: 2+ and Left patellar reflex intensity grade: 2+ Extrem General: No edema Assessment & Plan Assessment & Plan (1) Grade II diastolic dysfunction: Comment: Cardiac workup negative Code(s): I51.89 - Other ill-defined heart diseases Plan: Will plan decreasing cardiac risk factors. On low-dose Lasix once a day (2) Medicare annual wellness visit, subsequent: Code(s): Z00.00 - Encounter for general adult medical examination without abnormal findings Plan: Continue with keeping active and present medication (3) Large hiatal hernia: Code(s): K44.9 - Diaphragmatic hernia without obstruction or gangrene Plan: Avoid the foods that causes that usually spicy foods, tomato products, juices, coffee, soda and foods that your sensitive to. After eating do not lie down, allow 3-4 hours before in lie down. And keep the head of bed above 30 degrees to avoid the acid from going up. (4) Hypertension: Code(s): I10 - Essential (primary) hypertension Qualifiers: Hypertension type: unspecified Qualified Code(s): I10 - Essential (primary) hypertension Plan: Continue with blood pressure medication. Decrease salt intake and exercise patient presently on furosemide (5) Hypercholesterolemia: Code(s): E78.00 - Pure hypercholesterolemia, unspecified Plan: Avoid fried foods, chicken skin, eggs, butter margarine, pastries and meat. Be it pork or beef they have a lot of cholesterol (6) COPD (chronic obstructive pulmonary disease): Code(s): J44.9 - Chronic obstructive pulmonary disease, unspecified Qualifiers: COPD type: emphysema Emphysema type: other Qualified Code(s): J43.8 - Other emphysema Plan: Continue with the inhalers and workup pending. Patient was given Breo and advised to rinse mouth after using every time (7) Diarrhea: Code(s): R19.7 - Diarrhea, unspecified Qualifiers: Diarrhea type: unspecified type Qualified Code(s): R19.7 - Diarrhea, unspecified Plan: Patient will get a referral to Gastroenterology Orders: Orders Complete Blood Count Auto Diff Today I10 - Essential (primary) hypertension Comprehensive Met. Panel Today I10 - Essential (primary) hypertension Vitamin B12 and Folate Today I10 - Essential (primary) hypertension Magnesium Today I10 - Essential (primary) hypertension B Type Natriuretic Peptide Today I10 - Essential (primary) hypertension Free T4 (Free Thyroxine) Today I10 - Essential (primary) hypertension Thyroid Stimulating Hormone Today I10 - Essential (primary) hypertension Lipid Panel Today E78.00 - Pure hypercholesterolemia, unspecified, I10 - Essential (primary) hypertension Phosphorus Today I10 - Essential (primary) hypertension Referrals Gastroenterology Referral K44.9 - Diaphragmatic hernia without obstruction or gangrene, R19.7 - Diarrhea, unspecified Medications: New hydrocodone-chlorpheniramine 10-8 mg/5 mL Partial Fill upon patient request. 5 mL PO Q12H PRN 70 mL 0RF cold symptoms R05.9 - Cough, unspecified fluticasone furoate-vilanterol 200-25 mcg/dose (Breo Ellipta) 1 inh inhalation DAILY 60 ea 11RF J44.9 - Chronic obstructive pulmonary disease, unspecified Refilled levalbuterol HCl 0.63 mg (3 mL) inhalation TID 90 mL 0RF J45.909 - Unspecified asthma, uncomplicated albuterol sulfate 90 mcg/actuation 2 puffs inhalation Q6H PRN 8.5 grams 0RF shortness of breath or wheezing Quality Reporting (2019) Depression/Bipolar (159/160/161/177) PHQ-9: Total score: 0 Coding Level of Care Code Medicare Subsequent (G0439) Diagnoses Grade II diastolic dysfunction I51.89 Medicare annual wellness visit, subsequent Z00.00 Large hiatal hernia K44.9 Hypertension I10 Hypertension type: unspecified Hypercholesterolemia E78.00 Other emphysema J43.8 COPD type: emphysema Emphysema type: other Diarrhea, unspecified type R19.7 Diarrhea type: unspecified type Additional Codes PHQ-9 - 97144 - PHQ-9 Billing: ([id number])
== END 2023-08-24 16:01 | disposition home or self-care (01) ==
PROVIDERS: PCP Nurse Practitioner Family; Visit Provider Internal Medicine
DX: Z00.00 Encounter for general adult medical examination without abnormal findings (principal); J43.8 Other emphysema; I51.89 Other ill-defined heart diseases; K44.9 Diaphragmatic hernia without obstruction or gangrene; I10 Essential (primary) hypertension; E78.00 Pure hypercholesterolemia, unspecified; R19.7 Diarrhea, unspecified
CPT/HCPCS: G0439

== ENCOUNTER 2023-09-13 10:55 | Outpatient (REF) | payer MEDICARE, SELFPAY ==
[2023-09-13 11:54] LABS: Basophils Absolute Auto 0.1 X10*3/uL (0.0-0.2); Eosinophils Absolute Auto 1.3 X10*3/uL (0.0-0.4); Eosinophils Percent Auto 22.6 % (0-4); Hematocrit 44.2 % (37.0-47.0); Hemoglobin 13.9 g/dl (12.0-16.0); Imm Gran Abs Auto 0.01 X10*3/uL (0.00-0.03); Imm Gran Pct Auto 0.2 % (0.0-0.4); Lymphocytes Absolute Auto 1.9 X10*3/uL (1.2-4.9); Lymphocytes Percent Auto 31.9 % (20-40); MANUAL DIFF FLAG SCAN; Mean Corpuscular HGB Conc 31.4 g/dl (31.0-35.0); Mean Corpuscular Hemoglobin 26.7 pg (27.0-33.0); Mean Corpuscular Volume 84.8 fL (80.0-98.0); Mean Platelet Volume 8.9 fL (9.4-12.3); Monocytes Absolute Auto 0.5 X10*3/uL (0.1-1.2); Monocytes Percent Auto 8.1 % (2-11); Neutrophils Absolute Auto 2.1 x10*3/uL (2.0-8.3); Neutrophils Percent Auto 36.2 % (45-73); Platelet Count 309 X10*3/uL (160-400); Red Blood Count 5.21 X10*6/uL (4.20-5.50); Red Cell Distribution Width 13.8 % (11.0-16.0); SCAN SMEAR FLAG 1; White Blood Count 5.8 X10*3/uL (4.8-10.8)
[2023-09-13 12:22] LABS: SLIDE REVIEW VERIFIED
[2023-09-13 12:33] LABS: B Type Natriuretic Peptide 66 pg/mL (<100)
[2023-09-13 12:39] LABS: Alanine Aminotransferase 10 U/L (0-31); Albumin Level 4.2 g/dL (3.5-5.0); Alkaline Phosphatase 107 U/L (39-117); Anion Gap 12 (12-20); Aspartate Amino Transferase 18 U/L (5-31); Bilirubin Total 0.4 mg/dL (0.0-1.0); Blood Urea Nitrogen 13 mg/dL (9-16); Calcium 9.6 mg/dL (8.4-10.2); Carbon Dioxide 27 mmol/L (22-29); Chloride 105 mmol/L (96-108); Cholesterol 248 mg/dL (<200); Estimated Glomerular Filt Rate > 60; Glucose Random 94 mg/dL (60-115); HDL Cholesterol 53 mg/dL (>40); LDL Cholesterol Calculated 160 mg/dL (<100); Phosphorus 3.5 mg/dL (2.7-4.5); Potassium 4.4 mmol/L (3.3-5.1); Sodium 140 mmol/L (135-145); Total Protein 7.5 g/dL (6.5-8.0); Triglycerides 177 mg/dL (<150)
[2023-09-13 12:56] LABS: Free T4 (Free Thyroxine) 1.05 ng/dL (0.71-1.85); Thyroid Stimulating Hormone 2.91 uIU/mL (0.32-4.0)
[2023-09-13 13:04] LABS: Folate 13.9 ng/mL (> or = 4.0); Vitamin B12 > 2000 pg/mL (200-900)
== END 2023-09-13 10:56 | disposition home or self-care (01) ==
LOC: HO.LAB 10:55
PROVIDERS: PCP Internal Medicine; Visit Provider Internal Medicine
DX: I10 Essential (primary) hypertension (principal); E78.00 Pure hypercholesterolemia, unspecified; R79.89 Other specified abnormal findings of blood chemistry
CPT/HCPCS: 36415; 80053; 80061; 82607; 82746; 83735; 83880; 84100; 84439; 84443; 85025

== ENCOUNTER 2023-10-26 13:16 | Outpatient (AMB) | payer MEDICARE, SELFPAY ==
[2023-10-26 13:19] VITALS: BP 132/74; PULSE 70; BMI 27.6
--- NOTE | 2023-10-26 13:19 | A.OFFVIS_ITS ---
Intake Vital Signs 10/26/23 13:19 Height 4 ft 11 in Weight 136 lb 10.986 oz BMI 27.6 BP 132/74 Blood Pressure Location Lt brachial Position Sitting Pulse 70 Pulse Source Pulse Oximeter Intake Visit Reasons: 4 mth f/up Front Line Supervisor Required: No Mail Handler Equipment Operator: Mail Handler Equipment Operator Present Allergies guaifenesin [From Mucinex] Allergy (Severe, Verified 10/26/23 13:26) THROAT CLOSING propoxyphene [From Darvon] Allergy (Mild, Verified 10/26/23 13:26) VOMITING diclofenac Allergy (Unknown, Verified 10/26/23 13:26) voilently ill omeprazole Adverse Reaction (Intermediate, Unverified 10/26/23 13:26) Nausea and Vomiting GENERIC MEDS Allergy (Mild, Uncoded 10/26/23 13:26) HIVES prednisone Allergy (Mild, Uncoded 10/26/23 13:26) Hives all generic brands Allergy (Unknown, Uncoded 10/26/23 13:26) Hives Medication List - Last Reconciled 10/26/23 by IFEOMA Welsh albuterol sulfate 90 mcg/actuation 2 puffs inhalation Q6H PRN aspirin 81 mg PO DAILY cholecalciferol (vitamin D3) 25 mcg PO DAILY cyanocobalamin (vitamin B-12) 1,000 mcg PO DAILY fluticasone furoate-vilanterol 200-25 mcg/dose (Breo Ellipta) 1 inh inhalation DAILY furosemide (Lasix) 20 mg PO DAILY hydrocodone-chlorpheniramine 10-8 mg/5 mL 5 mL PO Q12H PRN levalbuterol HCl 0.63 mg (3 mL) inhalation TID nebulizers (AeroEclipse II Nebulizer) As directed vitamin E 268 mg PO DAILY HPI 4 mth f/up HPI Details Jody is an 82-year-old female with past medical history hypertension, hyperlipidemia, grade 2 diastolic dysfunction, large hiatal hernia, shortness of breath who presents for follow up. Today she reports that she continues have issues with shortness of breath with exertion. She also has intermittent coughing. She was evaluated by pulmonology and recently had a pulmonary function test, results are unknown. She has the hiatal hernia and feels it contributes to her symptoms. She has no concerning chest discomfort, heart palpitations, lightheadedness, presyncope, syncope, falls, PND, orthopnea or edema. She reported some improvement after starting the Lasix. 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 Her son is present. [facility] Medical History Cough Grade II diastolic dysfunction Shortness of breath Hypertension Surgical History History of removal of cyst History of 2 sections Family History Mother No problems noted. Father Substance use disorder Social History Household Members: None Housing: House Do you presently have visiting nurse or other home services: No Alcohol intake: never Patient Tobacco Use Status: Former Tobacco user Tobacco use type: Cigarette Cigarettes Per Day: 6 e-Cigarette/Vaping Use: Never Used service: No Current occupational status: retired Cognitive needs: No Hearing needs: No Vision needs: No Review of Systems Const Details: generalized not feeling well All systems reviewed & are unremarkable except as noted in HPI and below ENT Denies dizziness Card Denies chest pain, Denies chest pain at rest, Denies chest pain with activity, D enies rapid heart rate, Denies pedal edema, Denies edema, Denies leg edema, Denies lightheadedness, Denies palpitations, Reports dyspnea, Denies dyspnea on exertion and Denies orthopnea Resp Reports cough, Reports dyspnea and Denies dyspnea on exertion GI Denies hematochezia and Denies change in stool character Musc Denies abnormal gait, Denies limited range of motion, Denies muscle cramps, Denies muscle weakness, Denies numbness, Denies radiating pain into limb, Denies stiffness and Denies tingling Neuro Denies abnormal gait, Denies dizziness, Denies numbness and Denies tingling Endo Denies palpitations Physical Exam Vital Signs: Last Vital Signs Pulse 70 10/26/23 13:19 BP 132/74 10/26/23 13:19 BMI result Body Mass Index 27.6 Const General: cooperative, healthy appearing, comfortable and no acute distress Orientation/consciousness: patient oriented x3 Neck Neck: Yes normal visual inspection Resp Other: congested sounding cough in office Effort & Inspection: normal respiratory effort Auscultation: clear to auscultation bilaterally, rales (each lower lobe), no rhonchi and no wheezes Cardio Jugular venous distension: no JVD Rate: regular rate Rhythm: regular rhythm Heart sounds: S1 normal heart sound present, S2 normal heart sound present, no murmurs and no rubs Neuro General: patient oriented x3 Extrem General: Yes normal to inspection Psych Appearance: grossly normal Mental Status: mental status grossly normal Speech and movement: Normal speech and movement present Assessment & Plan Assessment & Plan (1) Shortness of breath: Code(s): R06.02 - Shortness of breath Plan: Reports of shortness of breath with activity. She describes herself as a very active person but has noticed increased difficulty with doing things such as cleaning out horse stalls and when climbing stairs. Prior EKG shows sinus rhythm with PACs, rate 81. Echocardiogram done 03/24/2023 shows EF 50-55%, no valve abnormalities, grade 2 diastolic dysfunction. A nuclear stress test was done 06/14/2023 showing normal myocardial perfusion imaging. She was started on low-dose Lasix for mildly elevated BNP. On follow-up she did report some improvement in her breathing but it was not yet described as normal. She had no signs of heart failure on examination. She does have a known llarge hiatal hernia which may be contributing to her shortness of breath and cough. She was evaluated by pulmonology recently and they ordered a pulmonary function test. This had been completed but results are not known as of yet. There note was reviewed and also indicates possible GERD and hiatal hernia causing some aspiration and cough. She does have an upcoming visit with Dr. Garcia for GI. At present her shortness of breath does not seem to be cardiac related. She can continue on the low-dose Lasix as she feels that it is helping her. She does have known diastolic dysfunction. Signs and symptoms of heart failure were reviewed with her. Emergency care if ever needed for symptoms. Cardiology follow-up in 6 months, sooner if needed. (2) Grade II diastolic dysfunction: Comment: Cardiac workup negative Code(s): I51.89 - Other ill-defined heart diseases Plan: As above (3) Cough: Code(s): R05.9 - Cough, unspecified Qualifiers: Cough type: subacute Qualified Code(s): R05.2 - Subacute cough Plan: As above (4) Large hiatal hernia: Code(s): K44.9 - Diaphragmatic hernia without obstruction or gangrene Plan: As above. This may be contributing to her shortness of breath as her CT scan also showed atelectasis. Chest x-ray done last visit 06/21/2023 shows no acute pulmonary disease or interval change, moderate hiatal hernia present. Plan Time spent on chart review, documentation, interview and assessment Coding Level of Care Code Est Pt Level 3 (15955) Diagnoses Shortness of breath R06.02 Grade II diastolic dysfunction I51.89 Subacute cough R05.2 Cough type: subacute Large hiatal hernia K44.9 Time Spent (min) 24
== END 2023-10-26 14:01 | disposition home or self-care (01) ==
PROVIDERS: PCP Internal Medicine; Visit Provider Nurse Practitioner Family
DX: R06.02 Shortness of breath (principal); I51.89 Other ill-defined heart diseases; R05.2 Subacute cough; K44.9 Diaphragmatic hernia without obstruction or gangrene
CPT/HCPCS: 99213

== ENCOUNTER → 2023-10-26 13:16 | Outpatient (BNVA) | payer MEDICARE, SELFPAY | PROVIDERS: PCP Internal Medicine; Visit Provider Nurse Practitioner Family | DX: I51.89 Other ill-defined heart diseases (principal); R06.02 Shortness of breath; R05.2 Subacute cough | CPT/HCPCS: 99212 ==

== ENCOUNTER 2023-11-29 15:15 | Outpatient (AMB) | payer MEDICARE, SELFPAY ==
[2023-11-29 15:21] VITALS: BP 140/84; PULSE 67; O2SAT 97; BMI 27.3
--- NOTE | 2023-11-29 15:21 | MHC.PC.OV ---
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 Manager Medical Required: No Director Of Strategy & Mobile: Not Required per policy Accompanied by: Self / Same As Patient Allergies guaifenesin [From Mucinex] Allergy (Severe, Verified 11/29/23 15:21) THROAT CLOSING propoxyphene [From Darvon] Allergy (Mild, Verified 11/29/23 15:21) VOMITING diclofenac Allergy (Unknown, Verified 11/29/23 15:21) voilently ill omeprazole Adverse Reaction (Intermediate, Verified 11/29/23 15:21) Nausea and Vomiting GENERIC MEDS Allergy (Mild, Uncoded 11/29/23 15:21) HIVES prednisone Allergy (Mild, Uncoded 11/29/23 15:21) Hives all generic brands Allergy (Unknown, Uncoded 11/29/23 15:21) Hives Medication List - Last Reconciled 11/29/23 by Zena Mcgee MD albuterol sulfate 90 mcg/actuation 2 puffs inhalation Q6H PRN aluminum hydrox-magnesium carb 160-105 mg (Gaviscon Extra Strength) 2 tabs PO TID 30 days aspirin 81 mg PO DAILY cholecalciferol (vitamin D3) 25 mcg PO DAILY cyanocobalamin (vitamin B-12) 1,000 mcg PO DAILY furosemide (Lasix) 20 mg PO DAILY hydrocodone-chlorpheniramine 10-8 mg/5 mL 5 mL PO Q12H PRN levalbuterol HCl 0.63 mg (3 mL) inhalation TID nebulizers (AeroEclipse II Nebulizer) As directed vitamin E 268 mg PO DAILY Tobacco use date assessed: 11/29/23 Fall risk assessment: No Falls in past year Last assessed Fall Risk: 11/29/23 Dental Screening Dental Screen Date: 11/29/23 Did you have a dental visit in the last 12 months?: Yes Did you have a dental problem in the last 6 months where you did not have access to dental care?: No Was dental information given to patient?: Patient has dentist HPI COPD HPI Details 83-year-old overweight female with a history of grade 2 diastolic dysfunction hiatal hernia hypertension hypercholesterolemia COPD last seen August 2023. Patient was seen by Cardiology October 2023 with a problems with breathing discussed that this does not seem to be cardiology issue. Does have a large hiatal hernia and will be seeing Gastroenterology.. PFT done showing very mild obstructive ventilatory defect with normal FEV1 and supranormal FVC. for the stomach taking gaviscon [facility] Medical History Cough Grade II diastolic dysfunction Shortness of breath Hypertension Surgical History History of removal of cyst History of 2 sections Family History Mother No problems noted. Father Substance use disorder Social History Household Members: None Housing: House Do you presently have visiting nurse or other home services: No Alcohol intake: never Patient Tobacco Use Status: Former Tobacco user Tobacco use type: Cigarette Cigarettes Per Day: 6 e-Cigarette/Vaping Use: Never Used service: No Current occupational status: retired Cognitive needs: No Hearing needs: No Vision needs: No Questionnaire Thrive Questionnaire Date Thrive assessed: 11/29/23 I am a: Patient What is your living situation today?: I have a steady place to live Within the past 12 months, did the food you bought not last and you didn't have the money to get more?: Never true Within the past 12 months, did you worry whether your food would run out before you got money to buy more?: Never true Do you have trouble paying for medicines?: No Do you have trouble getting transportation to medical appointments?: No Do you have trouble paying your heating and electricity bill?: No Do you have trouble taking care of your child, family member or friend?: No Do you have trouble with day-to-day activities such as bathing, preparing meals, shopping, managing finances, etc.?: No Are you currently unemployed and looking for a job?: No Are you interested in more education?: No Please select the resources that you would like help with: None THRIVE Score: 0 AUDIT C Alcohol Use Questionnaire (AUDIT-C) 1. How often do you have a drink containing alcohol?: Never Total Score: 0 Score Reviewed/Action Taken: No RUBEN-7 AMB Questionnaire RUBEN-7 Date RUBEN - 7 assessed: 11/29/23 Feeling nervous, anxious, or on edge: 0 = Not at all Not being able to stop or control worryin = Not at all Worrying too much about different things: 0 = Not at all Trouble relaxin = Not at all Being so restless that it is hard to sit still: 0 = Not at all Becoming easily annoyed or irritable: 0 = Not at all Feeling afraid as if something awful might happen: 0 = Not at all Total RUBEN-7 score (0-4 normal; 5-9 mild; 10-14 moderate; 15-21 severe): 0 Source: Developed by Drs. Guanako De Guzman, Francoise Yanez, Andrew Zamora and colleagues, with an educational suki from [employer] Physical exam (Primary Care) Vital Signs: Last Vital Signs Pulse 67 11/29/23 15:21 BP 140/84 H 11/29/23 15:21 Pulse Ox 97 11/29/23 15:21 Oxygen Delivery Method Room Air 11/29/23 15:21 BMI result Body Mass Index 27.3 Tobacco/Smoking Status: Tobacco use Status Tobacco use date assessed 11/29/23 11/29/23 15:22 Patient Tobacco Use Status Former Tobacco user 11/29/23 15:22 Tobacco use type Cigarette 11/29/23 15:22 e-Cigarette/Vaping Use Never Used 11/29/23 15:22 Thrive Assessment: Date of Thrive Assessment Date Thrive assessed 11/29/23 11/29/23 15:22 Assessment and Plan Assessment & Plan (1) COPD (chronic obstructive pulmonary disease): Code(s): J44.9 - Chronic obstructive pulmonary disease, unspecified Qualifiers: COPD type: emphysema Emphysema type: other Qualified Code(s): J43.8 - Other emphysema Plan: Presently on inhalers and noted from pulmonary workup at this is mild (2) Hypertension: Code(s): I10 - Essential (primary) hypertension Qualifiers: Hypertension type: unspecified Qualified Code(s): I10 - Essential (primary) hypertension Plan: Continue with blood pressure medication. Decrease salt intake and exercise (3) Hypercholesterolemia: Code(s): E78.00 - Pure hypercholesterolemia, unspecified Plan: Avoid fried foods, chicken skin, eggs, butter margarine, pastries and meat. Be it pork or beef they have a lot of cholesterol (4) Hiatal hernia: Code(s): K44.9 - Diaphragmatic hernia without obstruction or gangrene Plan: Avoid the foods that causes that usually spicy foods, tomato products, juices, coffee, soda and foods that your sensitive to. After eating do not lie down, allow 3-4 hours before in lie down. And keep the head of bed above 30 degrees to avoid the acid from going up. (5) Tooth decay: Code(s): K02.9 - Dental caries, unspecified Plan: referral to oral surgeon due to patient requesting to be placed under Orders: Referrals Oral Surgery Referal K02.9 - Dental caries, unspecified Medications: New aluminum hydrox-magnesium carb 160-105 mg (Gaviscon Extra Strength) 2 tabs PO TID 30 days 180 tabs 0RF Refilled levalbuterol HCl 0.63 mg (3 mL) inhalation TID 90 mL 0RF J45.909 - Unspecified asthma, uncomplicated albuterol sulfate 90 mcg/actuation 2 puffs inhalation Q6H PRN 8.5 grams 0RF shortness of breath or wheezing K02.9 - Dental caries, unspecified Discontinued fluticasone furoate-vilanterol 200-25 mcg/dose (Breo Ellipta) Discontinued Reason: Patient Refused 1 inh inhalation DAILY 60 ea 11RF J44.9 - Chronic obstructive pulmonary disease, unspecified Coding Level of Care Code Est Pt Level 4 (07452) Diagnoses Other emphysema J43.8 COPD type: emphysema Emphysema type: other Hypertension I10 Hypertension type: unspecified Hypercholesterolemia E78.00 Hiatal hernia K44.9 Tooth decay K02.9
== END 2023-11-29 16:22 | disposition home or self-care (01) ==
PROVIDERS: PCP Internal Medicine; Visit Provider Internal Medicine
DX: J43.8 Other emphysema (principal); I10 Essential (primary) hypertension; E78.00 Pure hypercholesterolemia, unspecified; K44.9 Diaphragmatic hernia without obstruction or gangrene; K02.9 Dental caries, unspecified
CPT/HCPCS: 99214

== ENCOUNTER 2024-01-31 14:26 | Outpatient (AMB) | payer MEDICARE, SELFPAY ==
--- NOTE | 2024-01-31 14:34 | MHC.PC.OV ---
Vital Signs 01/31/24 14:35 Height 4 ft 11 in Weight 132 lb BMI 26.7 BP 126/74 Blood Pressure Location Rt brachial Position Sitting Intake Visit Reasons: lump on left arm Pediatric Immunologist Required: No Accompanied by: Son Allergies guaifenesin [From Mucinex] Allergy (Severe, Verified 01/31/24 14:42) THROAT CLOSING propoxyphene [From Darvon] Allergy (Mild, Verified 01/31/24 14:42) VOMITING diclofenac Allergy (Unknown, Verified 01/31/24 14:42) voilently ill omeprazole Adverse Reaction (Intermediate, Verified 01/31/24 14:42) Nausea and Vomiting GENERIC MEDS Allergy (Mild, Uncoded 01/31/24 14:42) HIVES prednisone Allergy (Mild, Uncoded 01/31/24 14:42) Hives all generic brands Allergy (Unknown, Uncoded 01/31/24 14:42) Hives Medication List - Last Reconciled 01/31/24 by Erinn Collins MD albuterol sulfate 90 mcg/actuation 2 puffs inhalation Q6H PRN aluminum hydrox-magnesium carb 160-105 mg (Gaviscon Extra Strength) 2 tabs PO TID 30 days aspirin 81 mg PO DAILY cholecalciferol (vitamin D3) 25 mcg PO DAILY cyanocobalamin (vitamin B-12) 1,000 mcg PO DAILY furosemide 20 mg PO DAILY hydrocodone-chlorpheniramine 10-8 mg/5 mL 5 mL PO Q12H PRN levalbuterol HCl 0.63 mg (3 mL) inhalation TID nebulizers (AeroEclipse II Nebulizer) As directed vitamin E 268 mg PO DAILY Tobacco use date assessed: 11/29/23 Fall risk assessment: No Falls in past year Last assessed Fall Risk: 01/31/24 Dental Screening Dental Screen Date: 11/29/23 HPI HPI Comments History of Present Illness Details This is an 83-year-old female with COPD, B12 deficiency and low vitamin-D that comes today accompanied by son complaining of a mass in left arm that she noticed about a week ago. COPD stable with inhaler. On B12 and vitamin-D supplements. I will order ultrasound to evaluate the mass. No chest pain or shortness on breath more than usual. [facility] Medical History (Updated 01/31/24 @ 17:07 by Erinn Collins MD) Cough Grade II diastolic dysfunction Shortness of breath Hypertension Surgical History History of removal of cyst History of 2 sections Family History Mother No problems noted. Father Substance use disorder Social History Household Members: None Housing: House Do you presently have visiting nurse or other home services: No Alcohol intake: never Patient Tobacco Use Status: Former Tobacco user Tobacco use type: Cigarette Cigarettes Per Day: 6 e-Cigarette/Vaping Use: Never Used service: No Current occupational status: retired Cognitive needs: No Hearing needs: No Vision needs: No Questionnaire Thrive Questionnaire Date Thrive assessed: 11/29/23 RUBEN-7 AMB Questionnaire RUBEN-7 Date RUBEN - 7 assessed: 11/29/23 Source: Developed by Drs. Guanako De Guzman, Francoise Yanez, Andrew Zamora and colleagues, with an educational suki from [employer]. Review of Systems Const All systems reviewed & are unremarkable except as noted in HPI and below Card Denies chest pain at rest, Denies chest pain with activity, Denies edema, Denies irregular heart rhythm, Denies claudication, Denies dyspnea, Denies dyspnea on exertion, Denies orthopnea, Denies paroxysmal nocturnal dyspnea and Denies slow heart rate Resp Denies dyspnea and Denies dyspnea on exertion Physical exam (Primary Care) Vital Signs: Last Vital Signs BP 126/74 01/31/24 14:35 BMI result Body Mass Index 26.7 Tobacco/Smoking Status: Tobacco use Status Tobacco use date assessed 11/29/23 01/31/24 14:38 Patient Tobacco Use Status Former Tobacco user 01/31/24 14:38 Tobacco use type Cigarette 01/31/24 14:38 e-Cigarette/Vaping Use Never Used 01/31/24 14:38 Thrive Assessment: Date of Thrive Assessment Date Thrive assessed 11/29/23 01/31/24 14:38 Resp Effort & Inspection: normal respiratory effort Auscultation: clear to auscultation bilaterally Cardio Jugular venous distension: no JVD Rate: regular rate Rhythm: regular rhythm Heart sounds: S1 normal heart sound present and S2 normal heart sound present Skin Other: lump in left upper arm Extrem General: Yes full ROM Assessment and Plan Assessment & Plan (1) Mass of left upper extremity: Code(s): R22.32 - Localized swelling, mass and lump, left upper limb Plan: Ultrasound ordered. (2) COPD (chronic obstructive pulmonary disease): Code(s): J44.9 - Chronic obstructive pulmonary disease, unspecified Qualifiers: COPD type: emphysema Emphysema type: other Qualified Code(s): J43.8 - Other emphysema Plan: Use rescue inhaler as needed. (3) B12 deficiency: Code(s): E53.8 - Deficiency of other specified B group vitamins Plan: Continue vitamin B12 supplements. (4) Hypovitaminosis D: Code(s): E55.9 - Vitamin D deficiency, unspecified Plan: Continue vitamin-D supplements. Orders: Orders US extremity nonvascular Today R22.32 - Localized swelling, mass and lump, left upper limb Coding Level of Care Code Est Pt Level 4 (04954) Complex EM visit Add On G2211 Diagnoses Mass of left upper extremity R22.32 Other emphysema J43.8 COPD type: emphysema Emphysema type: other B12 deficiency E53.8 Hypovitaminosis D E55.9 Time Spent (min) 20
[2024-01-31 14:35] VITALS: BP 126/74; BMI 26.7
== END 2024-01-31 14:50 | disposition home or self-care (01) ==
PROVIDERS: PCP Internal Medicine; Visit Provider Internal Medicine
DX: R22.32 Localized swelling, mass and lump, left upper limb (principal); J43.8 Other emphysema; E53.8 Deficiency of other specified B group vitamins; E55.9 Vitamin D deficiency, unspecified
CPT/HCPCS: 99214; G2211

== ENCOUNTER 2024-03-02 08:29 | Outpatient (REF) | payer MEDICARE, SELFPAY ==
--- NOTE | ~2024-03-02 | FL_ITS ---
EXAMINATION: XR FLUOROSCOPY UPPER GI WITH AIR CLINICAL INFORMATION: Reflux, hiatal hernia. GERD. COMPARISON: None TECHNIQUE: Fluoroscopic air contrast upper GI examination was performed utilizing standard techniques with thin and thick barium and effervescent granules. Numerous spot images were obtained. FINDINGS: Dual and single contrast images of the esophagus demonstrate normal caliber, contour, and mucosal pattern. Mild cricopharyngeal achalasia present. There is felinization of the mid and distal esophageal mucosa. No evidence of stricture, mass, or ulcerations identified. Esophageal peristalsis is moderately disorganized. A moderate-sized type III paraesophageal hernia is present. Significant gastroesophageal reflux up to the thoracic inlet. Dual contrast and single contrast images of the stomach demonstrated a normal contour. Evaluation of the gastric mucosa is limited due poor coating of the stomach due to the moderate size hiatal hernia and significant reflux. No obvious masses are seen. Contrast freely passed into the gastric antrum and duodenal bulb without delay. Single and air-contrast images of the duodenal bulb demonstrate no abnormality. The duodenal sweep has a normal appearance, course, and mucosal fold appearance. The imaged proximal jejunum has a normal fold pattern and caliber. FLUOROSCOPY TIME: 5 minutes Number of Spot Images: 11 Number of Cine: 11 DOSE AREA PRODUCT: 2098 uGy-m2 (microgray-meter squared) FL/FL barium swallow with air IMPRESSION: 1. Mild cricopharyngeal achalasia 2. Felinization of the mid and distal esophageal mucosa. This is a benign finding that can be associated with gastroesophageal reflux 3. Moderate-sized type III paraesophageal hernia 4. Severe gastroesophageal reflux. 5. Limited evaluation of the gastric mucosa due to poor coating of the stomach from the presence of the moderate size hiatal hernia with severe gastroesophageal reflux. This procedure was performed by Reymundo Harris PA-C, and supervised by Dr. Bloom
== END 2024-03-02 08:30 | disposition home or self-care (01) ==
LOC: HO.XRAY 08:29
PROVIDERS: PCP Internal Medicine; Visit Provider Internal Medicine
DX: K44.9 Diaphragmatic hernia without obstruction or gangrene (principal); K21.9 Gastro-esophageal reflux disease without esophagitis
CPT/HCPCS: 74221

== ENCOUNTER → 2024-03-02 08:31 | Outpatient (BNV) | payer MEDICARE, SELFPAY | PROVIDERS: PCP Internal Medicine; Visit Provider Physician Assistant Surgical | DX: K21.9 Gastro-esophageal reflux disease without esophagitis (principal); K44.9 Diaphragmatic hernia without obstruction or gangrene | CPT/HCPCS: 74246 ==

== ENCOUNTER 2024-04-17 14:13 | Outpatient (AMB) | payer MEDICARE, SELFPAY ==
[2024-04-17 14:14] VITALS: BP 132/78; PULSE 57; O2SAT 94; BMI 27.3
--- NOTE | 2024-04-17 14:14 | MHC.PC.OV ---
Vital Signs 04/17/24 14:14 Height 4 ft 11 in Weight 135 lb BMI 27.3 BP 132/78 Blood Pressure Location Lt brachial Position Sitting Pulse 57 Pulse Source Pulse Oximeter Pulse Oximetry (%) 94 Oxygen Delivery Method Room Air Intake Visit Reasons: hiatal hernia Human Resources Benefits Specialist Required: No Allergies guaifenesin [From Mucinex] Allergy (Severe, Verified 04/17/24 14:15) THROAT CLOSING propoxyphene [From Darvon] Allergy (Mild, Verified 04/17/24 14:15) VOMITING diclofenac Allergy (Unknown, Verified 04/17/24 14:15) voilently ill omeprazole Adverse Reaction (Intermediate, Verified 04/17/24 14:15) Nausea and Vomiting GENERIC MEDS Allergy (Mild, Uncoded 04/17/24 14:15) HIVES prednisone Allergy (Mild, Uncoded 04/17/24 14:15) Hives all generic brands Allergy (Unknown, Uncoded 04/17/24 14:15) Hives Tobacco use date assessed: 11/29/23 Fall risk assessment: No Falls in past year Last assessed Fall Risk: 04/17/24 Dental Screening Dental Screen Date: 11/29/23 HPI hiatal hernia HPI Details 83-year-old overweight female with COPD hypertension hypercholesterolemia last seen in November 2023. In February noted to have an upper GI series diagnosis of mild cricopharyngeal achalasia GERD moderate size type 3 paraesophageal hernia severe GERD. Patient did see Dr. Stephen for a lump on the left arm in January ultrasound has been ordered.. Patient was also seen by Gastroenterology in December for diarrhea and and diaphragmatic hernia . [facility] Medical History Cough Grade II diastolic dysfunction Shortness of breath Hypertension Surgical History History of removal of cyst History of 2 sections Family History Mother No problems noted. Father Substance use disorder Social History Household Members: None Housing: House Do you presently have visiting nurse or other home services: No Alcohol intake: never Patient Tobacco Use Status: Former Tobacco user Tobacco use type: Cigarette Cigarettes Per Day: 6 e-Cigarette/Vaping Use: Never Used service: No Current occupational status: retired Cognitive needs: No Hearing needs: No Vision needs: No Questionnaire PHQ-9 Over the last 2 weeks, how often have you been bothered by any of the following problems? 1. Little interest or pleasure in doing things: not at all 2. Feeling down, depressed, or hopeless: not at all 3. Trouble falling or staying asleep, or sleeping too much: not at all 4. Feeling tired or having little energy: not at all 5. Poor appetite or overeating: not at all 6. Feeling bad about yourself - or that you are a failure or have let yourself or your family down: not at all 7. Trouble concentrating on things, such as reading the newspaper or watching television: not at all 8. Moving or speaking so slowly that other people could have noticed. Or the opposite - being so fidgety or restless that you have been moving around a lot more than usual: not at all 9. Thoughts that you would be better off or of hurting yourself in some way: not at all Total score: 0 Depression Screening Interpretation: Negative Depression Screening Done: Yes Source: Developed by Drs. Guanako De Guzman, Andrew Raya and colleagues, with an educational suki from [email or web address]. Thrive Questionnaire Date Thrive assessed: 11/29/23 AUDIT C Alcohol Use Questionnaire (AUDIT-C) 1. How often do you have a drink containing alcohol?: Never Total Score: 0 Score Reviewed/Action Taken: No RUBEN-7 AMB Questionnaire RUBEN-7 Date RUBEN - 7 assessed: 11/29/23 Source: Developed by Drs. Guanako De Guzman, Andrew Raya and colleagues, with an educational suki from [email or web address]. Physical exam (Primary Care) Vital Signs: Last Vital Signs Pulse 57 04/17/24 14:14 BP 132/78 04/17/24 14:14 Pulse Ox 94 04/17/24 14:14 Oxygen Delivery Method Room Air 04/17/24 14:14 BMI result Body Mass Index 27.3 Tobacco/Smoking Status: Tobacco use Status Tobacco use date assessed 11/29/23 04/17/24 14:15 Patient Tobacco Use Status Former Tobacco user 04/17/24 14:15 Tobacco use type Cigarette 04/17/24 14:15 e-Cigarette/Vaping Use Never Used 04/17/24 14:15 PHQ-9: PHQ-9 Score PHQ-9: Total score 0 04/17/24 14:23 Depression Screening Interpretation: Negative Thrive Assessment: Date of Thrive Assessment Date Thrive assessed 11/29/23 04/17/24 14:15 Const General: alert; No acute distress Eyes Conjunctivae: conjunctivae normal Resp Auscultation: clear to auscultation bilaterally Cardio Rate: regular rate Rhythm: regular rhythm GI Inspection: Yes normal to inspection Extrem General: Yes normal to inspection and No edema Assessment and Plan Assessment & Plan (1) GERD (gastroesophageal reflux disease): Code(s): K21.9 - Gastro-esophageal reflux disease without esophagitis Plan: Avoid the foods that causes that usually spicy foods, tomato products, juices, coffee, soda and foods that your sensitive to. After eating do not lie down, allow 3-4 hours before in lie down. And keep the head of bed above 30 degrees to avoid the acid from going up. Patient follows up with Gastroenterology. (2) Paraesophageal hernia: Code(s): K44.9 - Diaphragmatic hernia without obstruction or gangrene Plan: Patient has seen gastroenterology and would like to hold off any procedure. (3) Hypertension: Code(s): I10 - Essential (primary) hypertension Qualifiers: Hypertension type: unspecified Qualified Code(s): I10 - Essential (primary) hypertension Plan: Blood pressure has been under control (4) Hypercholesterolemia: Code(s): E78.00 - Pure hypercholesterolemia, unspecified Plan: Avoid fried foods, chicken skin, eggs, butter margarine, pastries and meat. Be it pork or beef they have a lot of cholesterol LDL goal of less than 130 and triglyceride of less than 150. (5) COPD (chronic obstructive pulmonary disease): Code(s): J44.9 - Chronic obstructive pulmonary disease, unspecified Qualifiers: COPD type: emphysema Emphysema type: other Qualified Code(s): J43.8 - Other emphysema Plan: proair and breo(generic) controlling Coding Level of Care Code Est Pt Level 4 (31975) Diagnoses GERD (gastroesophageal reflux disease) K21.9 Paraesophageal hernia K44.9 Hypertension I10 Hypertension type: unspecified Hypercholesterolemia E78.00 Other emphysema J43.8 COPD type: emphysema Emphysema type: other Additional Codes PHQ-9 - 93713 - PHQ-9 Billing: ([id number])
== END 2024-04-17 14:57 | disposition home or self-care (01) ==
PROVIDERS: PCP Internal Medicine; Visit Provider Internal Medicine
DX: K21.9 Gastro-esophageal reflux disease without esophagitis (principal); J43.8 Other emphysema; K44.9 Diaphragmatic hernia without obstruction or gangrene; I10 Essential (primary) hypertension; E78.00 Pure hypercholesterolemia, unspecified
CPT/HCPCS: 99214

== ENCOUNTER 2024-04-20 12:46 | Outpatient (AMB) | payer MEDICARE, SELFPAY ==
--- NOTE | 2024-04-20 12:53 | A.OFFVIS_ITS ---
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 Allergies guaifenesin [From Mucinex] Allergy (Severe, Verified 04/20/24 12:57) THROAT CLOSING propoxyphene [From Darvon] Allergy (Mild, Verified 04/20/24 12:57) VOMITING diclofenac Allergy (Unknown, Verified 04/20/24 12:57) voilently ill omeprazole Adverse Reaction (Intermediate, Verified 04/20/24 12:57) Nausea and Vomiting GENERIC MEDS Allergy (Mild, Uncoded 04/20/24 12:57) HIVES prednisone Allergy (Mild, Uncoded 04/20/24 12:57) Hives all generic brands Allergy (Unknown, Uncoded 04/20/24 12:57) Hives Medication List - Last Reconciled 04/20/24 by IFEOMA Welsh albuterol sulfate 90 mcg/actuation 2 puffs inhalation Q6H PRN aluminum hydrox-magnesium carb 160-105 mg (Gaviscon Extra Strength) 2 tabs PO TID 30 days aspirin 81 mg PO DAILY cholecalciferol (vitamin D3) 25 mcg PO DAILY cyanocobalamin (vitamin B-12) 1,000 mcg PO DAILY fluticasone furoate-vilanterol 100-25 mcg/dose (Breo Ellipta) 1 inh inhalation DAILY furosemide 20 mg PO DAILY levalbuterol HCl 0.63 mg (3 mL) inhalation TID nebulizers (AeroEclipse II Nebulizer) As directed ondansetron 4 mg PO Q8H PRN vitamin E 268 mg PO DAILY HPI HPI 6 month follow up: Details: Jody is an 83-year-old female with past medical history hypertension, hyperlipidemia, grade 2 diastolic dysfunction, large hiatal hernia, shortness of breath who presents for follow up. Today she reports that her breathing has improved with the use of inhalers and updrafts. She is overall pleased with how that is feeling. She is able to do her barn chores and take care of her horse. She still has the hiatal hernia but currently feels her symptoms from that have improved. She has no chest discomfort, heart palpitations, lightheadedness, presyncope, syncope, falls, PND, orthopnea or edema. Her son is present. [facility] Medical History Cough Grade II diastolic dysfunction Shortness of breath Hypertension Surgical History History of removal of cyst History of 2 sections Family History Mother No problems noted. Father Substance use disorder Social History Household Members: None Housing: House Do you presently have visiting nurse or other home services: No Alcohol intake: never Patient Tobacco Use Status: Former Tobacco user Tobacco use type: Cigarette Cigarettes Per Day: 6 e-Cigarette/Vaping Use: Never Used service: No Current occupational status: retired Cognitive needs: No Hearing needs: No Vision needs: No Review of Systems ENT Reports dizziness Card Denies chest pain, Denies chest pain at rest, Denies chest pain with activity, Denies rapid heart rate, Denies pedal edema, Denies edema, Denies leg edema, Denies lightheadedness, Denies palpitations, Denies dyspnea, Denies dyspnea on exertion and Denies orthopnea Resp Denies cough, Denies dyspnea and Denies dyspnea on exertion GI Denies hematochezia and Denies change in stool character Musc Denies abnormal gait, Reports limited range of motion, Reports muscle cramps, Denies muscle weakness, Denies numbness, Denies radiating pain into limb, Denies stiffness and Denies tingling Neuro Denies abnormal gait, Reports dizziness, Denies numbness and Denies tingling Endo Denies palpitations Physical Exam Vital Signs: Last Vital Signs Pulse 85 04/20/24 12:54 BP 108/72 04/20/24 12:54 BMI result Body Mass Index 27.2 Const General: cooperative, healthy appearing, comfortable and no acute distress Orientation/consciousness: patient oriented x3 Neck Neck: Yes normal visual inspection and Yes no JVD Chest Chest palpation & inspection: normal inspection of the chest Resp Other: rales in bases Effort & Inspection: normal respiratory effort Auscultation: clear to auscultation bilaterally, no rhonchi and no wheezes Cardio Jugular venous distension: no JVD Rate: regular rate Rhythm: abnormal rhythm Heart sounds: S1 normal heart sound present, S2 normal heart sound present, no murmurs and no rubs Peripheral pulses: Peripheral pulses 2+ throughout Neuro General: patient oriented x3 Extrem General: Yes normal to inspection and No no pedal edema Psych Appearance: grossly normal Mental Status: mental status grossly normal Speech and movement: Normal speech and movement present Office Procedures EKG Details: Today, read by me, Atrial fibrillation, nonspecific T wave abn, rate 85, QTc 4 33ms, rate 85 [id number], Complete Assessment & Plan Assessment & Plan (1) Atrial fibrillation: Comment: new finding EKG 04/20/24 Code(s): I48.91 - Unspecified atrial fibrillation Category: Medical Plan: EKG done today shows incidental finding of new onset atrial fibrillation. Patient denies having any symptoms of increased shortness of breath, fatigue or heart palpitations. In fact she tells me her breathing has been better recently with the use of inhalers and updrafts. She has never had a diagnosis of atrial fibrillation in the past. Her last echocardiogram had shown only mildly dilated left atrium. Her heart rate is controlled at this time, rate 73 on EKG. Will check a Holter monitor to assess to see if her AFib is persistent or paroxysmal and also to assess rate control. She is not on rate slowing agents at this time. Chads Vasc score of 4. Anticoagulation is indicated. She does not have prescription coverage. Discussed with patient and son. He is willing to pay for DOAC medication. Gave him a free 1 month coupon for Eliquis. He is trying to change her health insurance and get prescription coverage. She has no bleeding history. Labs done 09/2023 had shown no anemia and normal creatinine. For her age and weight of 60 kg will start on Eliquis 2.5 mg b.i.d.. Have her stop daily aspirin. Spent 15 minutes going over the diagnosis of atrial fibrillation, treatment, stroke risk with AFib and the need for anticoagulation. She does state understanding. Cardiology follow-up to re-evaluate in 2 months, sooner if needed. (2) Shortness of breath: Code(s): R06.02 - Shortness of breath Category: Medical Plan: Prior reports of shortness of breath with activity. Prior EKG shows sinus rhythm with PACs, rate 81. Echocardiogram done 03/24/2023 shows EF 50-55%, no valve abnormalities, grade 2 diastolic dysfunction. A nuclear stress test was done 06/14/2023 showing normal myocardial perfusion imaging. She was started on low-dose Lasix for mildly elevated BNP. On follow-up she did report some improvement in her breathing but it was not yet described as normal. She had no signs of heart failure on examination. She does have a known llarge hiatal hernia which she believed was contributing to her symptoms. Since last visit she was started on inhalers and updrafts and tells me her breathing is much improved. She is following with pulmonology. At this time she can continue on the low-dose Lasix as she feels that it is helping her. She does have known diastolic dysfunction. Signs and symptoms of heart failure were reviewed with her. Plan to update labs at next visit. (3) Grade II diastolic dysfunction: Comment: Cardiac workup negative Code(s): I51.89 - Other ill-defined heart diseases Category: Medical Plan: As above (4) Large hiatal hernia: Code(s): K44.9 - Diaphragmatic hernia without obstruction or gangrene Category: Medical Plan: As above. Plan Time spent on chart review, documentation, interview and assessment Orders: Orders ECG 3 day holter monitor Today I48.91 - Unspecified atrial fibrillation Medications: New apixaban (Eliquis) New Stopping aspirin Bringing in coupon for free 30 day supply - wants to know monthly copay 2.5 mg PO BID 60 tabs 5RF Refilled furosemide 20 mg PO DAILY 90 tabs 1RF I51.89 - Other ill-defined heart diseases, R06.02 - Shortness of breath Coding Level of Care Code Est Pt Level 4 (45413) Diagnoses Atrial fibrillation I48.91 Shortness of breath R06.02 Grade II diastolic dysfunction I51.89 Large hiatal hernia K44.9 CPT Codes EKG - CPT: 31882-[id number], Complete ([id number]) Time Spent (min) 30
[2024-04-20 12:54] VITALS: BP 108/72; PULSE 85; BMI 27.2
== END 2024-04-20 13:41 | disposition home or self-care (01) ==
PROVIDERS: PCP Internal Medicine; Visit Provider Nurse Practitioner Family
DX: I48.91 Unspecified atrial fibrillation (principal); R06.02 Shortness of breath; I51.89 Other ill-defined heart diseases; K44.9 Diaphragmatic hernia without obstruction or gangrene
CPT/HCPCS: 93010; 99214

== ENCOUNTER → 2024-04-20 12:46 | Outpatient (BNVA) | payer MEDICARE, SELFPAY | PROVIDERS: PCP Internal Medicine; Visit Provider Nurse Practitioner Family | DX: I48.91 Unspecified atrial fibrillation (principal); R06.02 Shortness of breath; I51.89 Other ill-defined heart diseases; K44.9 Diaphragmatic hernia without obstruction or gangrene | CPT/HCPCS: 93005; 99212 ==

== ENCOUNTER 2024-04-27 13:20 | Outpatient (AMB) | payer MEDICARE, SELFPAY ==
[2024-04-27 13:21] VITALS: BP 145/80; PULSE 65; BMI 27.4
--- NOTE | 2024-04-27 13:21 | A.OFFVIS_ITS ---
Vital Signs 04/27/24 13:21 04/27/24 13:32 04/27/24 13:33 Height 4 ft 11 in Weight 135 lb 12.876 oz BMI 27.4 BP 145/80 H 145/80 H 138/74 Blood Pressure Location Lt brachial Lt brachial Lt brachial Position Sitting Standing Supine Pulse 65 71 66 Pulse Source Pulse Oximeter Pulse Oximeter Pulse Oximeter Intake Visit Reasons: eliquis side effects? 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 Required: No Media Consultant Outside Sales: Media Consultant Outside Sales Present Allergies guaifenesin [From Mucinex] Allergy (Severe, Verified 04/27/24 13:24) THROAT CLOSING propoxyphene [From Darvon] Allergy (Mild, Verified 04/27/24 13:24) VOMITING diclofenac Allergy (Unknown, Verified 04/27/24 13:24) voilently ill omeprazole Adverse Reaction (Intermediate, Verified 04/27/24 13:24) Nausea and Vomiting GENERIC MEDS Allergy (Mild, Uncoded 04/27/24 13:24) HIVES prednisone Allergy (Mild, Uncoded 04/27/24 13:24) Hives all generic brands Allergy (Unknown, Uncoded 04/27/24 13:24) Hives Medication List - Last Reconciled 04/27/24 by Shira Hou NP-C albuterol sulfate 90 mcg/actuation 2 puffs inhalation Q6H PRN aluminum hydrox-magnesium carb 160-105 mg (Gaviscon Extra Strength) 2 tabs PO TID 30 days apixaban (Eliquis) 2.5 mg PO BID cholecalciferol (vitamin D3) 25 mcg PO DAILY cyanocobalamin (vitamin B-12) 1,000 mcg PO DAILY fluticasone furoate-vilanterol 100-25 mcg/dose (Breo Ellipta) 1 inh inhalation DAILY furosemide 20 mg PO DAILY levalbuterol HCl 0.63 mg (3 mL) inhalation TID nebulizers (AeroEclipse II Nebulizer) As directed ondansetron 4 mg PO Q8H PRN vitamin E 268 mg PO DAILY HPI HPI eliquis side effects?: Details: Jody is an 83-year-old female with past medical history hypertension, hyperlipidemia, grade 2 diastolic dysfunction, large hiatal hernia, shortness of breath who was seen in the office last week and had findings of new AFib. She was started on Eliquis for anticoagulation and now presents with symptom of lightheadedness. Today she states she has been taking the Eliquis. She also has been experiencing some lightheadedness and nausea. Her son is present and states this is not a new symptom for her and believes she is getting vertigo. She has had it in the past even prior to Eliquis used. She believes that it is the medicine causing it. She has had no signs of bleeding. She is not noticing heart palpitations or change in her breathing. Overall her breathing has improved with the use of her inhalers and updrafts. Most days she is still able to do her barn chores and take care of her horse. She still has the hiatal hernia but currently feels her symptoms from that have improved. She has no chest discomfort, presyncope, syncope, falls, PND, orthopnea or edema. [facility] Medical History Cough Grade II diastolic dysfunction Shortness of breath Hypertension Surgical History History of removal of cyst History of 2 sections Family History Mother No problems noted. Father Substance use disorder Social History Household Members: None Housing: House Do you presently have visiting nurse or other home services: No Alcohol intake: never Patient Tobacco Use Status: Former Tobacco user Tobacco use type: Cigarette Cigarettes Per Day: 6 e-Cigarette/Vaping Use: Never Used service: No Current occupational status: retired Cognitive needs: No Hearing needs: No Vision needs: No Review of Systems Const All systems reviewed & are unremarkable except as noted in HPI and below ENT Reports dizziness (and nausea - not today, comes and goes, cassi with bending over) Card Denies chest pain, Denies chest pain at rest, Denies chest pain with activity, Denies rapid heart rate, Denies pedal edema, Denies edema, Denies leg edema, Denies lightheadedness, Denies palpitations, Denies dyspnea, Denies dyspnea on exertion and Denies orthopnea Resp Denies cough, Denies dyspnea and Denies dyspnea on exertion GI Denies hematochezia and Denies change in stool character Musc Denies abnormal gait, Denies limited range of motion, Denies muscle cramps, Denies muscle weakness, Denies numbness, Denies radiating pain into limb, Denies stiffness and Denies tingling Neuro Denies abnormal gait, Reports dizziness (and nausea - not today, comes and goes, cassi with bending over), Denies numbness and Denies tingling Endo Denies palpitations Physical Exam Vital Signs: Last Vital Signs Pulse 66 04/27/24 13:33 BP 138/74 04/27/24 13:33 BMI result Body Mass Index 27.4 Const General: cooperative, healthy appearing, comfortable and no acute distress Orientation/consciousness: patient oriented x3 Neck Neck: Yes normal visual inspection and Yes no JVD Chest Chest palpation & inspection: normal inspection of the chest Resp Other: rales in bases Effort & Inspection: normal respiratory effort Auscultation: clear to auscultation bilaterally, rales (each base), no rhonchi and no wheezes Cardio Jugular venous distension: no JVD Rate: regular rate Rhythm: abnormal rhythm Heart sounds: S1 normal heart sound present, S2 normal heart sound present, no murmurs and no rubs Peripheral pulses: Peripheral pulses 2+ throughout Neuro General: patient oriented x3 Extrem General: Yes normal to inspection and No no pedal edema Psych Appearance: grossly normal Mental Status: mental status grossly normal Speech and movement: Normal speech and movement present Office Procedures EKG Details: today, read by me, sinus rhythm with sinus arrhythmia, rate 69, QTC 452 ms [id number], Complete Assessment & Plan Assessment & Plan (1) Atrial fibrillation: Comment: new finding EKG 04/20/24 Code(s): I48.91 - Unspecified atrial fibrillation Category: Medical Plan: EKG done on her visit last week showed incidental finding of new onset atrial fibrillation. Patient denies having any symptoms of increased shortness of breath, fatigue or heart palpitations. In fact she tells me her breathing has been better recently with the use of inhalers and updrafts. She has never had a diagnosis of atrial fibrillation in the past. Her last echocardiogram had shown only mildly dilated left atrium. Her heart rate is controlled without rate slowing medication. She was put on Eliquis for anticoagulation. Today she comes back to the office with report of lightheadedness and feeling nauseous. She believes it is a side effect of the medication. Son is present and believes she has vertigo. She is feeling good today but these symptoms have been over the last few days. She has had this type of problem in the past as well. Informed her that it is not related to the Eliquis. Instructed to take Eliquis as directed to reduce her risk of stroke. EKG done today is showing sinus rhythm with sinus arrhythmia, rate 69. Her atrial fibrillation paroxysmal. Holter monitor is pending to assess heart rate control. She remains off rate slowing agents at this time. Chads Vasc score of 4. Continue Eliquis. As noted last visit: She does not have prescription coverage. Discussed with patient and son. He is willing to pay for DOAC medication. Gave him a free 1 month coupon for Eliquis. He is trying to change her health insurance and get prescription coverage. Cardiology follow-up to re-evaluate in 2 months, sooner if needed. (2) Shortness of breath: Code(s): R06.02 - Shortness of breath Category: Medical Plan: Prior reports of shortness of breath with activity. Prior EKG shows sinus rhythm with PACs, rate 81. Echocardiogram done 03/24/2023 shows EF 50-55%, no valve abnormalities, grade 2 diastolic dysfunction. A nuclear stress test was done 06/14/2023 showing normal myocardial perfusion imaging. She was started on low-dose Lasix for mildly elevated BNP. On follow-up she did report some improvement in her breathing but it was not yet described as normal. She had no signs of heart failure on examination. She does have a known llarge hiatal hernia which she believed was contributing to her symptoms. Since last visit she was started on inhalers and updrafts and tells me her breathing is much improved. She is following with pulmonology. At this time she can continue on the low-dose Lasix as she feels that it is helping her. She does have known diastolic dysfunction. Signs and symptoms of heart failure were again reviewed with her. Plan to update labs at next visit. (3) Grade II diastolic dysfunction: Comment: Cardiac workup negative Code(s): I51.89 - Other ill-defined heart diseases Category: Medical Plan: As above (4) Large hiatal hernia: Code(s): K44.9 - Diaphragmatic hernia without obstruction or gangrene Category: Medical Plan: As above. Plan Time spent on chart review, documentation, interview and assessment Coding Level of Care Code Est Pt Level 3 (95926) Diagnoses Atrial fibrillation I48.91 Shortness of breath R06.02 Grade II diastolic dysfunction I51.89 Large hiatal hernia K44.9 CPT Codes EKG - CPT: 96550-[id number], Complete ([id number]) Time Spent (min) 22
[2024-04-27 13:32] VITALS: BP 145/80; PULSE 71
[2024-04-27 13:33] VITALS: BP 138/74; PULSE 66
== END 2024-04-27 13:54 | disposition home or self-care (01) ==
PROVIDERS: PCP Internal Medicine; Visit Provider Nurse Practitioner Family
DX: I48.91 Unspecified atrial fibrillation (principal); R06.02 Shortness of breath; I51.89 Other ill-defined heart diseases; K44.9 Diaphragmatic hernia without obstruction or gangrene
CPT/HCPCS: 93010; 99213

== ENCOUNTER → 2024-04-27 13:20 | Outpatient (BNVA) | payer MEDICARE, SELFPAY | PROVIDERS: PCP Internal Medicine; Visit Provider Nurse Practitioner Family | DX: I48.91 Unspecified atrial fibrillation (principal); I51.89 Other ill-defined heart diseases; R06.02 Shortness of breath; K44.9 Diaphragmatic hernia without obstruction or gangrene; Z79.01 Long term (current) use of anticoagulants | CPT/HCPCS: 93005; 99212 ==

== ENCOUNTER → 2024-05-05 13:28 | Outpatient (REF) | payer MEDICARE, SELFPAY ==
--- NOTE | 2024-05-05 13:33 | HM_ITS ---
Conclusion: 1. Patient was monitored for total period of 2 days and 23 hours 2. Baseline was normal sinus rhythm with average heart of 63 beats per minute 3. No significant pauses noted 4. Frequent PACs noted mostly isolated with total burden of 2.7% with 10 short runs of SVE, longest lasting 11 beats 5. No patient reported events MTDD
== END ==
LOC: HO.CARD 13:28
PROVIDERS: PCP Internal Medicine; Visit Provider Nurse Practitioner Family
DX: I48.91 Unspecified atrial fibrillation (principal)
CPT/HCPCS: 93242

== ENCOUNTER → 2024-05-05 13:33 | Outpatient (BNV) | payer MEDICARE, SELFPAY | PROVIDERS: PCP Internal Medicine; Visit Provider Internal Medicine Cardiovascular Disease | DX: I49.1 Atrial premature depolarization (principal) | CPT/HCPCS: 93244 ==

== ENCOUNTER 2024-06-01 14:04 | Emergency (ER) | payer MEDICARE, SELFPAY ==
--- NOTE | ~2024-06-01 | XR_ITS ---
EXAMINATION: XR ABDOMEN KUB CLINICAL INDICATION: Bloating. Abdominal pain. COMPARISON: CT abdomen dated 05/05/2023. TECHNIQUE: 3 views of the abdomen. FINDINGS: The bowel gas pattern is normal with no evidence of ileus or obstruction. There is a moderate volume of stool throughout the right colon. No unusual soft tissue calcifications are noted. No acute osseous abnormality. XR/XR KUB IMPRESSION: Nonobstructive bowel gas pattern. Moderate volume of stool throughout the right colon. Electronically signed by: Clifford Gomez DO 06/01/2024 05:21 PM EDT
[2024-06-01 14:39] VITALS: BP 143/98; PULSE 68; RESP 16; TEMP 37.1; O2SAT 94; BMI 36.1
--- NOTE | 2024-06-01 14:40 | ED_ITS ---
HPI - General Adult General Chief complaint: Abdominal Pain Stated complaint: Abd pain/bloating Time Seen by Provider: 06/01/24 16:29 Source: patient and family (son) Mode of arrival: ambulatory Limitations: no limitations History of Present Illness ED Provider: Hipolito HPI narrative: Patient is an 83-year-old female with history of COPD, HTN, dCHF EF 50%, afib on Eliquis, GERD, paraesophageal hiatal hernia presenting to the emergency department with complaint of bloating to lower abdomen for the past 2 days. She denies abdominal pain, nausea, vomiting, diarrhea or constipation. Last bowel movement was this morning and it was normal. Denies urinary frequency, urgency, dysuria or other urinary symptoms. Denies fevers. States that she has an endoscopy scheduled for July 14 and follow-up with a surgeon at [facility] for repair of her hiatal hernia. Denies any hematochezia or melena. Denies any chest pain, palpitations, dyspnea. MD complaint: abdominal bloating Onset (ago): day(s) Location: abdomen Associated symptoms: denies other symptoms Treatments prior to arrival: none Related Data Home Medications ?Medication ?Instructions ?Recorded ?Confirmed cyanocobalamin (vitamin B-12) 1,000 mcg PO DAILY 05/03/23 04/27/24 1,000 mcg tablet vitamin E 268 mg (400 unit) capsule 268 mg PO DAILY 05/03/23 04/27/24 cholecalciferol (vitamin D3) 25 25 mcg PO DAILY 08/24/23 04/27/24 mcg (1,000 unit) capsule ondansetron 4 mg disintegrating 4 mg PO Q8H PRN nausea/vomiting 04/20/24 04/27/24 tablet Previous Rx's ?Medication ?Instructions ?Recorded nebulizers (AeroEclipse II #1 ea 01/01/23 Nebulizer) aluminum hydrox-magnesium carb 160 2 tab PO TID 30 days #180 tabs 11/29/23 mg-105 mg chewable tablet (Gaviscon Extra Strength) levalbuterol HCl 0.63 mg/3 mL 0.63 mg (3 mL) inhalation TID #90 02/26/24 solution for nebulization mL albuterol sulfate 90 mcg/actuation 2 puff inhalation Q6H PRN 03/29/24 aerosol inhaler shortness of breath or wheezing #8.5 grams fluticasone furoate 100 1 inh inhalation DAILY #60 ea 03/29/24 mcg-vilanterol 25 mcg/dose inhalation powder (Breo Ellipta) furosemide 20 mg tablet 20 mg PO DAILY #90 tabs 04/20/24 apixaban 2.5 mg tablet (Eliquis) 2.5 mg PO BID #60 tabs 05/19/24 cefuroxime axetil 250 mg tablet 250 mg PO BID #14 tabs 06/01/24 Allergies Allergy/AdvReac Type Severity Reaction Status Date / Time guaifenesin [From Mucinex] Allergy Severe THROAT Verified 06/01/24 14:41 CLOSING propoxyphene [From Darvon] Allergy Mild VOMITING Verified 06/01/24 14:41 diclofenac Allergy Unknown voilently Verified 06/01/24 14:41 ill omeprazole AdvReac Intermediate Nausea and Verified 06/01/24 14:41 Vomiting GENERIC MEDS Allergy Mild HIVES Uncoded 04/27/24 13:24 prednisone Allergy Mild Hives Uncoded 04/27/24 13:24 all generic brands Allergy Unknown Hives Uncoded 04/27/24 13:24 Review of Systems 2 Review of Systems: As per HPI. Yes all other systems are reviewed and are negative Constitutional: Constitutional: Reports as per HPI PMFSH Past Medical History Medical History Cough Grade II diastolic dysfunction Shortness of breath Hypertension Surgical History History of removal of cyst History of 2 sections Family History Family History Mother No problems noted. Father Substance use disorder Social History Social History Household Members: None Housing: House Do you presently have visiting nurse or other home services: No Alcohol intake: never Patient Tobacco Use Status: Former Tobacco user Tobacco use type: Cigarette Cigarettes Per Day: 6 e-Cigarette/Vaping Use: Never Used Advance Directives: No Advance Directives Information Provided: No service: No Current occupational status: retired Cognitive needs: No Hearing needs: No Vision needs: No Physical Exam ED Vital Signs: Vital Signs - 24 hr 06/01/24 14:39 06/01/24 17:02 Temperature 98.7 F 97.8 F Pulse Rate 68 60 Respiratory Rate 16 15 Blood Pressure 143/98 H 173/84 H Pulse Oximetry 94 97 Oxygen Delivery Method Room Air BMI result Body Mass Index 36.1 Vital signs have been reviewed and appear to be correct. Blood pressure elevated. Heart rate normal. Respiratory rate normal. Temperature normal. Oxygen saturation normal. Const General: cooperative, healthy appearing and no acute distress Orientation/consciousness: oriented to person, oriented to place, oriented to time and patient oriented x3 Limitations: no limitations HENMT Head: Yes normocephalic and Yes atraumatic Ears: external ears normal General nose exam: Normal external nose present Face and sinus: Yes face symmetric Mouth: oropharynx normal and moist mucous membranes Throat: Yes uvula midline Eyes Pupils: Equal, round and reactive pupils present Neck Neck: Yes normal visual inspection and Yes supple Resp Effort & Inspection: normal respiratory effort and able to speak in complete sentences Auscultation: clear to auscultation bilaterally Cardio Rate: regular rate Rhythm: regular rhythm Heart sounds: S1 normal heart sound present and S2 normal heart sound present GI Inspection: Yes normal to inspection Palpation (GI): Soft to palpation, nontender, no guarding and No Rebound tenderness present Auscultation: normoactive bowel sounds General: Yes no CVA tenderness Back/Spine/Pelvis Back: no CVA tenderness Skin General skin exam: elasticity normal and turgor normal Neuro General: oriented to person, oriented to place, oriented to time, patient oriented x3, moves all extremities, no focal motor deficits and CN's II-XI intact bilaterally Cranial nerves: Yes Equal, round and reactive pupils present Cognition (Neuro): normal cognition Extrem General: Yes full ROM, Yes no pedal edema and Yes no calf tenderness Psych Mental Status: mental status grossly normal Affect: normal affect Thought process: Normal thought process present Course Course Course Narrative: RME, this is a rapid medical exam performed by Raphael Gifford please refer to primary provider for complete H&P- 83-year-old female presents for evaluation of abdominal pain and bloating. She reports that her symptoms started today. She had a bowel movement today which is reportedly normal. She was sent here evaluation after discussing with her primary doctor. Medical Decision Making Medical Decision Making MDM Narrative: Patient is an 83-year-old female with history of COPD, HTN, dCHF EF 50%, afib on Eliquis, GERD, paraesophageal hiatal hernia presenting to the emergency department with complaint of bloating to lower abdomen for the past 2 days. On exam patient is awake, A+Ox3, VS WNL, afebrile, normal neurological exam without focal deficits, physical exam findings as above. Given reported symptoms and physical exam findings, initial differential includes gas, UTI, constipation, obstruction. Labs unremarkable. KUB notable for moderate volume of stool throughout right colon, no evidence of obstruction. My interpretation is in agreement with the radiologist's interpretation. Urinalysis notable for 1+ leukocytes, positive nitrites, 6-10 wbc's, 4+ bacteria. Will treat patient with cefuroxime for UTI. Results discussed with patient and son and all questions answered. Advised patient she can also use [id number] MiraLax for constipation. Follow-up with PCP and GI. Return precautions discussed. Patient and son verbalized understanding of and agreement with plan. Differential Diagnosis Differential Diagnoses: The differential diagnosis associated with the presentation includes As per MDM. Admission/Observation Consideration of admission/observation: Escalation of care including admission/observation considered Patient would have been admitted to the hospital had their work up had any findings where hospital admission was appropriate and their clinical presentation warranted hospital admission. Lab Data [facility] Lab Attestation statement: I reviewed the patient's lab results. As per MDM. 06/01/24 15:21 06/01/24 15:21 Labs: Lab Results 06/01/24 06/01/24 Range/Units 15:21 17:31 WBC 7.6 (4.8-10.8) X10*3/uL RBC 4.87 (4.20-5.50) X10*6/uL Hgb 13.3 (12.0-16.0) g/dl Hct 40.9 (37.0-47.0) % MCV 84.0 (80.0-98.0) fL MCH 27.3 (27.0-33.0) pg MCHC 32.5 (31.0-35.0) g/dl RDW 14.5 (11.0-16.0) % Plt Count 261 (160-400) X10*3/uL MPV 8.7 L (9.4-12.3) fL Immature Gran % (Auto) 0.3 (0.0-0.4) % Neut % (Auto) 53.3 (45-73) % Lymph % (Auto) 27.5 (20-40) % [place] % (Auto) 10.4 (2-11) % Eos % (Auto) 7.8 H (0-4) % Baso % (Auto) 0.7 (0-2) % Lymph # (Auto) 2.1 (1.2-4.9) X10*3/uL [place] # (Auto) 0.8 (0.1-1.2) X10*3/uL Eos # (Auto) 0.6 H (0.0-0.4) X10*3/uL Baso # (Auto) 0.1 (0.0-0.2) X10*3/uL Abs Immat Gran (auto) 0.02 (0.00-0.03) X10*3/uL Absolute Neuts (auto) 4.1 (2.0-8.3) x10*3/uL Absolute Nucleated RBC 0.000 (0.0-0.012) X10*3/uL Nucleated RBC % (auto) 0.0 (0.0-0.2) /100WBC Sodium 139 (135-145) mmol/L Potassium 4.1 (3.3-5.1) mmol/L Chloride 104 (96-108) mmol/L Carbon Dioxide 28 (22-29) mmol/L Anion Gap 11 L (12-20) BUN 15 (9-16) mg/dL Creatinine 0.86 (0.5-1.4) mg/dL Estim Creat Clear Calc 47.6 Estimated GFR > 60 Random Glucose 81 (60-115) mg/dL Calcium 10.0 (8.4-10.2) mg/dL Total Bilirubin 0.2 (0.0-1.0) mg/dL AST 25 (5-31) U/L ALT 18 (0-31) U/L Alkaline Phosphatase 114 (39-117) U/L Total Protein 7.5 (6.5-8.0) g/dL Albumin 4.2 (3.5-5.0) g/dL Lipase 33 (8-78) U/L Urine Color Yellow Urine Appearance Clear Urine pH 5.5 (5.0-9.0) Ur Specific [place] 1.020 (1.005-1.025) Urine Protein Negative (Neg-Trace) mg/dL Urine Glucose (UA) Negative (Negative) mg/dL Urine Ketones Trace (Negative) mg/dL Urine Blood Negative (Negative) Urine Nitrite Positive H (Negative) Ur Leukocyte Esterase Small (1+) H (Negative) Urine RBC 0-2 (0-2) /HPF Urine WBC 6-10 H (0-5) /HPF Ur Squamous Epith Cells 11-20 (0-2) /HPF Urine Bacteria 4+ (None Seen) Hyaline Casts 0-2 (0-2) /LPF Independent Interpretation I performed an independent interpretation of an: Plain X-Ray Interpretation: KUB notable for moderate volume of stool throughout right colon, no evidence of obstruction. Radiology Impression Discussion of test interpretation with radiology: I have reviewed the radiologist's reading. Radiologist Impression: XR/XR KUB IMPRESSION: Nonobstructive bowel gas pattern. Moderate volume of stool throughout the right colon. Independent Historian Clinical information obtained from an independent historian. History obtained from or confirmed by: Other (Son) External Record Review External record reviewed: Inpatient record, Office record and Outpatient record Prescription Management I considered prescription management with: Antibiotic Discharge Plan Discharge Clinical Impression: Acute UTI Patient Disposition: Home, Self-Care Instructions: Cefuroxime (By mouth), Urinary Tract Infection in Older Adults (ED) Additional Instructions: You have been evaluated in the emergency department today for abdominal bloating. Your evaluation, including urinalysis, suggests that your symptoms are due to urinary tract infection. Please take your prescribed antibiotics for the full course of medication as directed. Your x-ray also showed some constipation. You can use over the counter Miralax to treat this. Please follow-up with your primary care provider within 2 days. Return to the emergency department if you experience fevers 100.4? F or greater, worsening or uncontrolled pain, vomiting, flank pain, or for any other concerning symptoms. Prescriptions: New cefuroxime axetil 250 mg tablet 250 mg PO BID Qty: 14 0RF No Action (DME) nebulizers [AeroEclipse II Nebulizer] Misc See Rx Instructions .Route Qty: 1 0RF Rx Instructions: As directed levalbuterol HCl 0.63 mg/3 mL solution for nebulization 0.63 mg inhalation TID Qty: 90 0RF albuterol sulfate 90 mcg/actuation HFA aerosol inhaler 2 puff inhalation Q6H PRN (Reason: shortness of breath or wheezing) Qty: 8.5 0RF fluticasone furoate-vilanterol [Breo Ellipta] 100-25 mcg/dose blister with device 1 inh inhalation DAILY Qty: 60 1RF Eliquis 2.5 mg tablet 2.5 mg PO BID Qty: 60 5RF cyanocobalamin (vitamin B-12) 1,000 mcg Tablet 1,000 mcg PO DAILY vitamin E 268 mg (400 unit) Capsule 268 mg PO DAILY cholecalciferol (vitamin D3) 25 mcg (1,000 unit) capsule 25 mcg PO DAILY Gaviscon Extra Strength 160-105 mg tablet,chewable 2 tab PO TID 30 Days Qty: 180 0RF ondansetron 4 mg tablet,disintegrating 4 mg PO Q8H PRN (Reason: nausea/vomiting) furosemide 20 mg tablet 20 mg PO DAILY Qty: 90 1RF Print Language: Croatian
[2024-06-01 15:28] LABS: MANUAL DIFF FLAG NO
[2024-06-01 15:29] LABS: Basophils Absolute Auto 0.1 X10*3/uL (0.0-0.2); Basophils Percent Auto 0.7 % (0-2); Eosinophils Absolute Auto 0.6 X10*3/uL (0.0-0.4); Eosinophils Percent Auto 7.8 % (0-4); Hematocrit 40.9 % (37.0-47.0); Hemoglobin 13.3 g/dl (12.0-16.0); Imm Gran Abs Auto 0.02 X10*3/uL (0.00-0.03); Imm Gran Pct Auto 0.3 % (0.0-0.4); Lymphocytes Absolute Auto 2.1 X10*3/uL (1.2-4.9); Lymphocytes Percent Auto 27.5 % (20-40); Mean Corpuscular HGB Conc 32.5 g/dl (31.0-35.0); Mean Corpuscular Hemoglobin 27.3 pg (27.0-33.0); Mean Platelet Volume 8.7 fL (9.4-12.3); Monocytes Absolute Auto 0.8 X10*3/uL (0.1-1.2); Monocytes Percent Auto 10.4 % (2-11); Neutrophils Absolute Auto 4.1 x10*3/uL (2.0-8.3); Neutrophils Percent Auto 53.3 % (45-73); Platelet Count 261 X10*3/uL (160-400); Red Blood Count 4.87 X10*6/uL (4.20-5.50); Red Cell Distribution Width 14.5 % (11.0-16.0); White Blood Count 7.6 X10*3/uL (4.8-10.8)
[2024-06-01 15:44] LABS: Alanine Aminotransferase 18 U/L (0-31); Albumin Level 4.2 g/dL (3.5-5.0); Alkaline Phosphatase 114 U/L (39-117); Anion Gap 11 (12-20); Aspartate Amino Transferase 25 U/L (5-31); Bilirubin Total 0.2 mg/dL (0.0-1.0); Blood Urea Nitrogen 15 mg/dL (9-16); Carbon Dioxide 28 mmol/L (22-29); Chloride 104 mmol/L (96-108); Creatinine Clr Calc Pharmacy 47.6; Estimated Glomerular Filt Rate > 60; Glucose Random 81 mg/dL (60-115); Lipase 33 U/L (8-78); Potassium 4.1 mmol/L (3.3-5.1); Sodium 139 mmol/L (135-145); Total Protein 7.5 g/dL (6.5-8.0)
[2024-06-01 17:02] VITALS: BP 173/84; PULSE 60; RESP 15; TEMP 36.6; O2SAT 97
[2024-06-01 17:39] LABS: Appearance Urine Clear; Color Urine Yellow; Glucose Urine UA Negative (Negative); Leukocyte Esterase Urine Small (1+) (Negative); Nitrite Urine Positive (Negative); PH 5.5 (5.0-9.0); UMIC TRIGGER UACC YES; Urine Blood Negative (Negative); Urine Ketones Trace mg/dL (Negative); Urine Protein Negative (Neg-Trace)
[2024-06-01 17:42] LABS: Bacteria Urine 4+ (None Seen); Hyaline Casts Urine 0-2 /LPF (0-2); RBC Urine 0-2 /HPF (0-2); UACC Culture Trigger YES
[2024-06-01 18:20] VITALS: BP 173/84; PULSE 60; RESP 15; TEMP 36.6; O2SAT 97
== END 2024-06-01 18:20 | disposition home or self-care (01) ==
PROVIDERS: Physician Assistant; Emergency Provider Emergency Medicine; PCP Internal Medicine
DX: N39.0 Urinary tract infection, site not specified (principal); R14.0 Abdominal distension (gaseous); Z79.899 Other long term (current) drug therapy
CPT/HCPCS: 36415; 74018; 80053; 81001; 83690; 85025; 87086; 99283

== ENCOUNTER 2024-06-06 09:12 | Emergency (ER) | payer MEDICARE, SELFPAY ==
--- NOTE | ~2024-06-06 | CT_ITS ---
EXAMINATION: CT ABDOMEN AND PELVIS WITHOUT CONTRAST CLINICAL INFORMATION: History of hernia with no bowel movement COMPARISON: KUB 06/01/24, CT abdomen pelvis 05/05/23 TECHNIQUE: Multidetector volumetric imaging was performed from the superior aspect of the liver through the pubic symphysis. Sagittal and coronal reformatted images were obtained on the technologist's workstation. This CT examination was performed using dose optimization techniques as appropriate, variously including the following: *Automated exposure control *Adjustment of mA and/or kV according to patient size (this includes techniques or standardized protocols for targeted exams where dose is matched to indication/reason for exam; i.e. extremities or head) *Use of iterative reconstruction technique DLP: 414 mGy-cm FINDINGS: LUNG BASES: There is bibasilar atelectasis. LIVER, GALLBLADDER, AND BILIARY TREE: The liver is normal in size, shape, and attenuation. No focal hepatic lesion or biliary ductal dilatation is present. A single layering 1.3 cm calcified stone is present in the gallbladder which otherwise is unremarkable with no evidence of gallbladder wall thickening, or obvious pericholecystic inflammatory changes. PANCREAS: Unremarkable. SPLEEN: Unremarkable. ADRENAL GLANDS: Unremarkable. KIDNEYS AND URETERS: The kidneys are normal in size, shape, and attenuation. 2 adjacent stones are present at the lower pole of the right kidney the largest measuring 3 mm. No hydronephrosis, hydroureter, or additional calculi seen. No perinephric stranding. No renal masses. BLADDER: Unremarkable. GASTROINTESTINAL TRACT: Moderate sized hiatal hernia is present. Extensive colonic diverticula are present without diverticulitis The small and large bowel are unremarkable. The appendix is not seen but there is no evidence of appendicitis.. ABDOMINAL WALL: Small left inguinal hernias present containing only fat. LYMPH NODES: No retroperitoneal lymphadenopathy. VASCULAR: Calcific atherosclerotic changes are present in the aorta and iliofemoral vessels. There is no evidence of an abdominal aortic aneurysm. PELVIC VISCERA: The uterus and adnexa are unremarkable. OSSEOUS STRUCTURES: Unremarkable. There is mild compression fracture of the superior endplate of L2. CT/CT abdomen pelvis wo IV con IMPRESSION: 1. A cause for the patient's abdominal pain and lack of bowel movements has not been found. 2. Cholelithiasis without cholecystitis. 3. Nonobstructing right renal calculi. 4. Colonic diverticulosis without diverticulitis. 5. Small left inguinal hernia containing only fat. 6. Mild compression fracture superior endplate L2. Fleischner guidelines were followed. Electronically signed by: Jairo Leon MD 06/06/2024 11:57 AM EDT RP
[2024-06-06 09:30] VITALS: BP 177/77; PULSE 63; RESP 18; TEMP 36.5; O2SAT 97; BMI 30.9
[2024-06-06 10:15] VITALS: BP 157/82; PULSE 55; RESP 16; O2SAT 98
--- NOTE | 2024-06-06 10:18 | ED_ITS ---
HPI - General Adult General Chief complaint: General Medical Stated complaint: Constipation Time Seen by Provider: 06/06/24 10:04 Source: patient and family ( Son) Mode of arrival: ambulatory Limitations: no limitations History of Present Illness ED Provider: DR. Florez HPI narrative: 83-year-old female history of COPD, HTN, CHFpEF, AFib on Eliquis, GERD, paraesophageal hiatal hernia seen 2 days ago for constipation, patient was sent home on cefuroxime for UTI, patient had KUB which shows nonobstructive bowel gas pattern, patient returned today for abdominal bloating sensation, last bowel movement was 2 days ago this morning patient had a small loose stool bowel movement, passing gas. History of . Related Data Home Medications ?Medication ?Instructions ?Recorded ?Confirmed cyanocobalamin (vitamin B-12) 1,000 mcg PO DAILY 05/03/23 04/27/24 1,000 mcg tablet vitamin E 268 mg (400 unit) capsule 268 mg PO DAILY 05/03/23 04/27/24 cholecalciferol (vitamin D3) 25 25 mcg PO DAILY 08/24/23 04/27/24 mcg (1,000 unit) capsule ondansetron 4 mg disintegrating 4 mg PO Q8H PRN nausea/vomiting 04/20/24 04/27/24 tablet Previous Rx's ?Medication ?Instructions ?Recorded nebulizers (AeroEclipse II #1 ea 01/01/23 Nebulizer) aluminum hydrox-magnesium carb 160 2 tab PO TID 30 days #180 tabs 11/29/23 mg-105 mg chewable tablet (Gaviscon Extra Strength) levalbuterol HCl 0.63 mg/3 mL 0.63 mg (3 mL) inhalation TID #90 02/26/24 solution for nebulization mL albuterol sulfate 90 mcg/actuation 2 puff inhalation Q6H PRN 03/29/24 aerosol inhaler shortness of breath or wheezing #8.5 grams fluticasone furoate 100 1 inh inhalation DAILY #60 ea 03/29/24 mcg-vilanterol 25 mcg/dose inhalation powder (Breo Ellipta) furosemide 20 mg tablet 20 mg PO DAILY #90 tabs 04/20/24 apixaban 2.5 mg tablet (Eliquis) 2.5 mg PO BID #60 tabs 05/19/24 cefuroxime axetil 250 mg tablet 250 mg PO BID #14 tabs 06/01/24 Allergies Allergy/AdvReac Type Severity Reaction Status Date / Time guaifenesin [From Mucinex] Allergy Severe THROAT Verified 06/06/24 09:32 CLOSING propoxyphene [From Darvon] Allergy Mild VOMITING Verified 06/01/24 14:41 diclofenac Allergy Unknown voilently Verified 06/01/24 14:41 ill omeprazole AdvReac Intermediate Nausea and Verified 06/01/24 14:41 Vomiting GENERIC MEDS Allergy Mild HIVES Uncoded 04/27/24 13:24 prednisone Allergy Mild Hives Uncoded 04/27/24 13:24 all generic brands Allergy Unknown Hives Uncoded 04/27/24 13:24 Review of Systems 2 Review of Systems: All other systems are reviewed and are negative Constitutional: Reports as per HPI and Reports no additional constitutional complaints Eyes: Reports as per HPI and Reports no additional eye complaints Reports system reviewed and no additional complaints, except as documented Cardiovascular: Reports as per HPI and Reports no additional cardiovascular complaints Respiratory: Reports as per HPI and Reports no additional respiratory complaints Gastrointestinal: Reports as per HPI and Reports no additional gastrointestinal complaints Genitourinary: Reports no additional female genitourinary complaints Musculoskeletal: Reports no additional musculoskeletal complaints Skin/Breast: Reports system reviewed and no additional complaints, except as docu Psychiatric: Reports no additional psychiatric complaints Endocrine: Reports no additional endocrine complaints Hematologic/Lymphatic: Reports no additional hematologic/lymphatic complaints Allergic/Immunologic: Reports no additional allergic/immunologic complaints Reports system reviewed and no additional complaints, except as documented and Reports Abnormal speech present [facility] Past Medical History Medical History Cough Grade II diastolic dysfunction Shortness of breath Hypertension Surgical History History of removal of cyst History of 2 sections Family History Family History Mother No problems noted. Father Substance use disorder Social History Social History Household Members: None Housing: House Do you presently have visiting nurse or other home services: No Alcohol intake: never Patient Tobacco Use Status: Former Tobacco user Tobacco use type: Cigarette Cigarettes Per Day: 6 Smoked in Last 30 Days: No e-Cigarette/Vaping Use: Never Used Use of substances other than those prescribed or required for medical reasons: No Advance Directives: No Advance Directives Information Provided: Yes service: No Current occupational status: retired Cognitive needs: No Hearing needs: No Vision needs: No Physical Exam ED Vital Signs: Vital Signs - 24 hr 06/06/24 09:30 06/06/24 10:15 06/06/24 12:28 Temperature 97.7 F 97.7 F Pulse Rate 63 55 51 Respiratory Rate 18 16 14 Blood Pressure 177/77 H 157/82 H 168/72 H Pulse Oximetry 97 98 98 Oxygen Delivery Method Room Air Room Air Room Air BMI result Body Mass Index 30.9 Vital signs have been reviewed and appear to be correct. Blood pressure elevated. Heart rate normal. Respiratory rate normal. Temperature normal. Oxygen saturation normal. Appearance: Alert. Oriented X3. No acute distress. Head: Normal external exam. Normocephalic. Atraumatic. No Scruggs signs noted. No raccoon eyes noted Eyes: PERRLA. EOMI. Conjunctiva and sclera normal. Eyelids normal. ENT: TM's Normal. Pharynx normal. Uvula midline. Moist mucous membranes. No trismus noted. No drooling noted. No muffled voice noted. Neck: Normal inspection. Neck supple. FROM. No adenopathy. Thyroid Normal. No meningeal signs. No neck mass noted. CVS: Normal heart rate and rhythm. Heart sound normal. No murmurs noted. Pulses normal throughout. Respiratory: No respiratory distress. Painless inspiration. Breath sounds normal. No wheezes/rales/rhonchi noted. Chest nontender. No accessory muscle usage noted or decreased air movement noted. Abdomen: Soft and nontender. Bowel sounds normal in all 4 quadrants. No distention noted. No organomegaly noted. No visible injury noted. Rectal exam: No external or internal hemorrhoid is appreciated, no fissure no active bleeding, brown stool guaiac negative, no hard stool in the vault, no rectal mass. Back: No CVA tenderness. Full range of motion noted. Skin: Skin warm and dry. Normal skin color. Normal skin turgor. No rashes/lesions/lacerations noted. Extremities: No lower extremity edema. Extremities exhibit normal range of motion. Extremities nontender. Neuro: Oriented X 3. Cranial nerve exam: II-XII are grossly intact No motor deficit. No sensory deficit. Reflexes normal. Course Reevaluation(s) Reevaluation #1: 83-year-old female returned to the ED for evaluation of abdominal distention and bloating, CT of the abdomen pelvis shows no acute intra-abdominal pathology, labs are unremarkable, UTI has resolved. Time: 14:21 Medications Administered Discontinued Medications Generic Name Dose Route Start Last Admin Trade Name Freq PRN Reason Stop Dose Admin Bisacodyl 10 mg 06/06/24 12:54 06/06/24 13:01 Bisacodyl 10 Mg Supp.Rect OK 06/06/24 12:55 10 mg ONCE ONE Administration Medical Decision Making Differential Diagnosis Differential Diagnoses: The differential diagnosis associated with the presentation includes ( Small-bowel obstruction, constipation, ileus, hernia, colitis, appendicitis, UTI, dehydration, electrolyte derangement severe anemia.) Admission/Observation Consideration of admission/observation: Escalation of care including admission/observation considered Lab Data MDM Lab Attestation statement: I reviewed the patient's lab results. 06/06/24 10:39 06/06/24 10:39 Labs: Lab Results 06/06/24 06/06/24 Range/Units 10:39 13:43 WBC 6.5 (4.8-10.8) X10*3/uL RBC 4.89 (4.20-5.50) X10*6/uL Hgb 13.2 (12.0-16.0) g/dl Hct 41.5 (37.0-47.0) % MCV 84.9 (80.0-98.0) fL MCH 27.0 (27.0-33.0) pg MCHC 31.8 (31.0-35.0) g/dl RDW 14.4 (11.0-16.0) % Plt Count 275 (160-400) X10*3/uL MPV 8.5 L (9.4-12.3) fL Immature Gran % (Auto) 0.3 (0.0-0.4) % Neut % (Auto) 48.1 (45-73) % Lymph % (Auto) 31.8 (20-40) % [place] % (Auto) 10.6 (2-11) % Eos % (Auto) 8.6 H (0-4) % Baso % (Auto) 0.6 (0-2) % Lymph # (Auto) 2.1 (1.2-4.9) X10*3/uL [place] # (Auto) 0.7 (0.1-1.2) X10*3/uL Eos # (Auto) 0.6 H (0.0-0.4) X10*3/uL Baso # (Auto) 0.0 (0.0-0.2) X10*3/uL Abs Immat Gran (auto) 0.02 (0.00-0.03) X10*3/uL Absolute Neuts (auto) 3.1 (2.0-8.3) x10*3/uL Absolute Nucleated RBC 0.000 (0.0-0.012) X10*3/uL Nucleated RBC % (auto) 0.0 (0.0-0.2) /100WBC Sodium 140 (135-145) mmol/L Potassium 4.4 (3.3-5.1) mmol/L Chloride 106 (96-108) mmol/L Carbon Dioxide 26 (22-29) mmol/L Anion Gap 12 (12-20) BUN 12 (9-16) mg/dL Creatinine 0.83 (0.5-1.4) mg/dL Estim Creat Clear Calc 43.5 Estimated GFR > 60 Random Glucose 91 (60-115) mg/dL Calcium 9.5 (8.4-10.2) mg/dL Total Bilirubin 0.3 (0.0-1.0) mg/dL Direct Bilirubin 0.1 (0.0-0.5) mg/dL AST 23 (5-31) U/L ALT 16 (0-31) U/L Alkaline Phosphatase 114 (39-117) U/L Total Protein 7.2 (6.5-8.0) g/dL Albumin 3.9 (3.5-5.0) g/dL Lipase 30 (8-78) U/L Urine Color Yellow Urine Appearance Clear Urine pH 8.0 (5.0-9.0) Ur Specific [place] 1.010 (1.005-1.025) Urine Protein Negative (Neg-Trace) mg/dL Urine Glucose (UA) Negative (Negative) mg/dL Urine Ketones Negative (Negative) mg/dL Urine Blood Negative (Negative) Urine Nitrite Negative (Negative) Ur Leukocyte Esterase Negative (Negative) Independent Interpretation I performed an independent interpretation of an: CT Scan ( Abdomen pelvis:1. A cause for the patient's abdominal pain and lack of bowel movements has not been found. 2. Cholelithiasis without cholecystitis. 3. Nonobstructing right renal calculi. 4. Colonic diverticulosis without diverticulitis. 5. Small left inguinal hernia containing only fat. 6. ) Radiology Impression Discussion of test interpretation with radiology: I have reviewed the radiologist's reading. Discharge Plan Discharge Clinical Impression: Abdominal distension (gaseous) Patient Disposition: Home, Self-Care Instructions: Gas and Bloating (ED) Prescriptions: No Action (DME) nebulizers [AeroEclipse II Nebulizer] Misc See Rx Instructions .Route Qty: 1 0RF Rx Instructions: As directed levalbuterol HCl 0.63 mg/3 mL solution for nebulization 0.63 mg inhalation TID Qty: 90 0RF albuterol sulfate 90 mcg/actuation HFA aerosol inhaler 2 puff inhalation Q6H PRN (Reason: shortness of breath or wheezing) Qty: 8.5 0RF fluticasone furoate-vilanterol [Breo Ellipta] 100-25 mcg/dose blister with device 1 inh inhalation DAILY Qty: 60 1RF Eliquis 2.5 mg tablet 2.5 mg PO BID Qty: 60 5RF cyanocobalamin (vitamin B-12) 1,000 mcg Tablet 1,000 mcg PO DAILY vitamin E 268 mg (400 unit) Capsule 268 mg PO DAILY cefuroxime axetil 250 mg tablet 250 mg PO BID Qty: 14 0RF cholecalciferol (vitamin D3) 25 mcg (1,000 unit) capsule 25 mcg PO DAILY Gaviscon Extra Strength 160-105 mg tablet,chewable 2 tab PO TID 30 Days Qty: 180 0RF ondansetron 4 mg tablet,disintegrating 4 mg PO Q8H PRN (Reason: nausea/vomiting) furosemide 20 mg tablet 20 mg PO DAILY Qty: 90 1RF Referrals: Po,Zena Agrawal MD [Primary Care Provider] - Print Language: Upper Sorbian
[2024-06-06 10:44] LABS: MANUAL DIFF FLAG NO
[2024-06-06 10:51] LABS: Basophils Percent Auto 0.6 % (0-2); Eosinophils Absolute Auto 0.6 X10*3/uL (0.0-0.4); Eosinophils Percent Auto 8.6 % (0-4); Hematocrit 41.5 % (37.0-47.0); Hemoglobin 13.2 g/dl (12.0-16.0); Imm Gran Abs Auto 0.02 X10*3/uL (0.00-0.03); Imm Gran Pct Auto 0.3 % (0.0-0.4); Lymphocytes Absolute Auto 2.1 X10*3/uL (1.2-4.9); Lymphocytes Percent Auto 31.8 % (20-40); Mean Corpuscular HGB Conc 31.8 g/dl (31.0-35.0); Mean Corpuscular Volume 84.9 fL (80.0-98.0); Mean Platelet Volume 8.5 fL (9.4-12.3); Monocytes Absolute Auto 0.7 X10*3/uL (0.1-1.2); Monocytes Percent Auto 10.6 % (2-11); Neutrophils Absolute Auto 3.1 x10*3/uL (2.0-8.3); Neutrophils Percent Auto 48.1 % (45-73); Platelet Count 275 X10*3/uL (160-400); Red Blood Count 4.89 X10*6/uL (4.20-5.50); Red Cell Distribution Width 14.4 % (11.0-16.0); White Blood Count 6.5 X10*3/uL (4.8-10.8)
[2024-06-06 11:08] LABS: Alanine Aminotransferase 16 U/L (0-31); Albumin Level 3.9 g/dL (3.5-5.0); Alkaline Phosphatase 114 U/L (39-117); Anion Gap 12 (12-20); Aspartate Amino Transferase 23 U/L (5-31); Bilirubin Direct 0.1 mg/dL (0.0-0.5); Bilirubin Total 0.3 mg/dL (0.0-1.0); Blood Urea Nitrogen 12 mg/dL (9-16); Calcium 9.5 mg/dL (8.4-10.2); Carbon Dioxide 26 mmol/L (22-29); Chloride 106 mmol/L (96-108); Creatinine Clr Calc Pharmacy 43.5; Estimated Glomerular Filt Rate > 60; Glucose Random 91 mg/dL (60-115); Lipase 30 U/L (8-78); Potassium 4.4 mmol/L (3.3-5.1); Sodium 140 mmol/L (135-145); Total Protein 7.2 g/dL (6.5-8.0)
[2024-06-06 12:28] VITALS: BP 168/72; PULSE 51; RESP 14; TEMP 36.5; O2SAT 98
[2024-06-06] MEDS: bisacodyL 10 MG SUPP.RECT PR (13:01)
[2024-06-06 13:47] LABS: Appearance Urine Clear; Color Urine Yellow; Glucose Urine UA Negative (Negative); Leukocyte Esterase Urine Negative (Negative); Nitrite Urine Negative (Negative); Urine Blood Negative (Negative); Urine Ketones Negative (Negative); Urine Protein Negative (Neg-Trace)
[2024-06-06 14:52] VITALS: BP 182/72; PULSE 52; RESP 20; O2SAT 98
[2024-06-06 15:04] VITALS: BP 182/72; PULSE 52; RESP 20; TEMP 36.3; O2SAT 98
== END 2024-06-06 15:05 | disposition home or self-care (01) ==
PROVIDERS: Emergency Provider Emergency Medicine; PCP Internal Medicine
DX: R14.0 Abdominal distension (gaseous) (principal); K59.00 Constipation, unspecified; I48.91 Unspecified atrial fibrillation; R10.2 Pelvic and perineal pain; I10 Essential (primary) hypertension; Z79.01 Long term (current) use of anticoagulants; Z79.899 Other long term (current) drug therapy
CPT/HCPCS: 36415; 74176; 80048; 80076; 81003; 83690; 85025; 99284

== ENCOUNTER 2024-07-11 08:04 | Outpatient (REF) | payer MEDICARE, SELFPAY ==
[2024-07-11 08:26] LABS: MANUAL DIFF FLAG NO
[2024-07-11 08:37] LABS: Basophils Absolute Auto 0.1 X10*3/uL (0.0-0.2); Basophils Percent Auto 0.8 % (0-2); Eosinophils Absolute Auto 0.7 X10*3/uL (0.0-0.4); Hematocrit 41.9 % (37.0-47.0); Hemoglobin 13.5 g/dl (12.0-16.0); Imm Gran Abs Auto 0.01 X10*3/uL (0.00-0.03); Imm Gran Pct Auto 0.2 % (0.0-0.4); Lymphocytes Percent Auto 33.8 % (20-40); Mean Corpuscular HGB Conc 32.2 g/dl (31.0-35.0); Mean Corpuscular Hemoglobin 27.4 pg (27.0-33.0); Mean Platelet Volume 8.3 fL (9.4-12.3); Monocytes Absolute Auto 0.6 X10*3/uL (0.1-1.2); Monocytes Percent Auto 9.5 % (2-11); Neutrophils Absolute Auto 2.6 x10*3/uL (2.0-8.3); Neutrophils Percent Auto 44.7 % (45-73); Platelet Count 285 X10*3/uL (160-400); Red Blood Count 4.93 X10*6/uL (4.20-5.50); Red Cell Distribution Width 14.4 % (11.0-16.0); White Blood Count 5.9 X10*3/uL (4.8-10.8)
[2024-07-11 08:42] LABS: Appearance Urine Cloudy; Color Urine Yellow; Glucose Urine UA Negative (Negative); Leukocyte Esterase Urine Small (1+) (Negative); Nitrite Urine Positive (Negative); PH 6.5 (5.0-9.0); UMIC TRIGGER UACC YES; Urine Blood Negative (Negative); Urine Ketones Negative (Negative); Urine Protein Negative (Neg-Trace)
[2024-07-11 08:51] LABS: Bacteria Urine 4+ (None Seen); Hyaline Casts Urine 0-2 /LPF (0-2); RBC Urine 0-2 /HPF (0-2); UACC Culture Trigger YES
[2024-07-11 09:19] LABS: B Type Natriuretic Peptide 48 pg/mL (<100)
[2024-07-11 09:24] LABS: Alanine Aminotransferase 18 U/L (0-31); Albumin Level 4.2 g/dL (3.5-5.0); Alkaline Phosphatase 115 U/L (39-117); Anion Gap 11 (12-20); Aspartate Amino Transferase 25 U/L (5-31); Bilirubin Total 0.5 mg/dL (0.0-1.0); Blood Urea Nitrogen 15 mg/dL (9-16); Calcium 9.7 mg/dL (8.4-10.2); Carbon Dioxide 28 mmol/L (22-29); Chloride 105 mmol/L (96-108); Cholesterol 281 mg/dL (<200); Estimated Glomerular Filt Rate > 60; Glucose Random 101 mg/dL (60-115); HDL Cholesterol 52 mg/dL (>40); LDL Cholesterol Calculated 191 mg/dL (<100); Potassium 4.1 mmol/L (3.3-5.1); Sodium 140 mmol/L (135-145); Total Protein 7.5 g/dL (6.5-8.0); Triglycerides 193 mg/dL (<150)
[2024-07-11 09:40] LABS: Free T4 (Free Thyroxine) 1.12 ng/dL (0.71-1.85); Thyroid Stimulating Hormone 4.44 uIU/mL (0.32-4.0); Vitamin D 25-OH Total 45.3 ng/mL (>30)
[2024-07-11 09:54] LABS: Folate 16.4 ng/mL (> or = 4.0); Vitamin B12 > 2000 pg/mL (200-900)
== END 2024-07-11 08:05 | disposition home or self-care (01) ==
LOC: HO.LAB 08:04
PROVIDERS: PCP Internal Medicine; Visit Provider Internal Medicine
DX: I48.91 Unspecified atrial fibrillation (principal); E78.00 Pure hypercholesterolemia, unspecified; R30.0 Dysuria
CPT/HCPCS: 36415; 80053; 80061; 81001; 82306; 82607; 82746; 83880; 84439; 84443; 85025; 87086; 87088; 87186

== ENCOUNTER 2024-07-24 13:29 | Day surgery (SDC) | payer MEDICARE, SELFPAY ==
[2024-07-10 13:23] VITALS: BP 170/78; PULSE 72; RESP 16; O2SAT 97; BMI 28.8
--- NOTE | 2024-07-10 13:39 | HO.ANESPROP2 ---
Documented by User: Brii Drummond NP 07/21/24 09:41 HPI - Anesthesia Eval Consult details Narrative: 83yo F for Upper Endoscopy, 07/24/24 Planned paraesophageal hernia repair at [facility] Broken tooth - Right lower molar, PCP working up to ensure no infection Eliquis for afib. Follows [facility] Cardiology. Optimized to proceed Follows [facility] pulmo. Optimized to proceed with hernia repair/EGD [facility] Active Problems Active Problems: All Active Problems Atrial fibrillation (Acute) Paraesophageal hernia (Acute) GERD (gastroesophageal reflux disease) (Acute) Hypovitaminosis D (Acute) B12 deficiency (Acute) Mass of left upper extremity (Acute) Tooth decay (Acute) Hiatal hernia (Acute) Diarrhea (Acute) COPD (chronic obstructive pulmonary disease) (Acute) Medicare annual wellness visit, subsequent (Acute) TSH elevation (Acute) Thoracic back pain (Acute) Hypercholesterolemia (Acute) COVID-19 (Acute) Large hiatal hernia (Acute) Mild asthma (Acute) Bilateral eye symptoms (Acute) Cough (Acute) Trochanteric bursitis of right hip (Acute) Bronchitis (Acute) Non-productive cough (Acute) Hip pain, right (Acute) Grade II diastolic dysfunction (Acute) Hypertension (Acute) Shortness of breath (Acute) Past Medical History Medical History [place]) Renal calculi Paraesophageal hernia COPD (chronic obstructive pulmonary disease) Poor dentition GERD (gastroesophageal reflux disease) CHF (congestive heart failure) Afib Recent urinary tract infection (06/06/24) Cough Grade II diastolic dysfunction Shortness of breath Hypertension Family History Family History Mother No problems noted. Father Substance use disorder Surgical History Surgical History Hx of varicose vein ligation Hx of colonoscopy History of removal of cyst History of 2 sections Social History Social History Household Members: None Household Members Other:: Adult son Titus Housing: House Are you a primary manager respiratory care to a significant other at home: No Do you presently have visiting nurse or other home services: No Alcohol intake: never Patient Tobacco Use Status: Former Tobacco user Tobacco use type: Cigarette Cigarettes Per Day: 6 Smoked in Last 30 Days: No e-Cigarette/Vaping Use: Never Used Use of substances other than those prescribed or required for medical reasons: No Have you been hit, kicked, punched, or otherwise hurt by someone within the past year? If so, by whom?: No Spiritual Healthcare Practices: none Faith Healthcare Practices: none Cultural Healthcare Practices: none Are you DNR?: No Advance Directives: No (will bring dos) Advance Directives Information Provided: Yes Advance Directives on File: No Recently lost weight without trying: No Nutrition Risks: Surgical patient >75years Poor oral hygiene: Yes (lower right molar broken and painful) service: No Current occupational status: retired Cognitive needs: No Hearing needs: No Vision needs: No Meds Allergies Allergy/AdvReac Type Severity Reaction Status Date / Time diclofenac Allergy Severe throat Verified 07/10/24 09:04 closing,sob guaifenesin [From Mucinex] Allergy Severe THROAT Verified 07/10/24 09:04 CLOSING, sob propoxyphene [From Darvon] Allergy Mild VOMITING Verified 07/10/24 09:04 omeprazole AdvReac Intermediate Nausea and Verified 07/10/24 09:04 Vomiting GENERIC MEDS Allergy Intermediate HIVES Uncoded 07/10/24 09:04 prednisone Allergy Mild Hives Uncoded 07/10/24 09:04 Home Medications ?Medication ?Instructions ?Recorded ?Confirmed ?Last Taken ?Type cyanocobalamin (vitamin B-12) 1,000 mcg PO DAILY 05/03/23 07/10/24 05/02/23 History 1,000 mcg tablet vitamin E 268 mg (400 unit) capsule 268 mg PO DAILY 05/03/23 07/10/24 05/02/23 History cholecalciferol (vitamin D3) 25 25 mcg PO DAILY 08/24/23 07/10/24 Unknown History mcg (1,000 unit) capsule ondansetron 4 mg disintegrating 4 mg PO Q8H PRN nausea/vomiting 04/20/24 07/10/24 Unknown History tablet Exam Height,Weight and Vital Signs: Height 4 ft 11 in Weight 64.7 kg Last Vital Signs Pulse 72 07/10/24 13:23 Resp 16 07/10/24 13:23 BP 170/78 H 07/10/24 13:23 Pulse Ox 97 07/10/24 13:23 O2 Del Method Room Air 07/10/24 13:23 Pertinent Lab Results Pertinent Lab Results: Laboratory Tests 07/11/24 08:25 WBC 5.9 Hgb 13.5 Hct 41.9 Plt Count 285 Sodium 140 Potassium 4.1 Chloride 105 Carbon Dioxide 28 BUN 15 Creatinine 0.88 Assessment and Plan Assessment Anesthesia Assessment: Anesthesia Plan Discussed and PAT Visit Documented by User: Christina Sinclair MD 07/24/24 13:54 PMFSH Past Medical History Medical History [place]) Renal calculi Paraesophageal hernia COPD (chronic obstructive pulmonary disease) Poor dentition GERD (gastroesophageal reflux disease) CHF (congestive heart failure) Afib Recent urinary tract infection (06/06/24) Cough Grade II diastolic dysfunction Shortness of breath Hypertension Family History Family History Mother No problems noted. Father Substance use disorder Family history of problems with anesthesia: No Surgical History Surgical History Hx of varicose vein ligation Hx of colonoscopy History of removal of cyst History of 2 sections History of Problems with Anesthesia: No Social History Social History Household Members: None Household Members Other:: Adult son Titus Housing: House Are you a primary manager respiratory care to a significant other at home: No Do you presently have visiting nurse or other home services: No Alcohol intake: never Patient Tobacco Use Status: Former Tobacco user Tobacco use type: Cigarette Cigarettes Per Day: 6 Smoked in Last 30 Days: No e-Cigarette/Vaping Use: Never Used Use of substances other than those prescribed or required for medical reasons: No Have you been hit, kicked, punched, or otherwise hurt by someone within the past year? If so, by whom?: No Spiritual Healthcare Practices: none Faith Healthcare Practices: none Cultural Healthcare Practices: none Are you DNR?: No Advance Directives: No (will bring dos) Advance Directives Information Provided: Yes Advance Directives on File: No Recently lost weight without trying: No Nutrition Risks: Surgical patient >75years Poor oral hygiene: Yes (lower right molar broken and painful) service: No Current occupational status: retired Cognitive needs: No Hearing needs: No Vision needs: No Meds Allergies Allergy/AdvReac Type Severity Reaction Status Date / Time diclofenac Allergy Severe throat Verified 07/10/24 09:04 closing,sob guaifenesin [From Mucinex] Allergy Severe THROAT Verified 07/10/24 09:04 CLOSING, sob propoxyphene [From Darvon] Allergy Mild VOMITING Verified 07/10/24 09:04 omeprazole AdvReac Intermediate Nausea and Verified 07/10/24 09:04 Vomiting GENERIC MEDS Allergy Intermediate HIVES Uncoded 07/10/24 09:04 prednisone Allergy Mild Hives Uncoded 07/10/24 09:04 Home Medications ?Medication ?Instructions ?Recorded ?Confirmed ?Last Taken ?Type cyanocobalamin (vitamin B-12) 1,000 mcg PO DAILY 05/03/23 07/10/24 05/02/23 History 1,000 mcg tablet vitamin E 268 mg (400 unit) capsule 268 mg PO DAILY 05/03/23 07/10/24 05/02/23 History cholecalciferol (vitamin D3) 25 25 mcg PO DAILY 08/24/23 07/10/24 Unknown History mcg (1,000 unit) capsule ondansetron 4 mg disintegrating 4 mg PO Q8H PRN nausea/vomiting 04/20/24 07/10/24 Unknown History tablet Exam Airway Mallampati Class: II TM Dist: >3cm Neck ROM: Limited Loose/Missing/Broken Teeth: Yes and Lower (molar) Heart: afib Lungs: cta Assessment and Plan Final Anesthetic Review Family History of Problems with Anesthesia: No History of Problems with Anesthesia: No NPO: Yes ASA Class: III Final Preanesthetic Review: No Changes in Pt Med Stat, Meds/Allgs Chart Reviewed, Consent Obtained/Reviewed and Anes Risks/Benef Reviewed Patient Risk: Intermediate Procedure Risk: Low Anesthetic Plan Anesthetic Plan: MAC: Disposition: Standard PACU
--- OUTSIDE RECORDS SUMMARY | 2024-07-24 13:33 | XMS_ITS ---
Author Organization [facility] Address [address] [place] [address] Care Team Providers Care Casework Manager Name Role Phone Zena Mcgee MD Primary Care Provider Guanako Cartagena [phone] Encounters Encounter Location Date Provider Diagnosis [facility] [address] [place] [address] 07/14/2024 Guanako Garcia PLAN OF TREATMENT Next Appt Details Provider Name:Guanako Garcia , 07/24/2024 02:40:00 PM, [address] [place] [address] , [place], [place], [phone], Provider Name:Guanako Garcia , 10/31/2024 01:00:00 PM, [address], [address], [place], [address],
--- OUTSIDE RECORDS SUMMARY | 2024-07-24 13:33 | XMS_ITS | Continuity of Care Document ---
Author Organization [facility] Address [address] [place] [address] ve [address] [place] [address]- Care Team Providers Care Retail Event And Sales Assistant Name Role Phone Po Zena SALTER Primary Care Physician [phone] [facility] Date(s): 06/02/24 - 07/02/[address] [place] [address]- Encounter Type: Triage Allergies, Adverse Reactions, Alerts Substance Criticality Severity Reaction Reaction Severity Status predniSONE Active propoxyphene Active diclofenac Active Albuterol Sulfate Ac tive guaiFENesin Active Medications Albuterol (Eqv-ProAir HFA) 90 mcg/inh inhalation aerosol 0 Refills, Maintenance, 09/17/23 9:45:00 AM EST, Partial fill upon patient request if the prescription is for a schedule II opioid drug. Start Date: 09/17/23 Status: Ordered Repeat number: 1 Chlorphen = 4 mg, By Mouth, Every 6 hours, 0 Refills, Maintenance, 09/17/23 9:46:00 AM EST, Partial fill upon patient request if the prescription is for a schedule II opioid drug. Start Date: 09/17/23 Status: Ordered Repeat number: 1 chlorpheniramine-hydrocodone 8 mg-10 mg/5 mL oral suspension, extended release 0 Refills, Maintenance, 09/17/23 9:45:00 AM EST, Partial fill upon patient request if the prescription is for a schedule II opioid drug. Start Date: 09/17/23 Status: Ordered Repeat number: 1 Eliquis 2.5 mg oral tablet TAKE 1 TABLET BY MOUTH TWICE DAILY Start Date: 05/08/24 Status: Ordered Repeat number: 1 fluticasone-vilanterol 100 mcg-25 mcg/inh inhalation powder INHALE 1 PUFF BY MOUTH DAILY Start Date: 05/08/24 Status: Ordered Repeat number: 1 furosemide 20 mg oral tablet Refills 0, Maintenance, 09/17/23 9:46:00 AM EST, Partial fill upon patient request if the prescription is for a schedule II opioid drug. Start Date: 09/17/23 Status: Ordered Repeat number: 1 Lasix 20 mg oral tablet Refills 0, Maintenance, 09/17/23 9:46:00 AM EST, Partial fill upon patient request if the prescription is for a schedule II opioid drug. Start Date: 09/17/23 Status: Ordered Repeat number: 1 Social History Social History Type Response Smoking Status Former smoker, quit more than 30 days ago entered on: 09/17/23 Sex Sex Representation Female (finding) Patient Care team information Care Team Personnel Name: Zena Mcgee MD Position: Reference Physician Member Role: PCP Address: [address] [place] [id number] Telecom: Care Team Related Persons Name: STEPHANIE HURT Insurance Providers Guarantor name: CORINNA Health Plan Information #: 1 Payer: MEDICARE PART B OUTPT Member Number: CORINNA Policy Number: NA Group Number: NA
--- OUTSIDE RECORDS SUMMARY | 2024-07-24 13:33 | XMS_ITS | Continuity of Care Document ---
Author Organization [facility] Address [address] [place] [address] [address] [place] [address]- Care Team Providers Care Hardboard Grinder Name Role Phone Po Zena SALTER Primary Care Physician Encounter [facility] Date(s): 06/02/24 - 07/02/[address] [place] [address]- Encounter Type: Triage Allergies, Adverse Reactions, Alerts [...] Position: Reference Physician Member Role: PCP Address: [address] [place] [id number] Telecom: Care Team Related Persons Name: STEPHANIE HURT Insurance Providers Guarantor name: CORINNA Health Plan Information #: 1 Payer: MEDICARE PART B OUTPT Member Number: CORINNA Policy Number: NA Group Number: NA
--- OUTSIDE RECORDS SUMMARY | 2024-07-24 13:33 | XMS_ITS ---
Author Organization [facility] Address [address] [place] [address] Care Team Providers Care Reconcilement Clerk Name Role Phone Po Zena SALTER Primary Care Provider Guanako Cartagena [phone] REASON FOR VISIT chronic gerd, early satiety, paraesophageal hiatal hernia Encounters Encounter Location Date Provider Diagnosis [facility] Outpatient [address] [place] [phone] 07/24/2024 Guanako Garcia PLAN OF TREATMENT Next Appt Details Provider Name:Guanako Garcia , 07/24/2024 02:40:00 PM, [address] [place] [address], [phone], Provider Name:Guanako Garcia , 10/31/2024 01:00:00 PM, [address] [place] [address], [address], [place], [address],
--- OUTSIDE RECORDS SUMMARY | 2024-07-24 13:33 | XMS_ITS ---
Author Organization [facility] Address [address] [place] [address] Care Team Providers Care Packing Machine Can Feeder Name Role Phone Zena Mcgee MD Primary Care Provider Guanako Cartagena [phone] REASON FOR VISIT medication Encounters Encounter Location Date Provider Diagnosis [facility] [address] [place] [address] 07/11/2024 Guanako Garcia PLAN OF TREATMENT Next Appt Details Provider Name:Guanako Garcia , 07/24/2024 02:40:00 PM, [address] [place] [address] , [place], [place], [phone], Provider Name:Guanako Garcia , 10/31/2024 01:00:00 PM, [address] [facility] [address] [facility], [address], [place], [address],
--- OUTSIDE RECORDS SUMMARY | 2024-07-24 13:34 | XMS_ITS | Patient Health Record ---
Author Organization [facility] Address [address] [place] [address] Care Team Providers Care Audio Narrator Name Role Phone Zena Mcgee MD Primary Care Provider Guanako Cartagena [phone] ALLERGIES Allergen (clinical drug ingredient) Drug/Non Drug Allergy documented on EMR Reaction Allergy Type Onset Date Status Seasonale Unknown Drug Allergy Active RESULTS Component Value Reference Range Notes FL barium swallow with air Reviewed date:07/23/2024 02:27:22 PM Interpretation: Performing Lab: Notes/Report: [address] [address] Fluoroscopy Report Signed Patient: Jody Peter MR#: [id number] 80 : 1940 Acct:[id number] Age/Sex: 83 / F ADM Date: 03/02/24 Loc: HO.XRAY Attending Dr: Guanako Garcia MD Ordering Physician: Guanako Garcia MD Date of Service: 03/02/24 Procedure(s): FL barium swallow with air Accession Number(s): [id number] cc: Zena Mcgee MD; Guanako Garcia MD EXAMINATION: XR FLUOROSCOPY UPPER GI WITH AIR CLINICAL INFORMATION: Reflux, hiatal hernia. GERD. COMPARISON: None TECHNIQUE: Fluoroscopic air contrast upper GI examination was performed utilizing standard techniques with thin and thick barium and effervescent granules. Numerous spot images were obtained. FINDINGS: Dual and single contrast images of the esophagus demonstrate normal caliber, contour, and mucosal pattern. Mild cricopharyngeal achalasia present. There is felinization of the mid and distal esophageal mucosa. No evidence of stricture, mass, or ulcerations identified. Esophageal peristalsis is moderately disorganized. A moderate-sized type III paraesophageal hernia is present. Significant gastroesophageal reflux up to the thoracic inlet. Dual contrast and single contrast images of the stomach demonstrated a normal contour. Evaluation of the gastric mucosa is limited due poor coating of the stomach due to the moderate size hiatal hernia and significant reflux. No obvious masses are seen. Contrast freely passed into the gastric antrum and duodenal bulb without delay. Single and air-contrast images of the duodenal bulb demonstrate no abnormality. The duodenal sweep has a normal appearance, course, and mucosal fold appearance. The imaged proximal jejunum has a normal fold pattern and caliber. FLUOROSCOPY TIME: 5 minutes Number of Spot Images: 11 Number of Cine: 11 DOSE AREA PRODUCT: 2098 uGy-m2 (microgray-meter squared) FL/FL barium swallow with air IMPRESSION: 1. Mild cricopharyngeal achalasia 2. Felinization of the mid and distal esophageal mucosa. This is a benign finding that can be associated with gastroesophageal reflux 3. Moderate-sized type III paraesophageal hernia 4. Severe gastroesophageal reflux. 5. Limited evaluation of the gastric mucosa due to poor coating of the stomach from the presence of the moderate size hiatal hernia with severe gastroesophageal reflux. This procedure was performed by Reymundo Harris PA-C, and supervised by Dr. Bloom Dictated By: Reymundo Harris Signed By: <Electronically signed by Reymundo Harris in OV> 03/13/24 1231 <Electronically signed by José Luis Bloom MD in OV> 03/13/24 1234 DD/ 0925 TD/TT: Public Information Director: REASON FOR REFERRAL Reason paraesophageal hiata l hernia Diagnosis 1 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) Referral Organization [facility] Referring Provider First Name Guanako Referring Provider Last Name Radha Referring Provider Speciality Gastroente rology Referred Provider Lui Rivero Referred Provider Specialty General Surg fabián Referral Priority Routine Referral Appointment Date 08/30/2024 MEDICATIONS Medication SIG (Take, Route, Frequency, Duration) Notes Start Date End Date Status Levalbuterol HCl 0.63 MG/3ML Inhalation for 10 I30182,Unavaila ble Active Albuterol Sulfate HFA 108 (90 Base) MCG/ACT INHALE 2 PUFFS BY MOUTH EVERY 6 HOURS NEEDED FOR SHORTNESS OF BREATH OR WHEEZING Inhalation for 25 K029,Unavailabl e Active Furosemide 20 MG TAKE 1 TABLET BY MOUTH DAILY Oral for 30 Active Gaviscon Extra Relief Formula 508-475 MG/10ML 10 mL after meals and at bedtime as needed Orally Four times a day Active Fluticasone Furoate-Vilanterol 100-25 MCG/ACT INHALE 1 PUFF BY MOUTH DAILY Inhalation for 30 Active Eliquis 2.5 MG TAKE 1 TABLET BY MOUTH TWICE DAILY Oral for 30 Active IMMUNIZATIONS Vaccine Route Administration Date Status Comme nts Influenza Unknown 12/28/2023 Refused SOCIAL HISTORY Tobacco Use: Social History Observation Description Date Details (start date - stop date) Former Smoker NA - NA Sex Assigned At : Social History Observation Description Sex Assigned At Unknown Tobacco Use/Smoking Question Answer Notes Patient is a former smoker Alcohol Screen Question Answer Notes Did you have a drink containing alcohol in the p ast year? 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 Diaphragmatic hernia (01727993) Problem Early satiety (R68.81) Active confirmed Early satiety (262913332) VITAL SIGNS Temperature 98.2 degrees Fahrenheit 05/03/2024 Blood pressure diastolic 00 mm Hg 05/03/2024 Height 4 ft 11 in in 05/03/2024 Blood pressure systolic 000 mm Hg 05/03/2024 Weight 136 lb 8 oz lbs 05/03/2024 BMI 27.57 kg/m2 05/03/2024 Encounters Encounter Location Date Provider Diagnosis [facility] Outpatient [address] [place] [phone] 06/21/2024 Guanako Garcia [facility] Outpatient [address] [place], [place] [phone] 07/24/2024 Guanako Garcia [facility] [address] [facility] [address] [place] [phone] 05/03/2024 Guanako Garcia Chronic GERD K21.9 ; Paraesophageal hiatal hernia K44.9 and Hiatal hernia K44.9 [facility] [address] [place] [address] 12/28/2023 Guanako Garcia Chronic GERD K21.9 a nd Hiatal hernia K44.9 [facility] [address] [place] [phone] 01/09/2024 Guanako Radha [facility] [address] [place] [phone] 03/13/2024 Guanako Garcia [facility] [address] [place] [phone] 03/15/2024 Guanako Garcia [facility] [address] [place] [phone] 05/05/2024 Guanako Radha [facility] [address] [place] [phone] 05/12/2024 Guanako Garcia Chronic GERD K21.9 ; Early satiety R68.81 and Paraesophageal hiatal hernia K44.9 [facility] [address] [place] [phone] 05/29/2024 Guanako Garcia [facility] [address] [place] [phone] 06/01/2024 Guanako Garcia [facility] [address] [place] [phone] 07/11/2024 Guanako Garcia [facility] [address] [place] [phone] 07/14/2024 Guanako Garcia ASSESSMENTS Encounter Date Diagnosis Assessment Notes Treatment Notes Treatment Clinical Notes 05/03/2024 Paraesophageal hiata l hernia (ICD-10 - K44.9) 05/03/2024 Chronic GERD (ICD-10 - K21.9) I will speak with Dr. Gloria and Dr. Garcia to see if surgery for the Hiatal hernia(Paraesopha geal Hernia) is possible. I will need to do an upper endoscopy before any surgery If cleared, we can then have you see a surgeon at [facility] 12/28/2023 Hiatal hernia (ICD-1 0 - K44.9) 12/28/2023 Chronic GERD (ICD-10 - K21.9) Start with a dissolvable omeprazole over the counter daily. You can still take Gaviscon 05/12/2024 Early satiety (ICD-1 0 - R68.81) 05/12/2024 Chronic GERD (ICD-10 - K21.9) 05/03/2024 Hiatal hernia (ICD-1 0 - K44.9) 05/12/2024 Paraesophageal hiata l hernia (ICD-10 - K44.9) PLAN OF TREATMENT Pending Test Test Name Order Date XR BARIUM SWALLOW-ESOPHAGUS 12/28/2023 XR GI SERIES 12/28/2023 Future Test Test Name Order Date UPPER GI ENDOSCOPY 05/22/2024 Next Appt Details Provider Name:Guanako Yost Radha , 07/24/2024 02:40:00 PM, [address] [place] [address] , [place], [place], [phone], Provider Name:Guanako Yost Radha , 10/31/2024 01:00:00 PM, [address] [place] [address], [address], [place], [address], Insurance Providers Payer Name Payer Address Payer Phone Subscriber Number Group Number Insured Name Patient Relationship to Insured Coverage Start Date Coverage End Date [place] OF [place] [address] [facility] [place] [id number] JODY PETER Self - patient is the insured MEDICAL (GENERAL) HISTORY Medical History History ICD Code COPD followed by Dr. Gloria at [facility] CHF due to diastolic dysfunction followe d by cardiology at [facility] Denies [place],DM,CVA,renal disease GERD with associated hiatal hernia-Lavell eaton Sees [facility] Cardiology for poss ible Afib-getting monitor put on 05/05/24--seeing Dr. Garcia and Shira Hou, N.P. Surgical History Surgery Date(Month/Year) Knee surgery Vein ligation x 2
[2024-07-24] MEDS: Lactated Ringers 1,000 ML 50 ML IVCONT (13:52)
[2024-07-24 14:02] VITALS: BP 174/78; PULSE 70; RESP 18; TEMP 36.7; O2SAT 97
[2024-07-24 14:36] VITALS: BP 161/73
[2024-07-24 15:07] VITALS: BP 118/67; PULSE 73; RESP 16; TEMP 36.1; O2SAT 97
--- NOTE | 2024-07-24 15:15 | PM.OP ---
Brief Operative Note Date of Service: 07/24/24 Pre-op diagnosis: GERD Post-op diagnosis: other (Same, hiatal hernia) Procedure: EGD Surgeon: Guanako Garcia MD Anesthesia: MAC Was an [employer] used for this Procedure?: No Estimated blood loss (mL): 0 Pathology: none sent Condition: stable Disposition: PACU
[2024-07-24 15:22] VITALS: BP 91/62; PULSE 68; RESP 18; O2SAT 99
--- NOTE | 2024-07-24 23:30 | OP_ITS ---
DATE OF SERVICE: 07/24/2024 SURGEON: Guanako Garcia MD INDICATIONS: The patient presents for evaluation of chronic reflux and a paraesophageal hernia. Full consent has been obtained from her and her son for this, including risks of bleeding and perforation. PREOPERATIVE DIAGNOSIS: POSTOPERATIVE DIAGNOSIS: PROCEDURE PERFORMED: Esophagogastroduodenoscopy. ESTIMATED BLOOD LOSS: COMPLICATIONS: ANESTHESIA: Monitored anesthesia care. ASSISTANTS: SPECIMENS: PREOPERATIVE DIAGNOSES: Gastroesophageal reflux and paraesophageal hernia. POSTOPERATIVE DIAGNOSES: Gastroesophageal reflux and paraesophageal hernia. DESCRIPTION OF PROCEDURE: The patient was placed in the left lateral decubitus position. The Olympus video gastroscope was passed in the posterior oropharynx and upper esophagus under direct vision. The scope was passed slowly to the distal esophagus. The esophagus itself was quite tortuous. The gastroesophageal junction appeared at 28 cm. There was some relatively poor distensibility at this level, but the gastroesophageal junction did appear normal and without any sign of stricture nor mass. There was no sign of any esophagitis. The scope entered the stomach. There was a large hiatal hernia with the diaphragmatic indentation seen at approximately 36 cm. The hiatal hernia mucosa appeared normal. The proximal half of the stomach was somewhat poorly distensible as well. However, I was able to advance the pylorus and then cannulate the duodenum to the descending portion. The duodenum including the bulb appeared normal. The scope was withdrawn back to the stomach. The gastric antrum appeared normal. The scope was retroflexed, and I was able to visualize proximal stomach fairly well, which appeared normal, without any sign of mass or ulceration. The scope was straightened. The pylorus itself appeared at about 40 cm from the incisors. The scope was withdrawn back to the esophagus. Again, the gastroesophageal junction appeared at about 28 cm. The esophagus itself was somewhat tortuous and poorly distensible, but the mucosa appeared normal. The scope was then withdrawn from the patient. She tolerated the procedure well and was returned to the recovery area in stable condition. IMPRESSION: Hiatal hernia with poor distensibility of proximal stomach and esophagus. PLAN: At this time, given the finding of the paraesophageal hiatal hernia anatomy on her recent GI series, she does have an appointment to see Dr. Rivero in [place] regarding surgical evaluation and potential correction of that. I did advise her and her son to check in with his office periodically to see if they have any earlier openings than August. She was advised to resume her Eliquis and all other usual medications today. She was advised to resume her usual diet today. However, she has been somewhat limited in eating due to early satiety. I did advise the patient and her son to keep me posted as to potential surgical plans once they see Dr. Rivero. She does have an appointment to see me in the Spring for a followup visit as well. At this time, she is not taking any medication for reflux as she apparently is intolerant to most of them. She denies any specific symptoms of heartburn at this time. She and her family are aware of potential symptoms from the paraesophageal hernia, such as chest pain, that would necessitate her going to the ER. I did review with the patient and her son that they should call me before the appointment in the Spring if she has any problems or questions that I can be of assistance with. MD RIAZ Velasco/ELMA / [phone] FERNANDA
== END 2024-07-24 15:52 | disposition home or self-care (01) ==
PROVIDERS: PCP Internal Medicine; Visit Provider Internal Medicine
PROC: 0DJ08ZZ Inspection of Upper Intestinal Tract, Via Natural or Artificial Opening Endoscopic (ICD-10-PCS; CPT 43235; principal; 2024-07-24 14:40)
DX: K44.9 Diaphragmatic hernia without obstruction or gangrene (principal); K21.9 Gastro-esophageal reflux disease without esophagitis; K22.4 Dyskinesia of esophagus; R68.81 Early satiety; I11.0 Hypertensive heart disease with heart failure; I50.30 Unspecified diastolic (congestive) heart failure; E78.00 Pure hypercholesterolemia, unspecified; I48.91 Unspecified atrial fibrillation; J44.9 Chronic obstructive pulmonary disease, unspecified; Z87.891 Personal history of nicotine dependence; Z79.899 Other long term (current) drug therapy; Z79.01 Long term (current) use of anticoagulants
CPT/HCPCS: 43235; J1100; J2003; J2704

== ENCOUNTER 2024-07-31 12:52 | Outpatient (AMB) | payer MEDICARE, SELFPAY ==
--- NOTE | 2024-07-31 12:53 | A.OFFPC_ITS ---
Vital Signs 07/31/24 12:54 Height 4 ft 11 in Weight 142 lb BMI 28.7 BP 134/72 Blood Pressure Location Lt brachial Position Sitting Pulse 77 Pulse Source Pulse Oximeter Pulse Oximetry (%) 97 Oxygen Delivery Method Room Air Intake Visit Reasons: 3 Month F/U Intake Note: Rash on her back. Allergies diclofenac Allergy (Severe, Verified 07/31/24 12:55) throat closing,sob guaifenesin [From Mucinex] Allergy (Severe, Verified 07/31/24 12:55) THROAT CLOSING, sob propoxyphene [From Darvon] Allergy (Mild, Verified 07/31/24 12:55) VOMITING omeprazole Adverse Reaction (Intermediate, Verified 07/31/24 12:55) Nausea and Vomiting GENERIC MEDS Allergy (Intermediate, Uncoded 07/31/24 12:55) HIVES prednisone Allergy (Mild, Uncoded 07/31/24 12:55) Hives Tobacco use date assessed: 11/29/23 Fall risk assessment: No Falls in past year Last assessed Fall Risk: 07/31/24 Dental Screening Dental Screen Date: 11/29/23 HPI 3 Month F/U HPI Details The patient is an 83-year-old female presenting with concerns regarding her current medication regimen and symptoms. She experiences pruritus on her back with an unknown etiology, possibly related to her current medication. She reports feeling persistently cold, which may be exacerbated by the winter season. The patient is currently taking a potassium supplement, distributed every four days, and is on an anticoagulant (Eliquis) for stroke prevention, though it is noted to be costly. Insurance coverage for this medication will improve in the upcoming year. She reports a confirmed diagnosis of hiatal hernia, which causes discomfort and may require surgical intervention. There is interest in considering a robotic approach to surgical hernia repair, with concerns about postoperative recovery and hospital stay. There are also discussions regarding potential cholesterol-lowering medication post-surgery due to elevated cholesterol levels, which are not being altered at present due to the upcoming procedure. There were brief episodes of cold sensations in the chest, but no chest pain or heaviness on exertion, indicating a low likelihood of cardiac ischemia at this moment. The patient is also advised on dietary adjustments to manage cholesterol levels, encouraging plant-based proteins and reducing animal fats. [facility] Medical History Arthritis [place] (hard of hearing) Renal calculi Paraesophageal hernia COPD (chronic obstructive pulmonary disease) Poor dentition GERD (gastroesophageal reflux disease) CHF (congestive heart failure) Afib Recent urinary tract infection (06/06/24) Cough Grade II diastolic dysfunction Shortness of breath Hypertension Surgical History Hx of varicose vein ligation Hx of colonoscopy History of removal of cyst History of 2 sections Family History Mother No problems noted. Father Substance use disorder Social History Household Members: None Household Members Other:: Adult son Titus Housing: House Are you a primary housekeeper caregiver to a significant other at home: No Do you presently have visiting nurse or other home services: No Alcohol intake: never Patient Tobacco Use Status: Former Tobacco user Tobacco use type: Cigarette Cigarettes Per Day: 6 e-Cigarette/Vaping Use: Never Used service: No Current occupational status: retired Cognitive needs: No Hearing needs: No Vision needs: No Questionnaire PHQ-9 Over the last 2 weeks, how often have you been bothered by any of the following problems? 1. Little interest or pleasure in doing things: not at all 2. Feeling down, depressed, or hopeless: not at all 3. Trouble falling or staying asleep, or sleeping too much: not at all 4. Feeling tired or having little energy: not at all 5. Poor appetite or overeating: not at all 6. Feeling bad about yourself - or that you are a failure or have let yourself or your family down: not at all 7. Trouble concentrating on things, such as reading the newspaper or watching television: not at all 8. Moving or speaking so slowly that other people could have noticed. Or the opposite - being so fidgety or restless that you have been moving around a lot more than usual: not at all 9. Thoughts that you would be better off or of hurting yourself in some way: not at all Total score: 0 Depression Screening Interpretation: Negative Depression Screening Done: Yes Source: Developed by Drs. Francoise Pollock, Andrew Zamora and colleagues, with an educational suki from [employer]. Thrive Questionnaire Date Thrive assessed: 11/29/23 AUDIT C Alcohol Use Questionnaire (AUDIT-C) 1. How often do you have a drink containing alcohol?: Never Total Score: 0 Score Reviewed/Action Taken: No RUBEN-7 AMB Questionnaire RUBEN-7 Date RUBEN - 7 assessed: 11/29/23 Source: Developed by Drs. Guanako D eGuzman, Franocise Yanez, Andrew Zamora and colleagues, with an educational suki from [employer]. Physical exam (Primary Care) Vital Signs: Last Vital Signs Pulse 77 07/31/24 12:54 BP 134/72 07/31/24 12:54 Pulse Ox 97 07/31/24 12:54 Oxygen Delivery Method Room Air 07/31/24 12:54 BMI result Body Mass Index 28.7 Tobacco/Smoking Status: Tobacco use Status Tobacco use date assessed 11/29/23 07/31/24 12:59 Patient Tobacco Use Status Former Tobacco user 07/31/24 12:59 Tobacco use type Cigarette 07/31/24 12:59 e-Cigarette/Vaping Use Never Used 07/31/24 12:59 PHQ-9: PHQ-9 Score PHQ-9: Total score 0 07/31/24 12:59 Depression Screening Interpretation: Negative Thrive Assessment: Date of Thrive Assessment Date Thrive assessed 11/29/23 07/31/24 12:59 Const General: alert; No acute distress Eyes Conjunctivae: conjunctivae normal Resp Auscultation: clear to auscultation bilaterally Cardio Rate: regular rate Rhythm: regular rhythm GI Inspection: Yes normal to inspection Extrem General: Yes normal to inspection and No edema Coding Level of Care Code Est Pt Level 4 (12037) Diagnoses Atrial fibrillation I48.91 Paraesophageal hernia K44.9 GERD (gastroesophageal reflux disease) K21.9 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 (2) Paraesophageal hernia: Code(s): K44.9 - Diaphragmatic hernia without obstruction or gangrene Category: Medical Plan: Patient has an upcoming evaluation by the surgeon in 08/28/2024. (3) GERD (gastroesophageal reflux disease): Code(s): K21.9 - Gastro-esophageal reflux disease without esophagitis Category: Medical Plan: Avoid the foods that causes that usually spicy foods, tomato products, juices, coffee, soda and foods that your sensitive to. After eating do not lie down, allow 3-4 hours before in lie down. And keep the head of bed above 30 degrees to avoid the acid from going up. (4) COPD (chronic obstructive pulmonary disease): Code(s): J44.9 - Chronic obstructive pulmonary disease, unspecified Category: Medical Qualifiers: COPD type: emphysema Emphysema type: other Qualified Code(s): J43.8 - Other emphysema Plan: Continue with the inhaler. (5) Hypercholesterolemia: Code(s): E78.00 - Pure hypercholesterolemia, unspecified Category: Medical Plan: Avoid fried foods, chicken skin, eggs, butter margarine, pastries and meat. Be it pork or beef they have a lot of cholesterol LDL goal of less than 100 and triglyceride of less than 150. Will discuss about cholesterol medication on follow-up. (6) Hypertension: Code(s): I10 - Essential (primary) hypertension Category: Medical Qualifiers: Hypertension type: unspecified Qualified Code(s): I10 - Essential (primary) hypertension Plan: Continue with blood pressure medication. Decrease salt intake and exercise Plan - Continue current antihypertensive medication and encourage lifestyle modifications aimed at blood pressure control. - Monitor for potential allergenic or adverse effects causing pruritus and consider alternative treatments if needed. - Advise on appropriate layering for cold intolerance during the winter months. - Referral to surgery for evaluation regarding robotic repair options for the hiatal hernia; discuss surgical risks and recovery expectations on July 30. - Implement dietary recommendations to reduce cholesterol levels with an emphasis on consuming plant-based proteins and reducing intake of saturated fats, awaiting post-surgical initiation of cholesterol-lowering medication. - Ongoing assessment of renal function in response to anticoagulation therapy; consistent monitoring of creatinine levels and adjustment of dosages as necessary. - Discuss additional interventions or alternative options for managing pruritus if current measures are ineffective. - Encourage the patient to maintain physical activity to improve overall health and well-being. - Encourage adequate hydration and assess renal function biannually to ensure sufficient clearance of medications. Medications: New potassium gluconate 595 mg PO DAILY 30 tabs 0RF
[2024-07-31 12:54] VITALS: BP 134/72; PULSE 77; O2SAT 97; BMI 28.7
--- OUTSIDE RECORDS SUMMARY | 2024-07-31 12:55 | XMS_ITS | Patient Health Record ---
Author Organization [facility] Address [address] [place] [address] Care Team Providers Care Brick Mason Name Role Phone Zena Mcgee MD Primary Care Provider Guanako Cartagena [phone] ALLERGIES Allergen (clinical drug ingredient) Drug/Non Drug Allergy documented on EMR Reaction Allergy Type Onset Date Status Seasonale Unknown Drug Allergy Active RESULTS Component Value Reference Range Notes FL barium swallow with air Reviewed date:07/23/2024 02:27:22 PM Interpretation: Performing Lab: Notes/Report: [address] [address] Fluoroscopy Report Signed Patient: Jody Peter MR#: [id number] 80 : 1940 Acct:[id number] Age/Sex: 83 / F ADM Date: 03/02/24 Loc: HO.XRAY Attending Dr: Guanako Garcia MD Ordering Physician: Guanako Garcia MD Date of Service: 03/02/24 Procedure(s): FL barium swallow with air Accession Number(s): [id number] cc: Zena Mcgee MD; Guanako Garcia MD [...] in OV> 03/13/24 1234 DD/ 0925 TD/TT: Chick Sexer: REASON FOR REFERRAL Reason paraesophageal hiata l hernia Diagnosis 1 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) Referral Organization [facility] Referring Provider First Name Guanako Referring Provider Last Name Radha Referring Provider Speciality Gastroente rology Referred Provider Lui Rivero Referred Provider Specialty General Surg fabián Referral Priority Routine Referral Appointment Date 08/30/2024 MEDICATIONS Medication SIG (Take, Route, Frequency, Duration) Notes Start Date End Date Status Levalbuterol HCl 0.63 MG/3ML Inhalation for 10 [id number],Unavaila ble Active Albuterol Sulfate HFA 108 (90 [...] (K21.9) Active confirmed Gastroesophagea l reflux disease (034622896) Problem Hiatal hernia (K44.9) Active confirmed Hiatal hernia (73460202) Problem 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 Diaphragmatic hernia (00997730) Problem Early satiety (R68.81) Active confirmed Early satiety (249716191) VITAL SIGNS Temperature 98.2 degrees Fahrenheit 05/03/2024 Blood pressure diastolic 00 mm Hg 05/03/2024 Height 4 ft 11 in in 05/03/2024 Blood pressure systolic 000 mm Hg 05/03/2024 Weight 136 lb 8 oz lbs 05/03/2024 BMI 27.57 kg/m2 05/03/2024 Encounters Encounter Location Date Provider Diagnosis [facility] [place] [address] [place] [id number] 06/21/2024 Guanako Garcia [facility] [place] [address] [place], [place] [phone] 07/24/2024 Guanako Garcia [facility] [address] [place] [address] 05/03/2024 Guanako Garcia Chronic GERD K21.9 ; Paraesophageal hiatal hernia K44.9 and Hiatal hernia K44.9 [facility] [address] [place] [address] 12/28/2023 Guanako Garcia Chronic GERD K21.9 a nd Hiatal hernia K44.9 [facility] [address] [place] [address] 01/09/2024 Guanako Radha [facility] [address] [place] [address] 03/13/2024 Guanako Garcia [facility] [address] [place] [address] 03/15/2024 Guanako Garcia [facility] [address] [place] [address] 05/05/2024 Guanako Radha [facility] [address] [place] [address] 05/12/2024 Guanako Garcia Chronic GERD K21.9 ; Early satiety R68.81 and Paraesophageal hiatal hernia K44.9 [facility] [address] [place] [address] 05/29/2024 Guankao Garcia [facility] [address] [place] [address] 06/01/2024 Guanako Garcia [facility] [address] [place] [address] 07/11/2024 Guanako Garcia [facility] [address] [place] [address] 07/14/2024 Guanako Garcia ASSESSMENTS Encounter Date Diagnosis [...] then have you see a surgeon at [facility] 12/28/2023 Hiatal hernia (ICD-1 0 - [...] ENDOSCOPY 05/22/2024 Next Appt Details Provider Name:Guanako Garcia , 10/31/2024 01:00:00 PM, [address], [address], [place], [address], Insurance Providers Payer Name Payer Address Payer Phone Subscriber Number Group Number Insured Name Patient Relationship to Insured Coverage Start Date Coverage End Date MEDICARE OF [place] [address] [facility] [place] [id number] JODY PETER Self - patient is the insured MEDICAL (GENERAL) HISTORY Medical History History ICD Code COPD followed by Dr. Gloria at [facility] CHF due to diastolic dysfunction followe d by cardiology at [facility] Denies DE,DM,CVA,renal disease GERD with associated hiatal hernia-Lavell eaton [place] [facility] [place] for poss ible Afib-getting monitor put on 05/05/24--seeing Dr. Garcia and Shira Hou, N.P. Surgical History Surgery Date(Month/Year) Knee surgery Vein ligation x 2
--- OUTSIDE RECORDS SUMMARY | 2024-07-31 12:55 | XMS_ITS ---
Author Organization [facility] Address [address] [place] [address] Care Team Providers Care Caramel Candy Maker Helper Name Role Phone Zena Mcgee MD Primary Care Provider Guanako Cartagena [phone] Encounters Encounter Location Date Provider Diagnosis [facility] [address] [place] [address] 07/14/2024 Guanako Garcia PLAN OF TREATMENT Next Appt Details Provider Name:Guanako Garcia , 10/31/2024 01:00:00 PM, [address], [address], [place], [address],
--- OUTSIDE RECORDS SUMMARY | 2024-07-31 12:55 | XMS_ITS ---
Author Organization [facility] Address [address] [place] [address] Care Team Providers Care Career Placement Specialist Name Role Phone Zena Mcgee MD Primary Care Provider Guanako Cartagena [phone] REASON FOR VISIT medication Encounters Encounter Location Date Provider Diagnosis [facility] [address] [place] [address] 07/11/2024 Guanako Garcia PLAN OF TREATMENT Next Appt Details Provider Name:Guanako Garcia , 10/31/2024 01:00:00 PM, [address], [address], [place], [address],
--- OUTSIDE RECORDS SUMMARY | 2024-07-31 12:55 | XMS_ITS ---
Author Organization [facility] Address [address] [place] [address] Care Team Providers Care Phy Therapist Name Role Phone Po Zena SALTER Primary Care Provider Guanako Cartagena [phone] REASON FOR VISIT chronic gerd, early satiety, paraesophageal hiatal hernia Encounters Encounter Location Date Provider Diagnosis [facility] Outpatient [address] [place] [phone] 07/24/2024 Guanako Garcia PLAN OF TREATMENT Next Appt Details Provider Name:Guanako Garcia , 10/31/2024 01:00:00 PM, [address], [address], [place], [address],
== END 2024-07-31 13:31 | disposition home or self-care (01) ==
PROVIDERS: PCP Internal Medicine; Visit Provider Internal Medicine
DX: I48.91 Unspecified atrial fibrillation (principal); K44.9 Diaphragmatic hernia without obstruction or gangrene; K21.9 Gastro-esophageal reflux disease without esophagitis; J43.8 Other emphysema; E78.00 Pure hypercholesterolemia, unspecified; I10 Essential (primary) hypertension

== ENCOUNTER → 2024-07-31 12:52 | Outpatient (BNVA) | payer MEDICARE, SELFPAY | PROVIDERS: PCP Internal Medicine; Visit Provider Internal Medicine | DX: I48.91 Unspecified atrial fibrillation (principal); K44.9 Diaphragmatic hernia without obstruction or gangrene; K21.9 Gastro-esophageal reflux disease without esophagitis; J43.8 Other emphysema; E78.00 Pure hypercholesterolemia, unspecified; I10 Essential (primary) hypertension | CPT/HCPCS: 96127; 99212 ==

== ENCOUNTER 2024-08-14 13:21 | Outpatient (AMB) | payer MEDICARE, SELFPAY ==
[2024-08-14 13:23] VITALS: BP 122/68; PULSE 68; BMI 27.9
--- NOTE | 2024-08-14 13:23 | A.OFFVIS_ITS ---
Vital Signs 08/14/24 13:23 Height 4 ft 11 in Weight 138 lb BMI 27.9 BMI Reason not done Patient refused/unable BP 122/68 Blood Pressure Location Lt brachial Position Sitting Pulse 68 Pulse Source Pulse Oximeter Intake Visit Reasons: follow-up wants to see Dr Sears Allergies diclofenac Allergy (Severe, Verified 07/31/24 12:55) throat closing,sob guaifenesin [From Mucinex] Allergy (Severe, Verified 07/31/24 12:55) THROAT CLOSING, sob propoxyphene [From Darvon] Allergy (Mild, Verified 07/31/24 12:55) VOMITING omeprazole Adverse Reaction (Intermediate, Verified 07/31/24 12:55) Nausea and Vomiting GENERIC MEDS Allergy (Intermediate, Uncoded 07/31/24 12:55) HIVES prednisone Allergy (Mild, Uncoded 07/31/24 12:55) Hives Medication List - Last Reconciled 08/14/24 by Rajiv Sears MD albuterol sulfate 90 mcg/actuation 2 puffs inhalation Q6H PRN aluminum hydrox-magnesium carb 160-105 mg (Gaviscon Extra Strength) 2 tabs PO TID 30 days apixaban (Eliquis) 2.5 mg PO BID cholecalciferol (vitamin D3) 25 mcg PO DAILY cyanocobalamin (vitamin B-12) 1,000 mcg PO DAILY fluticasone furoate-vilanterol 100-25 mcg/dose (Breo Ellipta) 1 inh inhalation DAILY furosemide 20 mg PO DAILY levalbuterol HCl 0.63 mg (3 mL) inhalation TID nebulizers (AeroEclipse II Nebulizer) As directed ondansetron 4 mg PO Q8H PRN potassium gluconate 595 mg PO DAILY vitamin E 268 mg PO DAILY HPI Comments Details: Jody comes for follow-up, accompanied by her 2 sons. They have lot of questions about management of atrial fibrillation. She is on Eliquis at 2.5 mg b.i.d. unclear reason. She has no symptoms related to atrial fibrillation. Follow-up Holter monitor had not shown any recurrent atrial fibrillation. She denies any prolonged palpitation irregular heartbeat. She was question about being on oral anticoagulation therapy. We discussed the rationale, see below. Patient had developed a rash, but did not stop her Eliquis and her rash has dissipated after changing the detergent to wash her clothes. She denies any lightheadedness, syncope. No heart failure symptoms. Remains active and functional. Takes all her medications. [facility] Medical History (Updated 08/14/24 @ 14:11 by Rajiv Sears MD) Atrial fibrillation Paroxysmal atrial fibrillation Arthritis [place] (hard of hearing) Renal calculi Paraesophageal hernia COPD (chronic obstructive pulmonary disease) Poor dentition GERD (gastroesophageal reflux disease) CHF (congestive heart failure) Afib Recent urinary tract infection (06/06/24) Cough Grade II diastolic dysfunction Shortness of breath Hypertension Surgical History Hx of varicose vein ligation Hx of colonoscopy History of removal of cyst History of 2 sections Family History Mother No problems noted. Father Substance use disorder Social History Household Members: None Household Members Other:: Adult son Titus Housing: House Are you a primary pet care worker to a significant other at home: No Do you presently have visiting nurse or other home services: No Alcohol intake: never Patient Tobacco Use Status: Former Tobacco user Tobacco use type: Cigarette Cigarettes Per Day: 6 e-Cigarette/Vaping Use: Never Used service: No Current occupational status: retired Cognitive needs: No Hearing needs: No Vision needs: No Review of Systems Const Denies weakness ENT Denies dizziness Card Denies chest pain, Denies chest pain with activity, Denies syncope, Denies rapid heart rate, Denies pedal edema, Denies edema, Denies leg edema, Denies lightheadedness, Denies palpitations, Denies dyspnea, Denies dyspnea on exertion and Denies orthopnea Resp Denies cough, Denies dyspnea and Denies dyspnea on exertion GI Denies hematochezia and Denies change in stool character Musc Denies abnormal gait, Denies muscle cramps, Denies muscle weakness, Denies numbness, Denies radiating pain into limb and Denies tingling Neuro Denies abnormal gait, Denies dizziness, Denies syncope, Denies numbness, Denies tingling and Denies weakness Endo Denies palpitations Physical Exam Vital Signs: Last Vital Signs Pulse 68 08/14/24 13:23 BP 122/68 01/06/25 13:23 BMI result Body Mass Index 27.9 Const General: cooperative, healthy appearing, comfortable and no acute distress Orientation/consciousness: patient oriented x3 Neck Neck: Yes normal visual inspection and Yes no JVD Chest Chest palpation & inspection: normal inspection of the chest Resp Other: rales in bases Effort & Inspection: normal respiratory effort Auscultation: clear to auscultation bilaterally, rales (each base), no rhonchi and no wheezes Cardio Jugular venous distension: no JVD Rate: regular rate Rhythm: abnormal rhythm Heart sounds: S1 normal heart sound present, S2 normal heart sound present, no murmurs and no rubs Peripheral pulses: Peripheral pulses 2+ throughout Neuro General: patient oriented x3 Extrem General: Yes normal to inspection and No no pedal edema Psych Appearance: grossly normal Mental Status: mental status grossly normal Speech and movement: Normal speech and movement present Assessment & Plan Assessment & Plan (1) Paroxysmal atrial fibrillation: Code(s): I48.0 - Paroxysmal atrial fibrillation Category: Medical Plan: Incidentally noted atrial fibrillation this elderly woman on EKG. Since then there has been no recurrence. She has no obvious symptoms related to atrial fibrillation which may make detection and awareness of atrial fibrillation on the lower side. We discussed management of atrial fibrillation, given her multiple risk factors with CHADSVASc score of 4. Importance of oral anticoagulation therapy to reduce risk of stroke was discussed. Give patient has various options of blood thinners. However given the Eliquis as the best option for her we have pursued and discussed to maintain Eliquis therapy. However she should be on 5 mg b.i.d. dose based on her age, her creatinine as well as her body weight. This was discussed and rationale was discussed. I do not think her rashes related to Eliquis therapy. Quarterly renal function test should be pursued. Rhythm control should be pursued although currently appears to be in sinus rhythm. We discussed about Watchman device and also discussed that she is currently not a candidate for the same and rationale was discussed as well. Continue aggressive blood pressure control. Advised to call me with any new symptoms. (2) Hypertension: Code(s): I10 - Essential (primary) hypertension Category: Medical Qualifiers: Hypertension type: unspecified Qualified Code(s): I10 - Essential (primary) hypertension Plan: Hypertension which is currently well optimized. Continue current therapy. She has underlying hypertensive heart disease with grade 2 diastolic dysfunction without any signs or symptoms of heart failure. Continue aggressive blood pressure control. Avoidance of salt loading was discussed. Continue rhythm control approach. (3) Preop cardiovascular exam: Code(s): Z01.810 - Encounter for preprocedural cardiovascular examination Plan: Preoperative cardiovascular risk stratification for major thoracic surgery to repair hiatal hernia. No obvious myocardial ischemia by last myocardial perfusion imaging and she was no significant functional limitations or symptoms. At this point time she is optimized to undergo the surgery with intermediate risk for perioperative cardiovascular morbidity mortality. Eliquis can be withheld for 3 days prior to the procedure and resumed as soon as possible after the procedure. Follow up in the clinic in 6 months time, sooner p.r.n.. Thank you for allowing me to partake in her care Medications: New apixaban (Eliquis) 5 mg PO BID 60 tabs 5RF Discontinued apixaban (Eliquis) Discontinued Reason: Doctor's Order 2.5 mg PO BID 60 tabs 5RF Coding Level of Care Code Est Pt Level 4 (36407) Complex EM visit Add On G2211 Diagnoses Paroxysmal atrial fibrillation I48.0 Hypertension I10 Hypertension type: unspecified Preop cardiovascular exam Z01.810
--- OUTSIDE RECORDS SUMMARY | 2024-08-14 15:35 | XMS_ITS ---
Author Organization [facility] Address [address] [place] [address] Care Team Providers Care Hat Steamer Name Role Phone Po Zena SALTER Primary Care Provider Guanako Cartagena [phone] REASON FOR VISIT chronic gerd, early satiety, paraesophageal hiatal hernia PROBLEMS Problem Type ICD Code Onset Dates Problem Status W/U Status Risk SNOMED Code Notes Problem Gastroesophageal reflux disease without esophagitis (K21.9) Active confirmed Gastroesophagea l reflux disease without esophagitis (372224992) Encounters Encounter Location Date Provider Diagnosis [facility] [place] [address] [place] [id number] 07/24/2024 Guanako Garcia Gastroesophageal ref lux disease without esophagitis K21.9 and Hiatal hernia K44.9 ASSESSMENTS Encounter Date Diagnosis Assessment Notes Treatment Notes Treatment Clinical Notes 07/24/2024 Gastroesophageal ref lux disease without esophagitis (ICD-10 - K21.9) 07/24/2024 Hiatal hernia (ICD-1 0 - K44.9) PLAN OF TREATMENT Next Appt Details Provider Name:Guanako Garcia , 10/31/2024 01:00:00 PM, [address], [address], [place], [address],
--- OUTSIDE RECORDS SUMMARY | 2024-08-14 15:35 | XMS_ITS ---
Author Organization [facility] Address [address] [place] [address] Care Team Providers Care Skid Strapper Name Role Phone Zena Mcgee MD Primary Care Provider Guanako Cartagena [phone] REASON FOR VISIT medication Encounters Encounter Location Date Provider Diagnosis [facility] [address] [place] [address] 07/11/2024 Guanako Garcia PLAN OF TREATMENT Next Appt Details Provider Name:Guanako Garcia , 10/31/2024 01:00:00 PM, [address] [facility], [address], [place], [address],
--- OUTSIDE RECORDS SUMMARY | 2024-08-14 15:35 | XMS_ITS ---
Author Organization [facility] Address [address] [place] [address] Care Team Providers Care Test Borer Helper Name Role Phone Zena cMgee MD Primary Care Provider Guanako Cartagena [phone] Encounters Encounter Location Date Provider Diagnosis [facility] [address] [place] [address] 07/14/2024 Guanako Garcia PLAN OF TREATMENT Next Appt Details Provider Name:Guanako Garcia , 10/31/2024 01:00:00 PM, [address], [address], [place], [address],
--- OUTSIDE RECORDS SUMMARY | 2024-08-14 15:35 | XMS_ITS | Patient Health Record ---
Author Organization [facility] Address [address] [place] [address] Care Team Providers Care Oil Well Cable Tool Operator Name Role Phone Zena Mcgee MD Primary Care Provider Guanako Cartagena [phone] ALLERGIES Allergen (clinical drug ingredient) Drug/Non Drug Allergy documented on EMR Reaction Allergy Type Onset Date Status Seasonale Unknown Drug Allergy Active RESULTS Component Value Reference Range Notes FL barium swallow with air Reviewed date:07/23/2024 02:27:22 PM Interpretation: Performing Lab: Notes/Report: [address] [address] Fluoroscopy Report Signed Patient: Jody Peter MR#: [id number] [birth year] : 1940 Acct:[id number] Age/Sex: 83 / F ADM Date: 03/02/24 Loc: HO.XRAY Attending Dr: Guanako Garcia MD Ordering Physician: Guanako Garcia MD Date of Service: 03/02/24 Procedure(s): FL barium swallow with air Accession Number(s): [id number] cc: Zena Mcgee MD; Guanako Garcia MD [...] in OV> 03/13/24 1234 DD/ 0925 TD/TT: Child Support Specialist: REASON FOR REFERRAL Reason paraesophageal hiata l hernia Diagnosis 1 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) Referral Organization [facility] Referring Provider First Name Guanako Referring Provider Last Name Radha Referring Provider Speciality Gastroente rology Referred Provider Lui Rivero Referred Provider Specialty General Surg fabián Referral Priority Routine Referral Appointment Date 08/30/2024 MEDICATIONS Medication SIG (Take, Route, Frequency, Duration) Notes Start Date End Date Status Levalbuterol HCl 0.63 MG/3ML Inhalation for 10 [id number],Unavaila ble Active Albuterol Sulfate HFA 108 (90 [...] (K21.9) Active confirmed Gastroesophagea l reflux disease (252690932) Problem Hiatal hernia (K44.9) Active confirmed Hiatal hernia (95872933) Problem 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 Diaphragmatic hernia (61527517) Problem Early satiety (R68.81) Active confirmed Early satiety (165518498) Problem Gastroesophageal reflux disease without esophagitis (K21.9) Active confirmed Gastroesophagea l reflux disease without esophagitis (800592110) VITAL SIGNS Temperature 98.2 degrees Fahrenheit 05/03/2024 Blood pressure diastolic 00 mm Hg 05/03/2024 Height 4 ft 11 in in 05/03/2024 Blood pressure systolic 000 mm Hg 05/03/2024 Weight 136 lb 8 oz lbs 05/03/2024 BMI 27.57 kg/m2 05/03/2024 Encounters Encounter Location Date Provider Diagnosis [facility] [address] [place] [id number] 06/21/2024 Guanako Garcia [facility] [address] [place] [id number] 07/24/2024 Guanako Garcia Gastroesophageal ref lux disease without esophagitis K21.9 and Hiatal hernia K44.9 [facility] [address] [place] [id number] 05/03/2024 Guanako Garcia Chronic GERD K21.9 ; Paraesophageal hiatal hernia K44.9 and Hiatal hernia K44.9 [facility] [address] [place] [id number] 12/28/2023 Guanako Garcia Chronic GERD K21.9 a nd Hiatal hernia K44.9 [facility] [address] [place] [id number] 01/09/2024 Guanako Garcia [facility] [address] [place] [id number] 03/13/2024 Guanako Garcia [facility] [address] [place] [phone] 03/15/2024 Guanako Garcia [facility] [address] [place] [phone] 05/05/2024 Guanako Garcia [facility] [address] [place] [id number] 05/12/2024 Guanako Garcia Chronic GERD K21.9 ; Early satiety R68.81 and Paraesophageal hiatal hernia K44.9 [facility] [address] [place] [id number] 05/29/2024 Guanako Garcia [facility] [address] [place] [id number] 06/01/2024 Guanako Garcia [facility] [address] [place] [phone] 07/11/2024 Guanako Garcia [facility] [address] [place] [phone] 07/14/2024 Guanako Garcia ASSESSMENTS Encounter Date Diagnosis Assessment Notes Treatment Notes Treatment Clinical Notes 07/24/2024 Gastroesophageal reflux disease without esophagitis (ICD-10 - K21.9) 07/24/2024 Hiatal hernia (ICD-1 0 - K44.9) 05/03/2024 Paraesophageal hiata l hernia (ICD-10 - K44.9) 05/03/2024 Chronic GERD (ICD-10 - K21.9) I will speak with Dr. Gloria and Dr. Garcia to see if surgery for the Hiatal hernia(Paraesopha geal Hernia) is possible. I will need to do an upper endoscopy before any surgery If cleared, we can then have you see a surgeon at [facility] 12/28/2023 Hiatal hernia (ICD-1 0 - [...] Provider Name:Guanako Garcia , 10/31/2024 01:00:00 PM, [address] [place] [address], [address], [place], [address], Insurance Providers Payer Name Payer Address Payer Phone Subscriber Number Group Number Insured Name Patient Relationship to Insured Coverage Start Date Coverage End Date MEDICARE OF [facility] [address] [place] [address] [place] [id number] [phone] [id number] JODY PETER Self - patient is the insured MEDICAL (GENERAL) HISTORY Medical History History ICD Code COPD followed by Dr. Gloria at [facility] CHF due to diastolic dysfunction followe d by cardiology at [facility] Denies AK,DM,CVA,renal disease GERD with associated hiatal hernia-Lavell eaton Sees [facility] Cardiology for poss ible Afib-getting monitor put on 05/05/24--seeing Dr. Garcia and Shira Hou, N.P. Surgical History Surgery Date(Month/Year) Knee surgery Vein ligation x 2
== END 2024-08-14 13:55 | disposition home or self-care (01) ==
PROVIDERS: PCP Internal Medicine; Visit Provider Internal Medicine Cardiovascular Disease
DX: I48.0 Paroxysmal atrial fibrillation (principal); I10 Essential (primary) hypertension; Z01.810 Encounter for preprocedural cardiovascular examination
CPT/HCPCS: 99214; G2211

== ENCOUNTER → 2024-08-14 13:21 | Outpatient (BNVA) | payer MEDICARE, SELFPAY | PROVIDERS: PCP Internal Medicine; Visit Provider Internal Medicine Cardiovascular Disease | DX: Z01.810 Encounter for preprocedural cardiovascular examination (principal); I48.0 Paroxysmal atrial fibrillation; I10 Essential (primary) hypertension | CPT/HCPCS: 99212 ==

== ENCOUNTER 2024-09-18 13:14 | Outpatient (REF) | payer MEDICARE, BC, SELFPAY ==
--- NOTE | ~2024-09-18 | XR_ITS ---
EXAMINATION: XR CHEST CLINICAL INFORMATION: J98.8 - Other specified respiratory disorders COMPARISON: 06/21/2023. TECHNIQUE: 2 views of the chest were obtained. FINDINGS: Cardiac silhouette is borderline enlarged. Retrocardiac hiatus hernia. Mediastinal and hilar contours are normal. Lungs are diffusely hyperaerated with flattened hemidiaphragms, suggesting COPD. Mild increased linear markings in the left base suggestive of scarring. Lungs otherwise clear. There is no pneumothorax or pleural effusion. There is no focal osseous or soft tissue abnormality. There are spinal degenerative changes. XR/XR chest 2V IMPRESSION: Mild chronic pulmonary findings, likely relating to scarring and COPD. No active pulmonary disease. Hiatus hernia. Electronically signed by: José Luis Bloom MD 09/18/2024 03:00 PM [facility]
[2024-09-18 14:13] LABS: MANUAL DIFF FLAG NO
[2024-09-18 14:40] LABS: Basophils Percent Auto 0.6 % (0-2); Eosinophils Absolute Auto 0.5 X10*3/uL (0.0-0.4); Eosinophils Percent Auto 8.6 % (0-4); Hematocrit 44.2 % (37.0-47.0); Hemoglobin 14.1 g/dl (12.0-16.0); Imm Gran Abs Auto 0.02 X10*3/uL (0.00-0.03); Imm Gran Pct Auto 0.3 % (0.0-0.4); Lymphocytes Absolute Auto 2.2 X10*3/uL (1.2-4.9); Lymphocytes Percent Auto 35.2 % (20-40); Mean Corpuscular HGB Conc 31.9 g/dl (31.0-35.0); Mean Corpuscular Hemoglobin 27.2 pg (27.0-33.0); Mean Corpuscular Volume 85.2 fL (80.0-98.0); Mean Platelet Volume 9.2 fL (9.4-12.3); Monocytes Absolute Auto 0.6 X10*3/uL (0.1-1.2); Monocytes Percent Auto 9.2 % (2-11); Neutrophils Absolute Auto 2.9 x10*3/uL (2.0-8.3); Neutrophils Percent Auto 46.1 % (45-73); Platelet Count 262 X10*3/uL (160-400); Red Blood Count 5.19 X10*6/uL (4.20-5.50); Red Cell Distribution Width 14.2 % (11.0-16.0); White Blood Count 6.3 X10*3/uL (4.8-10.8)
[2024-09-18 15:06] LABS: Alanine Aminotransferase 22 U/L (0-31); Albumin Level 4.2 g/dL (3.5-5.0); Alkaline Phosphatase 106 U/L (39-117); Anion Gap 12 (12-20); Aspartate Amino Transferase 25 U/L (5-31); Bilirubin Total 0.2 mg/dL (0.0-1.0); Blood Urea Nitrogen 15 mg/dL (9-16); Calcium 9.6 mg/dL (8.4-10.2); Carbon Dioxide 22 mmol/L (22-29); Chloride 108 mmol/L (96-108); Estimated Glomerular Filt Rate > 60; Glucose Random 113 mg/dL (60-115); Potassium 3.6 mmol/L (3.3-5.1); Sodium 138 mmol/L (135-145); Total Protein 8.1 g/dL (6.5-8.0)
[2024-09-18 17:09] LABS: Influenza A PCR POSITIVE (Negative); Influenza B PCR NEGATIVE (Negative); Resp Syncy Virus RNA Qual PCR NEGATIVE (Negative); SARS COV2 PCR INHOUSE NEGATIVE (Negative)
== END 2024-09-18 13:15 | disposition home or self-care (01) ==
LOC: HO.XRAY 13:14
PROVIDERS: PCP Internal Medicine; Visit Provider Internal Medicine
DX: J98.8 Other specified respiratory disorders (principal); I48.0 Paroxysmal atrial fibrillation; K44.9 Diaphragmatic hernia without obstruction or gangrene; D64.9 Anemia, unspecified; Z79.01 Long term (current) use of anticoagulants
CPT/HCPCS: 0241U; 71046; 80053; 85025; 96127; 99212

== ENCOUNTER → 2024-09-18 14:13 | Outpatient (BNV) | payer MEDICARE, BC, SELFPAY | PROVIDERS: PCP Internal Medicine; Visit Provider Radiology Diagnostic Radiology | DX: J44.9 Chronic obstructive pulmonary disease, unspecified (principal); R91.8 Other nonspecific abnormal finding of lung field | CPT/HCPCS: 71046 ==

== ENCOUNTER 2024-10-30 14:24 | Outpatient (AMB) | payer MEDICARE, SELFPAY ==
--- NOTE | 2024-10-30 14:34 | MHC.PC.OV ---
Vital Signs 10/30/24 14:38 Height 4 ft 11 in Weight 142 lb BMI 28.7 BP 142/68 H Blood Pressure Location Lt brachial Position Sitting Pulse 98 Pulse Source Pulse Oximeter Temp 96.9 F Temp Source Temporal Artery Scan Pulse Oximetry (%) 95 Oxygen Delivery Method Room Air Intake Visit Reasons: A fib Paranormal Investigator Required: No Accompanied by: Son Allergies diclofenac Allergy (Severe, Verified 10/30/24 14:43) throat closing,sob guaifenesin [From Mucinex] Allergy (Severe, Verified 10/30/24 14:43) THROAT CLOSING, sob propoxyphene [From Darvon] Allergy (Mild, Verified 10/30/24 14:43) VOMITING omeprazole Adverse Reaction (Intermediate, Verified 10/30/24 14:43) Nausea and Vomiting GENERIC MEDS Allergy (Intermediate, Uncoded 10/30/24 14:43) HIVES prednisone Allergy (Mild, Uncoded 10/30/24 14:43) Hives Medication List - Last Reconciled 10/30/24 by Zena Mcgee MD albuterol sulfate 90 mcg/actuation 2 puffs inhalation Q6H PRN aluminum hydrox-magnesium carb 160-105 mg (Gaviscon Extra Strength) 2 tabs PO TID 30 days apixaban (Eliquis) 5 mg PO BID azithromycin take 500 mg today (day 1), then 250 mg for 4 days (days 2-5) PO cholecalciferol (vitamin D3) 25 mcg PO DAILY cyanocobalamin (vitamin B-12) 1,000 mcg PO DAILY fluticasone furoate-vilanterol 100-25 mcg/dose (Breo Ellipta) 1 inh inhalation DAILY furosemide 20 mg PO DAILY levalbuterol HCl 0.63 mg (3 mL) inhalation TID nebulizers (AeroEclipse II Nebulizer) As directed ondansetron 4 mg PO Q8H PRN potassium gluconate 595 mg PO DAILY vitamin E 268 mg PO DAILY Tobacco use date assessed: 09/18/24 Fall risk assessment: No Falls in past year Last assessed Fall Risk: 10/30/24 Dental Screening Dental Screen Date: 09/18/24 [facility] Medical History (Updated 09/18/24 @ 13:45 by Anshu Ramirez MD) Atrial fibrillation Paroxysmal atrial fibrillation Arthritis [place] (hard of hearing) Renal calculi Paraesophageal hernia COPD (chronic obstructive pulmonary disease) Poor dentition GERD (gastroesophageal reflux disease) CHF (congestive heart failure) Afib Recent urinary tract infection (06/06/24) Cough Grade II diastolic dysfunction Shortness of breath Hypertension Surgical History Hx of varicose vein ligation Hx of colonoscopy History of removal of cyst History of 2 sections Family History Mother No problems noted. Father Substance use disorder Social History Household Members: None Household Members Other:: Adult son Titus Housing: House Are you a primary career development coordinator/teacher to a significant other at home: No Do you presently have visiting nurse or other home services: No Alcohol intake: never Patient Tobacco Use Status: Former Tobacco user Tobacco use type: Cigarette Cigarettes Per Day: 6 e-Cigarette/Vaping Use: Never Used service: No Current occupational status: retired Cognitive needs: No Hearing needs: No Vision needs: No Questionnaire Thrive Questionnaire Date Thrive assessed: 09/18/24 RUBEN-7 AMB Questionnaire RUBEN-7 Date RUBEN - 7 assessed: 09/18/24 Source: Developed by Drs. Guanako De Guzman, Francoise Yanez, Andrew Zamora and colleagues, with an educational suki from [employer]. Physical exam (Primary Care) Vital Signs: Last Vital Signs Temp 96.9 F 10/30/24 14:38 Pulse 98 10/30/24 14:38 BP 142/68 H 10/30/24 14:38 Pulse Ox 95 10/30/24 14:38 Oxygen Delivery Method Room Air 10/30/24 14:38 BMI result Body Mass Index 28.7 Tobacco/Smoking Status: Tobacco use Status Tobacco use date assessed 09/18/24 10/30/24 14:34 Patient Tobacco Use Status Former Tobacco user 10/30/24 14:34 Tobacco use type Cigarette 10/30/24 14:34 e-Cigarette/Vaping Use Never Used 10/30/24 14:34 Thrive Assessment: Date of Thrive Assessment Date Thrive assessed 09/18/24 10/30/24 14:34 Const General: alert; No acute distress Eyes Conjunctivae: conjunctivae normal Resp Auscultation: clear to auscultation bilaterally Cardio Rate: regular rate Rhythm: regular rhythm GI Inspection: Yes normal to inspection Extrem General: Yes normal to inspection and No edema Coding Level of Care Code Est Pt Level 4 (82108) Complex EM visit Add On G2211 Diagnoses Paroxysmal atrial fibrillation I48.0 Paraesophageal hernia K44.9 GERD (gastroesophageal reflux disease) K21.9 Other emphysema J43.8 COPD type: emphysema Emphysema type: other Hypercholesterolemia E78.00 Hypertension I10 Hypertension type: unspecified TSH elevation R79.89 Assessment & Plan Assessment & Plan (1) Paroxysmal atrial fibrillation: Code(s): I48.0 - Paroxysmal atrial fibrillation Category: Medical Plan: Patient follows up with Cardiology and advised to be on Eliquis 5 mg twice a day will need quarterly renal function (2) Paraesophageal hernia: Code(s): K44.9 - Diaphragmatic hernia without obstruction or gangrene Category: Medical Plan: Optimized for procedure. Cleared by cardiology and pulmonary (3) GERD (gastroesophageal reflux disease): Code(s): K21.9 - Gastro-esophageal reflux disease without esophagitis Category: Medical Plan: Avoid the foods that causes that usually spicy foods, tomato products, juices, coffee, soda and foods that your sensitive to. After eating do not lie down, allow 3-4 hours before in lie down. And keep the head of bed above 30 degrees to avoid the acid from going up. (4) COPD (chronic obstructive pulmonary disease): Code(s): J44.9 - Chronic obstructive pulmonary disease, unspecified Category: Medical Qualifiers: COPD type: emphysema Emphysema type: other Qualified Code(s): J43.8 - Other emphysema Plan: Continue with the albuterol inhaler, Breo (5) Hypercholesterolemia: Code(s): E78.00 - Pure hypercholesterolemia, unspecified Category: Medical Plan: Avoid fried foods, chicken skin, eggs, butter margarine, pastries and meat. Be it pork or beef they have a lot of cholesterol LDL goal of less than 130 and triglyceride of less than 150. (6) Hypertension: Code(s): I10 - Essential (primary) hypertension Category: Medical Qualifiers: Hypertension type: unspecified Qualified Code(s): I10 - Essential (primary) hypertension Plan: Continue with blood pressure medication. Decrease salt intake and exercise on furosemide and potassium (7) TSH elevation: Code(s): R79.89 - Other specified abnormal findings of blood chemistry Category: Medical Plan: Will need retesting Plan History of Present Illness The patient is an 84-year-old female presenting with concerns primarily relating to her chronic conditions, including diastolic dysfunction, COPD, atrial fibrillation, hypercholesterolemia, and a large hiatal hernia. She has a history of hospitalization due to COVID-19 in June 2023, lasting six days, which has contributed significantly to her medical burden. Subsequent to her COVID-19 illness, she experienced a chronic cough, and testing for influenza A returned positive on September 18, 2024. Her atrial fibrillation, reviewed by cardiology on August 14, 2024, showed no recurrence. Her hypercholesterolemia presents considerable management challenges, with most recent tests in July 2024 showing an LDL of 191 and triglycerides of 193, indicating almost unchecked levels. She is currently on Eliquis for anticoagulation due to her atrial fibrillation and has routine quarterly renal function monitoring due to her medication's renal implications. 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 She uses albuterol and Breo inhalers for asthma management, although insurance payment issues have made consistent access challenging. Her social difficulties, including insurance challenges, have impacted medication adherence, making care coordination all the more pertinent. Her history of asthma exacerbates when exposed to animals, contributing to inconsistencies in symptom presentation. Given the complexity and chronic nature of these conditions, a comprehensive care management approach remains central to her ongoing care. Health Maintenance - Influenza A positive on September 18, 2024. - COVID-19 hospitalization in June last year. - Routine cholesterol screening indicated elevated LDL at 191 and triglyceride at 193. - Quarterly renal function tests advised due to anticoagulation medication (Eliquis). - Advised LDL goal of less than 130 mg/dL and triglyceride goal of less than 150 mg/dL. - Blood sugar noted at 113 during last testing. - Address hypercholesterolemia through diet modification. - Sleep pattern stabilization using melatonin recommended. Social History - Difficulty with insurance coverage leading to medication adherence issues. - Dietary indiscretions potentially contributing to elevated cholesterol levels, including high consumption of processed foods, meats, and fats. - Reports difficulty managing exposure-induced asthma exacerbations due to animal exposure. - Dependency on family and specifically a son for managing health care decisions and prescription management. Review of Systems - Cardiovascular: Denies recurrence of atrial fibrillation. - Respiratory: Reports intermittent breathing difficulties, though no exacerbation currently noted. Physical Exam Results - Labs: Elevated LDL at 191 mg/dL, triglyceride at 193 mg/dL. - COVID-19 hospitalization in June, influenza A positive in September 2024. - Blood glucose at 113 mg/dL, TSH at 4.44. Plan The patient should adhere to current anticoagulation therapy with Eliquis, continue routine renal function assessments, and focus on diet modifications to address elevated cholesterol levels with the LDL goal below 130 mg/dL and triglycerides below 150 mg/dL. Asthma management includes ensuring sufficient access to inhalers, with potential exploration of other pharmacies due to insurance issues. Post-dental care, planning for hiatal hernia repair should proceed. Regular reviews and adjustments of care plans should be undertaken quarterly to ensure optimal outcomes for diastolic dysfunction, COPD, and hypercholesterolemia management. Patient was informed and verbally consented to the use of an ambient scribe for clinic note documentation during this visit. Discussion Notes During our discussion, I emphasized the importance of controlling cholesterol levels through dietary changes, aiming for LDL and triglycerides within specified targets. I elaborated on the necessity of glucose monitoring and the implications of quarterly renal evaluations due to her continuous use of Eliquis. We addressed the challenges with insurance in procuring asthma medication, reviewing alternatives for obtaining minimal cost medications. We agreed on following up with melatonin for sleep disturbances and monitoring efficacy. As cardiology and pulmonary clearance permits further interventions, particularly for her hiatal hernia, prioritizing these concerns will follow upon dental work completion. Patient Instructions - Continue taking Eliquis as prescribed, with renal function tests every three months. - Aim to reduce LDL cholesterol to below 130 mg/dL and triglycerides under 150 mg/dL through dietary changes, avoiding processed foods, meats, and high-fat items. - Take melatonin nightly at the same time for sleep consistency. - Follow up with the planned dental work to schedule hernia repair. - Monitor and manage asthma symptoms, ensuring access to inhalers. - Schedule quarterly follow-ups to assess response to treatment and manage health issues effectively. Orders: Orders Lipid Panel Today E78.00 - Pure hypercholesterolemia, unspecified Comprehensive Met. Panel Today E78.00 - Pure hypercholesterolemia, unspecified B Type Natriuretic Peptide Today I48.0 - Paroxysmal atrial fibrillation Medications: Refilled albuterol sulfate 90 mcg/actuation 2 puffs inhalation Q6H PRN 8.5 grams 0RF shortness of breath or wheezing K02.9 - Dental caries, unspecified albuterol sulfate 90 mcg/actuation 2 puffs inhalation Q6H PRN 8.5 grams 0RF shortness of breath or wheezing K02.9 - Dental caries, unspecified fluticasone furoate-vilanterol 100-25 mcg/dose (Breo Ellipta) 1 inh inhalation DAILY 60 ea 12RF I48.0 - Paroxysmal atrial fibrillation fluticasone furoate-vilanterol 100-25 mcg/dose (Breo Ellipta) 1 inh inhalation DAILY 60 ea 12RF
[2024-10-30 14:38] VITALS: BP 142/68; PULSE 98; TEMP 36.1; O2SAT 95; BMI 28.7
== END 2024-10-30 15:20 | disposition home or self-care (01) ==
PROVIDERS: PCP Internal Medicine; Visit Provider Internal Medicine
DX: I48.0 Paroxysmal atrial fibrillation (principal); K44.9 Diaphragmatic hernia without obstruction or gangrene; K21.9 Gastro-esophageal reflux disease without esophagitis; J43.8 Other emphysema; E78.00 Pure hypercholesterolemia, unspecified; I10 Essential (primary) hypertension; R79.89 Other specified abnormal findings of blood chemistry

== ENCOUNTER → 2024-10-30 14:24 | Outpatient (BNVA) | payer MEDICARE, SELFPAY | PROVIDERS: PCP Internal Medicine; Visit Provider Internal Medicine | DX: I48.0 Paroxysmal atrial fibrillation (principal); K44.9 Diaphragmatic hernia without obstruction or gangrene; K21.9 Gastro-esophageal reflux disease without esophagitis; J43.8 Other emphysema; E78.00 Pure hypercholesterolemia, unspecified; I10 Essential (primary) hypertension; R79.89 Other specified abnormal findings of blood chemistry | CPT/HCPCS: 99212 ==

== ENCOUNTER 2024-10-31 07:53 | Outpatient (REF) | payer MEDICARE, SELFPAY ==
[2024-10-31 11:18] LABS: B Type Natriuretic Peptide 89 pg/mL (<100)
[2024-10-31 11:23] LABS: Alanine Aminotransferase 11 U/L (0-31); Albumin Level 4.1 g/dL (3.5-5.0); Anion Gap 12 (12-20); Aspartate Amino Transferase 26 U/L (5-31); Bilirubin Total 0.5 mg/dL (0.0-1.0); Blood Urea Nitrogen 17 mg/dL (9-16); Calcium 9.4 mg/dL (8.4-10.2); Carbon Dioxide 27 mmol/L (22-29); Chloride 106 mmol/L (96-108); Cholesterol 253 mg/dL (<200); Estimated Glomerular Filt Rate > 60; Glucose Random 92 mg/dL (60-115); HDL Cholesterol 49 mg/dL (>40); LDL Cholesterol Calculated 166 mg/dL (<100); Potassium 4.6 mmol/L (3.3-5.1); Sodium 140 mmol/L (135-145); Total Protein 7.3 g/dL (6.5-8.0); Triglycerides 191 mg/dL (<150)
[2024-10-31 12:02] LABS: Appearance Urine Cloudy; Color Urine Yellow; Glucose Urine UA Negative (Negative); Leukocyte Esterase Urine Moderate (2+) (Negative); Nitrite Urine Positive (Negative); PH 6.5 (5.0-9.0); Specific Gravity - Urine 1.015 (1.005-1.025); UMIC TRIGGER UACC YES; Urine Blood Negative (Negative); Urine Ketones Negative (Negative); Urine Protein Negative (Neg-Trace)
[2024-10-31 12:12] LABS: Bacteria Urine 4+ (None Seen); Hyaline Casts Urine 0-2 /LPF (0-2); RBC Urine 0-2 /HPF (0-2); UACC Culture Trigger YES; WBC Urine 21-50 /HPF (0-5)
[2024-10-31 12:37] LABS: Alkaline Phosphatase 106 U/L (39-117)
== END 2024-10-31 07:54 | disposition home or self-care (01) ==
LOC: HO.LAB 07:53
PROVIDERS: PCP Internal Medicine; Visit Provider Internal Medicine
DX: I48.0 Paroxysmal atrial fibrillation (principal); E78.00 Pure hypercholesterolemia, unspecified; R30.0 Dysuria
CPT/HCPCS: 36415; 80053; 80061; 81001; 81003; 83880; 87086

== ENCOUNTER 2025-02-19 13:34 | Outpatient (AMB) | payer MEDICARE, SELFPAY ==
[2025-02-19 13:38] VITALS: BP 120/80; PULSE 64; BMI 28.9
--- NOTE | 2025-02-19 13:38 | MHC.OFFVIS ---
Vital Signs 02/19/25 13:38 Height 4 ft 11 in Weight 143 lb 4.807 oz BMI 28.9 BP 120/80 Blood Pressure Location Lt brachial Position Sitting Pulse 64 Intake Visit Reasons: 6n follow up Intake Note: 6 month follow-up dizzy if bending down, leg stop her at times Slot Floor Attendant Required: No Allergies diclofenac Allergy (Severe, Verified 10/30/24 14:43) throat closing,sob guaifenesin (From Mucinex) Allergy (Severe, Verified 10/30/24 14:43) THROAT CLOSING, sob propoxyphene (From Darvon) Allergy (Mild, Verified 10/30/24 14:43) VOMITING omeprazole Adverse Reaction (Intermediate, Verified 10/30/24 14:43) Nausea and Vomiting GENERIC MEDS Allergy (Intermediate, Uncoded 10/30/24 14:43) HIVES prednisone Allergy (Mild, Uncoded 10/30/24 14:43) Hives Medication List - Last Reconciled 02/19/25 by Rajiv Sears MD albuterol sulfate 90 mcg/actuation 2 puffs inhalation Q6H PRN aluminum hydrox-magnesium carb 160-105 mg (Gaviscon Extra Strength) 2 tabs PO TID 30 days apixaban (Eliquis) 5 mg PO BID cholecalciferol (vitamin D3) 25 mcg PO DAILY cyanocobalamin (vitamin B-12) 1,000 mcg PO DAILY fluticasone furoate-vilanterol 100-25 mcg/dose (Breo Ellipta) 1 inh inhalation DAILY furosemide 20 mg PO DAILY levalbuterol HCl 0.63 mg (3 mL) inhalation TID nebulizers (AeroEclipse II Nebulizer) As directed nitrofurantoin monohyd/m-cryst 100 mg (Macrobid) 100 mg PO Q12H 7 days ondansetron 4 mg PO Q8H PRN potassium gluconate 595 mg PO DAILY vitamin E 268 mg PO DAILY HPI Comments Details: Jody comes for follow-up. She is accompanied by his son. She has no symptoms of prolonged irregular heartbeat or palpitations. She does get orthostatic lightheadedness when she gets up after stooping over, taking care of her horses. She said she had a near syncopal event but has not syncopized as yet. She also has issues with balance as per the son. She does get exertional shortness of breath. No leg edema, abdominal distension. She denies any clear orthopnea, PND. Son is worried about worsening heart failure syndrome. FORMERLY [facility], [facility]–1983 Medical History Atrial fibrillation Paroxysmal atrial fibrillation Arthritis [place] (hard of hearing) Renal calculi Paraesophageal hernia COPD (chronic obstructive pulmonary disease) Poor dentition GERD (gastroesophageal reflux disease) CHF (congestive heart failure) Afib Recent urinary tract infection (06/06/24) Cough Grade II diastolic dysfunction Shortness of breath Hypertension Surgical History Hx of varicose vein ligation Hx of colonoscopy History of removal of cyst History of 2 sections Family History Mother No problems noted. Father Substance use disorder Social History Household Members: None Household Members Other:: Adult son Titus Housing: House Are you a primary rn care transition to a significant other at home: No Do you presently have visiting nurse or other home services: No Alcohol intake: never Patient Tobacco Use Status: Former Tobacco user Tobacco use type: Cigarette Cigarettes Per Day: 6 e-Cigarette/Vaping Use: Never Used service: No Current occupational status: retired Cognitive needs: No Hearing needs: No Vision needs: No Review of Systems Const Denies chills, Denies fatigue, Denies fever(s), Denies frequent falls, Denies weakness, Denies weight gain and Denies weight loss ENT Denies dizziness Card Denies chest pain, Denies leg edema, Denies lightheadedness, Denies palpitations, Denies dyspnea, Denies dyspnea on exertion, Denies orthopnea and Denies other (loss of consciousness) Resp Denies cough, Denies dyspnea and Denies dyspnea on exertion GI Denies hematochezia and Denies change in stool character Musc Denies abnormal gait, Denies muscle weakness, Denies numbness, Denies radiating pain into limb and Denies tingling Neuro Denies abnormal gait, Denies dizziness, Denies frequent falls, Denies numbness, Denies tingling and Denies weakness Endo Denies fatigue and Denies palpitations Physical Exam Vital Signs: Last Vital Signs Pulse 64 07/14/25 13:38 BP 120/80 02/19/25 13:38 BMI result Body Mass Index 28.9 Const General: cooperative, healthy appearing, comfortable and no acute distress Orientation/consciousness: patient oriented x3 Neck Neck: Yes normal visual inspection and Yes no JVD Resp Other: rales in bases Effort & Inspection: normal respiratory effort Auscultation: clear to auscultation bilaterally, no rhonchi, no wheezes, diminished lung sounds and other (Coarse breath sounds at the left base) Cardio Jugular venous distension: no JVD Rate: regular rate Rhythm: abnormal rhythm Heart sounds: S1 normal heart sound present, S2 normal heart sound present, no murmurs and no rubs Peripheral pulses: Peripheral pulses 2+ throughout Neuro General: patient oriented x3 Extrem General: Yes normal to inspection and No no pedal edema Psych Appearance: grossly normal Mental Status: mental status grossly normal Speech and movement: Normal speech and movement present Assessment & Plan Assessment & Plan (1) Paroxysmal atrial fibrillation: Code(s): I48.0 - Paroxysmal atrial fibrillation Category: Medical Plan: Paroxysmal atrial fibrillation without any major symptoms or obvious clinical recurrence at this point time. It is difficult as she does not have clear symptoms associated with atrial fibrillation. She is currently in sinus rhythm. Will continue to pursue rhythm control approach. Continue full oral anticoagulation, currently on Eliquis 5 mg b.i.d.. Semi annual renal function test should be pursued. (2) Grade II diastolic dysfunction: Comment: Cardiac workup negative Code(s): I51.89 - Other ill-defined heart diseases Category: Medical Plan: Patient with grade 2 diastolic dysfunction with exertional shortness of breath. This is a combination of her hiatal hernia as well as diastolic dysfunction. Clinically does not appear to be fluid overloaded. Will obtain blood work today. Currently on low-dose diuretic therapy which will be continued. Continue to optimize pulmonary function. (3) Orthostatic lightheadedness: Code(s): R42 - Dizziness and giddiness Plan: Orthostatic lightheadedness, most likely due to senile orthostatic hypotension. At this point time we discussed management of this. Also discussed pathophysiology of this. Orthostatic precautions were discussed. Advised to maintain adequate hydration. No specific pharmacotherapy is recommended. Will follow up in the clinic in 6 months time, sooner p.r.n.. Thank you for allowing me to partake in her care Orders: Orders Basic Metabolic Panel Today I48.0 - Paroxysmal atrial fibrillation B Type Natriuretic Peptide Today I48.0 - Paroxysmal atrial fibrillation Medications: Refilled apixaban (Eliquis) 5 mg PO BID 60 tabs 11RF I48.0 - Paroxysmal atrial fibrillation Coding Level of Care Code Est Pt Level 4 (69164) Complex EM visit Add On G2211 Diagnoses Paroxysmal atrial fibrillation I48.0 Grade II diastolic dysfunction I51.89 Orthostatic lightheadedness R42
== END 2025-02-19 14:10 | disposition home or self-care (01) ==
LOC: HO.HCS 13:35
PROVIDERS: PCP Internal Medicine; Visit Provider Internal Medicine Cardiovascular Disease
DX: I48.0 Paroxysmal atrial fibrillation (principal); I51.89 Other ill-defined heart diseases; R42 Dizziness and giddiness
CPT/HCPCS: 99214; G2211

== ENCOUNTER → 2025-02-19 13:34 | Outpatient (BNVA) | payer MEDICARE, SELFPAY | PROVIDERS: PCP Internal Medicine; Visit Provider Internal Medicine Cardiovascular Disease | DX: I48.0 Paroxysmal atrial fibrillation (principal); I51.89 Other ill-defined heart diseases; R42 Dizziness and giddiness; Z79.01 Long term (current) use of anticoagulants; Z79.899 Other long term (current) drug therapy | CPT/HCPCS: 99212 ==

== ENCOUNTER 2025-02-22 07:17 | Outpatient (REF) | payer MEDICARE, SELFPAY ==
[2025-02-22 08:53] LABS: Anion Gap 12 (12-20); Blood Urea Nitrogen 19 mg/dL (9-16); Calcium 9.1 mg/dL (8.4-10.2); Carbon Dioxide 28 mmol/L (22-29); Chloride 107 mmol/L (96-108); Estimated Glomerular Filt Rate > 60; Potassium 4.0 mmol/L (3.3-5.1); Sodium 143 mmol/L (135-145)
[2025-02-22 13:38] LABS: B Type Natriuretic Peptide 61 pg/mL (<100)
== END 2025-02-22 07:18 | disposition home or self-care (01) ==
LOC: HO.LAB 07:17
PROVIDERS: PCP Internal Medicine; Visit Provider Internal Medicine Cardiovascular Disease
DX: I48.0 Paroxysmal atrial fibrillation (principal)
CPT/HCPCS: 36415; 80048; 83880

== ENCOUNTER 2025-03-08 08:35 | Outpatient (REF) | payer MEDICARE, SELFPAY ==
[2025-03-08 09:02] LABS: Appearance Urine Cloudy; Glucose Urine UA Negative (Negative); PH 6.0 (5.0-9.0); Specific Gravity - Urine 1.020 (1.005-1.025); UMIC TRIGGER UACC YES
[2025-03-08 09:08] LABS: UACC Culture Trigger YES
== END 2025-03-08 08:36 | disposition home or self-care (01) ==
LOC: HO.LAB 08:35
PROVIDERS: PCP Internal Medicine; Visit Provider Internal Medicine
DX: R30.0 Dysuria (principal); I48.91 Unspecified atrial fibrillation
CPT/HCPCS: 81001; 81003; 87086

== ENCOUNTER 2025-04-30 10:46 | Outpatient (AMB) | payer MEDICARE, SELFPAY ==
[2025-04-30 10:54] VITALS: BP 120/76; PULSE 95; TEMP 36.2; O2SAT 98; BMI 28.7
--- NOTE | 2025-04-30 10:54 | A.OFFPC_ITS ---
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 Required: No Accompanied by: Son Allergies diclofenac Allergy (Severe, Verified 04/30/25 11:24) throat closing,sob guaifenesin (From Mucinex) Allergy (Severe, Verified 04/30/25 11:24) THROAT CLOSING, sob propoxyphene (From Darvon) Allergy (Mild, Verified 04/30/25 11:24) VOMITING omeprazole Adverse Reaction (Intermediate, Verified 04/30/25 11:24) Nausea and Vomiting GENERIC MEDS Allergy (Intermediate, Uncoded 04/30/25 11:24) HIVES prednisone Allergy (Mild, Uncoded 04/30/25 11:24) Hives Medication List - Last Reconciled 04/30/25 by Genna Anderson PA-C albuterol sulfate 90 mcg/actuation 2 puffs inhalation Q6H PRN aluminum hydrox-magnesium carb 160-105 mg (Gaviscon Extra Strength) 2 tabs PO TID 30 days apixaban (Eliquis) 5 mg PO BID cholecalciferol (vitamin D3) 25 mcg PO DAILY cyanocobalamin (vitamin B-12) 1,000 mcg PO DAILY fluticasone furoate-vilanterol 100-25 mcg/dose (Breo Ellipta) 1 inh inhalation DAILY furosemide 20 mg PO DAILY levalbuterol HCl 0.63 mg (3 mL) inhalation TID nebulizers (AeroEclipse II Nebulizer) As directed potassium gluconate 595 mg PO DAILY vitamin E 268 mg PO DAILY Tobacco use date assessed: 04/30/25 Fall risk assessment: No Falls in past year Last assessed Fall Risk: 04/30/25 Dental Screening Dental Screen Date: 04/30/25 Did you have a dental visit in the last 12 months?: Yes Did you have a dental problem in the last 6 months where you did not have access to dental care?: No HPI dental clearance 05/16 HPI Details 84 year old female coming in for pre -op erative visit. Patient tells us today she has been having left wrist pain that has been ongoing for 2 weeks with no inciting injury. She is requesting an x-ray and has been using Tylenol as needed for pain. She has been without her Breo inhaler for several weeks and has been feeling increasing shortness of breath. She recently obtained her Breo and shortness of breath and cough has improved. She also reports having UTI symptoms. She tells us today recently over the last several months she has been developing chest tightness and discomfort with exercise that resolved with rest. She does have a water softener servicer and installer that she sees and has not mentioned these symptoms to him. Denies any other symptoms with the chest pain and pain does not radiate. Patient has no history of CVA, [place], CHF or DM. She has had anesthesia and surgery in the past without complication. [facility] Medical History Atrial fibrillation Paroxysmal atrial fibrillation Arthritis [place] (hard of hearing) Renal calculi Paraesophageal hernia COPD (chronic obstructive pulmonary disease) Poor dentition GERD (gastroesophageal reflux disease) CHF (congestive heart failure) Afib Recent urinary tract infection (06/06/24) Cough Grade II diastolic dysfunction Shortness of breath Hypertension Surgical History Hx of varicose vein ligation Hx of colonoscopy History of removal of cyst History of 2 sections Family History Mother No problems noted. Father Substance use disorder Social History Household Members: None Household Members Other:: Adult son Titus Housing: House Are you a primary health care coordinator to a significant other at home: No Do you presently have visiting nurse or other home services: No Alcohol intake: never Patient Tobacco Use Status: Former Tobacco user Tobacco use type: Cigarette Cigarettes Per Day: 6 e-Cigarette/Vaping Use: Former Use service: No Current occupational status: retired Cognitive needs: No Hearing needs: No Vision needs: No Questionnaire PHQ-9 Over the last 2 weeks, how often have you been bothered by any of the following problems? 1. Little interest or pleasure in doing things: not at all 2. Feeling down, depressed, or hopeless: not at all 3. Trouble falling or staying asleep, or sleeping too much: not at all 4. Feeling tired or having little energy: not at all 5. Poor appetite or overeating: not at all 6. Feeling bad about yourself - or that you are a failure or have let yourself or your family down: not at all 7. Trouble concentrating on things, such as reading the newspaper or watching television: not at all 8. Moving or speaking so slowly that other people could have noticed. Or the opposite - being so fidgety or restless that you have been moving around a lot more than usual: not at all 9. Thoughts that you would be better off or of hurting yourself in some way: not at all Total score: 0 Source: Developed by Drs. Guanako De Guzman, Francoise Yanez, Andrew Zamora and colleagues, with an educational suki from [employer]. Thrive Questionnaire Date Thrive assessed: 04/30/25 I am a: Patient Within the past 12 months, did the food you bought not last and you didn't have the money to get more?: Never true Within the past 12 months, did you worry whether your food would run out before you got money to buy more?: Never true Do you have trouble paying for medicines?: No Do you have trouble getting transportation to medical appointments?: No Do you have trouble paying your heating and electricity bill?: No Do you have trouble taking care of your child, family member or friend?: No Do you have trouble with day-to-day activities such as bathing, preparing meals, shopping, managing finances, etc.?: No Are you currently unemployed and looking for a job?: No Are you interested in more education?: No THRIVE Score: 0 AUDIT C Alcohol Use Questionnaire (AUDIT-C) 1. How often do you have a drink containing alcohol?: Never 3. How often do you have six or more drinks on one occasion?: Never Total Score: 0 RUBEN-7 AMB Questionnaire RUBEN-7 Date RUBEN - 7 assessed: 04/30/25 Feeling nervous, anxious, or on edge: 0 = Not at all Not being able to stop or control worryin = Not at all Worrying too much about different things: 0 = Not at all Trouble relaxin = Not at all Being so restless that it is hard to sit still: 0 = Not at all Becoming easily annoyed or irritable: 0 = Not at all Feeling afraid as if something awful might happen: 0 = Not at all Total RUBEN-7 score (0-4 normal; 5-9 mild; 10-14 moderate; 15-21 severe): 0 Source: Developed by Drs. Guanako De Guzman, Francoise Yanez, Andrew Zamora and colleagues, with an educational suki from [employer]. Review of Systems Const Denies body aches, Denies chills, Denies fever(s), Denies headache(s) and Denies poor appetite Eyes Reports no additional complaints ENT Denies dysphagia, Denies dizziness, Denies headache(s) and Denies odynophagia Card Denies chest pain at rest, Reports chest pain with activity, Denies syncope, Denies edema, Denies irregular heart rhythm, Denies lightheadedness, Denies dyspnea and Denies dyspnea on exertion Resp Denies cough, Denies dyspnea and Denies dyspnea on exertion GI Denies abdominal pain, Denies constipation, Denies dysphagia, Denies diarrhea, Denies nausea, Denies odynophagia and Denies vomiting Reports as per HPI Musc Reports no additional complaints and Denies abnormal gait Skin/Breast Reports system reviewed and no additional complaints, except as documented Neuro Denies abnormal gait, Denies dizziness, Denies syncope and Denies headache(s) Psych Reports no additional complaints Physical exam (Primary Care) Vital Signs: Last Vital Signs Temp 97.2 F 04/30/25 10:54 Pulse 95 04/30/25 10:54 BP 120/76 04/30/25 10:54 Pulse Ox 98 04/30/25 10:54 Oxygen Delivery Method Room Air 04/30/25 10:54 BMI result Body Mass Index 28.7 Tobacco/Smoking Status: Tobacco use Status Tobacco use date assessed 04/30/25 04/30/25 10:56 Patient Tobacco Use Status Former Tobacco user 04/30/25 10:56 Tobacco use type Cigarette 04/30/25 10:56 e-Cigarette/Vaping Use Former Use 04/30/25 11:08 PHQ-9: PHQ-9 Score PHQ-9: Total score 0 04/30/25 11:19 Thrive Assessment: Date of Thrive Assessment Date Thrive assessed 04/30/25 04/30/25 10:56 Const General: cooperative, healthy appearing, comfortable and no acute distress Orientation/consciousness: patient oriented x3 HENMT Head: Yes normocephalic Ears: hearing grossly normal bilaterally General nose exam: Normal external nose present Eyes General: appearance normal, both eyes and all related structures Conjunctivae: conjunctivae normal Neck Neck: Yes full ROM and Yes no lymphadenopathy Resp Effort & Inspection: normal respiratory effort Auscultation: clear to auscultation bilaterally, no crackles, no rales, no rhonchi and no wheezes Cardio Rate: regular rate Rhythm: regular rhythm Skin General skin exam: no rashes or lesions noted Neuro General: patient oriented x3 Gait exam (Neuro): Normal gait present Extrem General: Yes normal to inspection, Yes full ROM and No edema Psych Affect: normal affect Attitude: cooperative Insight: Good insight present (Psych) Judgement: Good judgement present (Psych) Coding Level of Care Code Est Pt Level 4 (12784) Diagnoses Pre-op exam Z01.818 Left wrist pain M25.532 Malodorous urine R82.90 Chest pain on exertion R07.9 Assessment & Plan Assessment & Plan (1) Pre-op exam: Code(s): Z01.818 - Encounter for other preprocedural examination Category: Medical Plan: Regarding preop clearance, the patient is at moderate risk for proposed surgery. Reviewed with the patient that no surgery is completely free of risk and that this examination is to assist the surgeon in reviewing informed consent. EKG and blood work ordered. I discussed with her water softener servicer and installer who recommended having a Cardiolite stress test performed prior to surgical clearance as patient is reportedly going under anesthesia for this procedure. (2) Left wrist pain: Code(s): M25.532 - Pain in left wrist Category: Medical Plan: For left wrist pain patient is requesting an x-ray which has been ordered. (3) Malodorous urine: Code(s): R82.90 - Unspecified abnormal findings in urine Category: Medical Plan: Patient reporting malodorous urine concerning for UTI and urinalysis was ordered. Infection needs to be cleared prior to surgical clearance (4) Chest pain on exertion: Code(s): R07.9 - Chest pain, unspecified Category: Medical Plan: Patient having new onset chest pain with exertion discussed with the water softener servicer and installer Dr. Sears who recommended a Cardiolite stress test prior to preoperative clearance. Stress test was ordered Plan This note was constructed using voice recognition software. While every effort has been made to ensure accuracy and janitorial manager, still areas may have been included sometimes these areas may affect the content or meeting of the given symptoms. Total time spent caring for the patient today was 30 minutes. This includes time spent before the visit reviewing the chart, time spent during the visit, and time spent after the visit and documentation. Orders: Orders XR wrist LT 2V 04/30/25 M25.532 - Pain in left wrist Comprehensive Met. Panel 04/30/25 Z00.00 - Encounter for general adult medical examination without abnormal findings, Z01.818 - Encounter for other preprocedural examination Complete Blood Count Auto Diff 04/30/25 Z00.00 - Encounter for general adult medical examination without abnormal findings, Z01.818 - Encounter for other preprocedural examination UA CC w/rflx Micro + Cult 04/30/25 R35.89 - Other polyuria, Z01.818 - Encounter for other preprocedural examination ECG 12 lead EKG 04/30/25 Z01.818 - Encounter for other preprocedural examination Hemoglobin A1c 04/30/25 Z01.818 - Encounter for other preprocedural examination XR chest 2V 04/30/25 J43.8 - Other emphysema Medications: New umeclidinium-vilanterol 62.5-25 mcg/actuation (Anoro Ellipta) 1 inh inhalation DAILY 60 ea 0RF cetirizine (Zyrtec) 10 mg PO DAILY 90 tabs 0RF Discontinued fluticasone furoate-vilanterol 100-25 mcg/dose (Breo Ellipta) Discontinued Reason: Insurance Denied 1 inh inhalation DAILY 60 ea 12RF I48.0 - Paroxysmal atrial fibrillation
--- OUTSIDE RECORDS SUMMARY | 2025-04-30 13:18 | XMS_ITS | Clinical Summary ---
Author Organization [facility] Address [address] [place] [address] Phone Care Team Providers Care Respiratory Clinician Name Role Phone Unavailable Primary Care Provider Unavailabl e Allergies Active Allergy Reactions Criticality Noted Date Comments Guaifenesin Shortness of breath High 04/30/2025 Medications apixaban (ELIQUIS) 5 mg tablet Take 1 tablet (5 mg total) by mouth 2 (two) times a day. Active furosemide (LASIX) 20 mg tablet Take by mouth. Active Surgical History Surgery Date Site/Laterality Comments FOOT SURGERY UPPER GASTROINTESTINAL ENDOSCOPY Medical History Medical History Date Comments Atrial fibrillation ([facility] V24, [facility] V28) Reactive airway disease Shortness of breath Hiatal hernia Social History Tobacco Use Types Packs/Day Years Used Date Smoking Tobacco: Never Assessed Comments Unknown Sex and Gender Information Value Date Recorded Sex Assigned at Not on file Legal Sex Female 12:42 PM EDT Gender Identity Not on file Sexual Orientation Not on file Obstetrics History Last Filed Vital Signs Vital Sign Reading Time Taken Comments Blood Pressure - - Pulse - - Temperature - - Respiratory Rate - - Oxygen Saturation - - Inhaled Oxygen Concentration - - Weight 59 kg (130 lb) 04/30/2025 9:00 AM EDT Height 149.9 cm (4' 11 ) 04/30/2025 9:00 AM EDT Body Mass Index 26.26 04/30/2025 9:00 AM EDT Plan of Treatment Upcoming Encounters Date Type Department Care Team (Late st Contact Info) Description 05/16/2025 1:00 PM EDT Hospital Encounter [facility] Main OR [address] [place] [address] Pascual Rodriguez, DMD [address] [facility] [address] [place], [place] [phone] 05/16/2025 1:00 PM EDT - 05/16/2025 2:30 PM EDT Surgery [facility] Main OR [address] [place] [address] Pascual Rodriguez, DMD [address] [place] [address] EXTRACTION TEETH #2,3,6,32 [[id number]] Scheduled Procedures Name Priority Associated Diagnoses Date/Ti me EXTRACTION TEETH Dental caries on smooth surface penetrating into dentin Benign neoplasm of unspecified part of mouth 05/16/2025 1:00 PM EDT EXCISION LESION MOUTH Dental caries on smooth surface penetrating into dentin Benign neoplasm of unspecified part of mouth 05/16/2025 1:00 PM EDT Health Maintenance Due Date Last Done Comments DTaP,Tdap,and Td Vaccines (1 - Tdap) 1959 Pneumococcal Vaccine: 50+ Ye ars (1 of 1 - PCV) 1990 Zoster Vaccines (1 of 2) 1990 RSV Immunization Adult Patie nts (1 - 1-dose 75+ series) 2015 Depression Screening 08/09/2024 COVID-19 Vaccine ( - 2023-2 5 season) 2025 Influenza Vaccine (#1) 2025 Falls Risk Assessment 04/26/2025 Osteoporosis Screening (Bone Density Screening) 04/26/2025 Social Influencers of Health Screening 04/26/2025 HIB Vaccines Aged Out No longer eligi ble based on patient's age to complete this topic HPV Vaccines Aged Out No longer eligi ble based on patient's age to complete this topic Hepatitis A Vaccines Aged Out No long er eligible based on patient's age to complete this topic Hepatitis B Vaccines Aged Out No long er eligible based on patient's age to complete this topic IPV Vaccines Aged Out No longer eligi ble based on patient's age to complete this topic MMR Vaccines Aged Out No longer eligi ble based on patient's age to complete this topic Meningococcal ACWY Vaccine Aged Out N o longer eligible based on patient's age to complete this topic Meningococcal B Vaccine Aged Out No l onger eligible based on patient's age to complete this topic RSV Immunization Patients Un karyn 20 months Aged Out No longer eligible b ased on patient's age to complete this topic Varicella Vaccines Aged Out No longer eligible based on patient's age to complete this topic
== END 2025-04-30 11:48 | disposition home or self-care (01) ==
LOC: HO.HMCH 10:47
PROVIDERS: PCP Internal Medicine
DX: Z01.818 Encounter for other preprocedural examination (principal); M25.532 Pain in left wrist; R82.90 Unspecified abnormal findings in urine; R07.9 Chest pain, unspecified

== ENCOUNTER → 2025-04-30 10:46 | Outpatient (BNVA) | payer MEDICARE, SELFPAY | PROVIDERS: PCP Internal Medicine | DX: Z01.818 Encounter for other preprocedural examination (principal); M25.532 Pain in left wrist; R82.90 Unspecified abnormal findings in urine; R07.9 Chest pain, unspecified; Z87.891 Personal history of nicotine dependence | CPT/HCPCS: 99212 ==

== ENCOUNTER 2025-05-01 09:04 | Outpatient (REF) | payer MEDICARE, SELFPAY ==
--- NOTE | ~2025-05-01 | XR_ITS ---
EXAMINATION: XR CHEST CLINICAL INFORMATION: J43.8 - Other emphysema COMPARISON: April 18, 2025. TECHNIQUE: PA and lateral views FINDINGS: Hyperinflated lungs. Pulmonary reticular pattern. Bilateral apical lung scarring. Linear opacities lung bases likely scarring versus subsegmental atelectasis. No consolidation, pleural effusion or pneumothorax. Cardiomediastinal silhouette size is normal with likely opacity in the posterior heart silhouette.. Calcified plaque thoracic aorta. Multilevel lumbar spondylosis. Osteopenia versus osteoporosis. XR/XR chest 2V IMPRESSION: COPD emphysematous type changes without acute airspace disease. Atherosclerosis disease. Osteopenia versus osteoporosis. Hiatal hernia. Electronically signed by: Phil Gurrola MD 05/01/2025 09:53 AM EDT
--- NOTE | ~2025-05-01 | XR_ITS ---
EXAMINATION: XR WRIST, LEFT CLINICAL INFORMATION: M25.532 - Pain in left wrist COMPARISON: None available. TECHNIQUE: PA, lateral, and oblique views of the left wrist. FINDINGS: Inadequate collimation. Degenerative changes without acute fracture or dislocation. No lytic or blastic lesions. No gross osteolysis. Decreased mineralization . No subcutaneous edema. 1 mm calcification in the soft tissues ventral aspect of the wrist just anterior to the lunate. XR/XR wrist LT min 3V IMPRESSION: Degenerative changes without acute fracture or dislocation. Osteopenia versus osteoporosis. Electronically signed by: Phil Gurrola MD 05/01/2025 09:56 AM EDT
--- OUTSIDE RECORDS SUMMARY | 2025-05-01 10:33 | XMS_ITS | Clinical Summary ---
Author Organization [facility] Address [address] [place] [address] Phone Care Team Providers Care Lap Winding Machine Operator Name Role Phone Unavailable Primary Care Provider [...] History Medical History Date Comments Atrial fibrillation ([facility] V24, [facility] V28) Reactive airway disease Shortness of breath [...] Description 05/16/2025 1:00 PM EDT Hospital Encounter [facility] Main OR [address] [place] [address] Pascual Rodriguez, DMD [address] [facility] [address] [place], [place] [phone] 05/16/2025 1:00 PM EDT - 05/16/2025 2:30 PM EDT Surgery [facility] Main OR [address] [place] [address] Pascual Rodriguez, DMD [address] [place] [address] EXTRACTION TEETH #2,3,6,32 [[id number]] Scheduled Procedures Name [...]
[2025-05-01 12:15] LABS: Alanine Aminotransferase 13 U/L (0-31); Albumin Level 4.1 g/dL (3.5-5.0); Alkaline Phosphatase 104 U/L (39-117); Anion Gap 10 (12-20); Aspartate Amino Transferase 21 U/L (5-31); Blood Urea Nitrogen 18 mg/dL (9-16); Calcium 9.3 mg/dL (8.4-10.2); Carbon Dioxide 26 mmol/L (22-29); Chloride 109 mmol/L (96-108); Estimated Glomerular Filt Rate > 60; Potassium 4.5 mmol/L (3.3-5.1); Sodium 140 mmol/L (135-145); Total Protein 7.2 g/dL (6.5-8.0)
== END 2025-05-01 09:05 | disposition home or self-care (01) ==
LOC: HO.LAB 09:04
PROVIDERS: PCP Internal Medicine
DX: Z00.00 Encounter for general adult medical examination without abnormal findings (principal); M25.532 Pain in left wrist; J43.8 Other emphysema; R35.89 Other polyuria; Z13.1 Encounter for screening for diabetes mellitus
CPT/HCPCS: 36415; 71046; 73110; 80053; 81001; 83036; 85025; 87086

== ENCOUNTER → 2025-05-01 09:27 | Outpatient (BNV) | payer MEDICARE, SELFPAY | PROVIDERS: PCP Internal Medicine; Visit Provider Radiology Diagnostic Radiology | DX: J43.9 Emphysema, unspecified (principal); I25.10 Atherosclerotic heart disease of native coronary artery without angina pectoris; K44.9 Diaphragmatic hernia without obstruction or gangrene; M19.032 Primary osteoarthritis, left wrist | CPT/HCPCS: 71046; 73110 ==

== ENCOUNTER 2025-05-11 15:42 | Outpatient (AMB) | payer MEDICARE, SELFPAY ==
--- OUTSIDE RECORDS SUMMARY | 2025-05-11 15:45 | XMS_ITS | Clinical Summary ---
Author Organization [facility] Address [address] [place] [phone] Phone Care Team Providers Care Manager Front Office Name Role Phone Zena Mcgee MD Primary Care Provider [phone] Allergies Active Allergy Reactions Criticality Noted Date Comments Guaifenesin Shortness of breath High 04/30/2025 Medications apixaban (ELIQUIS) 5 mg tablet Take 1 tablet (5 mg total) by mouth 2 (two) times a day. Active furosemide (LASIX) 20 mg tablet Take by mouth. Active Surgical History Surgery Date Site/Laterality Comments FOOT SURGERY UPPER GASTROINTESTINAL ENDOSCOPY Medical History Medical History Date Comments Atrial fibrillation (CMS/HCC V24, CMS/HCC V28) Reactive airway disease Shortness of breath Hiatal hernia Social History Tobacco Use Types Packs/Day Years Used Date Smoking Tobacco: Never Assessed Comments Unknown Sex and Gender Information Value Date Recorded Sex Assigned at Female 05/09/2025 1:15 PM EDT Legal Sex Female 12:42 PM EDT Gender [...] Description 05/16/2025 1:00 PM EDT Hospital Encounter [facility] Main OR [address] [place] [address] [place] [phone] Pascual Rodriguez, DMD [address] [place] [address] 05/16/2025 1:00 PM EDT - 05/16/2025 2:30 PM EDT Surgery [facility] Main OR [address] [place] [phone] Pascual Rodriguez, DMD [address] [place] [address] EXTRACTION TEETH #2,3,6,32 [[id number]] Scheduled Procedures Name [...] Pneumococcal Vaccine: 50+ Ye ars (1 of 2 - PCV) 1959 Zoster Vaccines (1 of 2) 1990 RSV Immunization Adult Patie nts (1 - 1-dose 75+ series) 2015 Depression Screening 08/09/2024 COVID-19 Vaccine (1 - 2023-2 5 season) 2025 Influenza Vaccine (#1) 2025 Falls Risk Assessment 04/26/2025 Medicare Annual Wellness Visit 04/26/2025 Osteoporosis Screening (Bone Density Screening) 04/26/2025 [...] on patient's age to complete this topic Goals Goal Patient Goal Type Associated Problems Recent Progress Patient-Stated? Author Autogenera rose Goal Care Plan Autogenerated Problem No Stephani Velasco Additional Health Concerns Active Problems Noted Date Diagnosed Date Autogenerated Problem 05/07/2025 Insurance MEDICARE [facility] Care Teams Manager Front Office Relationship Specialty Start Date End Date Zena Mcgee MD [address] [place] [address] [address] [facility] [place] [address] PCP - General Internal Medicine 05/09/25
[2025-05-11 15:54] VITALS: BP 114/62; PULSE 82; O2SAT 96; BMI 28.9
--- NOTE | 2025-05-11 15:54 | MHC.PC.OV ---
Vital Signs 05/11/25 15:54 Height 4 ft 11 in Weight 143 lb BMI 28.9 BP 114/62 Blood Pressure Location Lt brachial Position Sitting Pulse 82 Pulse Source Pulse Oximeter Pulse Oximetry (%) 96 Oxygen Delivery Method Room Air Intake Visit Reasons: 3 month f/u Allergies diclofenac Allergy (Severe, Verified 05/11/25 15:54) throat closing,sob guaifenesin (From Mucinex) Allergy (Severe, Verified 05/11/25 15:54) THROAT CLOSING, sob propoxyphene (From Darvon) Allergy (Mild, Verified 05/11/25 15:54) VOMITING omeprazole Adverse Reaction (Intermediate, Verified 05/11/25 15:54) Nausea and Vomiting GENERIC MEDS Allergy (Intermediate, Uncoded 05/11/25 15:54) HIVES prednisone Allergy (Mild, Uncoded 05/11/25 15:54) Hives Medication List - Last Reconciled 05/11/25 by Zena Mcgee MD albuterol sulfate 90 mcg/actuation 2 puffs inhalation Q6H PRN aluminum hydrox-magnesium carb 160-105 mg (Gaviscon Extra Strength) 2 tabs PO TID 30 days apixaban (Eliquis) 5 mg PO BID cetirizine (Zyrtec) 10 mg PO DAILY cholecalciferol (vitamin D3) 25 mcg PO DAILY cyanocobalamin (vitamin B-12) 1,000 mcg PO DAILY furosemide 20 mg PO DAILY levalbuterol HCl 0.63 mg (3 mL) inhalation TID nebulizers (AeroEclipse II Nebulizer) As directed potassium gluconate 595 mg PO DAILY umeclidinium-vilanterol 62.5-25 mcg/actuation (Anoro Ellipta) 1 inh inhalation DAILY vitamin E 268 mg PO DAILY Tobacco use date assessed: 04/30/25 Fall risk assessment: No Falls in past year Last assessed Fall Risk: 05/11/25 Dental Screening Dental Screen Date: 04/30/25 [facility] Medical History (Updated 05/11/25 @ 15:56 by Zena Mcgee MD) Hypertension Atrial fibrillation Paroxysmal atrial fibrillation Arthritis NUL[place]O (hard of hearing) Renal calculi Paraesophageal hernia COPD (chronic obstructive pulmonary disease) Poor dentition GERD (gastroesophageal reflux disease) CHF (congestive heart failure) Afib Recent urinary tract infection (10/29/24) Cough Grade II diastolic dysfunction Shortness of breath Surgical History Hx of varicose vein ligation Hx of colonoscopy History of removal of cyst History of 2 sections Family History Mother No problems noted. Father Substance use disorder Social History Household Members: None Household Members Other:: Adult son Titus Housing: House Are you a primary medicare interviewer to a significant other at home: No Do you presently have visiting nurse or other home services: No Alcohol intake: never Patient Tobacco Use Status: Former Tobacco user Tobacco use type: Cigarette Cigarettes Per Day: 6 e-Cigarette/Vaping Use: Former Use Second Hand Smoke Exposure: No service: No Current occupational status: retired Cognitive needs: No Hearing needs: No Vision needs: No Questionnaire PHQ-9 Over the last 2 weeks, how often have you been bothered by any of the following problems? 1. Little interest or pleasure in doing things: not at all 2. Feeling down, depressed, or hopeless: not at all 3. Trouble falling or staying asleep, or sleeping too much: nearly every day 4. Feeling tired or having little energy: more than half the days 5. Poor appetite or overeating: several days 6. Feeling bad about yourself - or that you are a failure or have let yourself or your family down: not at all 7. Trouble concentrating on things, such as reading the newspaper or watching television: not at all 8. Moving or speaking so slowly that other people could have noticed. Or the opposite - being so fidgety or restless that you have been moving around a lot more than usual: not at all 9. Thoughts that you would be better off or of hurting yourself in some way: not at all Total score: 6 Depression Screening Interpretation: Positive Depression Screening Done: Yes Source: Developed by Drs. Guanako De Guzman, Francoise Yanez, Andrew Zamora and colleagues, with an educational suki from [employer]. Thrive Questionnaire Date Thrive assessed: 04/30/25 I am a: Parent/Caregiver What is your living situation today?: I have a steady place to live Within the past 12 months, did the food you bought not last and you didn't have the money to get more?: Never true Within the past 12 months, did you worry whether your food would run out before you got money to buy more?: I choose not to answer this question Do you have trouble paying for medicines?: I choose not to answer this question Do you have trouble getting transportation to medical appointments?: No Do you have trouble paying your heating and electricity bill?: No Do you have trouble taking care of your child, family member or friend?: No Do you have trouble with day-to-day activities such as bathing, preparing meals, shopping, managing finances, etc.?: No Are you currently unemployed and looking for a job?: I choose not to answer this question Are you interested in more education?: No Please select the resources that you would like help with: None Currently or been in a relationship where the following occur: I choose not to answer THRIVE Score: 0 AUDIT C Alcohol Use Questionnaire (AUDIT-C) 1. How often do you have a drink containing alcohol?: Never 3. How often do you have six or more drinks on one occasion?: Never Total Score: 0 RUBEN-7 AMB Questionnaire RUBEN-7 Date RUBEN - 7 assessed: 04/30/25 Feeling nervous, anxious, or on edge: 0 = Not at all Not being able to stop or control worryin = Not at all Worrying too much about different things: 0 = Not at all Trouble relaxin = Not at all Being so restless that it is hard to sit still: 0 = Not at all Becoming easily annoyed or irritable: 0 = Not at all Feeling afraid as if something awful might happen: 0 = Not at all Total RUBEN-7 score (0-4 normal; 5-9 mild; 10-14 moderate; 15-21 severe): 0 Source: Developed by Drs. Guanako De Guzman, Francoise Yanez, Andrew Zamora and colleagues, with an educational suki from [employer]. Physical exam (Primary Care) Vital Signs: Last Vital Signs Pulse 82 05/11/25 15:54 BP 114/62 05/11/25 15:54 Pulse Ox 96 05/11/25 15:54 Oxygen Delivery Method Room Air 05/11/25 15:54 BMI result Body Mass Index 28.9 Tobacco/Smoking Status: Tobacco use Status Tobacco use date assessed 04/30/25 05/11/25 15:57 Patient Tobacco Use Status Former Tobacco user 05/11/25 15:57 Tobacco use type Cigarette 05/11/25 15:57 e-Cigarette/Vaping Use Former Use 05/11/25 15:57 PHQ-9: PHQ-9 Score PHQ-9: Total score 6 05/11/25 15:57 Depression Screening Interpretation: Positive Thrive Assessment: Date of Thrive Assessment Date Thrive assessed 04/30/25 05/11/25 15:57 Currently or been in a relationship where the following occur: I choose not to answer Const General: alert; No acute distress Eyes Conjunctivae: conjunctivae normal Resp Auscultation: clear to auscultation bilaterally Cardio Rate: regular rate Rhythm: regular rhythm GI Inspection: Yes normal to inspection Extrem General: Yes normal to inspection and No edema Coding Level of Care Code Est Pt Level 4 (74000) Complex EM visit Add On G2211 Diagnoses Paroxysmal atrial fibrillation I48.0 Hypercholesterolemia E78.00 GERD (gastroesophageal reflux disease) K21.9 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 Be it pork or beef they have a lot of cholesterol LDL cholesterol of less than 130 and triglyceride of less than 150 (3) GERD (gastroesophageal reflux disease): Code(s): K21.9 - Gastro-esophageal reflux disease without esophagitis Category: Medical Plan: Avoid the foods that causes that usually spicy foods, tomato products, juices, coffee, soda and foods that your sensitive to. After eating do not lie down, allow 3-4 hours before in lie down. And keep the head of bed above 30 degrees to avoid the acid from going up. (4) COPD (chronic obstructive pulmonary disease): Code(s): J44.9 - Chronic obstructive pulmonary disease, unspecified Category: Medical Qualifiers: COPD type: emphysema Emphysema type: other Qualified Code(s): J43.8 - Other emphysema Plan: Continue with albuterol inhaler and Anoro (5) Left wrist pain: Code(s): M25.532 - Pain in left wrist Category: Medical Plan History of Present Illness The patient is an 84-year-old female presenting with multiple chronic conditions and preventative care needs. Hypertension with diastolic dysfunction has been a long-standing issue for the patient, managed with medication. The condition has been stable without recent exacerbations. The patient has a history of asthma and COPD, which have been managed with inhalers. She experienced increased coughing during the summer due to humidity but improved with regular use of her inhalers. Atrial fibrillation is being managed with anticoagulation therapy, specifically Eliquis. The patient is compliant with her medication regimen. Hypercholesterolemia was noted with elevated cholesterol levels in October 2024. The patient is aware of the need for dietary modifications to manage this condition. The patient has been diagnosed with essential tremor, which is bothersome but not dangerous. She has opted not to pursue medication for this condition. Prediabetes was identified with a hemoglobin A1c of 6.1. The patient has been advised to reduce sugar intake to prevent progression to diabetes. 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 The patient has used topical treatments and is considering corticosteroid injections for relief. The patient reports sleep disturbances, for which she uses jsua-fnt-xdxqaqe Benadryl. She is cautious about using stronger sleep medications due to potential side effects. A urinary tract infection was suspected based on urinalysis, but the patient is asymptomatic and has not required treatment. Health Maintenance - Twice a year blood work recommended to monitor anticoagulation therapy and overall health status. - Dietary modifications advised to manage hypercholesterolemia and prediabetes. - Stress test planned to evaluate cardiac function due to previous coughing episodes. Social History - The patient has dietary habits that include high sugar intake, contributing to prediabetes. - The patient experiences sleep disturbances and uses xuyf-hpn-mwgvvox Benadryl for management. Review of Systems - Cardiovascular: Reports atrial fibrillation. Denies chest pain or syncope. - Respiratory: Reports asthma and COPD with increased coughing during summer. Denies current dyspnea. - Neurological: Reports essential tremor. Denies headaches or dizziness. - Endocrine: Reports prediabetes. Denies symptoms of hyperglycemia. - Musculoskeletal: Reports arthritis in the wrist. Denies other joint pain. - Genitourinary: Denies symptoms of urinary tract infection. Physical Exam Results - Labs: Hemoglobin A1c of 6.1 indicating prediabetes. - Labs: Normal blood count, electrolytes, renal function, and liver function tests. - Labs: Elevated cholesterol levels noted in October 2024. Plan Patient was informed and verbally consented to the use of an ambient scribe for clinic note documentation during this visit. 1. Hypertension With Diastolic Dysfunction The patient will continue with her current antihypertensive regimen to manage hypertension with diastolic dysfunction. 2. Asthma The patient is advised to continue using her inhalers regularly, especially during periods of increased humidity, to manage asthma symptoms. 3. Chronic Obstructive Pulmonary Disease (Copd) The patient should maintain regular use of her prescribed inhalers, including Anoro, to manage COPD symptoms. 4. Atrial Fibrillation The patient will continue anticoagulation therapy with Eliquis and undergo regular blood work to monitor her condition. 5. Hypercholesterolemia Dietary modifications are recommended to manage hypercholesterolemia, with a focus on reducing LDL cholesterol and triglycerides. 6. Essential Tremor The patient has opted not to pursue medication for essential tremor at this time. 7. Prediabetes The patient is advised to reduce sugar intake and monitor her blood glucose levels to prevent progression to diabetes. 8. Arthritis The patient is considering corticosteroid injections for arthritis pain relief and will continue using topical treatments. 9. Sleep Disturbances The patient will continue using mxbm-gah-qjpader Benadryl for sleep disturbances and avoid stronger sleep medications. 10. Urinary Tract Infection The patient is asymptomatic for urinary tract infection and does not require treatment at this time. Discussion Notes During the visit, we discussed the management of the patient's chronic conditions, including hypertension, asthma, COPD, atrial fibrillation, hypercholesterolemia, and prediabetes. We emphasized the importance of medication adherence and lifestyle modifications, particularly dietary changes to manage cholesterol and blood glucose levels. The patient was informed about the need for regular blood work and the potential benefits of corticosteroid injections for arthritis. We also addressed her sleep disturbances and the use of xedn-iwt-tfrdmdt Benadryl. The patient was advised to continue her current medication regimen and to follow up for further evaluation if symptoms persist or worsen. Patient Instructions - Continue taking all prescribed medications as directed. - Use inhalers regularly, especially during humid weather, to manage asthma and COPD. - Follow dietary recommendations to manage cholesterol and blood glucose levels. - Monitor blood glucose levels and reduce sugar intake to prevent diabetes. - Consider corticosteroid injections for arthritis pain relief if needed. - Use tqlm-xnw-dylawfq Benadryl for sleep disturbances as needed. - Schedule and complete the recommended stress test to evaluate cardiac function. Orders: Orders Complete Blood Count Auto Diff 3 Months E78.00 - Pure hypercholesterolemia, unspecified Comprehensive Met. Panel 3 Months E78.00 - Pure hypercholesterolemia, unspecified Free T4 (Free Thyroxine) 3 Months E78.00 - Pure hypercholesterolemia, unspecified Lipid Panel 3 Months E78.00 - Pure hypercholesterolemia, unspecified Vitamin B12 and Folate 3 Months E78.00 - Pure hypercholesterolemia, unspecified Magnesium 3 Months E78.00 - Pure hypercholesterolemia, unspecified Thyroid Stimulating Hormone 3 Months E78.00 - Pure hypercholesterolemia, unspecified Vitamin D 25-OH Total 3 Months E78.00 - Pure hypercholesterolemia, unspecified Referrals Orthopedics Referral M25.532 - Pain in left wrist
== END 2025-05-11 16:25 | disposition home or self-care (01) ==
LOC: HO.HMCH 15:43
PROVIDERS: PCP Internal Medicine; Visit Provider Internal Medicine
DX: I48.0 Paroxysmal atrial fibrillation (principal); E78.00 Pure hypercholesterolemia, unspecified; K21.9 Gastro-esophageal reflux disease without esophagitis; J43.8 Other emphysema; M25.532 Pain in left wrist

== ENCOUNTER → 2025-05-11 15:42 | Outpatient (BNVA) | payer MEDICARE, SELFPAY | PROVIDERS: PCP Internal Medicine; Visit Provider Internal Medicine | DX: I48.0 Paroxysmal atrial fibrillation (principal); E78.00 Pure hypercholesterolemia, unspecified; K21.9 Gastro-esophageal reflux disease without esophagitis; J43.8 Other emphysema; G25.0 Essential tremor; M19.032 Primary osteoarthritis, left wrist; R73.03 Prediabetes; Z87.440 Personal history of urinary (tract) infections | CPT/HCPCS: 96127; 99212 ==

== ENCOUNTER → 2025-05-14 08:06 | Outpatient (REF) | payer MEDICARE, SELFPAY ==
--- NOTE | ~2025-05-14 | NM_ITS ---
Lexiscan Myocardial perfusion study Indication: Chest pain to evaluate for myocardial ischemia Technique: The patient was brought in for a Lexiscan perfusion study on May 14, 2025 and was injected 0.4 mg of Lexiscan intravenously. Within a minute of this injection 25 mCi of sestamibi was given intravenously. Images were obtained using the SPECT gamma camera interlaced with the gating device. Images were obtained in supine position. Resting perfusion study was performed on May 15, 2025. Patient was administered 25 mCi of sestamibi intravenously at rest. Images were then obtained in supine position. Images obtained without without CT attenuation. Total DLP 111 mGy-cm. Images were processed with the software and compared side to side in short axis, horizontal long axis and vertical long axis views. Findings: Both stress and rest images are significantly suboptimal due to subdiaphragmatic uptake interfering with inferior as well as basal lateral wall and inferolateral wall myocardial uptake. Resting perfusion study seems to be worse affected The stress perfusion study showed nonattenuated images show mildly reduced uptake in the distal lateral wall of the LV myocardium. Remainder of the LV myocardium is normally perfused. Attenuated corrected images show normal uptake of radiotracer in all segments of the LV myocardium.. The gated study shows normal LV systolic function with visually estimated LVEF of greater than 60%. LV cavity is normal in size. The gated study shows normal systolic wall thickening and contraction of segments. Resting study shows suboptimal but diffusely reduced uptake in all segments of the LV myocardium. Gating at rest reveals normal systolic wall motion with ejection fraction at greater than 60%. The findings are consistent with likely normal myocardial perfusion. NM/NM cardiolite stress test Impression: 1. Myocardial perfusion imaging study shows likely normal myocardial perfusion 2. Gated LVEF is greater than 60% 3. Transient ischemic dilatation not present Nondiagnostic changes on EKG. Electronically signed by: Rajiv Sears MD 05/16/2025 03:26 PM EDT
--- NOTE | 2025-05-14 08:09 | CA_ITS ---
Acquisition Time: 2025-05-14 08:27:42 Total Exercise Time: 00:02:00 Test Indications: CP,Dyspnea,Pre-Op Evaluation Medications: SEE H&P Protocol: LEXISCAN Max HR: 127 BPM 93% of Pred: 136 BPM Max BP: 148/72 mmHG Max Work Load: 1.0 METS Pharmacological stress test with Lexiscan injection, while sitting and kicking her legs, with report of sob, chest tighthness and dizziness, without arrythmia, with normotensive response to injection, with nondiagnostic EKG for ischemia. In recovery she was treated with Aminophylline 75mg IVP to reverse Lexiscan with resolution of symptoms. Nuclear images pending. Test reviewed with Dr Sears. Referred By: Genna Anderson Electronically Signed By: GULSHAN LOZANO
--- OUTSIDE RECORDS SUMMARY | 2025-05-14 08:16 | XMS_ITS | Clinical Summary ---
Author Organization [facility] Address [address] [place] [phone] Phone Care Team Providers Care Backend Tester Name Role Phone Zena Mcgee MD Primary Care Provider [phone] Allergies Active Allergy Reactions Criticality Noted Date [...] Description 05/16/2025 1:00 PM EDT Hospital Encounter [facility] Main OR [address] [place] [address] [place] [phone] Pascual Rodriguez, DMD [address] [place] [address] 05/16/2025 1:00 PM EDT - 05/16/2025 2:30 PM EDT Surgery [facility] Main OR [address] [place] [phone] Pascual Rodriguez, DMD [address] [place] [address] EXTRACTION TEETH #2,3,6,32 [[id number]] Scheduled Procedures Name [...] Diagnosed Date Autogenerated Problem 05/07/2025 Insurance MEDICARE [facility] Care Teams Backend Tester Relationship Specialty Start Date End Date Zena Mcgee MD [address] [place] [address] Dr [address] [facility] [place] [address] PCP - General Internal Medicine 05/09/25
== END ==
LOC: HO.CARD 08:06
PROVIDERS: PCP Internal Medicine
DX: R07.9 Chest pain, unspecified (principal)
CPT/HCPCS: 78452; 93017; A9500; J0280; J2785

== ENCOUNTER → 2025-05-14 08:09 | Outpatient (BNV) | payer MEDICARE, SELFPAY | PROVIDERS: PCP Internal Medicine; Visit Provider Nurse Practitioner Family | DX: R07.9 Chest pain, unspecified (principal) | CPT/HCPCS: 78452; 93016; 93018 ==

== ENCOUNTER 2025-06-26 10:40 | Emergency (ER) | payer MEDICARE, SELFPAY ==
--- NOTE | ~2025-06-26 | XR_ITS ---
EXAMINATION: XR CHEST CLINICAL INFORMATION: SOB COMPARISON: May 01, 2025 TECHNIQUE: PA and lateral views FINDINGS: Pulmonary reticular pattern. Hyperinflated lungs. Linear opacities, lingula. Blunting of the posterior costophrenic angle. Cardiomediastinal silhouette size is prominent. Calcified plaque thoracic aorta. Multilevel thoracolumbar spondylosis. Kyphotic deformity mid thoracic spine. Osteopenia versus osteoporosis. 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 Hiatal hernia. Electronically signed by: Phil Gurrola MD 06/26/2025 11:46 AM EST
[2025-06-26 10:46] VITALS: BP 140/70; PULSE 73; RESP 18; TEMP 36.6; O2SAT 98; BMI 28.9
--- NOTE | 2025-06-26 10:48 | ED.SOB ---
HPI - SOB/Dyspnea General Chief Complaint: Upper Respiratory Symptoms Stated Complaint: SOB Time Seen by Provider: 06/26/25 11:38 Source: patient and family ( Son, Titus) Mode of arrival: ambulatory Limitations: no limitations History of Present Illness ED Provider: Dr. Tyler Duffy HPI Narrative: 84-year-old female history of hypertension, atrial fibrillation on Eliquis, kidney stone, paraesophageal hernia, COPD, GERD, congestive heart failure, who presents emergency department for evaluation of shortness of breath times 1 week . Thepatient had all of her upper and bilateral posterior teeth extractions done under general anesthesia at [facility] 1 week prior. Patient states that after waking up from the anesthesia, she felt short of breath and the shortness of breath that has gotten progressively worse since that time. She is also having dyspnea on exertion. She denied any lower extremity pain or swelling. She denied chest pain. She states she has a slight cough which is minimally productive . The patient was taking antibiotics and pain medications but stopped these medications secondary to her shortness of breath. Patient has been taking her Eliquis postoperatively. She has been using her nebulizers or inhalers as usual with no relief of her symptoms. Review of systems werenegative for fever, chills, rhinorrhea, sore throat, nausea, vomiting, diarrhea Related Data Home Medications ?Medication ?Instructions ?Recorded ?Confirmed cyanocobalamin (vitamin B-12) 1,000 mcg PO DAILY 05/03/23 05/11/25 1,000 mcg tablet vitamin E 268 mg (400 unit) capsule 268 mg PO DAILY 05/03/23 05/11/25 cholecalciferol (vitamin D3) 25 25 mcg PO DAILY 08/24/23 05/11/25 mcg (1,000 unit) capsule Previous Rx's ?Medication ?Instructions ?Recorded nebulizers (AeroEclipse II #1 ea 01/01/23 Nebulizer) aluminum hydrox-magnesium carb 160 2 tab PO TID 30 days #180 tabs 11/29/23 mg-105 mg chewable tablet (Gaviscon Extra Strength) potassium gluconate 595 mg (99 mg) 595 mg PO DAILY #30 tabs 07/31/24 tablet apixaban 5 mg tablet (Eliquis) 5 mg PO BID #60 tabs 02/19/25 levalbuterol HCl 0.63 mg/3 mL 0.63 mg (3 mL) inhalation TID #90 04/22/25 solution for nebulization mL cetirizine 10 mg tablet (Zyrtec) 10 mg PO DAILY #90 tabs 04/30/25 umeclidinium 62.5 mcg-vilanterol 1 inh inhalation DAILY #60 ea 04/30/25 25 mcg/actuation powdr for inhalation (Anoro Ellipta) albuterol sulfate 90 mcg/actuation 2 puff inhalation Q6H PRN 05/17/25 aerosol inhaler shortness of breath or wheezing #8.5 grams furosemide 20 mg tablet 20 mg PO DAILY #90 tabs 06/12/25 Allergies Allergy/AdvReac Type Severity Reaction Status Date / Time diclofenac Allergy Severe throat Verified 06/26/25 10:51 closing,sob guaifenesin (From Mucinex) Allergy Severe THROAT Verified 06/26/25 10:51 CLOSING, sob propoxyphene (From Darvon) Allergy Mild VOMITING Verified 06/26/25 10:51 omeprazole AdvReac Intermediate Nausea and Verified 06/26/25 10:51 Vomiting GENERIC MEDS Allergy Intermediate HIVES Uncoded 06/26/25 10:51 prednisone Allergy Mild Hives Uncoded 06/26/25 10:51 Review of Systems Review of Systems: Yes all other systems are reviewed and are negative [facility] Past Medical History [facility] Narrative: social history: She is a former smoker, quit 6 years prior but has a greater than 40 pack-year history of smoking. She denies alcohol use. She denies drug use. Medical History (Updated 06/26/25 @ 15:09 by Tyler Duffy MD) Hypertension Atrial fibrillation Paroxysmal atrial fibrillation Arthritis ZUNI (hard of hearing) Renal calculi Paraesophageal hernia COPD (chronic obstructive pulmonary disease) Poor dentition GERD (gastroesophageal reflux disease) CHF (congestive heart failure) Afib Recent urinary tract infection (06/06/24) Cough Grade II diastolic dysfunction Shortness of breath Surgical History Hx of varicose vein ligation Hx of colonoscopy History of removal of cyst History of 2 sections Family History Family History Mother No problems noted. Father Substance use disorder Social History Social History Household Members: None Household Members Other:: Adult son Titus Housing: House Are you a primary health care facility administrator to a significant other at home: No Do you presently have visiting nurse or other home services: No Alcohol intake: never Patient Tobacco Use Status: Former Tobacco user Tobacco use type: Cigarette Cigarettes Per Day: 6 e-Cigarette/Vaping Use: Former Use Second Hand Smoke Exposure: Yes Advance Directives: No Advance Directives Information Provided: Yes Do you have a plan to hurt others: No Plan service: No Current occupational status: retired Cognitive needs: No Hearing needs: No Vision needs: No Physical Exam Vital Signs: Vital Signs: Last Vital Signs Temp 98 F 06/26/25 10:46 Pulse 80 06/26/25 13:36 Resp 18 06/26/25 13:36 BP 126/76 06/26/25 13:36 Pulse Ox 99 06/26/25 13:36 O2 Del Method Room Air 06/26/25 13:36 BMI result Body Mass Index 28.9 vital signs revealed an elevated blood pressure of 140/70 with a normal O2 saturation of 98% on room air. Exam: General: Awake, alert in no distress Head: Normocephalic, atraumatic EENT: PERRL, sclera and conjunctiva are normal, mouth with no erythema or exudates Neck: Supple, no adenopathy Lung: breath sounds were symmetric bilaterally, patient has diffuse rhonchi and wheezing at the bases which are symmetric, no rales. Chest: symmetric movement, Bilateral costochondral tenderness Heart: regular rate and rhythm, normal S1, S2 no murmurs or rubs Abdomen: soft, non-tender, nondistended, normal bowel sounds Back: no vertebral tenderness, no CVAT Extremities: no deformities, moves all extremities symmetrically, no edema Neuro: Awake, alert, oriented, normal speech, cranial nerves 2-12 intact, moves all extremities symmetrically Psych: Pleasant, cooperative Course Course Course Narrative: This is an RME: Additional HPI, ROS, PE not included below will be deferred to primary provider. RME assessment and note performed by: Jennifer Clark PA-C This is a 15-ada[age]-har-female, with a hx of HTN, a fib on Eliquis, COPD, CHF, who presents to the ER with complaints of SOB x 1 week. Reports that she had multiple teeth removed last Wednesday under general anesthesia and awoke feeling short of breath. She states that the shortness for breath has continued, was on a narcotic pain medication which they discontinued on Wednesday. They also discontinued the antibiotic that was prescribed to her on Wednesday as instructed by her surgeon as this may have been a allergic reaction. She denies any lower extremity swelling. No current pain. Lungs with crackles heard at bilateral lung bases, right worse than left. No peripheral edema noted. Plan: Labs, Xray, EKG, further ER eval needed Medications Administered Discontinued Medications Generic Name Dose Route Start Last Admin Trade Name Freq PRN Reason Stop Dose Admin Albuterol Sulfate 5 mg/ 7.5 mg 06/26/25 13:03 06/26/25 13:11 Albuterol Sulfate 2.5 mg INHALE 06/26/25 13:04 7.5 mg ONCE ONE Administration Medical Decision Making Medical Decision Making MDM Narrative: 84-year-old female history of hypertension, atrial fibrillation on Eliquis, kidney stone, paraesophageal hernia, COPD, GERD, congestive heart failure, who presents emergency department for evaluation of shortness of breath times 1 week . Thepatient had all of her upper and bilateral posterior teeth extractions done under general anesthesia at [facility] 1 week prior. Patient states that after waking up from the anesthesia, she felt short of breath and the shortness of breath that has gotten progressively worse since that time. She is also having dyspnea on exertion. She denied any lower extremity pain or swelling. She denied chest pain. She states she has a slight cough which is minimally productive . The patient was taking antibiotics and pain medications but stopped these medications secondary to her shortness of breath. Patient has been taking her Eliquis postoperatively. She has been using her nebulizers or inhalers as usual with no relief of her symptoms. Review of systems werenegative for fever, chills, rhinorrhea, sore throat, nausea, vomiting, diarrhea . Blood pressure was elevated otherwise vital signs were normal with a normal respiratory rate and O2 saturation. Lung exam did reveal diffuse rhonchi, wheezing at the bases with no rales, exam was otherwise unremarkable. Differential diagnosis: Includes but is not limited to Viral syndrome, COVID-19, influenza, RSV, pneumonia, pulmonary embolism, bronchitis, chronic lung disease exacerbation, pulmonary edema,anemia, electrolyte abnormalities Course: 12:53 My interpretation patient's laboratory evaluation is as follows: CBC was normal. CMP was normal. COVID-19, influenza and RSV tests were negative. NT-proBNP elevated at 649. 7. Chest x-ray did not reveal any acute findings to explain the patient's shortness of breath. given the fact the patient had general anesthesia 1 week prior for her dental instructions, she is at high-risk for PE therefore I did order a CT pulmonary angiogram PE protocol. Patient was also ordered bronchodilator protocol and she was given dexamethasone 6 mg IV for possible exacerbation of her chronic lung disease. 15:10 nursing staff had difficulty getting an IV in his patient for a CT angiogram PE protocol. A nurse was attempting ultrasound-guided IV however patient states that it was too painful and insisted that the nurse stopped trying. The patient has refused any further attempts or IV guided ultrasounds. I did discuss the risk of pulmonary embolism her and that that that if she leaves against medical advice she can possibly from pulmonary embolism. Patient understood this discussion and still wants to leave against medical advice. The patient's son, Titus was in the room for this discussion, he is upset that has mother does not want to stay were get further IV attempts. Despite Her son'sattempt to convince in his mother, the patient still wants to leave against medical advice. patient was given dexamethasone 10 mg orally, advised to continue taking her Eliquis in her other medications as prescribed, to use your inhalers and nebulizers as prescribed by her PCP's. I told her that if she changed her mind in any way she should come back to the emergency department and we would treat her regardless of her leaving AMA. Differential Diagnosis Differential Diagnoses: The differential diagnosis associated with the presentation includes ( See above) Admission/Observation Consideration of admission/observation: Escalation of care including admission/observation considered ( yes) Lab Data MDM Lab Attestation statement: I reviewed the patient's lab results. 06/26/25 11:06/26/25 11: Labs: Lab Results 06/26/25 06/26/25 Range/Units 11: 11: WBC 7.1 (4.8-10.8) X10*3/uL RBC 5.04 (4.20-5.50) X10*6/uL Hgb 13.6 (12.0-16.0) g/dl Hct 42.2 (37.0-47.0) % MCV 83.7 (80.0-98.0) fL MCH 27.0 (27.0-33.0) pg MCHC 32.2 (31.0-35.0) g/dl RDW 14.6 (11.0-16.0) % Plt Count 285 (160-400) X10*3/uL MPV 8.5 L (9.4-12.3) fL Immature Gran % (Auto) 0.3 (0.0-0.4) % Neut % (Auto) 49.7 (45-73) % Lymph % (Auto) 30.1 (20-40) % Parker % (Auto) 11.7 H (2-11) % Eos % (Auto) 7.5 H (0-4) % Baso % (Auto) 0.7 (0-2) % Lymph # (Auto) 2.1 (1.2-4.9) X10*3/uL Parker # (Auto) 0.8 (0.1-1.2) X10*3/uL Eos # (Auto) 0.5 H (0.0-0.4) X10*3/uL Baso # (Auto) 0.1 (0.0-0.2) X10*3/uL Abs Immat Gran (auto) 0.02 (0.00-0.03) X10*3/uL Absolute Neuts (auto) 3.5 (2.0-8.3) x10*3/uL Absolute Nucleated RBC 0.000 (0.0-0.012) X10*3/uL Nucleated RBC % (auto) 0.0 (0.0-0.2) /100WBC Sodium 137 (135-145) mmol/L Potassium 3.9 (3.3-5.1) mmol/L Chloride 107 (96-108) mmol/L Carbon Dioxide 22 (22-29) mmol/L Anion Gap 12 (12-20) BUN 14 (9-16) mg/dL Creatinine 0.79 (0.5-1.4) mg/dL Estim Creat Clear Calc 43.4 Estimated GFR > 60 Random Glucose 86 (60-115) mg/dL Calcium 9.5 (8.4-10.2) mg/dL Magnesium 2.0 (1.6-2.6) mg/dL Total Bilirubin 0.5 (0.0-1.0) mg/dL Direct Bilirubin 0.1 (0.0-0.5) mg/dL AST 38 H (5-31) U/L ALT 18 (0-31) U/L Alkaline Phosphatase 112 (39-117) U/L Troponin I High Sens < 2.7 (<3.5-17.0) ng/L NT-Pro-B Natriuret Pep 649.7 H Cancelled (<300) pg/mL Total Protein 7.3 (6.5-8.0) g/dL Albumin 4.3 (3.5-5.0) g/dL Influenza Type A (PCR) NEGATIVE (Negative) Influenza Type B (PCR) NEGATIVE (Negative) RSV RNA Qual (PCR) NEGATIVE (Negative) SARS-CoV-2 RNA (RT-PCR) NEGATIVE (Negative) Independent Interpretation I performed an independent interpretation of an: EKG and Plain X-Ray Interpretation: my independent interpretation patient's two view chest x-ray is as follows: No acute infiltrates, no obvious findings to support CHF. Compared to two-view chest x-ray dated 05/01/2025 no significant change. My independent interpretation patient's 12 EKG done on 06/26/2025 at 11:13 hours is as follows: Atrial fibrillation with a rate of 76, normal QRS duration QTC interval, there is artifact in the baseline what makes that difficult to interpret however no obvious ST segment elevation or depression, no significant T-wave abnormalities, no PVCs. Compared to EKG dated 05/03/2023 at 02:54 hours, patient was in a sinus rhythm at that time. Radiology Impression Discussion of test interpretation with radiology: I have reviewed the radiologist's reading. Radiologist Impression: XR CHEST CLINICAL INFORMATION: SOB COMPARISON: May 01, 2025 TECHNIQUE: PA and lateral views FINDINGS: Pulmonary reticular pattern. Hyperinflated lungs. Linear opacities, lingula. Blunting of the posterior costophrenic angle. Cardiomediastinal silhouette size is prominent. Calcified plaque thoracic aorta. Multilevel thoracolumbar spondylosis. Kyphotic deformity mid thoracic spine. Osteopenia versus osteoporosis. IMPRESSION: Chronic interstitial lung disease suggesting COPD emphysematous type changes, similar since prior exam. Hiatal hernia. Electronically signed by: Phil Gurrola MD 06/26/2025 11:46 AM Independent Historian Clinical information obtained from an independent historian. History obtained from or confirmed by: Other ( son) Chronic Conditions Patient?s care impacted by: Other ( COPD) Discharge Plan Discharge Clinical Impression: Acute dyspnea, Left against medical advice, COPD (chronic obstructive pulmonary disease) Patient Disposition: Left Against Medical Advice Instructions: COPD (Chronic Obstructive Pulmonary Disease) (ED) Additional Instructions: At this time I do not have a clear cause for your shortness of breath. Your blood work was unremarkable and your chest x-ray did not reveal any significant findings. Given your recent surgery under anesthesia you are at increased risk for having a blood clot in either your legs or pelvic veins that could break off and go to your lungs. I ordered a CT angiogram of your lungs to see if there is a blood clot in your lungs however we Were unable to get an IV in you and you you refused further attempts at an ultrasound IV therefore you are leaving against medical advice. Continue taking your medications as prescribed by your providers, make sure you do not miss any of your Eliquis doses-this is a strong anticoagulant and could prevent further blood clots. You were given a nebulizer treatment and oral dexamethasone. Dexamethasone is a steroid that reduces inflammation in your lungs and will last 3 days, hopefully this will make you feel better. Even though you are leaving against medical advice, it does not mean that we will see you again in treat you. If you change your mind police come back to the emergency department for re-evaluation. If you develop fever, chills, chest pain, worsening shortness of breath that is very important that you come back so that we can re-evaluate you. Follow-up with your doctor in 2 days. Please return to the emergency department if your symptoms get worse or if you develop any symptoms that are concerning to you. Prescriptions: No Action (DME) nebulizers [AeroEclipse II Nebulizer] Misc See Rx Instructions .Route Qty: 1 0RF Rx Instructions: As directed levalbuterol HCl 0.63 mg/3 mL solution for nebulization 0.63 mg inhalation TID Qty: 90 0RF albuterol sulfate 90 mcg/actuation HFA aerosol inhaler 2 puff inhalation Q6H PRN (Reason: shortness of breath or wheezing) Qty: 8.5 0RF furosemide 20 mg tablet 20 mg PO DAILY Qty: 90 3RF cyanocobalamin (vitamin B-12) 1,000 mcg Tablet 1,000 mcg PO DAILY vitamin E 268 mg (400 unit) Capsule 268 mg PO DAILY cholecalciferol (vitamin D3) 25 mcg (1,000 unit) capsule 25 mcg PO DAILY Gaviscon Extra Strength 160-105 mg tablet,chewable 2 tab PO TID 30 Days Qty: 180 0RF potassium gluconate 595 mg (99 mg) tablet 595 mg PO DAILY Qty: 30 0RF umeclidinium-vilanterol [Anoro Ellipta] 62.5-25 mcg/actuation blister with device 1 inh inhalation DAILY Qty: 60 0RF cetirizine [Zyrtec] 10 mg tablet 10 mg PO DAILY Qty: 90 0RF Eliquis 5 mg tablet 5 mg PO BID Qty: 60 11RF Stand Alone Forms: Against Medical Advice Print Language: Turkish
--- NOTE | 2025-06-26 10:51 | ECG_ITS ---
Test Reason : sob Blood Pressure : */* mmHG Vent. Rate : 76 BPM Atrial Rate : * BPM P-R Int : * ms QRS Dur : 70 ms QT Int : 388 ms P-R-T Axes : * 14 34 degrees QTcB Int : 436 ms Atrial fibrillation Cannot rule out Anterior infarct , age undetermined , could be realted to body habitus and lead placement Nonspecific ST and T wave abnormality Abnormal ECG When compared with ECG of 03-May-2023 02:54, Atrial fibrillation has replaced Sinus rhythm Referred By: Jennifer Clark Electronically Signed By: DAIN SOTELO
[2025-06-26 11:34] LABS: MANUAL DIFF FLAG NO
[2025-06-26 11:41] LABS: Hematocrit 42.2 % (37.0-47.0); Hemoglobin 13.6 g/dl (12.0-16.0); Imm Gran Abs Auto 0.02 X10*3/uL (0.00-0.03); Imm Gran Pct Auto 0.3 % (0.0-0.4); Lymphocytes Absolute Auto 2.1 X10*3/uL (1.2-4.9); Mean Corpuscular HGB Conc 32.2 g/dl (31.0-35.0); Mean Corpuscular Hemoglobin 27.0 pg (27.0-33.0); Mean Corpuscular Volume 83.7 fL (80.0-98.0); NRBC Abs Auto 0.000 X10*3/uL (0.0-0.012); NRBC Pct Auto 0.0 /100WBC (0.0-0.2); Platelet Count 285 X10*3/uL (160-400); Red Blood Count 5.04 X10*6/uL (4.20-5.50); White Blood Count 7.1 X10*3/uL (4.8-10.8)
[2025-06-26 11:55] LABS: Alanine Aminotransferase 18 U/L (0-31); Albumin Level 4.3 g/dL (3.5-5.0); Alkaline Phosphatase 112 U/L (39-117); Anion Gap 12 (12-20); Aspartate Amino Transferase 38 U/L (5-31); Blood Urea Nitrogen 14 mg/dL (9-16); Calcium 9.5 mg/dL (8.4-10.2); Carbon Dioxide 22 mmol/L (22-29); Chloride 107 mmol/L (96-108); Creatinine Clr Calc Pharmacy 43.4; Estimated Glomerular Filt Rate > 60; Magnesium 2.0 mg/dL (1.6-2.6); Potassium 3.9 mmol/L (3.3-5.1); Sodium 137 mmol/L (135-145); Total Protein 7.3 g/dL (6.5-8.0)
[2025-06-26 12:02] LABS: NT Pro B Type Natriuretic Pept 649.7 pg/mL (<300)
[2025-06-26 12:03] LABS: Troponin-I High Sensitivity < 2.7 ng/L (<3.5-17.0)
[2025-06-26 12:19] LABS: Resp Syncy Virus RNA Qual PCR NEGATIVE (Negative); SARS COV2 PCR INHOUSE NEGATIVE (Negative)
[2025-06-26] MEDS: Albuterol Sulfate 5 MG, Albuterol Sulfate (0.083%) 2.5 MG 7.5 MG INHALE (13:11)
[2025-06-26 13:15] VITALS: PULSE 73; RESP 20; O2SAT 98
[2025-06-26 13:36] VITALS: BP 126/76; PULSE 80; RESP 18; O2SAT 99
--- NOTE | 2025-06-26 15:17 | PC.NURSE ---
Back documentation unable to get US IV Pt, pt screaming at trained US IV nurse at bedside demanded it get taken out. PT requesting to leave AMA. Provider notified provider at bedside educating pt on risks. PT understands risk and still requesting to leave AMA. AMA paper signed witness provided and provider signed.
[2025-06-26 15:19] VITALS: BP 126/76; PULSE 80; RESP 18; TEMP 37.1; O2SAT 99
--- OUTSIDE RECORDS SUMMARY | 2025-06-27 02:50 | XMS_ITS | Clinical Summary ---
Author Organization [facility] Address [address] [place] [phone] Phone Care Team Providers Care Project Geologist Name Role Phone Zena Mcgee MD Primary Care Provider [phone] Allergies Active Allergy Reactions Criticality Noted Date Comments Guaifenesin Shortness of breath High 04/30/2025 Medications apixaban (ELIQUIS) 5 mg tablet Take 1 tablet (5 mg total) by mouth 2 (two) times a day. Active furosemide (LASIX) 20 mg tablet Take 1 tablet (20 mg total) by mouth 1 (one) time each day. Active fluticasone furoate-vilant Tessa (Breo Ellipta) 100-25 mcg/dose inhaler Inhale by mouth 1 (one) time each day. Active multivitamin tablet Take 1 tablet by mouth 1 (one) time each day. Active calcium carbonate-ursula min D 500 mg-5 mcg (200 unit) per tablet Take 1 tablet by mouth 1 (one) time each day. Active cyanocobalamin (VITAMIN B-12) 1,000 mcg tablet Take 1 tablet (1,000 mcg total) by mouth 1 (one) time each day. Active vitamin E, dl,tocopheryl acet, (vitamin E, dl, acetate,) 450 mg (1,000 unit) capsule Take 1 capsule (1,000 Units total) by mouth 1 (one) time each day. Active calcium carbonate (TUMS) 500 mg (200 mg elemental calcium) chewable tablet Chew 1 tablet (500 mg total). 06/20/20 25 Discontinued Encounters Date Type Department Care Team Description 06/20/2025 12:08 PM EST Anesthesia Event [facility] Main OR [address] [place] [phone] Reymundo Collazo MD 06/20/2025 11:30 AM EST - 06/20/2025 1:00 PM EST Surgery [facility] Main OR [address] [place] [phone] Pascual Rodriguez DMD EXTRACT#2,3,6,32 & EXCISIONAL BIOPSY NEOPLASM RIGHT BUCCAL MUCOSA [[id number] +1 more] 06/20/2025 9:46 AM EST - 06/20/2025 3:02 PM EST Hospital Encounter [facility] Main OR [address] [place] [phone] Pascual Rodriguez, DMD Dental caries on smooth surface penetrating into dentin; Benign neoplasm of unspecified part of mouth; Cracked tooth Discharge Disposition: Home or Self Care from Last 3 Months Surgical History Surgery Date Site/Laterality Comments FOOT SURGERY UPPER GASTROINTESTINAL ENDOSCOPY COLONOSCOPY Medical History Medical History Date Comments Atrial fibrillation ([facility] V24, [facility] V28) Reactive airway disease Shortness of breath Hiatal hernia Hypertension Asthma Sleep apnea CHF (congestive heart failure) ([facility] V24, [facility] V28) HL (hearing loss) Social History Tobacco Use Types Packs/Day Years Used Date Smoking Tobacco: Former Cigarettes Tobacco Cessation:Counseling Given: Not Answered Alcohol Use Standard Drinks/Week Comments Not Currently 0 (1 standard drink = 0.6 oz pur e alcohol) Interpersonal Safety Answer Date Record ed Physical Abuse Unrecognized value 06/20/2025 Verbal Abuse Unrecognized value 06/20/2025 Comments No Sex and Gender Information Value Date Recorded Sex Assigned at Female 05/09/2025 1:15 PM EDT Legal Sex Female 12:42 PM EDT Gender Identity Not on file Sexual Orientation Not on file Obstetrics History Last Filed Vital Signs Vital Sign Reading Time Taken Comments Blood Pressure 159/96 06/20/2025 2:13 PM EST Pulse 127 06/20/2025 2:13 PM EST Temperature 36.1 C (97 F) 06/20/2025 2:13 PM EST Respiratory Rate 16 06/20/2025 2:13 PM EST Oxygen Saturation 93% 06/20/2025 2:13 PM EST Inhaled Oxygen Concentration - - Weight 64.9 kg (143 lb) 06/20/2025 10:21 AM EST Height 149.9 cm (4' 11 ) 06/20/2025 10:21 AM EST Body Mass Index 28.88 06/20/2025 10:21 AM EST Plan of Treatment Health Maintenance Due Date Last Done Comments DTaP,Tdap,and Td Vaccines (1 - Tdap) 1959 Pneumococcal Vaccine: 50+ Ye ars (1 of 2 - PCV) 1959 Zoster Vaccines (1 of 2) 1990 RSV Immunization Adult Patie nts (1 - 1-dose 75+ series) 2015 Depression Screening 08/09/2024 COVID-19 Vaccine (1 - 2024-2 6 season) 2025 Influenza Vaccine (#1) 2025 Medicare Annual Wellness Visit 04/26/2025 Osteoporosis Screening (Bone Density Screening) 04/26/2025 Social Influencers of Health Screening 04/26/2025 Falls Risk Assessment 06/20/2026 06/20/2025 HIB Vaccines Aged Out No longer eligi [...] Type Associated Problems Recent Progress Patient-Stated? Author Autogenerat ed Goal Care Plan Autogenerated Problem No [employer] Implanted Type Area Court Interpreter Device Identifier Shelf Expiration Date Model / Serial / Lot Sponge Surgifoam Gel 12 X 7mm - Sn/A - [id number] Implanted:Qty: 1 on 06/20/2025 by Pascual Rodriguez DMD at [facility] Hemostasis Right: Tooth [employer] [id number] 10/28/20261971 / N/A / [id number] Procedures Procedure Name Priority Date/Time Associated Diagnosis Comments TISSUE EXAM Routine 06/20/2025 12:44 PM EST Dental caries on smooth surface penetrating into dentin Benign neoplasm of unspecified part of mouth Cracked tooth TH AN ENDOTRACHEAL(NO CHARGE) Routine 06/20/2025 12:31 PM EST IA EXCISION LESION MUCOSA & SUBMUCOSA VESTIBULE MOUTH W/ SIMPLE REPAIR 06/20/2025 12:08 PM EST Dental caries on smooth surface penetrating into dentin Benign neoplasm of unspecified part of mouth Cracked tooth Special Needs TIME CHANGE VIA PHONE W/VICKEY HAYWARD 06/05 IA EXTRACTION ERUPTED TOOTH OR EXPOSED ROOT 06/20/2025 12:08 PM EST Dental caries on smooth surface penetrating into dentin Benign neoplasm of unspecified part of mouth Cracked tooth Special Needs TIME CHANGE VIA PHONE W/VICKEY HAYWARD 06/05 PROCEDURAL ECG Routine 06/20/2025 11:51 AM EST from Last 3 Months Results * Tissue exam (06/20/2025 12:44 PM EST) Final Diagnosis Right buccal mucosa-excisio n: -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 Other, BENIGN NEOPLASM RIGHT BUCCAL MUCOSA: Labeled benign ne other . Received in formalin is a soft to rubbery, pink to red, glistening, disrupted 1.5 x 0.8 x 0.8 cm potentially cystic portion of tissue with minimal attached adipose tissue. The specimen is trisected and submitted in entirety in one cassette three pieces. TS 06/21/2025 10:50 AM EST [facility] Disclaimer Unless otherwise specified, all tissue is 10% NB formalin fixed and paraffin embedded. 06/21/2025 10:50 AM EST [facility] Tissue Topography unknown / Unknown 06/20/2025 12:44 PM EST 06/20/2025 2:14 PM EST Pascual Rodriguez DMD LAB PATHOLOGY ORDERABLE S Final Result [facility] [address] [place] [address], [place] [phone] * TH AN ENDOTRACHEAL(NO CHARGE) (06/20/2025 12:31 PM EST) Shannen Cage SRNA - 06/20/2025 12:31 PM EST ELVER Barksdale 06/20/2025 12:32 PM General Information and Staff Patient location during procedure: OR Performed by: ELVER Barksdale Authorized by: Reymundo Collazo MD Intubation Airway not difficult Reason: elective Final Airway Details Successful airway: ETT Cuffed: yes Successful intubation technique: direct laryngoscopy Adjuncts used in placement: intubating stylet Endotracheal tube insertion site: oral Blade: Javier Blade size: #3 ETT size (mm): 7.0 Cormack-Lehane Classification: grade IIa - partial view of glottis Placement verified by: chest auscultation, capnometry and palpation of cuff Cuff volume (mL): 8 Measured from: lips ETT to lips (cm): 21 Final airway type: endotracheal airway Indications and Patient Condition Indications for airway management: anesthesia and airway protection Sedation level: Yes Preoxygenated: yesSoft Tissue Damage: No Dentition Unchanged: Yes Patient position: sniffing Mask difficulty assessment: 1 - vent by mask us Reymundo Collazo MD ANESTHESIA ORDERABLES Final Re sult * ECG 12 lead - Procedural (No Charge) (06/20/2025 11:51 AM EST) Ventricular Rate ECG 79 BPM GEMUSE Atrial Rate 62 BPM GEMUSE QRS Duration 78 ms GEMUSE Q-T Interval 396 ms GEMUSE QTc 454 ms GEMUSE R [place] 5 degrees GEMUSE T [place] 27 degrees GEMUSE ECG Interpretation Atrial fibrillation Nonspecific T wave abnormality Abnormal ECG No previous ECGs available Confirmed by VANESSA HERNANDEZ ([id number]) on 06/20/2025 10:27:27 PM GEMUSE 06/20/2025 11:5 1 AM EST 06/20/2025 10:27 PM EST us Reymundo Collazo MD ECG ORDERABLES Final Result GEMUSE from Last 3 Months Additional Health Concerns Active Problems Noted Date Diagnosed Date Autogenerated Problem 06/21/2025 Insurance MEDICARE [facility] Care Teams Project Geologist Relationship Specialty Start Date End Date Zena Mcgee MD [address] [place] [address] [address] [facility] [place] [address] PCP - General Internal Medicine 05/09/25
== END 2025-06-26 15:23 | disposition left against medical advice (07) ==
PROVIDERS: Physician Assistant Medical; Emergency Provider Emergency Medicine Emergency Medical Services; PCP Internal Medicine
DX: R06.00 Dyspnea, unspecified (principal); J44.9 Chronic obstructive pulmonary disease, unspecified; I10 Essential (primary) hypertension; I48.0 Paroxysmal atrial fibrillation; Z79.01 Long term (current) use of anticoagulants; Z98.890 Other specified postprocedural states; Z88.8 Allergy status to other drugs, medicaments and biological substances
CPT/HCPCS: 71046; 80048; 80076; 83735; 83880; 84484; 85025; 87637; 93005; 94640; 99284; J8540

== ENCOUNTER → 2025-06-26 10:51 | Outpatient (BNV) | payer MEDICARE, SELFPAY | PROVIDERS: Emergency Provider Emergency Medicine Emergency Medical Services; PCP Internal Medicine; Visit Provider Internal Medicine | DX: I48.91 Unspecified atrial fibrillation (principal) | CPT/HCPCS: 93010 ==

== ENCOUNTER → 2025-06-26 10:51 | Outpatient (BNV) | payer MEDICARE, SELFPAY | PROVIDERS: Emergency Provider Emergency Medicine Emergency Medical Services; PCP Internal Medicine; Visit Provider Radiology Diagnostic Radiology | DX: J84.9 Interstitial pulmonary disease, unspecified (principal); K44.9 Diaphragmatic hernia without obstruction or gangrene | CPT/HCPCS: 71046 ==